=== PATIENT | male | born 1940 | race Caucasian/White ===

== ENCOUNTER 2016-07-24 16:51 | Observation (INO) | payer MEDICARE ==
[~2016-07-24] VITALS: Ht 180.3 cm; Wt 118.0 kg
[~2016-07-24 16:51] MED LIST: ATOR40TA PO; CARV12.52 PO; DUONI NEB; FOLI1 PO; FURO40TA PO; LEVA750T PO; OXYC5 PO; POLY119S PO; PRED10 PO; SERT-129 PO; SPIR25TA PO; SYNT175T; TAB-TAB PO; WARF-20; Z.0.WHEELSTD
[2016-07-24 17:18] VITALS: BP 129/79; TEMP 96.7; O2SAT 96
[2016-07-24] MEDS ORDERED: MIRA3350 PO (18:14)
[2016-07-24] MEDS ORDERED: LEVO.2 PO (18:16)
[2016-07-24] MEDS ORDERED: SPIR25TA PO (18:16)
[2016-07-24] MEDS ORDERED: COUM4TAB PO (18:16)
[2016-07-24] MEDS ORDERED: ATOR40TA16 PO (18:16)
[2016-07-24] MEDS ORDERED: SERT-129 PO (18:16)
[2016-07-24] MEDS ORDERED: FURO40TA PO (18:16)
[2016-07-24] MEDS ORDERED: FOLI1TAB4 PO (18:18)
[2016-07-24] MEDS ORDERED: CARV12.52 PO (18:18)
[2016-07-24] MEDS ORDERED: ASPIRIN 81 MG CHEW TAB PO ONE (18:30)
[2016-07-24] MEDS ORDERED: SODIUM CHLORIDE 0.9% FLUSH 5 ML FLUSH IVF PRN ×2 (18:30→20:00)
--- NOTE | 2016-07-24 18:33 | PD ---
HPI Chief Complaint: Chest Pain Time Seen by Provider: 18:12 Travel History International Travel<30 days: No Contact w/Intl Traveler<30days: No Traveled to known affect area: No History of Present Illness HPI The patient is a 76-year-old male who presents emergency department via EMS for chest pain. The patient was sitting in a chair, his [place], working when he developed substernal chest pain. The chest pain was substernal , pressure, described as "heaviness ", nonradiating, associated with mild shortness of breath. The patient denied any nausea, vomiting, or diaphoresis. The patient states he called EMS and when they arrived, they gave him nitroglycerin, which brought his pain from a 610 to a /10. The patient states his pain is now resolved. The patient does have a history of hypertension, hyperlipidemia, DVT, and pulmonary embolism. The patient quit smoking in 1978. The patient denies any known history of coronary artery disease and thinks he may of had a cardiac catheterization somewhere between 5- 10 years ago. The patient's primary physician is Dr. Telles and his sheet metal welder is Dr. Kennedy. The patient is currently on Coumadin for his history of DVT. Patient does not take aspirin daily. The symptoms are moderate , no known exacerbating factors, but alleviated with nitroglycerin sublingual. The patient also states he recently finished a course of antibiotics and Medrol Dosepak for bronchitis. PFSH Past Medical History Hx Anticoagulant Therapy: Yes Arthritis: Yes Asthma: No Atrial Fibrillation: Yes Blood Disorders: No Anxiety: Yes Depression: No (HX OF) Heart Rhythm Problems: Yes (irregular heartbeat, a.FIB) Cancer: No Cardiovascular Problems: Yes High Cholesterol: Yes Chemotherapy: No Chest Pain: No Congestive Heart Failure: Yes COPD: Yes Cerebrovascular Accident: Yes (1995) Diabetes: No Diminished Hearing: No Deep Vein Thrombosis: Yes Endocrine: Yes Gastrointestinal Disorders: Yes GERD: No Genitourinary: Yes (HEMATURIA POST TURP 12/2011) Hepatitis: No Hiatal Hernia: No Hypertension: Yes Immune Disorder: No Implanted Vascular Access Dvce: No Medical other: Yes (HX STROKE) Musculoskeletal: Yes Neurologic: Yes (CVA 1995 LEFT SIDE WEAKNESS) Psychiatric: No Reproductive: No Respiratory: Yes Migraines: No Radiation Therapy: No Seizures: No Sleep Apnea: Yes (DOES NOT WEAR CPAP) Thyroid Disease: Yes (parts have been removed) Ulcer: No PNEUMOCCOCAL Vaccine (Year): 1 Past Surgical History Abdominal Surgery: Yes (INGUINAL HERNIA REPAIR) AICD: No Cardiac Surgery: Yes (VENOUS STRIPPING) Endocrine Surgery: Yes (THYROID X 2) Eye Surgery: Yes (CATARACTS) Genitourinary Surgery: Yes (TURP) Hysterectomy: No Neurologic Surgery: No Pacemaker: No Thoracic Surgery: Yes (RIGHT LUNG LOBECTOMY - BENIGN TUMOR) Other Surgery: Yes (THYROID SX) Social History Alcohol Use: Yes (daily 1 liquor drink) Tobacco Use: No Substance Use: No Allergies-Medications (Allergen,Severity, Reaction): Coded Allergies: *MDRO Multi-Drug Resistant Organism (Verified Adverse Reaction, Unknown, 03/30/16) MRSA (leg wound) - 03/2012 Reported Meds & Prescriptions Reported Meds & Active Scripts Active Reported Folate (Folic Acid) 1 Mg Tab 1 Mg PO DAILY Carvedilol 12.5 Mg Tab 12.5 Mg PO BID Coumadin (Warfarin) 4 Mg Tab 4.5 Mg PO DAILY Spironolactone 25 Mg Tab 25 Mg PO DAILY Synthroid (Levothyroxine Sodium) 200 Mcg Tab 200 Mcg PO DAILY Furosemide 40 Mg Tab 40 Mg PO DAILY Atorvastatin (Atorvastatin Calcium) 40 Mg Tab 40 Mg PO HS Sertraline (Sertraline HCl) 100 Mg Tab 100 Mg PO DAILY Miralax (Polyethylene Glycol 3350) 1 Pow Pow 1 Cap PO DAILY Review of Systems Except as stated in HPI: all other systems reviewed are Neg General / Constitutional: No: Fever HENT: No: Lightheadedness Cardiovascular: Positive: Chest Pain or Discomfort, Irregular Rhythm, No: Tachycardia, Diaphoresis, Dyspnea on exertion Respiratory: Positive: Shortness of Breath Gastrointestinal: No: Nausea, Vomiting, Abdominal Pain Musculoskeletal: No: Edema Physical Exam Narrative GENERAL: Awake, alert, pleasant 76-year-old male who appears his stated age and is in no acute respiratory distress. SKIN: Warm and dry. HEAD: Atraumatic. Normocephalic. EYES: Pupils equal and round. No scleral icterus. No injection or drainage. ENT: No nasal bleeding or discharge. Mucous membranes pink and moist. NECK: Trachea midline. No JVD. CARDIOVASCULAR: Irregularly irregular with a heart rate in the 90s. No audible murmur. RESPIRATORY: No accessory muscle use. Scattered bilateral rhonchi. GASTROINTESTINAL: Abdomen soft, non-tender, nondistended. No rebound tenderness. MUSCULOSKELETAL: Bilateral lower extremity chronic venous stasis with superficial varicosities. Dorsalis pedal pulses intact bilaterally. NEUROLOGICAL: Awake and alert. No obvious cranial nerve deficits. Motor grossly within normal limits. Normal speech. PSYCHIATRIC: Appropriate mood and affect; insight and judgment normal. Data Data Last Documented VS Vital Signs Date Time Temp Pulse Resp B/P Pulse Ox O2 Delivery O2 Flow Rate FiO2 07/24/16 19:03 18 97 Room Air 07/24/16 19:01 85 07/24/16 19:00 131/86 07/24/16 17:18 96.7 Orders Electrocardiogram (07/24/16 ) Ckmb (Isoenzyme) Profile (07/24/16 18:21) Complete Blood Count With Diff (07/24/16 18:21) Comprehensive Metabolic Panel (07/24/16 18:21) Magnesium (Mg) (07/24/16 18:21) Prothrombin Time / Inr (Pt) (07/24/16 18:21) Act Partial Throm Time (Ptt) (07/24/16 18:21) Troponin I (07/24/16 18:21) Lipase (07/24/16 18:21) Chest, Single Ap (07/24/16 18:21) Ecg Monitoring (07/24/16 18:21) Bilateral Bp Monitoring (07/24/16 18:21) Iv Access Insert/Monitor (07/24/16 18:21) Oximetry (07/24/16 18:21) Oxygen Administration (07/24/16 18:21) Aspirin Chew (Aspirin Chew) (07/24/16 18:30) Sodium Chloride 0.9% Flush (Ns Flush) (07/24/16 18:30) Labs Laboratory Tests Test 07/24/16 18:28 White Blood Count 9.1 TH/MM3 Red Blood Count 4.81 MIL/MM3 Hemoglobin 15.3 GM/DL Hematocrit 45.1 % Mean Corpuscular Volume 93.7 FL Mean Corpuscular Hemoglobin 31.7 PG Mean Corpuscular Hemoglobin 33.9 % Concent Red Cell Distribution Width 15.2 % Platelet Count 186 TH/MM3 Mean Platelet Volume 7.6 FL Neutrophils (%) (Auto) 70.1 % Lymphocytes (%) (Auto) 19.4 % Monocytes (%) (Auto) 9.3 % Eosinophils (%) (Auto) 0.6 % Basophils (%) (Auto) 0.6 % Neutrophils # (Auto) 6.4 TH/MM3 Lymphocytes # (Auto) 1.8 TH/MM3 Monocytes # (Auto) 0.8 TH/MM3 Eosinophils # (Auto) 0.1 TH/MM3 Basophils # (Auto) 0.1 TH/MM3 CBC Comment AUTO DIFF Prothrombin Time 40.6 SEC Prothromb Time International 3.5 RATIO Ratio Activated Partial 37.1 SEC Thromboplast Time [facility] Medical Decision Making Medical Screen Exam Complete: Yes Emergency Medical Condition: Yes Medical Record Reviewed: Yes Interpretation(s) EKG reveals atrial fibrillation with a rate in 93. Q wave noted in lead 3 and aVF. S1Q3T3 noted. Laboratory Tests Test 07/24/16 18:28 White Blood Count 9.1 TH/MM3 Red Blood Count 4.81 MIL/MM3 Hemoglobin 15.3 GM/DL Hematocrit 45.1 % Mean Corpuscular Volume 93.7 FL Mean Corpuscular Hemoglobin 31.7 PG Mean Corpuscular Hemoglobin 33.9 % Concent Red Cell Distribution Width 15.2 % Platelet Count 186 TH/MM3 Mean Platelet Volume 7.6 FL Neutrophils (%) (Auto) 70.1 % Lymphocytes (%) (Auto) 19.4 % Monocytes (%) (Auto) 9.3 % Eosinophils (%) (Auto) 0.6 % Basophils (%) (Auto) 0.6 % Neutrophils # (Auto) 6.4 TH/MM3 Lymphocytes # (Auto) 1.8 TH/MM3 Monocytes # (Auto) 0.8 TH/MM3 Eosinophils # (Auto) 0.1 TH/MM3 Basophils # (Auto) 0.1 TH/MM3 CBC Comment AUTO DIFF Prothrombin Time 40.6 SEC Prothromb Time International 3.5 RATIO Ratio Activated Partial 37.1 SEC Thromboplast Time Chest x-ray reveals slight right lung base atelectasis. Differential Diagnosis Differential diagnosis includes acute coronary syndrome, GERD, esophageal spasm , pancreatitis, pulmonary embolism, pericardial effusion, STEMI. Narrative Course IV was established, labs were drawn and sent, and the patient was placed on cardiac telemetry monitoring and continuous pulse oximetry monitoring. EKG was ordered and interpreted. Chest x-ray was ordered. The patient's pain had resolved with the nitroglycerin sublingual. However, patient was administered aspirin, 162 mg orally. PT/INR was sent to lab. The patient was signed out to the oncoming physician at 7 PM laboratory evaluation a chest x-ray pending. The patient will need 23 observation to the chest pain center if troponin is negative or full admission if troponin is positive with consultation to his sheet metal welder, Dr. Kennedy. Chest x-rays unremarkable. INR 3.5, I doubt pulmonary embolism. The patient was signed out to the oncoming physician at 7 PM with laboratory evaluation pending. The patient will be 23 hour observation/ admission for further evaluation and serial cardiac enzymes. Diagnosis Primary Impression: Chest pain Qualified Code: R07.9 - Chest pain, unspecified type Condition: Stable Abiel Hoffman MD Jul 24, 2016 18:33
[2016-07-24 19:00] VITALS: BP 131/86; PULSE 85; RESP 19; O2SAT 94
[2016-07-24 19:02] LABS: AUTOMATED NEUTROPHIL # 6.4 TH/MM3 (1.8-7.7); BASOPHIL # 0.1 TH/MM3 (0-0.2); BASOPHIL % 0.6 % (0.0-2.0); EOSINOPHIL # 0.1 TH/MM3 (0-0.4); EOSINOPHIL % 0.6 % (0.0-4.0); HEMATOCRIT 45.1 % (39.0-51.0); LYMPH % 19.4 % (9.0-44.0); LYMPHOCYTE # 1.8 TH/MM3 (1.0-4.8); MEAN CELL VOLUME 93.7 FL (80.0-100.0); MEAN CORPUSCULAR HEMOGLOBIN 31.7 PG (27.0-34.0); MEAN CORPUSCULAR HGB CONC 33.9 % (32.0-36.0); MONO % 9.3 % (0.0-8.0); NEUT % 70.1 % (16.0-70.0); PLATELET COUNT 186 TH/MM3 (150-450); RED BLOOD COUNT 4.81 MIL/MM3 (4.50-5.90); RED CELL DISTRIBUTION WIDTH 15.2 % (11.6-17.2); WHITE BLOOD COUNT 9.1 TH/MM3 (4.0-11.0)
[2016-07-24 19:03] VITALS: RESP 18; O2SAT 97
--- NOTE | 2016-07-24 19:04 | RADRPT ---
EXAM DATE/TIME: 07/24/2016 18:45 [facility] COMPARISON: CHEST SINGLE AP, March 24, 2016, 23:50. INDICATIONS : Chest pain. MEDICAL HISTORY : None. SURGICAL HISTORY : None. ENCOUNTER: Initial ACUITY: 1 day PAIN SCORE: 4/10 LOCATION: Chest, midline. FINDINGS: Slight right lung base atelectasis is seen. Heart and mediastinum have not changed. CONCLUSION: Slight right lung base atelectasis. Mart Cho MD on July 24, 2016 at 19:02 Board Certified Radiologist. This report was verified electronically.
[2016-07-24 19:11] LABS: APTT (PATIENT) 37.1 SEC (24.3-30.1); INTERNATIONAL NORMALIZED RATIO 3.5 RATIO; PROTHROMBIN TIME - PATIENT 40.6 SEC (9.8-11.6)
[2016-07-24 19:13] LABS: HEMO FLAGS AUTO DIFF
[2016-07-24 19:47] LABS: ALKALINE PHOSPHATASE 64 U/L (45-117); ALT (GPT) 29 U/L (12-78); ANION GAP 10 MEQ/L (5-15); AST (GOT) 18 U/L (15-37); BICARBONATE 28.4 MEQ/L (21.0-32.0); BLOOD UREA NITROGEN 21 MG/DL (7-18); CHLORIDE 101 MEQ/L (98-107); GLOMERULAR FILTRATION RATE 67 ML/MIN (>89); MAGNESIUM 1.9 MG/DL (1.5-2.5); POTASSIUM 3.9 MEQ/L (3.5-5.1); SODIUM (NA) 139 MEQ/L (136-145); TOTAL BILIRUBIN ADULT 0.8 MG/DL (0.2-1.0)
[2016-07-24 19:51] LABS: CREATINE KINASE 71 U/L (39-308)
[2016-07-24 19:58] LABS: PLATELET ESTIMATE SMEAR NORMAL (NORMAL); PLATELET MORPHOLOGY NORMAL (NORMAL); SCAN/DIFF AUTO DIFF CONFIRMED
[2016-07-24] MEDS ORDERED: CARVEDILOL 12.5 MG TAB PO ONE (20:15)
[2016-07-24] MEDS ORDERED: SERTRALINE HCL 100 MG TAB PO ONE (20:15)
[2016-07-24] MEDS ORDERED: ATORVASTATIN 40 MG TAB PO ONE (20:15)
--- NOTE | 2016-07-24 20:19 | PD ---
Data Data Last Documented VS Vital Signs Date Time Temp Pulse Resp B/P Pulse Ox O2 Delivery O2 Flow Rate FiO2 07/24/16 19:03 18 97 Room Air 07/24/16 19:01 85 07/24/16 19:00 131/86 07/24/16 17:18 96.7 Orders Electrocardiogram (07/24/16 ) Ckmb (Isoenzyme) Profile (07/24/16 18:21) Complete Blood Count With Diff (07/24/16 18:21) Comprehensive Metabolic Panel (07/24/16 18:21) Magnesium (Mg) (07/24/16 18:21) Prothrombin Time / Inr (Pt) (07/24/16 18:21) Act Partial Throm Time (Ptt) (07/24/16 18:21) Troponin I (07/24/16 18:21) Lipase (07/24/16 18:21) Chest, Single Ap (07/24/16 18:21) Ecg Monitoring (07/24/16 18:21) Bilateral Bp Monitoring (07/24/16 18:21) Iv Access Insert/Monitor (07/24/16 18:21) Oximetry (07/24/16 18:21) Oxygen Administration (07/24/16 18:21) Aspirin Chew (Aspirin Chew) (07/24/16 18:30) Sodium Chloride 0.9% Flush (Ns Flush) (07/24/16 18:30) Admit Order (Ed Use Only) (07/24/16 19:54) Labs Laboratory Tests Test 07/24/16 18:28 White Blood Count 9.1 TH/MM3 Red Blood Count 4.81 MIL/MM3 Hemoglobin 15.3 GM/DL Hematocrit 45.1 % Mean Corpuscular Volume 93.7 FL Mean Corpuscular Hemoglobin 31.7 PG Mean Corpuscular Hemoglobin 33.9 % Concent Red Cell Distribution Width 15.2 % Platelet Count 186 TH/MM3 Mean Platelet Volume 7.6 FL Neutrophils (%) (Auto) 70.1 % Lymphocytes (%) (Auto) 19.4 % Monocytes (%) (Auto) 9.3 % Eosinophils (%) (Auto) 0.6 % Basophils (%) (Auto) 0.6 % Neutrophils # (Auto) 6.4 TH/MM3 Lymphocytes # (Auto) 1.8 TH/MM3 Monocytes # (Auto) 0.8 TH/MM3 Eosinophils # (Auto) 0.1 TH/MM3 Basophils # (Auto) 0.1 TH/MM3 CBC Comment AUTO DIFF Differential Comment AUTO DIFF CONFIRMED Platelet Estimate NORMAL Platelet Morphology Comment NORMAL Red Cell Morphology Comment NORMAL Prothrombin Time 40.6 SEC Prothromb Time International 3.5 RATIO Ratio Activated Partial 37.1 SEC Thromboplast Time Sodium Level 139 MEQ/L Potassium Level 3.9 MEQ/L Chloride Level 101 MEQ/L Carbon Dioxide Level 28.4 MEQ/L Anion Gap 10 MEQ/L Blood Urea Nitrogen 21 MG/DL Creatinine 1.08 MG/DL Estimat Glomerular Filtration 67 ML/MIN Rate Random Glucose 80 MG/DL Calcium Level 8.0 MG/DL Magnesium Level 1.9 MG/DL Total Bilirubin 0.8 MG/DL Aspartate Amino Transf 18 U/L (AST/SGOT) Alanine Aminotransferase 29 U/L (ALT/SGPT) Alkaline Phosphatase 64 U/L Total Creatine Kinase 71 U/L Troponin I LESS THAN 0.02 NG/ML Total Protein 6.6 GM/DL Albumin 3.3 GM/DL Lipase 136 U/L MDM Supervised Visit with JULIANA: No Narrative Course Patient signed out to me by previous provider. Please see associated no for further details. In short patient is a 76 year male with history of HTN, HLD, DVT/PE here with substernal chest pain, heaviness with mild to minimal shortness of breath that started at rest. Patient was given aspirin and nitroglycerin with improvement per EMS. No known history of CAD, it has been several years since his last cardiac stress test. EKG with T-wave inversions in 3 and aVF. Patient signed out to me pending laboratory evaluation. Previous provider suspicion for PE was low, symptoms seem atypical for PE. Will await INR to risk stratify. If unremarkable otherwise, admit to chest pain center for cardiac stress testing. Chest x-ray and laboratory workup notable for INR slightly supratherapeutic at 3.5. Patient was recently on azithromycin which is likely what caused his INR to drift up. We will hold his Coumadin tonight. Otherwise patient is pain- free at this time. Patient will be admitted to chest pain center. Night meds were ordered. Diagnosis Primary Impression: Chest pain Qualified Code: R07.9 - Chest pain, unspecified type Condition: Kay Partida MD Jul 24, 2016 20:19
[2016-07-24 20:28] VITALS: BP 141/86; PULSE 78; RESP 19; O2SAT 96
[2016-07-24] MEDS ORDERED: ACETAMINOPHEN 500 MG CPLT PO PRN (21:00)
[2016-07-24] MEDS ORDERED: NITROGLYCERIN 0.4 MG SL 25 TABS/BTL SL PRN (21:00)
[2016-07-24] MEDS ORDERED: ONDANSETRON HCL 4 MG/2 ML VIAL IV PRN (21:00)
[2016-07-24] MEDS: SODIUM CHLORIDE 0.9% FLUSH 5 ML FLUSH IVF SCH (21:20)
[2016-07-24 22:38] LABS: CREATINE KINASE 73 U/L (39-308)
[2016-07-25] VITALS (13 sets, daily range): BP systolic 99–155; BP diastolic 67–94; PULSE 72–105; RESP 18–20; TEMP 96–98.1; O2SAT 95–98
[2016-07-25] MEDS: NITROGLYCERIN 2% OINT 1 GM PACKET TOP SCH ×4 (01:02→18:00)
[2016-07-25 01:25] LABS: CREATINE KINASE 64 U/L (39-308)
[2016-07-25] MEDS ORDERED: REGADENOSON INJ 0.4 MG/5 ML SYR ONE (11:05)
--- NOTE | 2016-07-25 13:06 | RADRPT ---
EXAM DATE/TIME: 07/25/2016 10:39 [facility] COMPARISON: No previous studies available for comparison. INDICATIONS : Susbternal chest pain with dyspnea. Angina. DOSE: 34.9 mCi Tc99m Myoview at stress. 10.8 mCi Tc99m Myoview at rest. 0.4 mg Lexiscan STRESS SYMPTOMS: Shortness of breath. EJECTION FRACTION: 45% MEDICAL HISTORY : Hypertension. Chronic obstructive pulmonary disease. Atrial fibrillation. SURGICAL HISTORY : Hernia repair, lobectomy, cataracts and thyroid surgery. ENCOUNTER: Initial ACUITY: 1 day PAIN SCALE: 6/10 LOCATION: Substernal chest TECHNIQUE: The patient underwent pharmacologic stress with infusion of prescribed dose. Continuous ECG tracing was monitored during stress. Gated SPECT imaging was performed after stress and conventional SPECT i maging was performed at rest. The examination was performed on a SPECT/CT scanner, both attenuation and non-corrected datasets were reviewed. FINDINGS: DISTRIBUTION: The maximum perfused segment at stress is in the anterior wall. PERFUSION STUDY: Small mild area of reversibility within the lateral wall whrer there is a predominantly fixed defect. GATED STUDY: There is global hypokinesia. CONCLUSION: Small area of reversibility with a probably fixed defect lateral wall likely infarct and small mery-i nfarct ischemia. RISK CATEGORY: Intermediate (1-3% Annual Mortality Rate) Jacques Busch MD on July 25, 2016 at 13:02 Board Certified Radiologist. This report was verified electronically.
[2016-07-25] MEDS: SODIUM CHLORIDE 0.9% FLUSH 5 ML FLUSH IVF SCH ×2 (13:19→20:32)
[2016-07-25] MEDS: FUROSEMIDE 40 MG TAB PO SCH (13:19)
[2016-07-25] MEDS: CARVEDILOL 12.5 MG TAB PO SCH ×2 (13:20→20:33)
[2016-07-25] MEDS: SPIRONOLACTONE 25 MG TAB PO SCH (13:20)
[2016-07-25] MEDS: LEVOTHYROXINE SODIUM 200 MCG TAB PO SCH (13:20)
[2016-07-25] MEDS: SERTRALINE HCL 100 MG TAB PO SCH (13:20)
--- NOTE | 2016-07-25 14:28 | TR ---
Date Performed: 07/25/2016 Time Performed: 11:18:11 DOCTOR: Zeus Taveras DRUG LIST: CLINICAL HISTORY: CHEST PAIN REASON FOR TEST: CHEST PAIN REASON FOR ENDING: OBSERVATION: CONCLUSION: Lexiscan stress test was performed under standard four minute protocol. Radionuclide was injected one minute prior to ending the test. Developed shortness of breath. Atrial fibrillation is present throughout the test. No electrocardiographic abnormalities were present to suggest ischem ia. Recovery was quick and uneventful with resolution of shortness of breath. Nuclear imaging and int erpretation are pending. COMMENTS:
[2016-07-25] MEDS: ASPIRIN 325 MG TAB PO SCH ×2 (17:09→17:41)
[2016-07-25] MEDS ORDERED: RESP: ALBUTEROL 2.5 MG/IPRATROPIUM 0.5 MG NEB (PRN) NEB (17:15)
[2016-07-25] MEDS ORDERED: SODIUM CHLORIDE 0.65% NASAL SPRAY 45 ML BTL EACH NARE PRN (17:30)
[2016-07-25] MEDS ORDERED: BENZONATATE 100 MG CAP PO PRN (17:30)
[2016-07-25] MEDS: POLYETHYLENE GLYCOL 17 GM PKG PO SCH (17:39)
[2016-07-25] MEDS: LISINOPRIL 5 MG TAB PO SCH (17:39)
[2016-07-25] MEDS: ATORVASTATIN 40 MG TAB PO SCH (20:33)
[2016-07-26] VITALS (7 sets, daily range): BP systolic 103–126; BP diastolic 57–77; PULSE 71–92; RESP 18–20; TEMP 96.2–98.8; O2SAT 94–98
[2016-07-26] MEDS: NITROGLYCERIN 2% OINT 1 GM PACKET TOP SCH ×4 (01:52→18:00)
[2016-07-26] MEDS: LEVOTHYROXINE SODIUM 200 MCG TAB PO SCH (05:34)
[2016-07-26 05:40] LABS: INTERNATIONAL NORMALIZED RATIO 1.9 RATIO; PROTHROMBIN TIME - PATIENT 22.1 SEC (9.8-11.6)
[2016-07-26] MEDS: SODIUM CHLORIDE 0.9% FLUSH 5 ML FLUSH IVF SCH ×2 (09:43→22:09)
[2016-07-26] MEDS: SPIRONOLACTONE 25 MG TAB PO SCH (09:44)
[2016-07-26] MEDS: SERTRALINE HCL 100 MG TAB PO SCH (09:44)
[2016-07-26] MEDS: POLYETHYLENE GLYCOL 17 GM PKG PO SCH (09:44)
[2016-07-26] MEDS: FUROSEMIDE 40 MG TAB PO SCH (09:44)
[2016-07-26] MEDS: CARVEDILOL 12.5 MG TAB PO SCH ×2 (09:44→21:00)
[2016-07-26] MEDS: FOLIC ACID 1 MG TAB PO SCH (09:44)
[2016-07-26] MEDS: LISINOPRIL 5 MG TAB PO SCH (09:46)
--- NOTE | 2016-07-26 13:06 | EKG ---
Date Performed: 07/24/2016 Time Performed: 21:27:42 PTAGE: 76 years EKG: ATRIAL FIBRILLATION INFERIOR MYOCARDIAL INFARCTION Since previous tracing, no significant c hange noted ABNORMAL ECG PREVIOUS TRACING : 07/24/2016 17.59 DOCTOR: Panchito Kennedy Interpretating Date/Time 07/26/2016 13:05:16
--- NOTE | 2016-07-26 13:06 | EKG ---
Date Performed: 07/24/2016 Time Performed: 17:59:14 PTAGE: 76 years EKG: ATRIAL FIBRILLATION INFERIOR MYOCARDIAL INFARCTION Since previous tracing, no significant c hange noted ABNORMAL ECG PREVIOUS TRACING : 06/23/2012 19.28 DOCTOR: Panchito Kennedy Interpretating Date/Time 07/26/2016 13:05:03
--- NOTE | 2016-07-26 13:06 | EKG ---
Date Performed: 07/25/2016 Time Performed: 00:36:22 PTAGE: 76 years EKG: ATRIAL FIBRILLATION INFERIOR MYOCARDIAL INFARCTION Since previous tracing, no significant c hange noted ABNORMAL ECG PREVIOUS TRACING : 07/24/2016 21.27 DOCTOR: Panchito Kennedy Interpretating Date/Time 07/26/2016 13:05:32
[2016-07-26] MEDS ORDERED: SODIUM CHLOR 0.9% 1000 ML INJ 1,000 ML IV SCH ×2 (13:32→13:34)
--- NOTE | 2016-07-26 13:34 | PD.CONS ---
HPI Service Cardiology physicians Consult Requested By Reason for Consult CP, abnormal stress test Primary Care Physician Samuel Cruz MD History of Present Illness The patient is a 76 year old male with a cardiac history of atrial fibrillation on coumadin, CVA, HLD, diastolic CHF and HTN who presented to the hospital with a sudden onset of midsternal chest tightness that resolved with nitroglycerine and a two week history of increased SOB from baseline. He was being treated by his PCP for bronchitis with azithromycin. His EKG shows old inferior MO. Nuclear stress test is abnormal. Today, on evaluation, he denies CP at rest. He has increased SOB from baseline. INR was 3.5 on admission. Currently 1.9. ( Janell Valdes) Review of Systems Consitutional: DENIES: Fatigue, Fever, Chills, Weight gain, Weight loss Eyes: DENIES: Amaurosis Fugax, Change in vision HEENT: DENIES: Lightheadedness, Change in hearing Respiratory: COMPLAINS OF: Shortness of breath, DENIES: See HPI, Cough, Snoring, Wheezing, Sputum production Cardiovascular: COMPLAINS OF: Chest pain, DENIES: See HPI, Palpitations, Syncope, Tachycardia Gastrointestinal: DENIES: Nausea, Vomiting, Change in bowel habits, Reflux, Bloody stools, Melena Genitourinary: DENIES: Urinary incontinence, Difficulty voiding Integumentary: DENIES: Rash Neurologic: COMPLAINS OF: Poor Balance, DENIES: Tingling or numbness, Memory problems, Stroke symptoms Musculoskeletal: COMPLAINS OF: Back pain, DENIES: Joint pain, Muscle pain, Limited range of motion Psychiatric: DENIES: Anxiety, Depression, Sleep disturbances Hematologic: DENIES: Bruising tendencies, Bleeding tendencies Endocrine: DENIES: Weight gain, Weight loss, Thyroid disease (Janell Valdes ) Past Family Social History Allergies: Coded Allergies: *MDRO Multi-Drug Resistant Organism (Verified Adverse Reaction, Unknown, 03/30/16) MRSA (leg wound) - 03/2012 Past Medical History See HPI Past Surgical History Hernia repair TURP Thyroid surgery Lung surgery Reported Medications Reviewed Active Ordered Medications Current Medications Medications (Trade) Dose Ordered Sig/Fanny Route Start Time Stop Time Status Last Admin (NS Flush) 2 ml UNSCH PRN IVF 07/24/16 18:30 (NS Flush) 2 ml UNSCH PRN IVF 07/24/16 20:00 (NS Flush) 2 ml BID IVF 07/24/16 21:00 07/26/16 09:43 (Tylenol) 500 mg Q4H PRN PO 07/24/16 21:00 (Zofran Inj) 4 mg Q6H PRN IV 07/24/16 21:00 (Nitroglycerin 2% Oint) 1 inch Q6HR TOP 07/25/16 00:00 07/25/16 01:02 (Nitrostat Sl) 0.4 mg Q5M PRN SL 07/24/16 21:00 (Lipitor) 40 mg HS PO 07/25/16 21:00 07/25/16 20:33 (Coreg) 12.5 mg BID PO 07/25/16 11:00 07/26/16 09:44 (Folate) 1 mg DAILY PO 07/26/16 09:00 07/26/16 09:44 (Lasix) 40 mg DAILY PO 07/25/16 09:45 07/26/16 09:44 (Synthroid) 200 mcg DAILY@06 PO 07/25/16 11:00 07/26/16 05:34 (Zoloft) 100 mg DAILY PO 07/25/16 11:00 07/26/16 09:44 (Aldactone) 25 mg DAILY PO 07/25/16 11:00 07/26/16 09:44 (Aspirin) 325 mg DAILY PO 07/25/16 14:30 07/25/16 17:09 (Miralax) 17 gm DAILY PO 07/25/16 17:15 07/26/16 09:44 (Prinivil) 5 mg DAILY PO 07/25/16 17:15 07/26/16 09:46 (Tessalon) 100 mg TID PRN PO 07/25/16 17:30 ([place]) 2 spray Q4H PRN EACH NARE 07/25/16 17:30 Family History non contributory Social History Drinks two drinks per day (Janell Valdes) Physical Exam Vital Signs Vital Signs Date Time Temp Pulse Resp B/P Pulse Ox O2 Delivery O2 Flow Rate FiO2 07/26/16 11:45 96.7 71 18 103/57 94 07/26/16 08:07 96.3 77 18 126/77 95 07/26/16 08:00 75 07/26/16 04:28 98.6 79 20 116/77 95 07/25/16 23:51 98.0 89 20 117/69 98 07/25/16 20:00 97.8 90 20 99/67 96 07/25/16 20:00 105 07/25/16 19:45 96 07/25/16 16:49 96.4 100 18 155/81 96 Physical Exam GENERAL: Middle aged male, ambulating in his room, ambulated with cane SKIN: Warm and dry. HEAD: Atraumatic. Normocephalic. EYES: Pupils equal and round. No scleral icterus. No injection or drainage. ENT: No nasal bleeding or discharge. Mucous membranes pink and moist. NECK: Trachea midline. CARDIOVASCULAR: Regular rate and rhythm. RESPIRATORY: No accessory muscle use. Clear to auscultation. Breath sounds equal bilaterally. GASTROINTESTINAL: Abdomen soft, non-tender, nondistended. MUSCULOSKELETAL: Extremities without clubbing, cyanosis, or edema. No obvious deformities. NEUROLOGICAL: Awake and alert. No obvious cranial nerve deficits. Motor grossly within normal limits. Five out of 5 muscle strength in the arms and legs. Normal speech. PSYCHIATRIC: Appropriate mood and affect; insight and judgment normal. Laboratory Laboratory Tests Test 07/26/16 04:50 Prothrombin Time 22.1 Prothromb Time International 1.9 Ratio (Janell Valdes) Result Diagram: 07/24/16182707/24/161827 Imaging Last 72 hours Impressions Myocardial Perfusion Scan Nuc Med 07/25/16 0000 Signed Impressions: Service Date/Time: Monday, July 25, 2016 10:39 - CONCLUSION: Small area of reversibility with a probably fixed defect lateral wall likely infarct and small mery-infarct ischemia. RISK CATEGORY: Intermediate (1-3%% Annual Mortality Rate) Jacques Busch MD Chest X-Ray 07/24/161820 Signed Impressions: Service Date/Time: Sunday, July 24, 2016 18:45 - CONCLUSION: Slight right lung base atelectasis. Mart Cho MD (Janell Valdes) Assessment and Plan Assessment and Plan ASSESSMENT Chest pain- abnormal cardiac stress test. Pending cardiac cath Atrial fibrillation with history of CVA- on coumadin prior to admission. INR 1.9 today. Chronic diastolic CHF HTN HLD Obesity Bronchitis PLAN Will plan to complete cardiac cath tomorrow afternoon. Hold NPO tonight. Continue to hold coumadin. Check cardiac echo Continue BB, ASA and statin Nitro PRN for chest pain Patient seen and evaluated by Dr kennedy. (Janell Valdes) Assessment and Plan The exam, history, and the medical decision-making described in the above note were completed with the assistance of the mid-level provider. I reviewed and agree with the findings presented. I attest that I had a [id number] encounter with the patient on the same day, and personally performed and documented my assessment and findings in the medical record.Risks of cath stent cva foreseen and unforeseen complications reviewed in detail pt appears to understand, will proceed in am. HJ (Panchito Kennedy MD) Janell Valdes Jul 26, 2016 13:34 Panchito Kennedy MD Jul 28, 2016 15:01
[2016-07-26] MEDS ORDERED: diphenhydrAMINE HCL 50 MG CAP PO SCH (13:45)
[2016-07-26] MEDS ORDERED: ASPIRIN 325 MG TAB PO SCH ×2 (13:45)
[2016-07-26] MEDS ORDERED: diphenhydrAMINE HCL 50 MG/ML VIAL IV SCH (13:45)
[2016-07-26] MEDS ORDERED: DIAZEPAM 5 MG TAB PO SCH (13:45)
[2016-07-26] MEDS ORDERED: MIDAZOLAM HCL 2 MG/2 ML VIAL IV SCH (13:45)
--- NOTE | 2016-07-26 15:07 | HHI.PR ---
Subjective Remarks Patient eating soup, resting in bed, no chest pain no short of breath, no fever or chills or lightheaded or headache or dizziness Seen by cardiology, stress test is done plan for heart catheter tomorrow Objective Vitals Vital Signs Date Time Temp Pulse Resp B/P Pulse Ox O2 Delivery O2 Flow Rate FiO2 07/26/16 11:45 96.7 71 18 103/57 94 07/26/16 08:07 96.3 77 18 126/77 95 07/26/16 08:00 75 07/26/16 04:28 98.6 79 20 116/77 95 07/25/16 23:51 98.0 89 20 117/69 98 07/25/16 20:00 97.8 90 20 99/67 96 07/25/16 20:00 105 07/25/16 19:45 96 07/25/16 16:49 96.4 100 18 155/81 96 Result Diagram: 07/24/16182707/24/161827 Objective Remarks GENERAL: This is a well-nourished, well-developed patient, in no apparent distress. SKIN: No rashes, warm and dry HEAD: Atraumatic. Normocephalic. EYES: Pupils equal round and reactive. Extraocular motions intact. No scleral icterus. ENT: Nose without bleeding, or drainage, Airway patent. NECK: Trachea midline. Supple CARDIOVASCULAR: Regular rate and rhythm without murmurs, gallops, or rubs. RESPIRATORY: Fair air entry bilaterally. No wheezes, rales, or rhonchi. GASTROINTESTINAL: Abdomen soft, non-tender, nondistended. Positive bowel sounds MUSCULOSKELETAL: Extremities without clubbing, cyanosis, or edema. Pedal pulses appreciated NEUROLOGICAL: Awake and alert. Moves all extremity. Normal speech.no focal neurological deficit Procedures Nuclear Stress test A/P Assessment and Plan Chest pain rule out ACS History of COPD History of recent pneumonia History of A. fib heart rate control Hypertension Hyperlipidemia Hypothyroidism DVT prophylaxis Plan: Cardiology following status post positive stress test nuclear, plan for heart catheter tomorrow Resume home meds rec for the rest of the medical problem O2 DuoNeb as needed for short of breath Vasotec and clonidine as needed for blood pressure above 160/90 SCD and heparin for DVT prophylaxis Moncho Avelar MD Jul 26, 2016 15:07
[2016-07-26] MEDS: ATORVASTATIN 40 MG TAB PO SCH (22:08)
[2016-07-27 00:11] VITALS: BP 109/65; PULSE 88; RESP 18; TEMP 98; O2SAT 98
[2016-07-27 03:18] VITALS: BP 113/71; PULSE 77; RESP 21; TEMP 98; O2SAT 98
[2016-07-27 04:32] LABS: AUTOMATED NEUTROPHIL # 7.9 TH/MM3 (1.8-7.7); BASOPHIL # 0.1 TH/MM3 (0-0.2); BASOPHIL % 0.7 % (0.0-2.0); EOSINOPHIL # 0.2 TH/MM3 (0-0.4); EOSINOPHIL % 1.6 % (0.0-4.0); HEMATOCRIT 48.6 % (39.0-51.0); LYMPH % 15.8 % (9.0-44.0); LYMPHOCYTE # 1.7 TH/MM3 (1.0-4.8); MEAN CELL VOLUME 93.7 FL (80.0-100.0); MEAN CORPUSCULAR HEMOGLOBIN 32.1 PG (27.0-34.0); MEAN CORPUSCULAR HGB CONC 34.3 % (32.0-36.0); MONO % 7.6 % (0.0-8.0); NEUT % 74.3 % (16.0-70.0); PLATELET COUNT 173 TH/MM3 (150-450); RED BLOOD COUNT 5.18 MIL/MM3 (4.50-5.90); RED CELL DISTRIBUTION WIDTH 15.2 % (11.6-17.2); WHITE BLOOD COUNT 10.6 TH/MM3 (4.0-11.0)
[2016-07-27 04:46] LABS: INTERNATIONAL NORMALIZED RATIO 1.7 RATIO; PROTHROMBIN TIME - PATIENT 19.6 SEC (9.8-11.6)
[2016-07-27 04:50] LABS: HEMO FLAGS AUTO DIFF
[2016-07-27 05:08] LABS: BICARBONATE 31.4 MEQ/L (21.0-32.0)
[2016-07-27] MEDS: NITROGLYCERIN 2% OINT 1 GM PACKET TOP SCH ×3 (05:45→11:54)
[2016-07-27] MEDS: LEVOTHYROXINE SODIUM 200 MCG TAB PO SCH (05:57)
[2016-07-27 07:59] LABS: METAMYELOCYTES 1 % (0-1); MYELOCYTES 1 % (0-0); NEUTROPHIL # MANUAL DIFF 8.2 TH/MM3 (1.8-7.7); PLATELET ESTIMATE SMEAR NORMAL (NORMAL); PLATELET MORPHOLOGY NORMAL (NORMAL); POLYS (SEG NEUTROPHILS) 75 % (16-70); SCAN/DIFF FINAL DIFF MANUAL; WBC DIFF SAMPLE 100
[2016-07-27 08:00] VITALS: BP 107/65; PULSE 78; RESP 18; TEMP 95.8; O2SAT 96
[2016-07-27] MEDS: SERTRALINE HCL 100 MG TAB PO SCH (08:51)
[2016-07-27] MEDS: ASPIRIN 325 MG TAB PO SCH (08:51)
[2016-07-27] MEDS: FOLIC ACID 1 MG TAB PO SCH (08:51)
[2016-07-27] MEDS: CARVEDILOL 12.5 MG TAB PO SCH (08:52)
[2016-07-27] MEDS: LISINOPRIL 5 MG TAB PO SCH (08:52)
[2016-07-27] MEDS: SODIUM CHLORIDE 0.9% FLUSH 5 ML FLUSH IVF SCH (08:54)
[2016-07-27] MEDS: POLYETHYLENE GLYCOL 17 GM PKG PO SCH (08:54)
[2016-07-27] MEDS ORDERED: PHYTONADIONE 10 MG/ML VIAL SQ ONE (10:15)
--- NOTE | 2016-07-27 12:14 | HHI.PR ---
Subjective Remarks Patient seen and examined in his room prior to go to heart catheter Denied chest pain short of breath headache or lightheaded Objective Vitals Vital Signs Date Time Temp Pulse Resp B/P Pulse Ox O2 Delivery O2 Flow Rate FiO2 07/27/16 08:00 78 07/27/16 08:00 95.8 78 18 107/65 96 07/27/16 03:18 98.0 77 21 113/71 98 07/27/16 00:11 98.0 88 18 109/65 98 07/26/16 22:00 92 07/26/16 20:35 98.8 82 18 106/71 98 07/26/16 16:02 96.2 82 20 108/75 96 I/O 07/26/16 07/26/16 07/26/16 07/27/16 07/27/16 07/27/16 07:00 15:00 23:00 07:00 15:00 23:00 Intake Total 240 ml 120 ml Balance 240 ml 120 ml Intake Oral 240 ml IV Total 120 ml # Voids 2 3 2 2 # Bowel Movements 1 Result Diagram: 07/27/16 0414 07/27/16 0414 Objective Remarks GENERAL: This is a well-nourished, well-developed patient, in no apparent distress. SKIN: No rashes, warm and dry HEAD: Atraumatic. Normocephalic. EYES: Pupils equal round and reactive. Extraocular motions intact. No scleral icterus. ENT: Nose without bleeding, or drainage, Airway patent. NECK: Trachea midline. Supple CARDIOVASCULAR: Regular rate and rhythm without murmurs, gallops, or rubs. RESPIRATORY: Fair air entry bilaterally. No wheezes, rales, or rhonchi. GASTROINTESTINAL: Abdomen soft, non-tender, nondistended. Positive bowel sounds MUSCULOSKELETAL: Extremities without clubbing, cyanosis, or edema. Pedal pulses appreciated NEUROLOGICAL: Awake and alert. Moves all extremity. Normal speech.no focal neurological deficit Procedures Nuclear Stress test A/P Assessment and Plan Chest pain rule out ACS History of COPD History of recent pneumonia History of A. fib heart rate control Hypertension Hyperlipidemia Hypothyroidism DVT prophylaxis Plan: Cardiology following status post positive stress test nuclear, patient living room now to go for heart catheter 10/24/16 Resume home meds rec for the rest of the medical problem O2 DuoNeb as needed for short of breath Vasotec and clonidine as needed for blood pressure above 160/90 SCD and heparin for DVT prophylaxis Discharge Planning Discharge patient to home Condition on discharge: Improved healthy heart Diet as tolerated Ad Марина activity Rx written:see med rec Follow-up with primary care physician in 1 wek , cardiology as directed Moncho Avelar MD Jul 27, 2016 12:13
--- NOTE | 2016-07-27 12:16 | MH ---
cc: YANNI FUENTES DATE OF ADMISSION: 07/24/2016 DATE OF : 1940 CHIEF COMPLAINT Chest pain. HISTORY OF PRESENT ILLNESS This is a [id number]-[id number]-male with a history of atrial fibrillation that presents to the ED with a complaint of chest comfort. He states that while he was in his garage he developed a discomfort in the center of his chest. He states he was doing nothing strenuous. He states it was a tightness. It was a 5/10. He states he called [facility] and they were there and treating him within 20 minutes. He states that he was given nitroglycerin sublingual spray and within three minutes after that the discomfort resolved. He was short of breath. No nausea or diaphoresis. He also states he has had a cough that is essentially almost resolved but had been coughing for about three weeks. He was producing yellow mucus. His primary care physician Dr. Cruz prescribed him a Z-Hemanth. He states it is essentially almost gone. PAST MEDICAL HISTORY 1. A-fib, diagnosed more than five years ago. He is on warfarin for this. 2. CVA in 1994. 3. Hypertension. 4. Hyperlipidemia. Denies diabetes. Really unknown history of CAD. He states he had a heart catheterization about five years ago with Dr. Kennedy but really does not know the results but knows he was not stented and has never had a bypass. FAMILY HISTORY His father had an [place] at 45. SOCIAL HISTORY He quit smoking in 1978, prior to that he smoked about a pack a day of cigarettes for 20 years. He has on average a cocktail a night. He has been 55 years. Denies illicit drugs. PAST SURGICAL HISTORY 1. Heart catheterization without intervention. 2. Right lower lung mass removed that was benign. 3. Inguinal hernia repair. 4. Thyroid cancer x2 for benign areas. 5. Transurethral resection of the prostate. ALLERGIES DENIES KNOWN DRUG ALLERGIES. HE HAS A HISTORY OF MRSA. CURRENT MEDICATIONS 1. Warfarin 4.5 mg daily. 2. Sertraline 100 mg daily. 3. Carvedilol 12.5 mg twice daily. 4. MiraLax daily. 5. Atorvastatin 40 mg daily. 6. Lasix 40 mg daily. 7. Spironolactone 25 mg daily. 8. Synthroid 200 mcg daily. 9. Folic acid 1 mg daily. REVIEW OF SYSTEMS GENERAL: Denies fevers or chills. Denies recent illnesses. HEENT: Denies headache, earache, sore throat, difficulty swallowing. CARDIOVASCULAR: Describes the discomfort as mentioned above. Denies diaphoresis. Denies sensation of heart beating rapidly or irregularly. Denies syncope. RESPIRATORY: He was short of breath. No inspirational chest discomfort. Denies coughing, wheezing or hemoptysis. GASTROINTESTINAL: Denies nausea, vomiting, diarrhea, abdominal pain or blood in the stool. MUSCULOSKELETAL: Denies joint pain or edema. Denies calf pain or edema. NEUROVASCULAR: Denies headache or dizziness. ENDOCRINE: Denies polyuria or polydipsia. HEMATOLOGIC: Denies easy bruising. SKIN: Denies rash or itching. PHYSICAL EXAMINATION VITAL SIGNS: Vital signs in emergency department initially included a blood pressure of 129/79, heart rate was 83, respiration was 18, pulse oximetry 96% on room air, and he was afebrile. Most recent vital signs include a blood pressure of 147/94, heart rate was 85, respiration was 18, pulse oximetry 95% on room air, and he was afebrile. GENERAL: The patient seen in the examination room in no apparent stress. He is very pleasant. He speaks in clear and complete sentences. HEENT: Head is atraumatic and normocephalic. NECK: The neck is supple without lymphadenopathy and trachea is midline. No JVD or carotid bruits. CARDIOVASCULAR: Irregularly irregular rate and rhythm without murmur, gallop or rub. RESPIRATORY: The lungs are clear to auscultation bilaterally. No wheezing, rales or rhonchi. No reproducible chest wall discomfort. No use of accessory muscles. GASTROINTESTINAL: Abdomen is nontender, nondistended and bowel sounds are normal. No guarding or rebound. No obvious pulsatile mass or bruit. No CVA tenderness. Strong femoral pulses bilaterally. MUSCULOSKELETAL: The patient is moving upper and lower extremities freely. No joint tenderness or edema. No calf tenderness or edema, no Hussein's sign. Strong pulses in upper and lower extremities. NEUROVASCULAR: The patient is alert and oriented. Cranial nerves II through XII are grossly intact. No focal deficits and speech is clear. SKIN: No rashes and turgor is normal. LABORATORY DATA CBC is unremarkable. Coagulation studies have an INR elevated at 3.5. Complete metabolic panel essentially unremarkable. Serial cardiac enzymes normal x3. Lipase normal at 136. IMAGING Single view chest x-ray read by radiologist as slight right lung base atelectasis. EKGs have atrial fibrillation, rate is controlled. No significant ST-segment depression or elevation. ASSESSMENT 1. Chest pain: The patient had serial cardiac enzymes and EKGs for ruling out purposes. He will be seen by Dr. Fu[facility]. He will undergo a Lexiscan myocardial perfusion stress test, and if that were to be nonischemic he will be discharged home with instructions to followup with his local primary physician as well as his toy designer Dr. Kennedy. If abnormal, we will address at that time. 2. Chronic atrial fibrillation: Continue current medication. We will hold his warfarin, he is on 4.5, and we will resume it likely either tomorrow or the next day and have followup with his physician to monitor this. 3. Hypertension: Continue current medication. 4. Hyperlipidemia: Continue medication. 5. Hypothyroidism: We will get a TSH but resume his medication at this time. The patient is stable at this time. The patient agreeable to this plan. Dictated by: Yanni Fuentes MD Yanni Fuentes MD [facility] /10:46 AM /12:16 PM
[2016-07-27] MEDS ORDERED: HEPARIN-NS/PF INJ 500 ML ONE (12:22)
[2016-07-27] MEDS ORDERED: MIDAZOLAM HCL 2 MG/2 ML VIAL ONE (12:22)
[2016-07-27] MEDS ORDERED: IODIXANOL 320 MG/ML 100 ML VIAL (for Cath Lab) OTHER ONE (14:16)
[2016-07-27] MEDS ORDERED: Spironolactone PO (14:43)
[2016-07-27] MEDS ORDERED: ASPI325T PO (14:43)
[2016-07-27] MEDS ORDERED: LISI-519 PO (14:43)
--- NOTE | 2016-07-27 14:47 | HHI.DS ---
Discharge Summary Admission Date Jul 24, 2016 at 19:55 Discharge Date: Jul 27, 2016 Admitting Diagnosis chest pain (1) Chest pain ICD Code: R07.9 (2) Atrial fibrillation ICD Code: I48.91 Procedures Nuclear Stress test Brief History - From Admission stress test & L heart cath CBC/BMP: 07/27/16 0414 07/27/16 0414 Significant Findings Laboratory Tests Test 07/24/16 07/24/16 07/25/16 07/26/16 18:28 21:30 00:40 04:50 Neutrophils (%) (Auto) 70.1 % (16.0-70.0) Monocytes (%) (Auto) 9.3 % (0.0-8.0) Prothrombin Time 40.6 SEC 22.1 SEC (9.8-11.6) (9.8-11.6) Activated Partial 37.1 SEC Thromboplast Time (24.3-30.1) Blood Urea Nitrogen 21 MG/DL (7-18) Estimat Glomerular Filtration 67 ML/MIN (>89) Rate Calcium Level 8.0 MG/DL (8.5-10.1) Troponin I LESS THAN 0.02 LESS THAN 0.02 LESS THAN 0.02 NG/ML NG/ML NG/ML (0.02-0.05) (0.02-0.05) (0.02-0.05) Albumin 3.3 GM/DL (3.4-5.0) Test 07/27/16 04:14 Neutrophils (%) (Auto) 74.3 % (16.0-70.0) Neutrophils # (Auto) 7.9 TH/MM3 (1.8-7.7) Neutrophils % (Manual) 75 % (16-70) Neutrophils # (Manual) 8.2 TH/MM3 (1.8-7.7) Myelocytes 1 % (0-0) Prothrombin Time 19.6 SEC (9.8-11.6) Sodium Level 133 MEQ/L (136-145) Chloride Level 95 MEQ/L (98-107) Blood Urea Nitrogen 37 MG/DL (7-18) Creatinine 1.39 MG/DL (0.60-1.30) Estimat Glomerular Filtration 50 ML/MIN (>89) Rate PE at Discharge GENERAL: This is a well-nourished, well-developed patient, in no apparent distress. SKIN: No rashes, warm and dry HEAD: Atraumatic. Normocephalic. EYES: Pupils equal round and reactive. Extraocular motions intact. No scleral icterus. ENT: Nose without bleeding, or drainage, Airway patent. NECK: Trachea midline. Supple CARDIOVASCULAR: Regular rate and rhythm without murmurs, gallops, or rubs. RESPIRATORY: Fair air entry bilaterally. No wheezes, rales, or rhonchi. GASTROINTESTINAL: Abdomen soft, non-tender, nondistended. Positive bowel sounds MUSCULOSKELETAL: Extremities without clubbing, cyanosis, or edema. Pedal pulses appreciated NEUROLOGICAL: Awake and alert. Moves all extremity. Normal speech.no focal neurological deficit Hospital Course Chest pain rule out ACS History of COPD History of recent pneumonia History of A. fib heart rate control Hypertension Hyperlipidemia Hypothyroidism DVT prophylaxis Plan: Cardiology following status post positive stress test nuclear, s/p heart catheter 10/24/16>>unremarkable , cleared to be discharged this evening Resume home meds rec for the rest of the medical problem, coumadin to be resumed , inr in 2 days and fax to dr Ruthie [facility] office O2 DuoNeb as needed for short of breath Vasotec and clonidine as needed for blood pressure above 160/90 SCD and heparin for DVT prophylaxis Pt Condition on Discharge: Fair Discharge Disposition: Discharge Home Discharge Time: <= 30 minutes Discharge Instructions DIET: Follow Instructions for: Heart Healthy Diet Activities you can perform: Weight Bearing as Sharee New Orders: PT/INR - 2-3 Days New Medications: Aspirin (Aspirin) 325 Mg Tab 325 MG PO DAILY cad #30 TAB Lisinopril (Lisinopril) 5 Mg Tab 5 MG PO DAILY htn #30 TAB ([Spironolactone]) 25 MG TAB 12.5 MG PO DAILY chf #30 TAB Continued Medications: Atorvastatin (Atorvastatin) 40 Mg Tab 40 MG PO HS Cholesterol Management #30 Ref 0 TAB Carvedilol (Carvedilol) 12.5 Mg Tab 12.5 MG PO BID #60 Ref 0 TAB Folic Acid (Folate) 1 Mg Tab 1 MG PO DAILY Nutritional Supplement Ref 0 TAB Furosemide (Furosemide) 40 Mg Tab 40 MG PO DAILY #30 Ref 0 TAB Levothyroxine (Synthroid) 200 Mcg Tab 200 MCG PO DAILY Thyroid #30 Ref 0 TAB Sertraline (Sertraline) 100 Mg Tab 100 MG PO DAILY #30 Ref 0 TAB Warfarin (Coumadin) 4 Mg Tab 4.5 MG PO DAILY Prevent Blood Clot #30 Ref 0 TAB Discontinued Medications: Spironolactone (Spironolactone) 25 Mg Tab 25 MG PO DAILY #30 Ref 0 TAB Moncho Avelar MD Jul 27, 2016 14:47
--- NOTE | 2016-07-27 19:02 | EC ---
Study Study Date:07/27/2016 STUDY CONCLUSIONS SUMMARY - Left ventricle: The cavity size was normal. Wall thickness was normal. Systolic function was normal. The estimated ejection fraction was in the range of 60% to 65%. Regional wall motion abnormalities cannot be excluded. - Mitral valve: Mildly calcified annulus. - Left atrium: The atrium was mildly dilated. - Right ventricle: The cavity size was dilated. Wall thickness was normal. - Pulmonary arteries: PA peak pressure: 31mm Hg (S). If LV function is below 40, please consider prescribing an ACEI or ARB or document rationale for non-use. PROCEDURE DATA STUDY STATUS: Elective. Procedure: Transthoracic echocardiography. Image quality was suboptimal. Scanning was performed from the parasternal, apical, and subcostal acoustic windows. Study completion: The patient tolerated the procedure well. Transthoracic echocardiography. M-mode, complete 2D, complete spectral Doppler, and color Doppler. Height: Height: 71in. Weight: Weight: 259.5lb. Body mass index: BMI: 36.3kg/m^2. Body surface area: BSA: 2.36m^2. Patient status: Inpatient. CARDIAC ANATOMY LEFT VENTRICLE: The cavity size was normal. Wall thickness was normal. Systolic function was normal. The estimated ejection fraction was in the range of 60% to 65%. Regional wall motion abnormalities cannot be excluded. AORTIC VALVE: Trileaflet; mildly thickened, mildly calcified leaflets. Doppler: Transvalvular velocity was within the normal range. There was no stenosis. No regurgitation. Mean gradient: 5mm Hg (S). AORTA: Aortic root: The aortic root was normal in size. MITRAL VALVE: Mildly calcified annulus. Doppler: Transvalvular velocity was within the normal range. There was no evidence for stenosis. No regurgitation. LEFT ATRIUM: The atrium was mildly dilated. RIGHT VENTRICLE: The cavity size was dilated. Wall thickness was normal. PULMONIC VALVE: Doppler: Transvalvular velocity was within the normal range. There was no evidence for stenosis. No regurgitation. TRICUSPID VALVE: Structurally normal valve. Doppler: Transvalvular velocity was within the normal range. Trace regurgitation. PULMONARY ARTERY: The main pulmonary artery was normal-sized. Systolic pressure was within the normal range. RIGHT ATRIUM: The atrium was normal in size. PERICARDIUM: There was no pericardial effusion. Patient weight: 259.5lb _Ejection fraction:_ 65-75% _Fractional shortening:_ 32% up to 5Kg 5-11.5Kg 11.6-22.9Kg 23-45Kg 45-57Kg Aortic Root 7-13 <17 13-22 17-27 17-27 LA diam 6-13 <23 24-38 33-47 37-40 RVID 10-17 7-15 7-15 7-18 8-17 LVIDd 12-22 <32 24-38 33-47 37-40 LVPW 2-4 3-6 5-7 6-8 7-8 IVS 2-4 3-6 5-7 6-8 7-8 BASIC MEASUREMENTS ADULT NORMAL Left ventricle LV internal dimension, ED, chordal level, 48.5 mm 43-52 PLAX LV internal dimension, ES, chordal level, 35.8 mm 23-38 PLAX Fractional shortening, chordal level, PLAX *26 % >29 LV posterior wall thickness, ED 9.97 mm IVS/LVPW ratio, ED 1 <1.3 Ventricular septum Septal thickness, ED 9.98 mm Aorta Root diameter, ED 37 mm DOPPLER MEASUREMENTS ADULT NORMAL Main pulmonary artery Pressure, S *31 mm Hg =30 Aortic valve Peak velocity, S 131 cm/s Mean velocity, S 100 cm/s VTI, S 24.7 cm Mean gradient, S 5 mm Hg Mitral valve Peak E-wave velocity 58.7 cm/s Tricuspid valve Regurgitant peak velocity 259 cm/s Peak RV-RA gradient, S 27 mm Hg Maximal regurgitant velocity 259 cm/s Systemic veins Estimated CVP 5 mm Hg Right ventricle RV pressure, S *32 mm Hg <30 Pulmonic valve Peak velocity, S 50.4 cm/s LEGEND: Mean values are shown as u=mean value. Asterisk (*) plasencia values outside specified normal range. Prepared and signed by Santosh Lagos [id number]
--- NOTE | 2016-07-28 17:48 | MP ---
cc: PANCHITO KENNEDY MD Corrected Copy: 08/21/16 DATE OF SURGERY 07/27/16 PROCEDURE EXAMINATION Cardiac catheterization INDICATIONS Continued chest pain. Please see dictated H&P. CONSENT Full informed consent was obtained yesterday. Risks of heart catheterization, , bleeding, myocardial infarction, perforation, aspiration, foreseen and unforeseen complications reviewed. The patient appeared to understand the risks. PROCEDURE IN DETAIL the patient prepped and draped usual maner. Right femoral artery was entered using a micropuncture technique via the 4-Tajik sheath left and coronary catheters were used to intubate the left and right coronaries. Pigtail catheter was used to intubate the left ventricle. Multiple angiographic views were carried out. At the end of the catheterization procedure all catheters, sheaths removed. Manual pressure was applied. Good hemostasis was achieved. The patient returned to his room in satisfactory condition. FINDINGS Artic pressure was 76/52 with a mean of 64. The left ventricular pressure was 17 with a left ventricular end-diastolic pressure 17. There was no evidence of significant gradient on pullback across the LV outflow tract. LEFT VENTRICULOGRAM The overall left ejection fraction was 60%. There was no evidence of significant mitral vegetation or mural thrombus. CORONARIES Left main was long and free of significant dise8. The left anterior descending artery was a large artery with a large first diagonal branch. There was some diffuse calcifications seen in the proximal LAD. Just after the diagonal branch was a 50% LAD stenosis. There was a small intermediate ramus vessel which was free of significant disease. The diagonal branch was large. The circumflex artery was a large vessel with a large first obtuse marginal branch and a very large second obtuse marginal branch. This was a codominant system. The right coronary artery was a large vessel with a large posterior descending artery. In the distal RCA, there was evidence of a 60% stenosis which was eccentric. CONCLUSION Two-vessel coronary artery disease with LAD stenosis of 50% and RCA stenosis of 60%. We will plan to treat the patient medically. The overall left ventricle ejection fraction was normal. Panchito Kennedy MD, FRCP,[facility]/ /1:47 PM /9:04 AM
[2016-11-17] MEDS ORDERED: METO-424 PO (10:30)
== END 2016-07-27 19:30 | disposition home or self-care (01) ==
LOC: NEPE 16:51 → NEDA 19:55 → NEPHCDU 07-25 00:53 → NEPFCDU 07-26 20:47 → HCIS 07-27 13:30
PROVIDERS: ADMIT Internal Medicine Cardiovascular Disease; ATTEND Hospitalist
DX: I25.10 Atherosclerotic heart disease of native coronary artery without angina pectoris (principal); I48.2 Chronic atrial fibrillation; I50.32 Chronic diastolic (congestive) heart failure; I10 Essential (primary) hypertension; I25.2 Old myocardial infarction; J44.9 Chronic obstructive pulmonary disease, unspecified; G47.30 Sleep apnea, unspecified; Z79.01 Long term (current) use of anticoagulants; E03.9 Hypothyroidism, unspecified; E66.9 Obesity, unspecified; E78.5 Hyperlipidemia, unspecified; E78.00 Pure hypercholesterolemia, unspecified; R94.39 Abnormal result of other cardiovascular function study; Z85.850 Personal history of malignant neoplasm of thyroid; Z86.711 Personal history of pulmonary embolism; Z86.718 Personal history of other venous thrombosis and embolism; Z86.73 Personal history of transient ischemic attack (TIA), and cerebral infarction without residual deficits; Z87.01 Personal history of pneumonia (recurrent); Z87.891 Personal history of nicotine dependence
CPT/HCPCS: 71010; 78452; 80048; 80053; 82550; 83690; 83735; 84443; 84484; 85007; 85025; 85027; 85610; 85730; 93005; 93017; 93306; 93458; 94150; 99285; A9502; C1769; C1893; G0378; J1644; J2250; J2785; J3010; J3430; J7030; Q9967

== ENCOUNTER 2016-11-02 14:20 | Observation (INO) | payer MEDICARE ==
[~2016-11-02] VITALS: Ht 177.8 cm; Wt 90.0 kg
[~2016-11-02 14:20] MED LIST changes: +ASPI325T PO; -ATOR40TA PO; +ATOR40TA16 PO; +COUM4TAB PO; -DUONI NEB; -FOLI1 PO; +FOLI1TAB4 PO; -LEVA750T PO; +LEVO.2 PO; +LISI-519 PO; +MIRA3350 PO; -OXYC5 PO; -POLY119S PO; -PRED10 PO; -SPIR25TA PO; -SYNT175T; +Spironolactone PO; -TAB-TAB PO; -WARF-20; -Z.0.WHEELSTD
[2016-11-02 14:52] VITALS: BP 99/54; PULSE 81; RESP 18; TEMP 97.6
[2016-11-02] MEDS ORDERED: SODIUM CHLORIDE 0.9% FLUSH 10 ML FLUSH IVF PRN (15:00)
[2016-11-02] MEDS ORDERED: SODIUM CHLORID 0.9% 500 ML INJ 500 ML IV ONE (15:00)
--- NOTE | 2016-11-02 15:11 | PD ---
HPI Chief Complaint: Syncope/Near-Syncope Time Seen by Provider: 14:59 Travel History International Travel<30 days: No Contact w/Intl Traveler<30days: No Traveled to known affect area: No History of Present Illness HPI 76-year-old male with history of A. fib currently on Coumadin, hypertension, previous stroke, multiple medical issues, had a dental surgery done a few days ago, presents because of 2 days history of lightheadedness, felt like he is going to pass out, dyspnea on exertion. He denies any nausea, vomiting, fevers , black stools, or other symptoms. He states he is actually constipated. He denies any chest pains or abdominal pains. He states that his Coumadin was stopped for the dental surgery and he had recently started Coumadin. His INR today was 1.6. Modifying Factors: None Associated Signs & Symptoms: Dizziness, near syncope, dyspnea on exertion Risk Factors: Elderly, multiple medical issues, recent dental extractions PFSH Past Medical History Hx Anticoagulant Therapy: Yes Arthritis: Yes Asthma: No Atrial Fibrillation: Yes Blood Disorders: No Anxiety: Yes Heart Rhythm Problems: Yes (irregular heartbeat, a.FIB) Cancer: No Cardiovascular Problems: Yes High Cholesterol: Yes Chemotherapy: No Chest Pain: No Congestive Heart Failure: Yes COPD: Yes Cerebrovascular Accident: Yes (1995) Diabetes: No Diminished Hearing: No Deep Vein Thrombosis: Yes Endocrine: Yes Gastrointestinal Disorders: Yes GERD: No Genitourinary: Yes (HEMATURIA POST TURP 12/2011) Hepatitis: No Hiatal Hernia: No Hypertension: Yes Immune Disorder: No Implanted Vascular Access Dvce: No Medical other: Yes (HX STROKE) Musculoskeletal: Yes Neurologic: Yes (CVA 1995 LEFT SIDE WEAKNESS) Psychiatric: No Reproductive: No Respiratory: Yes Migraines: No Radiation Therapy: No Seizures: No Sleep Apnea: Yes (DOES NOT WEAR CPAP) Thyroid Disease: Yes (parts have been removed) Ulcer: No PNEUMOCCOCAL Vaccine (Year): 1 Past Surgical History Abdominal Surgery: Yes (INGUINAL HERNIA REPAIR) AICD: No Cardiac Surgery: Yes (VENOUS STRIPPING) Endocrine Surgery: Yes (THYROID X 2) Eye Surgery: Yes (CATARACTS) Genitourinary Surgery: Yes (TURP) Hysterectomy: No Neurologic Surgery: No Pacemaker: No Thoracic Surgery: Yes (RIGHT LUNG LOBECTOMY - BENIGN TUMOR) Other Surgery: Yes (THYROID SX) Social History Alcohol Use: Yes (daily 1 liquor drink) Tobacco Use: No Substance Use: No Allergies-Medications (Allergen,Severity, Reaction): Coded Allergies: *MDRO Multi-Drug Resistant Organism (Verified Adverse Reaction, Unknown, ) MRSA (leg wound) - 03/2012 Reported Meds & Prescriptions Reported Meds & Active Scripts Active [Spironolactone] 25 MG Tab 12.5 Mg PO DAILY Lisinopril 5 Mg Tab 5 Mg PO DAILY Reported Aspirin 81 Mg Chew 81 Mg CHEW DAILY Folate (Folic Acid) 1 Mg Tab 1 Mg PO DAILY Carvedilol 12.5 Mg Tab 12.5 Mg PO BID Coumadin (Warfarin) 4 Mg Tab 4.5 Mg PO DAILY Synthroid (Levothyroxine Sodium) 200 Mcg Tab 200 Mcg PO DAILY Furosemide 40 Mg Tab 40 Mg PO DAILY Atorvastatin (Atorvastatin Calcium) 40 Mg Tab 40 Mg PO HS Sertraline (Sertraline HCl) 100 Mg Tab 100 Mg PO DAILY Miralax (Polyethylene Glycol 3350) 1 Pow Pow 1 Cap PO DAILY Review of Systems Except as stated in HPI: all other systems reviewed are Neg Physical Exam Narrative GENERAL: Well-developed elderly white male patient currently in mild distress. He is awake, alert, oriented 3. He has notable ecchymosis to the maxillary region of his face. SKIN: Focused skin assessment warm/dry. HEAD: Atraumatic. Normocephalic. EYES: Pupils equal and round. No scleral icterus. No injection or drainage. ENT: No nasal bleeding or discharge. Mucous membranes pink and moist. NECK: Trachea midline. No JVD. CARDIOVASCULAR: Irregularly irregular. No murmur appreciated. RESPIRATORY: No accessory muscle use. Clear to auscultation. Breath sounds equal bilaterally. GASTROINTESTINAL: Abdomen soft, non-tender, nondistended. Hepatic and splenic margins not palpable. MUSCULOSKELETAL: No obvious deformities. No clubbing. No cyanosis. No edema. NEUROLOGICAL: Awake and alert. No obvious cranial nerve deficits. Motor grossly within normal limits. Normal speech. PSYCHIATRIC: Appropriate mood and affect; insight and judgment normal. Data Data Last Documented VS Vital Signs Date Time Temp Pulse Resp B/P Pulse Ox O2 Delivery O2 Flow Rate FiO2 11/02/16 15:04 81 16 Room Air 11/02/16 14:52 97.6 99/54 Orders Electrocardiogram (11/02/16 15:00) Complete Blood Count With Diff (11/02/16 15:00) Comprehensive Metabolic Panel (11/02/16 15:00) Magnesium (Mg) (11/02/16:00) Ckmb (Isoenzyme) Profile (11/02/16:00) Troponin I (11/02/16:00) Act Partial Throm Time (Ptt) (11/02/16:00) Prothrombin Time / Inr (Pt) (11/02/16:00) Urinalysis - C+S If Indicated (11/02/16:00) Chest, Single Ap (11/02/16:00) Ct Brain W/O Iv Contrast(Rout) (11/02/16:00) Ecg Monitoring (11/02/16:) Iv Access Insert/Monitor (11/02/16:00) Oximetry (11/02/16:00) Sodium Chloride 0.9% Flush (Ns Flush) (11/02/16:00) Sodium Chlorid 0.9% 500 Ml Inj (Ns 500 M (11/02/16 15:00) Admit Order (Ed Use Only) (11/02/16 17:54) Labs Laboratory Tests Test 11/02/16 15:00 White Blood Count 13.3 TH/MM3 Red Blood Count 5.04 MIL/MM3 Hemoglobin 15.7 GM/DL Hematocrit 48.3 % Mean Corpuscular Volume 95.9 FL Mean Corpuscular Hemoglobin 31.2 PG Mean Corpuscular Hemoglobin 32.5 % Concent Red Cell Distribution Width 14.1 % Platelet Count 204 TH/MM3 Mean Platelet Volume 7.9 FL Neutrophils (%) (Auto) 84.5 % Lymphocytes (%) (Auto) 7.1 % Monocytes (%) (Auto) 7.4 % Eosinophils (%) (Auto) 0.8 % Basophils (%) (Auto) 0.2 % Neutrophils # (Auto) 11.2 TH/MM3 Lymphocytes # (Auto) 0.9 TH/MM3 Monocytes # (Auto) 1.0 TH/MM3 Eosinophils # (Auto) 0.1 TH/MM3 Basophils # (Auto) 0.0 TH/MM3 CBC Comment AUTO DIFF Differential Comment AUTO DIFF CONFIRMED Prothrombin Time 17.6 SEC Prothromb Time International 1.6 RATIO Ratio Activated Partial 27.1 SEC Thromboplast Time Sodium Level 134 MEQ/L Potassium Level 5.4 MEQ/L Chloride Level 98 MEQ/L Carbon Dioxide Level 29.7 MEQ/L Anion Gap 6 MEQ/L Blood Urea Nitrogen 35 MG/DL Creatinine 1.69 MG/DL Estimat Glomerular Filtration 40 ML/MIN Rate Random Glucose 118 MG/DL Calcium Level 9.1 MG/DL Magnesium Level 2.7 MG/DL Total Bilirubin 1.0 MG/DL Aspartate Amino Transf 19 U/L (AST/SGOT) Alanine Aminotransferase 23 U/L (ALT/SGPT) Alkaline Phosphatase 85 U/L Total Creatine Kinase 51 U/L Troponin I LESS THAN 0.02 NG/ML Total Protein 7.2 GM/DL Albumin 3.5 GM/DL MDM Medical Decision Making Medical Screen Exam Complete: Yes Emergency Medical Condition: Yes Medical Record Reviewed: Yes Interpretation(s) EKG shows A. fib at a rate of 78 bpm with no signs of acute ST-T changes. Laboratory Tests Test 11/02/16 15:00 White Blood Count 13.3 TH/MM3 (4.0-11.0) Neutrophils (%) (Auto) 84.5 % (16.0-70.0) Lymphocytes (%) (Auto) 7.1 % (9.0-44.0) Neutrophils # (Auto) 11.2 TH/MM3 (1.8-7.7) Lymphocytes # (Auto) 0.9 TH/MM3 (1.0-4.8) Monocytes # (Auto) 1.0 TH/MM3 (0-0.9) Prothrombin Time 17.6 SEC (9.8-11.6) Sodium Level 134 MEQ/L (136-145) Potassium Level 5.4 MEQ/L (3.5-5.1) Blood Urea Nitrogen 35 MG/DL (7-18) Creatinine 1.69 MG/DL (0.60-1.30) Estimat Glomerular Filtration 40 ML/MIN (>89) Rate Random Glucose 118 MG/DL (74-106) Magnesium Level 2.7 MG/DL (1.5-2.5) Troponin I LESS THAN 0.02 NG/ML (0.02-0.05) Last [address] 11/02/16 1500 Signed Impressions: Service Date/Time: Wednesday, November 02, 2016 17:09 - CONCLUSION: 1. Stable CT scan of the brain compared to the prior examination. No acute intracranial hemorrhage. 2. Stable arachnoid cyst left temporal cranial fossa. 3. Stable old right temporal/parietal infarct. Adrian Lawson MD Chest X-Ray 11/02/16 1500 Signed Impressions: Service Date/Time: Wednesday, November 02, 2016 15:18 - CONCLUSION: 1. Stable scarring versus atelectasis right lung base. 2. No new or acute pulmonary infiltrates. Adrian Lawson MD Differential Diagnosis Near-syncope, dizziness, dyspnea on exertionpneumonia versus anemia versus metabolic issues versus dysrhythmias versus ACS versus CHF Narrative Course CAT scan did not show any signs of acute intracranial processes. Lab work was otherwise unremarkable for significant metabolic issues although his BUN/ creatinine creatinine is mildly elevated questionable for some dehydration. IV fluids have been given in the ER with improvement in blood pressures. His white blood cell count was mildly elevated. He received IV antibiotics after cultures were drawn as precaution. At this point, my plan would be to admit the patient for further evaluation and observation for near syncope. Case was discussed with Dr. Hurley for admission. Diagnosis Primary Impression: Near syncope Additional Impression: Leukocytosis Admitting Information Admitting Physician Requests: Admit Lebron Ingram MD November 02, 2016 15:11 Lebron Ingram MD November 02, 2016 15:11
--- NOTE | 2016-11-02 15:25 | RADRPT ---
EXAM DATE/TIME: 11/02/2016 15:18 [facility] COMPARISON: CHEST SINGLE AP, July 24, 2016, 18:45. INDICATIONS : Palpitations MEDICAL HISTORY : None. SURGICAL HISTORY : None. ENCOUNTER: Initial ACUITY: 1 day PAIN SCORE: 0/10 LOCATION: Bilateral chest FINDINGS: A single view of the chest demonstrates mild scarring versus atelectasis in the right lung base. Othe rwise, the lungs remain grossly clear. There is mild stable elevation of the right hemidiaphragm. The heart size is enlarged but stable. No definite pleural effusions. No evidence of pulmonary edema. Th e bony structures are stable. No significant changes compared to the prior exam.. CONCLUSION: 1. Stable scarring versus atelectasis right lung base. 2. No new or acute pulmonary infiltrates. Adrian Lawson MD on November 02, 2016 at 15:22 Board Certified Radiologist. This report was verified electronically.
[2016-11-02] MEDS ORDERED: ASPI81CH CHEW (15:39)
[2016-11-02 15:44] LABS: APTT (PATIENT) 27.1 SEC (24.3-30.1); INTERNATIONAL NORMALIZED RATIO 1.6 RATIO; PROTHROMBIN TIME - PATIENT 17.6 SEC (9.8-11.6)
[2016-11-02 15:46] LABS: AUTOMATED NEUTROPHIL # 11.2 TH/MM3 (1.8-7.7); BASOPHIL % 0.2 % (0.0-2.0); EOSINOPHIL # 0.1 TH/MM3 (0-0.4); EOSINOPHIL % 0.8 % (0.0-4.0); HEMATOCRIT 48.3 % (39.0-51.0); LYMPH % 7.1 % (9.0-44.0); LYMPHOCYTE # 0.9 TH/MM3 (1.0-4.8); MEAN CELL VOLUME 95.9 FL (80.0-100.0); MEAN CORPUSCULAR HEMOGLOBIN 31.2 PG (27.0-34.0); MEAN CORPUSCULAR HGB CONC 32.5 % (32.0-36.0); MONO % 7.4 % (0.0-8.0); NEUT % 84.5 % (16.0-70.0); PLATELET COUNT 204 TH/MM3 (150-450); RED BLOOD COUNT 5.04 MIL/MM3 (4.50-5.90); RED CELL DISTRIBUTION WIDTH 14.1 % (11.6-17.2); WHITE BLOOD COUNT 13.3 TH/MM3 (4.0-11.0)
[2016-11-02 16:04] LABS: ALT (GPT) 23 U/L (12-78); ANION GAP 6 MEQ/L (5-15); AST (GOT) 19 U/L (15-37); BICARBONATE 29.7 MEQ/L (21.0-32.0); BLOOD UREA NITROGEN 35 MG/DL (7-18); CHLORIDE 98 MEQ/L (98-107); GLOMERULAR FILTRATION RATE 40 ML/MIN (>89); MAGNESIUM 2.7 MG/DL (1.5-2.5); POTASSIUM 5.4 MEQ/L (3.5-5.1); SODIUM (NA) 134 MEQ/L (136-145)
[2016-11-02 16:07] LABS: HEMO FLAGS AUTO DIFF
[2016-11-02 16:09] LABS: ALKALINE PHOSPHATASE 85 U/L (45-117)
[2016-11-02 16:21] LABS: CREATINE KINASE 51 U/L (39-308)
[2016-11-02 17:21] LABS: SCAN/DIFF AUTO DIFF CONFIRMED
--- NOTE | 2016-11-02 17:23 | RADRPT ---
EXAM DATE/TIME: 11/02/2016 17:09 [facility] COMPARISON: CT BRAIN W/O CONTRAST, March 25, 2016, 0:00. INDICATIONS : Dizziness. RADIATION DOSE: 25.03 CTDIvol (mGy) MEDICAL HISTORY : Cerebrovascular disease. Hypertension. Deep venous thrombosis. SURGICAL HISTORY : None. ENCOUNTER: Initial ACUITY: 1 day PAIN SCALE: 0/10 LOCATION: cranial TECHNIQUE: Multiple contiguous axial images were obtained of the head. Using automated exposure control and adj ustment of the mA and/or kV according to patient size, radiation dose was kept as low as reasonably a chievable to obtain optimal diagnostic quality images. FINDINGS: CEREBRUM: The ventricles are normal for age. No evidence of midline shift, mass lesion, hemorrhage or acute in farction. There is a stable arachnoid cyst in the left temporal lobe fossa. There is an old infarct i nvolving the left temporoparietal lobe. No change compared to the prior examination. POSTERIOR FOSSA: The cerebellum and brainstem are intact. The 4th ventricle is midline. The cerebellopontine angle i s unremarkable. EXTRACRANIAL: The visualized portion of the orbits is intact. SKULL: The calvaria is intact. No evidence of skull fracture. CONCLUSION: 1. Stable CT scan of the brain compared to the prior examination. No acute intracranial hemorrhage. 2. Stable arachnoid cyst left temporal cranial fossa. 3. Stable old right temporal/parietal infarct. Adrian Lawson MD on November 02, 2016 at 17:19 Board Certified Radiologist. This report was verified electronically.
[2016-11-02] MEDS ORDERED: PIPERACIL-TAZO 4.5 GM PREMIX 100 ML IV STA (17:59)
[2016-11-02 18:11] VITALS: O2SAT 94
[2016-11-02] MEDS ORDERED: MAGNESIUM HYDROXIDE SUSP 30 ML CUP PO PRN (18:15)
[2016-11-02] MEDS ORDERED: ONDANSETRON HCL 4 MG/2 ML VIAL IVP PRN (18:15)
[2016-11-02] MEDS ORDERED: SODIUM CHLORIDE 0.9% FLUSH 10 ML FLUSH IV FLUSH PRN (18:15)
[2016-11-02] MEDS ORDERED: NALOXONE HCL 0.4 MG/ML AMP IV PRN (18:15)
[2016-11-02] MEDS ORDERED: SODIUM CHLOR 0.9% 1000 ML INJ 1,000 ML IV SCH (20:00)
[2016-11-02] MEDS: SODIUM CHLORIDE 0.9% FLUSH 10 ML FLUSH IV FLUSH SCH (20:26)
[2016-11-02 20:50] LABS: LACTIC ACID GHOST NOT REPORTABLE
[2016-11-02 21:10] VITALS: BP 102/65; PULSE 89; RESP 18; TEMP 99.1; O2SAT 92
--- NOTE | 2016-11-02 23:43 | HHI.HP ---
[facility] Service [facility] Primary Care Physician Samuel Cruz MD Admission Diagnosis near-syncope/dehydration Diagnoses: Chief Complaint: Dizziness and fall with right knee pain Travel History International Travel<30 Days: No Contact w/Intl Traveler <30 Da: No Traveled to Known Affected Are: No History of Present Illness Written by Saritha Farooq, acting as scribe for Dr. Spann on 11/02/16 at 23:43. Mr. Nazario is a 76 year-old male with a history of CVA in 1994, hypothyroidism , CHF, CAD, atrial fibrillation, hypertension, thyroid tumor, DVTs, and lung tumor status post right lobectomy who presented to the emergency room for evaluation of dizziness with fall. The patient is seen in the CDU. He states that on 11/02/2016, he was experiencing constipation and went to the bathroom. While he was in the bathroom he felt dizzy but did not pass out. He fell and hurt his right knee and was unable to get back up. His called EMS after he banged on the bathroom wall to alert her to his distress. October 26 had dental extraction and has extensive facial bruising --> takes Coumadin - stopped four days (October 22) prior to dental extraction --> has restarted Coumadin on October 27 Urinated just prior to visit. Reports he takes Oxycodone at home for chronic back pain related to vertebral fractures. Over the past six months, he says he has fallen previously. Denies black or red stool, diarrhea, hematuria, dysuria, chest pain, fever, or syncope. The patient reports shortness of breath - when walking around; he uses shopping cart to steady himself at [facility] for the past two to three months. He is on diuretics, no fluid retention noted. Velvet Steamer is Dr. Kennedy Denies diabetes mellitus, lung problems, or liver problems. . Review of Systems Except as stated in HPI: all other systems reviewed are Neg Past Family Social History Past Medical History history of CHF, CAD, atrial fib, hypertension, hypothyroidism - 1971 thyroid tumor removed and again in 1978, kidney issues previously - resolved now, DVTs, CVA 1994, lung tumor removed right lung 1978. History of pilonidal cyst removal. . Past Surgical History 1971 thyroid tumor removed and again in 1978 History of pilonidal cyst removal Cataract surgery TURP Inguinal hernia surgery . . Reported Medications Reported Meds & Active Scripts Active [Spironolactone] 25 MG Tab 12.5 Mg PO DAILY Lisinopril 5 Mg Tab 5 Mg PO DAILY Reported Aspirin 81 Mg Chew 81 Mg CHEW DAILY Folate (Folic Acid) 1 Mg Tab 1 Mg PO DAILY Carvedilol 12.5 Mg Tab 12.5 Mg PO BID Coumadin (Warfarin) 4 Mg Tab 4.5 Mg PO DAILY Synthroid (Levothyroxine Sodium) 200 Mcg Tab 200 Mcg PO DAILY Furosemide 40 Mg Tab 40 Mg PO DAILY Atorvastatin (Atorvastatin Calcium) 40 Mg Tab 40 Mg PO HS Sertraline (Sertraline HCl) 100 Mg Tab 100 Mg PO DAILY Miralax (Polyethylene Glycol 3350) 1 Pow Pow 1 Cap PO DAILY . Allergies: Coded Allergies: *MDRO Multi-Drug Resistant Organism (Verified Adverse Reaction, Unknown, ) MRSA (leg wound) - 03/2012 Active Ordered Medications Current Medications Sodium Chloride 2 ml 2 ml UNSCH PRN IVF FLUSH AFTER USING IV ACCESS; Start at 15:00; Stop 11/02/16 at 19:00; Status DC Sodium Chloride 500 ml @ 500 mls/hr BOLUS ONCE IV Last administered on 15:00; Start 11/02/16 at 15:00; Stop 11/02/16 at 15:59; Status DC Piperacillin Sod/ Tazobactam Sod 100 ml @ 200 mls/hr ONCE STAT IV Last administered on 11/02/16 20:25; Start 11/02/16 at 17:59; Stop 11/02/16 at 18:28 ; Status DC Sodium Chloride (NS 1000 ml Inj) 1,000 ml @ 100 mls/hr Q10H IV Last administered on 11/02/16 20:25; Start 11/02/16 at 20:00 Sodium Chloride (NS Flush) 2 ml UNSCH PRN IV FLUSH FLUSH AFTER USING IV ACCESS ; Start 11/02/16 at 18:15 Sodium Chloride (NS Flush) 2 ml BID IV FLUSH Last administered on 5/15/17at 20: 26; Start 11/02/16 at 21:00 Acetaminophen (Tylenol) 650 mg Q4H PRN PO Fever, headache, pain 1-4; Start at 18:15 Ondansetron HCl (Zofran Inj) 4 mg Q6H PRN IVP NAUSEA OR VOMITING; Start at 18:15 Magnesium Hydroxide (Milk Of Magneitan Liq) 30 ml Q12H PRN PO CONSTIPATION; Start 11/02/16 at 18:15 Naloxone HCl (Narcan Inj) 0.4 mg UNSCH PRN IV SEE LABEL COMMENTS; Start at 18:15 . Family History Leukemia, Cancer Brother had cancer - type unknown - required bowel resection . Social History Tobacco: Smoked but quit in 1971 Alcohol: a glass of red or white wine with dinner and a martini before or after dinner Illicit Drugs: denies . Physical Exam Vital Signs Vital Signs Date Time Temp Pulse Resp B/P Pulse Ox O2 Delivery O2 Flow Rate FiO2 11/02/16 21:10 99.1 89 18 102/65 92 11/02/16 18:11 94 Nasal Cannula 2.00 11/02/16 15:04 81 16 Room Air 11/02/16 14:52 97.6 81 18 99/54 Physical Exam GENERAL: This is a well-nourished, well-developed patient, in no apparent distress. SKIN: No rashes or lesions. Cool and dry. Extensive facial ecchymosis present since dental extractions- see HPI. HEAD: Atraumatic. Normocephalic. EYES: No scleral icterus. No injection or drainage. ENT: Nose without bleeding, purulent drainage. NECK: Trachea midline. No JVD or lymphadenopathy. CARDIOVASCULAR: Regular rate and rhythm without murmurs, gallops, or rubs. RESPIRATORY: Clear to auscultation. Breath sounds equal bilaterally. No wheezes , rales, or rhonchi. GASTROINTESTINAL: Abdomen soft, non-tender, nondistended. No guarding. MUSCULOSKELETAL: Extremities without clubbing, cyanosis, or edema. No calf tenderness. Right knee ROM limited secondary to pain; suprapatellar ecchymosis noted. NEUROLOGICAL: Awake and alert. Motor and sensory grossly within normal limits. Normal speech. . Laboratory Laboratory Tests Test 11/02/16 11/02/16 15:00 18:30 White Blood Count 13.3 Red Blood Count 5.04 Hemoglobin 15.7 Hematocrit 48.3 Mean Corpuscular Volume 95.9 Mean Corpuscular Hemoglobin 31.2 Mean Corpuscular Hemoglobin 32.5 Concent Red Cell Distribution Width 14.1 Platelet Count 204 Mean Platelet Volume 7.9 Neutrophils (%) (Auto) 84.5 Lymphocytes (%) (Auto) 7.1 Monocytes (%) (Auto) 7.4 Eosinophils (%) (Auto) 0.8 Basophils (%) (Auto) 0.2 Neutrophils # (Auto) 11.2 Lymphocytes # (Auto) 0.9 Monocytes # (Auto) 1.0 Eosinophils # (Auto) 0.1 Basophils # (Auto) 0.0 CBC Comment AUTO DIFF Differential Comment AUTO DIFF CONFIRMED Prothrombin Time 17.6 Prothromb Time International 1.6 Ratio Activated Partial 27.1 Thromboplast Time Sodium Level 134 Potassium Level 5.4 Chloride Level 98 Carbon Dioxide Level 29.7 Anion Gap 6 Blood Urea Nitrogen 35 Creatinine 1.69 Estimat Glomerular Filtration 40 Rate Random Glucose 118 Calcium Level 9.1 Magnesium Level 2.7 Total Bilirubin 1.0 Aspartate Amino Transf 19 (AST/SGOT) Alanine Aminotransferase 23 (ALT/SGPT) Alkaline Phosphatase 85 Total Creatine Kinase 51 Troponin I LESS THAN 0.02 Total Protein 7.2 Albumin 3.5 Lactic Acid Level 2.8 Date/Time Procedure Status Source Growth 11/02/16 18:30 Aerobic Blood Culture Received Blood Peripheral Pending 11/02/16 18:30 Anaerobic Blood Culture Received Blood Peripheral Pending Result Diagram: 11/02/16 1500 11/02/16 1500 Imaging Last Impressions Knee X-Ray 11/03/16 0000 Signed Impressions: Service Date/Time: Thursday, November 03, 2016 00:40 - CONCLUSION: 1. Anterior soft tissue swelling with no acute fracture or malalignment. 2. Calcification in the patellar tendon region. Gavin Charlton MD Head CT 11/02/16 1500 Signed Impressions: Service Date/Time: Wednesday, November 02, 2016 17:09 - CONCLUSION: 1. Stable CT scan of the brain compared to the prior examination. No acute intracranial hemorrhage. 2. Stable arachnoid cyst left temporal cranial fossa. 3. Stable old right temporal/parietal infarct. Adrian Lawson MD Chest X-Ray 11/02/16 1500 Signed Impressions: Service Date/Time: Wednesday, November 02, 2016 15:18 - CONCLUSION: 1. Stable scarring versus atelectasis right lung base. 2. No new or acute pulmonary infiltrates. Adrian Lawson MD . Assessment and Plan Problem List: (1) Dehydration ICD Code: E86.0 Status: Acute (2) Acute kidney injury superimposed on chronic kidney disease ICD Code: N17.9 Status: Acute Assessment and Plan Dizziness - check orthostatic blood pressure readings - continuous cardiac telemetry to monitor for cardiac arrhythmias - Monitor vital signs q4h Acute on Chronic Kidney Disease likely secondary to dehydration - s/p fluid bolus and will stop maintenance IV due to history of CHF - recheck BMP in am and follow trends in renal indices - avoid nephrotoxins Right knee pain s/p fall - will check right knee x-ray - shows anterior soft tissue swelling with no acute fracture or malalignment; calcification in the patellar tendon region DVT prophylaxis - continue home Coumadin once dosage verified .This note was transcribed by [email or web address] [Saritha Farooq]. I, Dr. Allison Spann personally performed the history, physical exam, and medical decision making; and confirmed the accuracy of the information in the transcribed note. Authenticated by Dr. Allison Spann on 11/02/16 at 23:43. Discussed Condition With ER physician and patient . Saritha Farooq November 02, 2016 23:43 Allison Spann MD Nov 30, 2016 12:26
[2016-11-03] VITALS (9 sets, daily range): BP systolic 82–120; BP diastolic 49–81; PULSE 82–97; RESP 16–21; TEMP 98–99.4; O2SAT 92–97
[2016-11-03 00:42] LABS: BLOOD, URINE TRACE (NEG); GLUCOSE,URINE NEG (NEG); HYALINE CAST, URINE 1 /lpf (RARE); KETONE, URINE NEG (NEG); MUCUS URINE FEW /lpf (OCC); NITRITE,URINE NEG (NEG); PH, URINE 5.5 (5.0-8.5); RENAL EPITHELIAL CELLS <1 /hpf; SQUAMOUS EPITHELIAL CELL URINE 1 /hpf (0-5); URIC ACID CRYSTALS, URINE RARE /hpf; URINE COLOR YELLOW (YELLW/STRAW)
[2016-11-03 00:43] LABS: COMMENT (UR) CULT NOT INDICATED; CULTURE IF INDICATED CULT NOT INDICATED
--- NOTE | 2016-11-03 01:09 | RADRPT ---
EXAM DATE/TIME: 11/03/2016 00:40 [facility] COMPARISON: No previous studies available for comparison. INDICATIONS : Soft tissue swelling after fall.. MEDICAL HISTORY : None. SURGICAL HISTORY : None. ENCOUNTER: Initial ACUITY: 1 day PAIN SCORE: 0/10 LOCATION: Right knee FINDINGS: A standard 4 view examination of the right knee was obtained and demonstrate soft tissue swelling ove r the patella with no definite acute fracture or malalignment. There is spurring off the superior pat oscar with calcification in the region of the patella tendon. There mild degenerative changes in the m edial compartment. There are vascular calcifications. There is normal alignment. CONCLUSION: 1. Anterior soft tissue swelling with no acute fracture or malalignment. 2. Calcification in the patellar tendon region. Gavin Charlton MD on November 03, 2016 at 1:05 Board Certified Radiologist. This report was verified electronically.
[2016-11-03] MEDS ORDERED: SPIRONOLACTONE 25 MG TAB PO SCH (09:00)
[2016-11-03] MEDS ORDERED: CARVEDILOL 12.5 MG TAB PO SCH (09:00)
[2016-11-03] MEDS ORDERED: FUROSEMIDE 40 MG TAB PO SCH (09:00)
[2016-11-03] MEDS ORDERED: LISINOPRIL 5 MG TAB PO SCH (09:00)
[2016-11-03 09:34] LABS: AUTOMATED NEUTROPHIL # 10.8 TH/MM3 (1.8-7.7); BASOPHIL % 0.2 % (0.0-2.0); EOSINOPHIL # 0.2 TH/MM3 (0-0.4); EOSINOPHIL % 1.4 % (0.0-4.0); HEMATOCRIT 46.2 % (39.0-51.0); HEMO FLAGS DIFF FINAL; LYMPH % 9.8 % (9.0-44.0); LYMPHOCYTE # 1.3 TH/MM3 (1.0-4.8); MEAN CORPUSCULAR HEMOGLOBIN 31.1 PG (27.0-34.0); MEAN CORPUSCULAR HGB CONC 32.8 % (32.0-36.0); MONO % 7.7 % (0.0-8.0); NEUT % 80.9 % (16.0-70.0); PLATELET COUNT 200 TH/MM3 (150-450); RED BLOOD COUNT 4.86 MIL/MM3 (4.50-5.90); RED CELL DISTRIBUTION WIDTH 14.1 % (11.6-17.2); WHITE BLOOD COUNT 13.4 TH/MM3 (4.0-11.0)
[2016-11-03 09:52] LABS: BICARBONATE 27.4 MEQ/L (21.0-32.0); POTASSIUM 5.5 MEQ/L (3.5-5.1)
[2016-11-03] MEDS: SERTRALINE HCL 100 MG TAB PO SCH (10:02)
[2016-11-03] MEDS: ASPIRIN 81 MG CHEW TAB CHEW SCH (10:02)
[2016-11-03] MEDS: FOLIC ACID 1 MG TAB PO SCH (10:02)
[2016-11-03] MEDS: SODIUM CHLORIDE 0.9% FLUSH 10 ML FLUSH IV FLUSH SCH ×2 (10:08→21:00)
--- NOTE | 2016-11-03 10:16 | HHI.PR ---
Subjective Remarks Follow up near syncope and dizziness. Patient is sitting up eating breakfast, states he feels ok. Denies any further dizziness. Explains since his dental extraction he has only been taking in fluids and he thought he had been drinking enough. He states his BP is normally 120s/70s. Denies any chest pain, sob, nausea, vomiting, fever or chills. PCP is DR. Adams. Objective Vitals Vital Signs Date Time Temp Pulse Resp B/P Pulse Ox O2 Delivery O2 Flow Rate FiO2 11/03/16 07:40 98.0 82 17 120/80 97 108/75 115/56 11/03/16 05:20 98.6 97 18 119/80 95 11/03/16 03:05 97 Nasal Cannula 2.00 11/03/16 01:11 91 18 104/68 94 101/67 103/64 11/03/16 00:21 99.4 88 18 103/69 95 11/02/16 21:10 99.1 89 18 102/65 92 11/02/16 18:11 94 Nasal Cannula 2.00 11/02/16 15:04 81 16 Room Air 11/02/16 14:52 97.6 81 18 99/54 Result Diagram: 11/03/16 0820 11/03/16 0820 Imaging Last Impressions Knee X-Ray 11/03/16 0000 Signed Impressions: Service Date/Time: Thursday, November 03, 2016 00:40 - CONCLUSION: 1. Anterior soft tissue swelling with no acute fracture or malalignment. 2. Calcification in the patellar tendon region. Gavin Charlton MD Head CT 11/02/16 1500 Signed Impressions: Service Date/Time: Wednesday, November 02, 2016 17:09 - CONCLUSION: 1. Stable CT scan of the brain compared to the prior examination. No acute intracranial hemorrhage. 2. Stable arachnoid cyst left temporal cranial fossa. 3. Stable old right temporal/parietal infarct. Adrian Lawson MD Chest X-Ray 11/02/16 1500 Signed Impressions: Service Date/Time: Wednesday, November 02, 2016 15:18 - CONCLUSION: 1. Stable scarring versus atelectasis right lung base. 2. No new or acute pulmonary infiltrates. Adrian Lawson MD Objective Remarks GENERAL: Well nourished patient eating breakfast in NAD SKIN: Warm and dry. Ecchymotic areas on lips, jaw, cheeks and eyes, due to recent dental extraction HEAD: Atraumatic. Normocephalic. EYES: Pupils equal and round. No scleral icterus. No injection or drainage. ENT: No nasal bleeding or discharge. Mucous membranes pink and moist. NECK: Trachea midline. No JVD. CARDIOVASCULAR: Regular rate and rhythm. RESPIRATORY: No accessory muscle use. Clear to auscultation. Breath sounds equal bilaterally. GASTROINTESTINAL: Abdomen soft, non-tender, nondistended. Hepatic and splenic margins not palpable. MUSCULOSKELETAL: Extremities without clubbing, cyanosis, or edema. No obvious deformities. NEUROLOGICAL: Awake and alert. Motor grossly within normal limits. Normal speech. PSYCHIATRIC: Appropriate mood and affect; insight and judgment normal. Medications and IVs Current Medications Medications (Trade) Dose Ordered Sig/Fanny Route Start Time Stop Time Status Last Admin (NS Flush) 2 ml UNSCH PRN IV FLUSH 11/02/16 18:15 (NS Flush) 2 ml BID IV FLUSH 11/02/16 21:00 11/02/16 20:26 (Tylenol) 650 mg Q4H PRN PO 11/02/16 18:15 (Zofran Inj) 4 mg Q6H PRN IVP 11/02/16 18:15 (Milk Of Magnesia Liq) 30 ml Q12H PRN PO 11/02/16 18:15 (Narcan Inj) 0.4 mg UNSCH PRN IV 11/02/16 18:15 (Aspirin Chew) 81 mg DAILY CHEW 11/03/16 09:00 (Lipitor) 40 mg HS PO 11/03/16 21:00 (Coreg) 12.5 mg BID PO 11/03/16 09:00 (Folate) 1 mg DAILY PO 11/03/16 09:00 (Lasix) 40 mg DAILY PO 11/03/16 09:00 (Synthroid) 200 mcg DAILY@0600 PO 11/03/16 09:00 (Prinivil) 5 mg DAILY PO 11/03/16 09:00 Hold (Zoloft) 100 mg DAILY PO 11/03/16 09:00 (Coumadin) 4 mg DAILY@1600 PO 11/03/16 16:00 (Aldactone) 12.5 mg DAILY PO 11/03/16 09:00 Hold (Coumadin) 0.5 mg DAILY@1600 PO 11/03/16 16:00 A/P Problem List: (1) Dehydration ICD Code: E86.0 Status: Acute (2) Acute kidney injury superimposed on chronic kidney disease ICD Code: N17.9 Status: Acute (3) Hyperkalemia ICD Code: E87.5 Status: Acute (4) Near syncope ICD Code: R55 Status: Acute Assessment and Plan Mr. Nazario is a 76 year-old male with a history of CVA in 1994, hypothyroidism , CHF, CAD, atrial fibrillation, hypertension, thyroid tumor, DVTs, and lung tumor status post right lobectomy who presented to the emergency room for evaluation of dizziness with fall. Recently underwent 12 upper teeth removal October 26. Near syncope, Dizziness, likely due to dehydration Head CT- stable no new changes - orthostatic blood pressure positive, cont to monitor - cont tele -PT eval and treat, encouraged slow movements -Thigh high teds ordered -D/C coreg, change to metoprolol 12.5mg, will increase as needed to keep HR controlled Acute on Chronic Kidney Disease likely secondary to dehydration, improving Creatine 1.6-->1.1, baseline 1.2 -s/p fluid bolus given in ED -Encourage PO intake - Trend BMP - avoid nephrotoxins Right knee pain s/p fall -will check right knee x-ray - shows anterior soft tissue swelling with no acute fracture or malalignment; calcification in the patellar tendon region -Ice if needed Hyperkalemia, mild Potassium 5.4-->5.5 EKG- no T wave abnormalities -hold lisinopril and spirolactone -Kayexalate x1 -Tend potassium Left calf wound, scab -Bacitracin ointment BID DVT prophylaxis: coumadin Discussed with Dr. Bradley Attending Statement The exam, history, and the medical decision-making described in the above note were completed with the assistance of the mid-level provider. I reviewed and agree with the findings presented. I attest that I had a [id number] encounter with the patient on the same day, and personally performed and documented my assessment and findings in the medical record. patient seen around 2 PM on 11/03/16. Poor appetite over the past week after having his teeth pulled. Appears comfortable on exam. Orthostatics positive for orthostatic hypotension. We'll switch from nonselective beta leighton to selective Sarah Beth Christina November 03, 2016 10:16 Too Bradley MD November 04, 2016 08:52
[2016-11-03] MEDS: ACETAMINOPHEN 325 MG TAB PO PRN ×2 (10:33→19:31)
[2016-11-03] MEDS ORDERED: SODIUM POLYSTYRENE SULFONATE SUSP 15 GM/60 ML CUP PO ONE (11:00)
[2016-11-03] MEDS: LEVOTHYROXINE SODIUM 200 MCG TAB PO SCH (12:28)
--- NOTE | 2016-11-03 15:15 | EKG ---
Date Performed: 11/02/2016 Time Performed: 15:52:57 PTAGE: 76 years EKG: ATRIAL FIBRILLATION INDETERMINATE AXIS LOW QRS VOLTAGE IN PRECORDIAL LEADS Possible inferio r myocardial infarction Compared to prior tracing no significant change ABNORMAL RHYTHM ECG PREVIOUS TRACING : 07/25/2016 00.36 DOCTOR: Carlos Centeno Interpretating Date/Time 11/03/2016 15:15:30
[2016-11-03] MEDS ORDERED: PILL SPLITTER OTHER PRN (15:30)
[2016-11-03] MEDS: SENNOSIDES 8.6 MG TAB PO SCH (15:37)
[2016-11-03] MEDS: DOCUSATE SODIUM 100 MG CAP PO SCH ×2 (15:37→21:08)
[2016-11-03] MEDS: WARFARIN SOD 4 MG TAB PO SCH (16:56)
[2016-11-03] MEDS: WARFARIN SOD 1 MG TAB PO SCH (16:57)
[2016-11-03 17:32] LABS: HEMOGLOBIN A1a 1.6 %; HEMOGLOBIN A1b 1.6 %; HEMOGLOBIN Ao 84.8 %; HEMOGLOBIN LA1C 2.1 %; HEMOGLOBIN P3 3.7 %
[2016-11-03] MEDS: BACITRACIN TOP OINT 15 GM TUBE TOPICAL SCH (21:00)
[2016-11-03] MEDS ORDERED: METOPROLOL TARTRATE 25 MG TAB PO SCH (21:00)
[2016-11-03] MEDS: ATORVASTATIN 40 MG TAB PO SCH (21:08)
[2016-11-04] VITALS (12 sets, daily range): BP systolic 108–150; BP diastolic 64–96; PULSE 75–94; RESP 18–20; TEMP 98.2–98.8; O2SAT 94–98
[2016-11-04] MEDS: ACETAMINOPHEN 325 MG TAB PO PRN ×3 (00:22→20:41)
[2016-11-04 05:40] LABS: AUTOMATED NEUTROPHIL # 8.5 TH/MM3 (1.8-7.7); BASOPHIL % 0.4 % (0.0-2.0); EOSINOPHIL # 0.2 TH/MM3 (0-0.4); EOSINOPHIL % 2.1 % (0.0-4.0); HEMATOCRIT 43.5 % (39.0-51.0); LYMPH % 12.8 % (9.0-44.0); LYMPHOCYTE # 1.4 TH/MM3 (1.0-4.8); MEAN CELL VOLUME 93.6 FL (80.0-100.0); MEAN CORPUSCULAR HEMOGLOBIN 31.7 PG (27.0-34.0); MEAN CORPUSCULAR HGB CONC 33.9 % (32.0-36.0); MONO % 9.2 % (0.0-8.0); NEUT % 75.5 % (16.0-70.0); PLATELET COUNT 210 TH/MM3 (150-450); RED BLOOD COUNT 4.64 MIL/MM3 (4.50-5.90); RED CELL DISTRIBUTION WIDTH 14.5 % (11.6-17.2); WHITE BLOOD COUNT 11.3 TH/MM3 (4.0-11.0)
[2016-11-04 05:47] LABS: HEMO FLAGS AUTO DIFF
[2016-11-04] MEDS: LEVOTHYROXINE SODIUM 200 MCG TAB PO SCH (06:00)
[2016-11-04 06:18] LABS: BICARBONATE 30.8 MEQ/L (21.0-32.0); POTASSIUM 4.2 MEQ/L (3.5-5.1)
[2016-11-04 07:01] LABS: BANDS 7 % (0-6); EOSINOPHILS 1 % (0-4); MYELOCYTES 1 % (0-0); NEUTROPHIL # MANUAL DIFF 8.2 TH/MM3 (1.8-7.7); PLATELET ESTIMATE SMEAR NORMAL (NORMAL); PLATELET MORPHOLOGY NORMAL (NORMAL); POLYS (SEG NEUTROPHILS) 65 % (16-70); SCAN/DIFF FINAL DIFF MANUAL; WBC DIFF SAMPLE 100
--- NOTE | 2016-11-04 08:57 | HHI.PR ---
Subjective Remarks Follow up near syncope and dizziness. Patient examined whiling laying in bed. Patient complaining of a headache and was just about to ask for Tylenol, he takes Tylenol at home for headaches and he states that helps. He was able to tolerate a pureed diet last night with no problem, and ambulated with the walker in the room. He states he does have a walker at home to use. Denies any chest pain, sob, or dizziness. Objective Vitals Vital Signs Date Time Temp Pulse Resp B/P Pulse Ox O2 Delivery O2 Flow Rate FiO2 11/04/16 04:23 98.4 83 18 150/94 94 133/85 136/79 11/04/16 02:38 21 11/04/16 02:30 18 11/04/16 00:42 98.8 80 18 125/80 97 11/03/16 19:38 98.4 89 21 119/78 95 114/81 90/67 11/03/16 15:30 98.1 84 16 108/58 94 87/56 86/49 11/03/16 14:20 96 Nasal Cannula 2.00 11/03/16 11:31 98.2 93 20 115/69 92 106/61 82/53 I/O 11/03/16 11/03/16 11/03/16 11/04/16 11/04/16 11/04/16 07:00 15:00 23:00 07:00 15:00 23:00 Intake Total 200 ml Output Total 900 ml Balance -900 ml 200 ml Intake Oral 200 ml Output Urine Total 900 ml Result Diagram: 11/04/16 0359 11/04/16 0359 Imaging Last Impressions Knee X-Ray 11/03/16 0000 Signed Impressions: Service Date/Time: Thursday, November 03, 2016 00:40 - CONCLUSION: 1. Anterior soft tissue swelling with no acute fracture or malalignment. 2. Calcification in the patellar tendon region. Gavin Charlton MD Head CT 11/02/16 1500 Signed Impressions: Service Date/Time: Wednesday, November 02, 2016 17:09 - CONCLUSION: 1. Stable CT scan of the brain compared to the prior examination. No acute intracranial hemorrhage. 2. Stable arachnoid cyst left temporal cranial fossa. 3. Stable old right temporal/parietal infarct. Adrian Lawson MD Chest X-Ray 11/02/16 1500 Signed Impressions: Service Date/Time: Wednesday, November 02, 2016 15:18 - CONCLUSION: 1. Stable scarring versus atelectasis right lung base. 2. No new or acute pulmonary infiltrates. Adrian Lawson MD Objective Remarks GENERAL: Well nourished patient in NAD SKIN: Warm and dry. Ecchymotic areas on lips, jaw, cheeks and eyes, due to recent dental extraction HEAD: Atraumatic. Normocephalic. EYES: Pupils equal and round. No scleral icterus. No injection or drainage. ENT: No nasal bleeding or discharge. Mucous membranes pink and moist. NECK: Trachea midline. No JVD. CARDIOVASCULAR: Regular rate and rhythm. RESPIRATORY: No accessory muscle use. Clear to auscultation. Breath sounds equal bilaterally. GASTROINTESTINAL: Abdomen soft, non-tender, nondistended. Hepatic and splenic margins not palpable. MUSCULOSKELETAL: Extremities without clubbing, cyanosis, or edema. No obvious deformities. NEUROLOGICAL: Awake and alert. Motor grossly within normal limits. Normal speech. PSYCHIATRIC: Appropriate mood and affect; insight and judgment normal. Medications and IVs Current Medications Medications (Trade) Dose Ordered Sig/Fanny Route Start Time Stop Time Status Last Admin (NS Flush) 2 ml UNSCH PRN IV FLUSH 11/02/16 18:15 (NS Flush) 2 ml BID IV FLUSH 11/02/16 21:00 11/03/16 21:00 (Tylenol) 650 mg Q4H PRN PO 11/02/16 18:15 11/04/16 00:22 (Zofran Inj) 4 mg Q6H PRN IVP 11/02/16 18:15 (Milk Of Magnesia Liq) 30 ml Q12H PRN PO 11/02/16 18:15 11/03/16 19:32 (Narcan Inj) 0.4 mg UNSCH PRN IV 11/02/16 18:15 (Aspirin Chew) 81 mg DAILY CHEW 11/03/16 09:00 11/03/16 10:02 (Lipitor) 40 mg HS PO 11/03/16 21:00 11/03/16 21:08 (Folate) 1 mg DAILY PO 11/03/16 09:00 11/03/16 10:02 (Lasix) 40 mg DAILY PO 11/03/16 09:00 Hold 11/03/16 10:02 (Synthroid) 200 mcg DAILY@0600 PO 11/03/16 09:00 11/04/16 06:00 (Prinivil) 5 mg DAILY PO 11/03/16 09:00 Hold (Zoloft) 100 mg DAILY PO 11/03/16 09:00 11/03/16 10:02 (Coumadin) 4 mg DAILY@1600 PO 11/03/16 16:00 11/03/16 16:56 (Aldactone) 12.5 mg DAILY PO 11/03/16 09:00 Hold (Coumadin) 0.5 mg DAILY@1600 PO 11/03/16 16:00 11/03/16 16:57 (Colace) 100 mg BID PO 11/03/16 14:30 11/03/16 21:08 (Senokot) 8.6 mg DAILY PO 11/03/16 14:30 11/03/16 15:37 (Baciguent Oint) 1 applic Q12HR TOPICAL 11/03/16 21:00 11/03/16 21:00 (Pill Splitter) 1 ea UNSCH PRN OTHER 11/03/16 15:30 (Lopressor) 25 mg Q12HR PO 11/04/16 09:00 A/P Problem List: (1) Dehydration ICD Code: E86.0 Status: Acute (2) Acute kidney injury superimposed on chronic kidney disease ICD Code: N17.9 Status: Acute (3) Hyperkalemia ICD Code: E87.5 Status: Acute (4) Near syncope ICD Code: R55 Status: Acute Assessment and Plan Mr. Nazario is a 76 year-old male with a history of CVA in 1994, hypothyroidism , CHF, CAD, atrial fibrillation, hypertension, thyroid tumor, DVTs, and lung tumor status post right lobectomy who presented to the emergency room for evaluation of dizziness with fall. Recently underwent 12 upper teeth removal October 26. Near syncope, Dizziness, likely due to dehydration Head CT- stable no new changes - orthostatic blood pressure positive, cont to monitor - cont tele -PT eval and treat, encouraged slow movements -Thigh high teds ordered -D/C coreg, change to metoprolol 12.5mg,increased to 25 mg this AM, HR 90's @ 1345 increase metoprolol 37.5mg BID -Patient will follow up with cardiology outpatient, patient sees Dr. Kennedy Acute on Chronic Kidney Disease likely secondary to dehydration, resolved Creatine 1.6-->1.1, baseline 1.2 -s/p fluid bolus given in ED -Encourage PO intake - Trend BMP - avoid nephrotoxins Right knee pain s/p fall -will check right knee x-ray - shows anterior soft tissue swelling with no acute fracture or malalignment; calcification in the patellar tendon region -Ice if needed Hyperkalemia, mild, resolved Potassium 5.4-->5.5-->4.2 EKG- no T wave abnormalities -Cont to hold lisinopril and spirolactone -Kayexalate given -Trend potassium Chronic headaches -ESR 6, WNL, TSH .5 -Tylenol prn Left calf wound, scab -Bacitracin ointment BID DVT prophylaxis: Coumadin Discharge Planning Pending pt nolberto, possible later today Sarah Beth Christina November 04, 2016 08:57
[2016-11-04] MEDS ORDERED: METOPROLOL TARTRATE 25 MG TAB PO SCH (09:00)
[2016-11-04] MEDS: FOLIC ACID 1 MG TAB PO SCH (09:55)
[2016-11-04] MEDS: ASPIRIN 81 MG CHEW TAB CHEW SCH (09:55)
[2016-11-04] MEDS: SERTRALINE HCL 100 MG TAB PO SCH (09:55)
[2016-11-04] MEDS: DOCUSATE SODIUM 100 MG CAP PO SCH ×2 (09:55→20:41)
[2016-11-04] MEDS: BACITRACIN TOP OINT 15 GM TUBE TOPICAL SCH ×2 (09:57→20:48)
[2016-11-04] MEDS: SENNOSIDES 8.6 MG TAB PO SCH (09:57)
[2016-11-04] MEDS: SODIUM CHLORIDE 0.9% FLUSH 10 ML FLUSH IV FLUSH SCH ×2 (09:57→20:40)
[2016-11-04] MEDS ORDERED: METOPROLOL TARTRATE 25 MG TAB PO ONE (13:45)
--- NOTE | 2016-11-04 13:51 | HHI.FF ---
Face to Face Verification Diagnosis: (1) Near syncope (2) Dehydration (3) FRANCIS (acute kidney injury) (4) Hyperlipidemia (5) Hyperkalemia (6) Hypothyroidism Physical Therapy Order: Evaluate and Treat, Improve ambulation, Strength and gait training Home Health Nursing Order: Medical education Signs/symptoms of disease process CHF education Medication education-adverse effect Wound care and dressing changes Nursing assessment with vital signs I have seen patient Neeraj Nazario on 11/04/16. My clinical findings support the need for the requested home health care services because: Ltd mobility - disease progression Deconditioned w/ increased weakness Limited ability to care for self High risk of falls I certify that my clinical findings support that this patient is homebound because: Post-op weakness Unsteady gait/balance Unsafe to leave home unassisted Unable to use public transportation Sarah Beth Christina November 04, 2016 13:51
[2016-11-04] MEDS: WARFARIN SOD 4 MG TAB PO SCH (17:13)
[2016-11-04] MEDS: WARFARIN SOD 1 MG TAB PO SCH (17:14)
[2016-11-04] MEDS: ATORVASTATIN 40 MG TAB PO SCH (20:41)
[2016-11-04] MEDS: METOPROLOL TARTRATE 25 MG TAB PO SCH (20:41)
[2016-11-05 03:25] VITALS: PULSE 83
[2016-11-05] MEDS: ACETAMINOPHEN 325 MG TAB PO PRN (03:51)
[2016-11-05 04:30] VITALS: BP_SYST 120; BP_SYST 124; BP_SYST 158; BP_DIAS 76; BP_DIAS 79; BP_DIAS 89; PULSE 76; RESP 18; TEMP 98.8; O2SAT 94
[2016-11-05 05:03] LABS: HEMATOCRIT 47.2 % (39.0-51.0); MEAN CORPUSCULAR HEMOGLOBIN 31.2 PG (27.0-34.0); MEAN CORPUSCULAR HGB CONC 32.8 % (32.0-36.0); PLATELET COUNT 204 TH/MM3 (150-450); RED BLOOD COUNT 4.97 MIL/MM3 (4.50-5.90); RED CELL DISTRIBUTION WIDTH 14.3 % (11.6-17.2); REVIEW FLAG FINAL; WHITE BLOOD COUNT 10.7 TH/MM3 (4.0-11.0)
[2016-11-05 05:10] LABS: BICARBONATE 28.7 MEQ/L (21.0-32.0); POTASSIUM 4.3 MEQ/L (3.5-5.1)
[2016-11-05] MEDS: LEVOTHYROXINE SODIUM 200 MCG TAB PO SCH (05:31)
[2016-11-05 07:49] VITALS: BP_SYST 124; BP_SYST 138; BP_SYST 157; BP_DIAS 71; BP_DIAS 86; BP_DIAS 92; PULSE 78; RESP 21; TEMP 97.7; O2SAT 96
[2016-11-05] MEDS ORDERED: METO25TA3 PO (08:30)
--- NOTE | 2016-11-05 09:00 | HHI.DS ---
cc: Panchito Kennedy MD Discharge Summary Admission Date November 02, 2016 at 17:56 Discharge Date: November 05, 2016 Admitting Diagnosis near-syncope/dehydration (1) Dehydration ICD Code: E86.0 (2) Acute kidney injury superimposed on chronic kidney disease ICD Code: N17.9 Diagnosis: Principal (3) Hyperkalemia ICD Code: E87.5 Diagnosis: Secondary (4) Near syncope ICD Code: R55 Diagnosis: Principal Procedures no invasive procedures. Brief History - From Admission Mr. Nazario is a 76 year-old male with a history of CVA in 1994, hypothyroidism , CHF, CAD, atrial fibrillation, hypertension, thyroid tumor, DVTs, and lung tumor status post right lobectomy who presented to the emergency room for evaluation of dizziness with fall. The patient is seen in the CDU. He states that on 11/02/2016, he was experiencing constipation and went to the bathroom. While he was in the bathroom he felt dizzy but did not pass out. He fell and hurt his right knee and was unable to get back up. His called EMS after he banged on the bathroom wall to alert her to his distress. October 26 had dental extraction and has extensive facial bruising --> takes Coumadin - stopped four days (October 22) prior to dental extraction --> has restarted Coumadin on October 27 Urinated just prior to visit. Reports he takes Oxycodone at home for chronic back pain related to vertebral fractures. Over the past six months, he says he has fallen previously. Denies black or red stool, diarrhea, hematuria, dysuria, chest pain, fever, or syncope. The patient reports shortness of breath - when walking around; he uses shopping cart to steady himself at [facility] for the past two to three months. He is on diuretics, no fluid retention noted. Windows Application Developer is Dr. Kennedy Denies diabetes mellitus, lung problems, or liver problems. . CBC/BMP: 11/05/16 0354 11/05/16 0354 Significant Findings Laboratory Tests Test 5/11/02/16 11/02/16 11/03/16 15:00 18:30 23:29 08:20 White Blood Count 13.3 TH/MM3 13.4 TH/MM3 (4.0-11.0) (4.0-11.0) Neutrophils (%) (Auto) 84.5 % 80.9 % (16.0-70.0) (16.0-70.0) Lymphocytes (%) (Auto) 7.1 % (9.0-44.0) Neutrophils # (Auto) 11.2 TH/MM3 10.8 TH/MM3 (1.8-7.7) (1.8-7.7) Lymphocytes # (Auto) 0.9 TH/MM3 (1.0-4.8) Monocytes # (Auto) 1.0 TH/MM3 1.0 TH/MM3 (0-0.9) (0-0.9) Prothrombin Time 17.6 SEC (9.8-11.6) Sodium Level 134 MEQ/L 133 MEQ/L (136-145) (136-145) Potassium Level 5.4 MEQ/L 5.5 MEQ/L (3.5-5.1) (3.5-5.1) Blood Urea Nitrogen 35 MG/DL (7-18) 26 MG/DL (7-18) Creatinine 1.69 MG/DL (0.60-1.30) Estimat Glomerular Filtration 40 ML/MIN (>89) 62 ML/MIN (>89) Rate Random Glucose 118 MG/DL (74-106) Magnesium Level 2.7 MG/DL (1.5-2.5) Troponin I LESS THAN 0.02 NG/ML (0.02-0.05) Lactic Acid Level 2.8 mmol/L (0.4-2.0) Urine Occult Blood TRACE (NEG) Urine RBC 18 /hpf (0-3) Urine Uric Acid Crystals RARE /hpf (NONE) Urine Mucus FEW /lpf (OCC) Test 11/04/16 11/05/16 03:59 03:54 White Blood Count 11.3 TH/MM3 (4.0-11.0) Neutrophils (%) (Auto) 75.5 % (16.0-70.0) Monocytes (%) (Auto) 9.2 % (0.0-8.0) Neutrophils # (Auto) 8.5 TH/MM3 (1.8-7.7) Monocytes # (Auto) 1.0 TH/MM3 (0-0.9) Band Neutrophils % 7 % (0-6) Monocytes % 10 % (0-8) Neutrophils # (Manual) 8.2 TH/MM3 (1.8-7.7) Myelocytes 1 % (0-0) Sodium Level 135 MEQ/L 135 MEQ/L (136-145) (136-145) Chloride Level 96 MEQ/L (98-107) Blood Urea Nitrogen 24 MG/DL (7-18) 20 MG/DL (7-18) Estimat Glomerular Filtration 69 ML/MIN (>89) 77 ML/MIN (>89) Rate Imaging Last Impressions Knee X-Ray 11/03/16 0000 Signed Impressions: Service Date/Time: Thursday, November 03, 2016 00:40 - CONCLUSION: 1. Anterior soft tissue swelling with no acute fracture or malalignment. 2. Calcification in the patellar tendon region. Gavin Charlton MD Head CT 11/02/16 1500 Signed Impressions: Service Date/Time: Wednesday, November 02, 2016 17:09 - CONCLUSION: 1. Stable CT scan of the brain compared to the prior examination. No acute intracranial hemorrhage. 2. Stable arachnoid cyst left temporal cranial fossa. 3. Stable old right temporal/parietal infarct. Adrian Lawson MD Chest X-Ray 11/02/16 1500 Signed Impressions: Service Date/Time: Wednesday, November 02, 2016 15:18 - CONCLUSION: 1. Stable scarring versus atelectasis right lung base. 2. No new or acute pulmonary infiltrates. Adrian Lawson MD PE at Discharge GENERAL: Well nourished patient in [facility] SKIN: Warm and dry. Ecchymotic areas on lips, jaw, cheeks and eyes, due to recent dental extraction HEAD: Atraumatic. Normocephalic. EYES: Pupils equal and round. No scleral icterus. No injection or drainage. ENT: No nasal bleeding or discharge. Mucous membranes pink and moist. NECK: Trachea midline. No JVD. CARDIOVASCULAR: Regular rate and rhythm. RESPIRATORY: No accessory muscle use. Clear to auscultation. Breath sounds equal bilaterally. GASTROINTESTINAL: Abdomen soft, non-tender, nondistended. Hepatic and splenic margins not palpable. MUSCULOSKELETAL: Extremities without clubbing, cyanosis, or edema. No obvious deformities. NEUROLOGICAL: Awake and alert. Motor grossly within normal limits. Normal speech. PSYCHIATRIC: Appropriate mood and affect; insight and judgment normal. Pt update on day of discharge Patient seen and examined today. Patient is stable. Tolerating meals, BM yesterday, and tolerating PT with a walker. Patient declines [facility], he rather do outpatient therapy of his choice. He states he does have a walker at home that he will use. He verbalizes understanding of medication changes and follow up with PCP and cardiology. He denies any complaints today, no chest pain, sob, nausea or vomiting. Patient is stable for discharge. Hospital Course Mr. Nazario is a 76 year-old male with a history of CVA in 1994, hypothyroidism , CHF, CAD, atrial fibrillation, hypertension, thyroid tumor, DVTs, and lung tumor status post right lobectomy who presented to the emergency room for evaluation of dizziness with fall. Recently underwent 12 upper teeth removal October 26. Patient had a Near syncope at home, Dizziness, likely due to dehydration Head CT- stable no new changes, orthostatic blood pressures were positive, Coreg d/c, changed to Metoprolol 37.5mg BID. Titrated up from 12.5 to 37.5mg. [id number], decreased home lisinopril to 2.5mg daily on discharge. Patient verbalizes understanding of medication changes. Tele was monitored through hospital stay and remained stable. Patient participated in PT while in the hospital. He refused to go home with [facility] and wishes to go to outpatient physical therapy. Due to orthostatic pressures, patient encouraged to go from sitting to standing slowly, and wear Nehemiah hose daily to improve blood flow. Patient verbalizes understanding. Patient will follow up with cardiology outpatient, patient sees Dr. Kennedy. Patient came in with Acute on Chronic Kidney Disease likely secondary to dehydration. Creatine levels improved to baseline with fluid bolus and increase PO intake. Spirolactone was d/c to protect kidney function. Patient will follow up outpatient for possible restart of medication. Right knee pain s/p fall right knee x-ray - shows anterior soft tissue swelling with no acute fracture or malalignment; calcification in the patellar tendon region. Cont Ice if needed and tylenol for pain. Hyperkalemia, mild, resolved with Kayexalate. Patient did not experience any EKG changes. Left calf wound, scab. Patient to continue Bacitracin ointment BID until healed. No signs of infection during admission. Pt Condition on Discharge: Stable Discharge Disposition: Discharge Home Discharge Time: > 30 minutes Discharge Instructions DIET: Follow Instructions for: Heart Healthy Diet Speech Therapy-Diet Recommends: Pureed Activities you can perform: Regular-No Restrictions Follow up Referrals: Cardiology - 1 Week PCP Follow-up - 2-3 Days New Orders: Physical Therapy - 2-3 Days New Medications: Lisinopril (Lisinopril) 5 Mg Tab 2.5 MG PO DAILY Blood Pressure Management #30 TAB Metoprolol Tartrate (Metoprolol Tartrate) 25 Mg Tab 37.5 MG PO Q12HR Blood Pressure Management Days 30 TAB Continued Medications: Aspirin (Aspirin) 81 Mg Chew 81 MG CHEW DAILY Ref 0 TAB Atorvastatin (Atorvastatin) 40 Mg Tab 40 MG PO HS Cholesterol Management #30 Ref 0 TAB Folic Acid (Folate) 1 Mg Tab 1 MG PO DAILY Nutritional Supplement Ref 0 TAB Furosemide (Furosemide) 40 Mg Tab 40 MG PO DAILY #30 Ref 0 TAB Levothyroxine (Synthroid) 200 Mcg Tab 200 MCG PO DAILY Thyroid #30 Ref 0 TAB Polyethylene Glycol 3350 (Miralax) 1 Pow Pow 1 CAP PO DAILY Sertraline (Sertraline) 100 Mg Tab 100 MG PO DAILY #30 Ref 0 TAB Warfarin (Coumadin) 4 Mg Tab 4.5 MG PO DAILY Prevent Blood Clot #30 Ref 0 TAB Discontinued Medications: Carvedilol (Carvedilol) 12.5 Mg Tab 12.5 MG PO BID #60 Ref 0 TAB Lisinopril (Lisinopril) 5 Mg Tab 5 MG PO DAILY htn #30 TAB ([Spironolactone]) 25 MG TAB 12.5 MG PO DAILY chf #30 TAB Sarah Beth Christina November 05, 2016 09:00 Too Bradley MD November 07, 2016 11:58
[2016-11-05] MEDS ORDERED: LISI-519 PO (10:11)
[2016-11-05] MEDS ORDERED: LISINOPRIL 5 MG TAB PO ONE (10:15)
[2016-11-05 11:24] VITALS: BP 124/78; PULSE 85; RESP 20; TEMP 98.1; O2SAT 93
[2016-11-05] MEDS: SERTRALINE HCL 100 MG TAB PO SCH (12:00)
[2016-11-05] MEDS: METOPROLOL TARTRATE 25 MG TAB PO SCH (12:01)
[2016-11-05] MEDS: FOLIC ACID 1 MG TAB PO SCH (12:01)
[2016-11-05] MEDS: DOCUSATE SODIUM 100 MG CAP PO SCH (12:02)
[2016-11-05] MEDS: SENNOSIDES 8.6 MG TAB PO SCH (12:02)
[2016-11-05] MEDS: ASPIRIN 81 MG CHEW TAB CHEW SCH (12:02)
[2016-11-05] MEDS: BACITRACIN TOP OINT 15 GM TUBE TOPICAL SCH (12:03)
[2016-11-17] MEDS ORDERED: METO-424 PO (10:30)
== END 2016-11-05 15:36 | disposition home or self-care (01) ==
LOC: NEPE 14:20 → NEDA 17:56 → OBSVTOIN 18:08 → INTOOBSV 18:08 → NEPFCDU 19:32
PROVIDERS: ADMIT Internal Medicine; ATTEND Internal Medicine
DX: R55 Syncope and collapse (principal); R42 Dizziness and giddiness; E86.0 Dehydration; I13.0 Hypertensive heart and chronic kidney disease with heart failure and stage 1 through stage 4 chronic kidney disease, or unspecified chronic kidney disease; N18.9 Chronic kidney disease, unspecified; N17.9 Acute kidney failure, unspecified; I50.9 Heart failure, unspecified; S81.802D Unspecified open wound, left lower leg, subsequent encounter; E03.9 Hypothyroidism, unspecified; I25.10 Atherosclerotic heart disease of native coronary artery without angina pectoris; I48.91 Unspecified atrial fibrillation; G89.29 Other chronic pain; M54.9 Dorsalgia, unspecified; M25.561 Pain in right knee; M19.90 Unspecified osteoarthritis, unspecified site; J44.9 Chronic obstructive pulmonary disease, unspecified; E78.00 Pure hypercholesterolemia, unspecified; F41.9 Anxiety disorder, unspecified; E87.5 Hyperkalemia; Z86.718 Personal history of other venous thrombosis and embolism; Z90.2 Acquired absence of lung [part of]; Z79.82 Long term (current) use of aspirin; Z79.01 Long term (current) use of anticoagulants; Z87.891 Personal history of nicotine dependence; Z86.73 Personal history of transient ischemic attack (TIA), and cerebral infarction without residual deficits; Z91.81 History of falling
CPT/HCPCS: 70450; 71010; 73564; 80048; 80053; 81001; 82550; 83036; 83605; 83735; 84132; 84443; 84484; 85007; 85025; 85027; 85610; 85652; 85730; 87040; 87641; 93005; 97110; 97116; 97163; 99285; G0378; G8987; G8988; J2543; J7030; J7040

== ENCOUNTER 2017-01-11 11:38 | Observation (INO) | payer MEDICARE ==
[~2017-01-11] VITALS: Ht 180.3 cm; Wt 117.0 kg
[2017-01-11] VITALS (11 sets, daily range): BP systolic 145–179; BP diastolic 85–117; PULSE 88–104; RESP 18–28; TEMP 97.6–98.2; O2SAT 87–100
[~2017-01-11 11:38] MED LIST changes: -ASPI325T PO; +ASPI81CH CHEW; -CARV12.52 PO; +METO-424 PO; -Spironolactone PO
[2017-01-11] MEDS ORDERED: SODIUM CHLORIDE 0.9% FLUSH 10 ML FLUSH IVF PRN (11:45)
[2017-01-11] MEDS ORDERED: FOLI1TAB6 (11:55)
[2017-01-11 12:20] LABS: AUTOMATED NEUTROPHIL # 4.6 TH/MM3 (1.8-7.7); BASOPHIL # 0.1 TH/MM3 (0-0.2); BASOPHIL % 0.9 % (0.0-2.0); EOSINOPHIL # 0.2 TH/MM3 (0-0.4); HEMATOCRIT 44.4 % (39.0-51.0); HEMO FLAGS DIFF FINAL; LYMPH % 15.1 % (9.0-44.0); LYMPHOCYTE # 0.9 TH/MM3 (1.0-4.8); MEAN CORPUSCULAR HEMOGLOBIN 32.3 PG (27.0-34.0); MEAN CORPUSCULAR HGB CONC 33.6 % (32.0-36.0); MONO % 7.5 % (0.0-8.0); NEUT % 73.5 % (16.0-70.0); PLATELET COUNT 173 TH/MM3 (150-450); RED BLOOD COUNT 4.62 MIL/MM3 (4.50-5.90); RED CELL DISTRIBUTION WIDTH 15.2 % (11.6-17.2); WHITE BLOOD COUNT 6.2 TH/MM3 (4.0-11.0)
[2017-01-11 12:25] LABS: ANION GAP 6 MEQ/L (5-15); AST (GOT) 26 U/L (15-37); BICARBONATE 31.5 MEQ/L (21.0-32.0); BLOOD UREA NITROGEN 12 MG/DL (7-18); CHLORIDE 107 MEQ/L (98-107); GLOMERULAR FILTRATION RATE 68 ML/MIN (>89); MAGNESIUM 2.3 MG/DL (1.5-2.5); POTASSIUM 4.4 MEQ/L (3.5-5.1); SODIUM (NA) 144 MEQ/L (136-145)
[2017-01-11 12:30] LABS: ALKALINE PHOSPHATASE 93 U/L (45-117); ALT (GPT) 30 U/L (12-78); APTT (PATIENT) 37.9 SEC (24.3-30.1); CREATINE KINASE 115 U/L (39-308); INTERNATIONAL NORMALIZED RATIO 2.6 RATIO; PROTHROMBIN TIME - PATIENT 29.9 SEC (9.8-11.6); TOTAL BILIRUBIN ADULT 0.5 MG/DL (0.2-1.0)
[2017-01-11 12:43] LABS: CKMB 2.7 NG/ML (0.5-3.6)
--- NOTE | 2017-01-11 13:04 | PD ---
HPI . Dyspnea Chief Complaint: Respiratory Symptoms Time Seen by Provider: 11:42 Travel History International Travel<30 days: No Contact w/Intl Traveler<30days: No Traveled to known affect area: No History of Present Illness HPI Patient presents to us with chief complaint of shortness of breath which started yesterday evening. The shortness of breath has persisted and worsened. His sats on arrival here were 84% on room air. He is not on oxygen at home. The patient reports no obvious modifying factors. PFSH Past Medical History Hx Anticoagulant Therapy: Yes Arthritis: Yes Asthma: No Atrial Fibrillation: Yes Blood Disorders: No Anxiety: Yes Heart Rhythm Problems: Yes (a-fib) Cancer: No Cardiovascular Problems: Yes (afib) High Cholesterol: Yes (under control) Chemotherapy: No Chest Pain: No Congestive Heart Failure: Yes COPD: Yes Cerebrovascular Accident: Yes (1995) Diabetes: No Diminished Hearing: No Deep Vein Thrombosis: Yes Endocrine: Yes Gastrointestinal Disorders: Yes GERD: No Genitourinary: No Headaches: No Hepatitis: No Hiatal Hernia: No Hypertension: Yes Immune Disorder: No Implanted Vascular Access Dvce: No Medical other: Yes (HX STROKE) Musculoskeletal: Yes Neurologic: Yes ([id number]) Psychiatric: No Reproductive: No Respiratory: Yes Migraines: No Radiation Therapy: No Seizures: No Sleep Apnea: Yes (DOES NOT WEAR CPAP) Thyroid Disease: Yes Ulcer: No Influenza Vaccination: Yes PNEUMOCCOCAL Vaccine (Year): 1 Past Surgical History Abdominal Surgery: Yes (INGUINAL HERNIA REPAIR) AICD: No Cardiac Surgery: Yes (VENOUS STRIPPING) Endocrine Surgery: Yes (THYROID X 2) Eye Surgery: Yes (CATARACTS) Genitourinary Surgery: Yes (TURP) Hysterectomy: No Neurologic Surgery: No Pacemaker: No Thoracic Surgery: Yes (RIGHT LUNG LOBECTOMY - BENIGN TUMOR) Other Surgery: Yes (THYROID SX) Social History Alcohol Use: Yes (daily 1 liquor drink) Tobacco Use: Yes (quit 1972 smokes cigars) Substance Use: No Allergies-Medications (Allergen,Severity, Reaction): Coded Allergies: *MDRO Multi-Drug Resistant Organism (Verified Adverse Reaction, Unknown, ) MRSA (leg wound) - 03/2012 Reported Meds & Prescriptions Reported Meds & Active Scripts Active Lisinopril 5 Mg Tab 2.5 Mg PO DAILY Reported Folic Acid 1 Mg Tablet Metoprolol Tartrate 37.5 Mg Tab 37.5 Mg PO BID Aspirin 81 Mg Chew 81 Mg CHEW DAILY Coumadin (Warfarin) 4 Mg Tab 4.5 Mg PO DAILY Synthroid (Levothyroxine Sodium) 200 Mcg Tab 200 Mcg PO DAILY Furosemide 40 Mg Tab 40 Mg PO DAILY Atorvastatin (Atorvastatin Calcium) 40 Mg Tab 40 Mg PO HS Sertraline (Sertraline HCl) 100 Mg Tab 100 Mg PO DAILY Miralax Powder (Polyethylene Glycol 3350 Powder) 1 Pow Pow 1 Cap PO DAILY Review of Systems Except as stated in HPI: all other systems reviewed are Neg General / Constitutional: No: Fever, Chills Cardiovascular: Positive: Chest Pain or Discomfort Respiratory: Positive: Shortness of Breath Musculoskeletal: Positive: Edema Physical Exam Narrative GENERAL: The patient is short of breath. SKIN: Warm and dry. HEAD: Atraumatic. Normocephalic. EYES: Pupils equal and round. Extraocular movements are intact. ENT: No nasal bleeding or discharge. Mucous membranes pink and moist. NECK: Trachea midline. Neck is supple. CARDIOVASCULAR: Irregularly irregular rate and rhythm. His ventricular rate is about 100. RESPIRATORY: No accessory muscle use. Breath sounds are diminished in the bases with some wheezing. He also has rales. GASTROINTESTINAL: Abdomen soft, non-tender, nondistended. MUSCULOSKELETAL: No obvious deformities. 2+ pretibial pitting edema. NEUROLOGICAL: Awake and alert. No obvious cranial nerve deficits. Motor grossly within normal limits. Normal speech. PSYCHIATRIC: Appropriate mood and affect; insight and judgment normal. Data Data Last Documented VS Vital Signs Date Time Temp Pulse Resp B/P Pulse Ox O2 Delivery O2 Flow Rate FiO2 01/11/17 14:14 90 20 179/101 100 Nasal Cannula 01/11/17 14:09 3.00 01/11/17 11:41 98.2 Orders Complete Blood Count With Diff (01/11/17 11:42) Comprehensive Metabolic Panel (01/11/17 11:42) B-Type Natriuretic Peptide (01/11/17 11:42) Act Partial Throm Time (Ptt) (01/11/17 11:42) Prothrombin Time / Inr (Pt) (01/11/17 11:42) Magnesium (Mg) (01/11/17 11:42) Ckmb (Isoenzyme) Profile (01/11/17 11:42) Troponin I (01/11/17 11:42) Iv Access Insert/Monitor (01/11/17 11:42) Ecg Monitoring (01/11/17 11:42) Oximetry (01/11/17 11:42) Oxygen Administration (01/11/17 11:42) Chest, Single Ap (01/11/17 11:42) Sodium Chloride 0.9% Flush (Ns Flush) (01/11/17 11:45) CKMB (01/11/17 10:56) CKMB% (01/11/17 10:56) Resp Request For Service (01/11/17 ) Furosemide Inj (Lasix Inj) (01/11/17 14:00) Nitroglycerin 2% Oint (Nitroglycerin 2% (01/11/17 14:00) Morphine Inj (Morphine Inj) (01/11/17 14:00) Albuterol-Ipratropium Neb (Duoneb Neb) (01/11/17 14:00) Electrocardiogram (01/11/17 ) Admit Order (Ed Use Only) (01/11/17 14:14) Labs Laboratory Tests Test 01/11/17 10:56 White Blood Count 6.2 TH/MM3 Red Blood Count 4.62 MIL/MM3 Hemoglobin 14.9 GM/DL Hematocrit 44.4 % Mean Corpuscular Volume 96.0 FL Mean Corpuscular Hemoglobin 32.3 PG Mean Corpuscular Hemoglobin 33.6 % Concent Red Cell Distribution Width 15.2 % Platelet Count 173 TH/MM3 Mean Platelet Volume 7.5 FL Neutrophils (%) (Auto) 73.5 % Lymphocytes (%) (Auto) 15.1 % Monocytes (%) (Auto) 7.5 % Eosinophils (%) (Auto) 3.0 % Basophils (%) (Auto) 0.9 % Neutrophils # (Auto) 4.6 TH/MM3 Lymphocytes # (Auto) 0.9 TH/MM3 Monocytes # (Auto) 0.5 TH/MM3 Eosinophils # (Auto) 0.2 TH/MM3 Basophils # (Auto) 0.1 TH/MM3 CBC Comment DIFF FINAL Differential Comment Prothrombin Time 29.9 SEC Prothromb Time International 2.6 RATIO Ratio Activated Partial 37.9 SEC Thromboplast Time Sodium Level 144 MEQ/L Potassium Level 4.4 MEQ/L Chloride Level 107 MEQ/L Carbon Dioxide Level 31.5 MEQ/L Anion Gap 6 MEQ/L Blood Urea Nitrogen 12 MG/DL Creatinine 1.06 MG/DL Estimat Glomerular Filtration 68 ML/MIN Rate Random Glucose 90 MG/DL Calcium Level 8.8 MG/DL Magnesium Level 2.3 MG/DL Total Bilirubin 0.5 MG/DL Aspartate Amino Transf 26 U/L (AST/SGOT) Alanine Aminotransferase 30 U/L (ALT/SGPT) Alkaline Phosphatase 93 U/L Total Creatine Kinase 115 U/L Creatine Kinase MB 2.7 NG/ML Troponin I LESS THAN 0.02 NG/ML B-Type Natriuretic Peptide 198 PG/ML Total Protein 7.8 GM/DL Albumin 3.7 GM/DL MDM Medical Decision Making Medical Screen Exam Complete: Yes Emergency Medical Condition: Yes Medical Record Reviewed: Yes (medical history is significant for atrial fibrillation, hypertension, CHF, COPD, chronic kidney disease, hypothyroidism and hydrocephalus. He is on Lasix, 40 mg daily.) Interpretation(s) EKG shows atrial fibrillation with a ventricular rate of 107. No ST segment elevation or depression. Differential Diagnosis Differential diagnosis of dyspnea includes but is not limited to congestive heart failure, pneumonia, wheezing, pneumothorax, pulmonary embolism Narrative Course This patient presents with chief complaint of dyspnea. He has both COPD and CHF. He has both wheezing and rales on exam. I have ordered IV Lasix, Nitropaste and duo nebs. CBC & BMP Diagram 01/11/17 10:56 CK, MB and troponin are all normal. His BNP is 198. INR is therapeutic at 2.6. 13:00 The patient is resting comfortably on a nonrebreather mask. His sats are 100%. His breath sounds are markedly improved. No further wheezing. I will consult respiratory therapy to wean his oxygen. CXR: There is moderate cardiomegaly with minimal failure. Bibasilar parenchymal changes are evident. There is no significant effusion or pneumothorax. The patient is getting better but is still short of breath and is still requiring oxygen. This patient needs to be admitted for further evaluation and treatment. Critical Care Narrative Aggregate critical care time was 40 minutes. Time to perform other separately billable procedures was not included in the critical care time. My time did not include minutes spent treating any other patients simultaneously or on activities that did not directly contribute to the patient's treatment. The services I provided to this patient were to treat and/or prevent clinically significant deterioration due to dyspnea and hypoxia I provided critical care services requiring my management, as noted below: Chart data review, documentation time, medication orders and management, vital sign assessments/reviewing monitor data, ordering and reviewing lab tests, ordering and interpreting/reviewing x-rays and diagnostic studies, care of the patient and discussion of the patient with the admitting physicians Physician Communication Physician Communication Dr. Perez will admit Diagnosis Primary Impression: Dyspnea Qualified Code: R06.00 - Dyspnea, unspecified type Additional Impressions: Atrial fibrillation Qualified Code: I48.2 - Chronic atrial fibrillation COPD exacerbation CHF (congestive heart failure) Qualified Code: I50.9 - Congestive heart failure, unspecified congestive heart failure chronicity, unspecified congestive heart failure type Admitting Information Admitting Physician Requests: Admit Condition: Elizabeth Dennis MD Jan 11, 2017 13:04
--- NOTE | 2017-01-11 13:29 | RADRPT ---
EXAM DATE/TIME: 01/11/2017 12:53 [facility] COMPARISON: CHEST SINGLE AP, November 02, 2016, 15:18. INDICATIONS : Short of breath. MEDICAL HISTORY : Cerebrovascular disease. Hypertension Deep venous thrombosis. SURGICAL HISTORY : None. ENCOUNTER: Initial ACUITY: 1 day PAIN SCORE: 0/10 LOCATION: Bilateral chest FINDINGS: There is moderate cardiomegaly with minimal failure. Bibasilar parenchymal changes are evident. The re is no significant effusion or pneumothorax. CONCLUSION: Moderate cardiomegaly with minimal failure Minimal bibasilar clinical changes. Elver Nelson MD FACR on January 11, 2017 at 13:26 Board Certified Radiologist. This report was verified electronically.
[2017-01-11] MEDS ORDERED: FUROSEMIDE 100 MG/10 ML VIAL IV PUSH ONE (14:00)
[2017-01-11] MEDS ORDERED: NITROGLYCERIN 2% OINT 1 GM PACKET TOPICAL ONE (14:00)
[2017-01-11] MEDS ORDERED: MORPHINE SULFATE 8 MG/ML INJ IV PUSH ONE (14:00)
[2017-01-11] MEDS: RESP: ALBUTEROL 2.5 MG/IPRATROPIUM 0.5 MG NEB (SCH) INH ×2 (14:08→14:09)
--- NOTE | 2017-01-11 14:32 | HHI.HP ---
HPI Service [facility] Primary Care Physician Samuel Cruz MD Admission Diagnosis dyspnea, COPD, CHF Diagnoses: Chief Complaint: Shortness of breath. Travel History International Travel<30 Days: No Contact w/Intl Traveler <30 Da: No Traveled to Known Affected Are: No History of Present Illness This is a pleasant 76 y/o Male who has been evaluated and admitted in this facility back in July and October this year as we know he has Atrial Fibrillation on chronic anticoagulation with Warfarin, OA, Anxiety disorder, Hyperlipidemia, CHF, COPD, CVA back in 1995, DVT history, Hypertension, YONI not on CPAP, on this opportunity came to ER with Shortness of breath, which started yesterday evening, worsened, his Oxygen saturation on arrival was 84% at room air, he is not on Home oxygen at home, he is having increased weakness and Dyspnea associated to Exercise, well known to his Primary workers compensation claims specialist and his Mrs. Patel asking for him to see the patient, I agree even at this time I think this is more related to Pulmonary pathology, he has COPD exacerbation with expiratory wheezing, continue smoking Cigars. Review of Systems Respiratory: COMPLAINS OF: Shortness of breath Except as stated in HPI: all other systems reviewed are Neg Past Family Social History Past Medical History Atrial Fibrillation chronic Warfarin intake with therapeutic INR 2.8 Hypothyroidism Hyperlipidemia CVA in 1994 OA by history CHF Anxiety disorder DVT by history YONI not on CPAP Past Surgical History Inguinal Hernia repair Venous Stripping Thyroid surgery x 2 Cataract surgery TURP Right lung lobectomy-Benign Tumor Reported Medications Reported Meds & Active Scripts Active Lisinopril 5 Mg Tab 2.5 Mg PO DAILY Reported Folic Acid 1 Mg Tablet Metoprolol Tartrate 37.5 Mg Tab 37.5 Mg PO BID Aspirin 81 Mg Chew 81 Mg CHEW DAILY Coumadin (Warfarin) 4 Mg Tab 4.5 Mg PO DAILY Synthroid (Levothyroxine Sodium) 200 Mcg Tab 200 Mcg PO DAILY Furosemide 40 Mg Tab 40 Mg PO DAILY Atorvastatin (Atorvastatin Calcium) 40 Mg Tab 40 Mg PO HS Sertraline (Sertraline HCl) 100 Mg Tab 100 Mg PO DAILY Miralax Powder (Polyethylene Glycol 3350 Powder) 1 Pow Pow 1 Cap PO DAILY Allergies: Coded Allergies: *MDRO Multi-Drug Resistant Organism (Verified Adverse Reaction, Unknown, ) MRSA (leg wound) - 03/2012 Active Ordered Medications Current Medications Medications (Trade) Dose Ordered Sig/Fanny Route Start Time Stop Time Status Last Admin (Aspirin Chew) 81 mg DAILY CHEW 01/12/17 09:00 (Lipitor) 40 mg HS PO 01/11/17 21:00 (Lasix) 40 mg DAILY PO 01/12/17 09:00 (Synthroid) 200 mcg DAILY@06 PO 01/12/17 06:00 (Prinivil) 2.5 mg DAILY PO 01/12/17 09:00 (Miralax) 17 gm DAILY PO 01/12/17 09:00 (Zoloft) 100 mg DAILY PO 01/12/17 09:00 (Coumadin) 4.5 mg DAILY@16 PO 01/12/17 16:00 (Lopressor) 37.5 mg BID PO 01/11/17 21:00 (Pill Splitter) 1 ea UNSCH PRN OTHER 01/11/17 14:45 (NS Flush) 2 ml UNSCH PRN IV FLUSH 01/11/17 14:45 (NS Flush) 2 ml BID IV FLUSH 01/11/17 21:00 (Tylenol) 650 mg Q4H PRN PO 01/11/17 14:45 (Zofran Inj) 4 mg Q6H PRN IVP 01/11/17 14:45 (Narcan Inj) 0.4 mg UNSCH PRN IV 01/11/17 14:45 (Lucia-Colace) 1 tab BID PO 01/11/17 21:00 (Milk Of Magnesia Liq) 30 ml Q12H PRN PO 01/11/17 14:45 (Senokot) 17.2 mg Q12H PRN PO 01/11/17 14:45 (Dulcolax Supp) 10 mg DAILY PRN RECTAL 01/11/17 14:45 (Lactulose Liq) 30 ml DAILY PRN PO 01/11/17 14:45 (Mucinex Er) 600 mg BID PO 01/11/17 15:00 01/11/17 14:55 (Catapres) 0.1 mg Q6H PRN PO 01/11/17 14:45 Family History Father of [place] when he was 47 y/o Social History Daily drinks whiskey quit smoking in 1971 he smoked Cigars Physical Exam Vital Signs Vital Signs Date Time Temp Pulse Resp B/P Pulse Ox O2 Delivery O2 Flow Rate FiO2 01/11/17 14:14 90 20 179/101 100 Nasal Cannula 01/11/17 14:09 98 Nasal Cannula 3.00 01/11/17 13:45 99 18 179/93 100 Nasal Cannula 01/11/17 13:23 95 24 160/108 87 Nasal Cannula 3 01/11/17 11:46 103 28 172/114 100 Non-Rebreather 01/11/17 11:46 100 15 01/11/17 11:46 100 Non-Rebreather 01/11/17 11:41 98.2 100 26 170/117 100 Physical Exam GENERAL: Obese patient, with mild respiratory distress but not wearing oxygen. SKIN: Warm and dry. HEAD: Atraumatic. Normocephalic. EYES: Pupils equal and round. Extraocular movements are intact. ENT: No nasal bleeding or discharge. Mucous membranes pink and moist. NECK: Trachea midline. Neck is supple. CARDIOVASCULAR: Irregularly irregular rate and rhythm. His ventricular rate is about 100. RESPIRATORY: Decreased breath sounds bilateral, with Expiratory wheezing, no crackles. GASTROINTESTINAL: Abdomen soft, non-tender, nondistended. MUSCULOSKELETAL: No obvious deformities. Edema 3+ NEUROLOGICAL: Awake and alert. No obvious cranial nerve deficits. Motor grossly within normal limits. Normal speech. PSYCHIATRIC: Appropriate mood and affect; insight and judgment normal. Laboratory Laboratory Tests Test 01/11/17 10:56 White Blood Count 6.2 Red Blood Count 4.62 Hemoglobin 14.9 Hematocrit 44.4 Mean Corpuscular Volume 96.0 Mean Corpuscular Hemoglobin 32.3 Mean Corpuscular Hemoglobin 33.6 Concent Red Cell Distribution Width 15.2 Platelet Count 173 Mean Platelet Volume 7.5 Neutrophils (%) (Auto) 73.5 Lymphocytes (%) (Auto) 15.1 Monocytes (%) (Auto) 7.5 Eosinophils (%) (Auto) 3.0 Basophils (%) (Auto) 0.9 Neutrophils # (Auto) 4.6 Lymphocytes # (Auto) 0.9 Monocytes # (Auto) 0.5 Eosinophils # (Auto) 0.2 Basophils # (Auto) 0.1 CBC Comment DIFF FINAL Differential Comment Prothrombin Time 29.9 Prothromb Time International 2.6 Ratio Activated Partial 37.9 Thromboplast Time Sodium Level 144 Potassium Level 4.4 Chloride Level 107 Carbon Dioxide Level 31.5 Anion Gap 6 Blood Urea Nitrogen 12 Creatinine 1.06 Estimat Glomerular Filtration 68 Rate Random Glucose 90 Calcium Level 8.8 Magnesium Level 2.3 Total Bilirubin 0.5 Aspartate Amino Transf 26 (AST/SGOT) Alanine Aminotransferase 30 (ALT/SGPT) Alkaline Phosphatase 93 Total Creatine Kinase 115 Creatine Kinase MB 2.7 Troponin I LESS THAN 0.02 B-Type Natriuretic Peptide 198 Total Protein 7.8 Albumin 3.7 Result Diagram: 01/11/17 1056 01/11/17 1056 Imaging Last Impressions Chest X-Ray 01/11/17 1142 Signed Impressions: Service Date/Time: Wednesday, January 11, 2017 12:53 - CONCLUSION: Moderate cardiomegaly with minimal failure Minimal bibasilar clinical changes. Elver Nelson MD FACR Assessment and Plan Assessment and Plan 1. COPD exacerbation, received treatment in Emergency room with Bronchodilators , was on a Nonrebreather mask CXR with moderate Cardiomegaly with minimal failure, Bibasilar parenchymal changes are evident, no significant effusion or Pneumothorax. he is not using Home Oxygen. continue bronchodilator, Mucolytic, incentive spirometry, Steroids. get Respiratory Therapy specialist for evaluation in am tomorrow for six minute walking test probable discharge tomorrow. 2. CHF received diuretics in ER Lasix 80 mg once. the patient's asking for her 's Primary workers compensation claims specialist Doctor Panchito Kennedy asked for a consult. the patient has chronic lower extremity edema 3. Peripheral Vascular disease as Venous Stasis. 4. Atrial Fibrillation, his EKG showed Atrial Fibrillation with RVR in [address] segment elevation or depression CKMB and troponin within normal limit, BNP 198, INR therapeutic in 2.6 5. Hypothyroidism to continue Hormonal replacement 6. OA by history 7. Anxiety Disorder continue home medicines. 8. Hyperlipidemia continue home medicines 9. CVA history of in 1995 10. YONI not on CPAP. 11. Severe Tobacco dependence since he was a child. continue smoking cigars. 12. Hypertension Uncontrolled today did not take his medicines, also his states he forgets taking them. continued home medicines and added Clonidine as needed. DVT prophylaxis with Warfarin INR therapeutic 2.6 Code Status Full Code. Discussed Condition With patient and his in the room. Discussed with Doctor Elizabeth Kern. Claude Vega MD Jan 11, 2017 14:32
[2017-01-11] MEDS ORDERED: MAGNESIUM HYDROXIDE SUSP 30 ML CUP PO PRN (14:45)
[2017-01-11] MEDS ORDERED: cloNIDine HCL 0.1 MG TAB PO PRN (14:45)
[2017-01-11] MEDS ORDERED: PILL SPLITTER OTHER PRN (14:45)
[2017-01-11] MEDS ORDERED: BISACODYL 10 MG SUPP RECTAL PRN (14:45)
[2017-01-11] MEDS ORDERED: SENNOSIDES 8.6 MG TAB PO PRN (14:45)
[2017-01-11] MEDS ORDERED: NALOXONE HCL 0.4 MG/ML AMP IV PRN (14:45)
[2017-01-11] MEDS ORDERED: ONDANSETRON HCL 4 MG/2 ML VIAL IVP PRN (14:45)
[2017-01-11] MEDS ORDERED: LACTULOSE SYRUP 20 GM/30 ML CUP PO PRN (14:45)
[2017-01-11] MEDS ORDERED: ACETAMINOPHEN 325 MG TAB PO PRN (14:45)
[2017-01-11] MEDS: guaiFENesin E.R. 600 MG TAB PO SCH ×2 (14:55→22:06)
[2017-01-11] MEDS: RESP: ALBUTEROL 2.5 MG/IPRATROPIUM 0.5 MG NEB (SCH) NEB ×2 (16:59→19:52)
[2017-01-11] MEDS: LISINOPRIL 5 MG TAB PO SCH (18:02)
[2017-01-11] MEDS: METOPROLOL TARTRATE 25 MG TAB PO SCH ×2 (18:03→22:06)
[2017-01-11] MEDS: methylPREDNISolone SOD SUCC 40 MG/1 ML VIAL IV PUSH SCH ×2 (18:04→23:48)
[2017-01-11] MEDS: RESP: BUDESONIDE 0.5 MG/2 ML NEB NEB SCH (19:52)
[2017-01-11] MEDS ORDERED: METOPROLOL TARTRATE 25 MG TAB PO SCH (21:00)
[2017-01-11] MEDS: DOCUSATE SODIUM 50 MG/SENNA 8.6 MG TAB PO SCH (22:06)
[2017-01-11] MEDS: SODIUM CHLORIDE 0.9% FLUSH 10 ML FLUSH IV FLUSH SCH (22:06)
[2017-01-11] MEDS: ATORVASTATIN 40 MG TAB PO SCH (22:06)
[2017-01-11 22:27] LABS: CREATINE KINASE 115 U/L (39-308)
[2017-01-11] MEDS: SODIUM CHLORIDE 0.9% FLUSH 10 ML FLUSH IV FLUSH PRN (23:48)
[2017-01-12] VITALS (9 sets, daily range): BP systolic 131–149; BP diastolic 78–105; PULSE 95–110; RESP 18–20; TEMP 97–98.6; O2SAT 92–99
[2017-01-12] MEDS: RESP: ALBUTEROL 2.5 MG/IPRATROPIUM 0.5 MG NEB (SCH) NEB ×6 (01:02→20:57)
[2017-01-12 04:12] LABS: AUTOMATED NEUTROPHIL # 8.1 TH/MM3 (1.8-7.7); BASOPHIL % 0.2 % (0.0-2.0); HEMATOCRIT 42.4 % (39.0-51.0); HEMO FLAGS DIFF FINAL; INTERNATIONAL NORMALIZED RATIO 2.7 RATIO; LYMPH % 3.4 % (9.0-44.0); LYMPHOCYTE # 0.3 TH/MM3 (1.0-4.8); MEAN CELL VOLUME 95.4 FL (80.0-100.0); MEAN CORPUSCULAR HEMOGLOBIN 32.8 PG (27.0-34.0); MEAN CORPUSCULAR HGB CONC 34.4 % (32.0-36.0); MONO % 0.5 % (0.0-8.0); NEUT % 95.9 % (16.0-70.0); PLATELET COUNT 170 TH/MM3 (150-450); PROTHROMBIN TIME - PATIENT 31.1 SEC (9.8-11.6); RED BLOOD COUNT 4.44 MIL/MM3 (4.50-5.90); WHITE BLOOD COUNT 8.5 TH/MM3 (4.0-11.0)
[2017-01-12 04:28] LABS: BICARBONATE 29.2 MEQ/L (21.0-32.0); POTASSIUM 4.4 MEQ/L (3.5-5.1)
[2017-01-12 04:32] LABS: CREATINE KINASE 104 U/L (39-308)
[2017-01-12] MEDS: methylPREDNISolone SOD SUCC 40 MG/1 ML VIAL IV PUSH SCH ×3 (06:20→18:49)
[2017-01-12] MEDS: LEVOTHYROXINE SODIUM 200 MCG TAB PO SCH (06:20)
[2017-01-12] MEDS: SODIUM CHLORIDE 0.9% FLUSH 10 ML FLUSH IV FLUSH PRN (06:21)
--- NOTE | 2017-01-12 07:09 | MB ---
cc: TRACIANTHONYPEDROSTEVEN DATE OF CONSULTATION 01/11/2017 REASON FOR CONSULTATION Mr. Nazario is a 76-year-old white male patient of Dr. Kennedy with a history of moderate coronary artery disease, left atrial thrombus, atrial fibrillation, hypertension, aortic insufficiency, COPD and sleep apnea. He presented with progressive shortness of breath, hypoxemia and peripheral edema. He has not had any chest pain. He was diagnosed with COPD exacerbation and started on bronchodilators and steroids. He is a patient of Dr. Kennedy. PAST MEDICAL HISTORY Positive for: 1. Atrial fibrillation 2. Left atrial thrombus, currently on warfarin 3. coronary disease with two-vessel disease with 50% LAD stenosis and 60% RCA stenosis in 07/2016. 4. History of aortic insufficiency. 5. DVT and PE 6. Hypertension from mainly dyslipidemia 7. Peripheral vascular disease status post venous ablation status post common femoral artery embolus. 8. Hypothyroidism 9. surgery 10. anxiety, depression 11. Temporal arteritis 12. TURP 13. Right lower lung mass removed which was benign. 14. Hernia repair 15. Sleep apnea 16. Chronic diastolic congestive heart failure with ejection fraction of 60% on recent catheterization. MEDICATIONS Include 1. MiraLax 2. Sertraline 3. Atorvastatin 40 4. Furosemide 5. Synthroid 6. Coumadin 7. Aspirin 8. Metoprolol 9. Folic acid 10. Lisinopril ALLERGIES No known medical allergies. SOCIAL HISTORY The patient smokes cigars. He drinks at least two drinks a day. FAMILY HISTORY Positive for heart disease in this father. REVIEW OF SYSTEMS Otherwise negative. PHYSICAL EXAMINATION VITAL SIGNS: Blood pressure 155/96, pulse 80 and irregular. HEENT: Negative. 2+ carotid up-strokes. No bruits. LUNGS: With few wheezes and no rhonchi. HEART: Irregularly irregular with no murmur or gallop. ABDOMEN: Soft, no bruits. EXTREMITIES: With 3+ edema, 1+ distal pulses. NEUROLOGIC: Exam is grossly nonfocal. EKG was reviewed and showed atrial fibrillation with increased ventricular response, old inferior Q-waves. LABORATORY DATA Hemoglobin 14.9, potassium 4.4, creatinine 1.1, CK-MB 2.7, troponin less than 0.02, BNP 198. DIAGNOSIS 1. Acute COPD exacerbation 2. Chronic diastolic congestive heart failure 3. Chronic atrial fibrillation 4. Sleep apnea 5. Hypertension 6. Moderate nonobstructive coronary artery disease 7. Dyslipidemia 8. Hypothyroidism 9. History of left atrial thrombus. 10. History of DVT and PE. DISPOSITION Mr. Nazario presented with COPD exacerbation. I recommend continue therapy for COPD. I also recommend continue therapy for his left ventricle diastolic dysfunction including diuresis, to continue rate control his atrial fibrillation. We need to continue anticoagulation with warfarin given his history of DVT, PE and left atrial thrombus. He will be monitored on telemetry. I will follow him for cardiology during his hospitalization. He will follow up with Dr. Kennedy, his primary antique automobiles repairer in his office after discharge. MD MARCIO Carroll/CARTER /5:42 PM /6:58 AM
[2017-01-12] MEDS: LISINOPRIL 5 MG TAB PO SCH (08:47)
[2017-01-12] MEDS: POLYETHYLENE GLYCOL 17 GM PKG PO SCH (08:47)
[2017-01-12] MEDS: SERTRALINE HCL 100 MG TAB PO SCH (08:47)
[2017-01-12] MEDS: guaiFENesin E.R. 600 MG TAB PO SCH ×2 (08:47→21:10)
[2017-01-12] MEDS: DOCUSATE SODIUM 50 MG/SENNA 8.6 MG TAB PO SCH ×2 (08:47→21:10)
[2017-01-12] MEDS: ASPIRIN 81 MG CHEW TAB CHEW SCH (08:47)
[2017-01-12] MEDS: FUROSEMIDE 40 MG TAB PO SCH (08:47)
[2017-01-12] MEDS: SODIUM CHLORIDE 0.9% FLUSH 10 ML FLUSH IV FLUSH SCH ×2 (08:48→21:00)
[2017-01-12] MEDS: METOPROLOL TARTRATE 25 MG TAB PO SCH ×2 (08:48→21:10)
[2017-01-12] MEDS ORDERED: LISINOPRIL 5 MG TAB PO SCH (09:00)
[2017-01-12] MEDS: RESP: BUDESONIDE 0.5 MG/2 ML NEB NEB SCH ×2 (09:12→20:58)
--- NOTE | 2017-01-12 09:25 | HHI.PR ---
Subjective Remarks This is a pleasant 76 y/o Male who has been evaluated and admitted in this facility back in July and October this year as we know he has Atrial Fibrillation on chronic anticoagulation with Warfarin, OA, Anxiety disorder, Hyperlipidemia, CHF, COPD, CVA back in 1995, DVT history, Hypertension, YONI not on CPAP, on this opportunity came to ER with Shortness of breath, which started yesterday evening, worsened, his Oxygen saturation on arrival was 84% at room air, he is not on Home oxygen at home, he is having increased weakness and Dyspnea associated to Exercise, well known to his Primary urban redevelopment specialist and his Mrs. Patel asking for him to see the patient, I agree even at this time I think this is more related to Pulmonary pathology, he has COPD exacerbation with expiratory wheezing, continue smoking Cigars. 01/12: Patient seen in his bedroom in the presence of Physical Therapy team, he is not wearing oxygen, no respiratory insufficiency noted speaking in complete sentences, no nausea, vomit or diarrhea, discussed with his Mrs. Espinoza I will continue management for today and discharge in am tomorrow, he received Lasix 80 mg in ER and his renal function is trending down today, he has Chronic Kidney disease III almost at his baseline, will follow in am after six minutes walk and discharge home in am tomorrow. was seen by urban redevelopment specialist Doctor Pinky recommended to continue diuretics and follow with his Primary urban redevelopment specialist Doctor Brent. Objective Vital Signs Date Time Temp Pulse Resp B/P Pulse Ox O2 Delivery O2 Flow Rate FiO2 01/12/17 09:16 92 21 01/12/17 08:00 97.3 95 20 145/90 97 01/12/17 04:00 98.5 110 18 149/105 95 01/12/17 04:00 Nasal Cannula 2.00 01/12/17 01:04 96 Nasal Cannula 3.00 01/12/17 00:08 98.6 105 20 149/84 95 01/12/17 00:08 Nasal Cannula 2.00 01/11/17 20:46 Nasal Cannula 2.00 01/11/17 20:46 95 Nasal Cannula 2.00 01/11/17 20:46 98.2 104 20 145/85 95 01/11/17 20:16 103 01/11/17 19:40 Nasal Cannula 2.00 01/11/17 16:47 80 20 155/96 99 Nasal Cannula 3 01/11/17 16:30 97.6 88 20 152/98 95 01/11/17 15:08 104 28 164/108 98 Nasal Cannula 2 01/11/17 14:14 90 20 179/101 100 Nasal Cannula 01/11/17 14:09 98 Nasal Cannula 3.00 01/11/17 13:45 99 18 179/93 100 Nasal Cannula 01/11/17 13:23 95 24 160/108 87 Nasal Cannula 3 01/11/17 11:46 103 28 172/114 100 Non-Rebreather 01/11/17 11:46 100 15 01/11/17 11:46 100 Non-Rebreather 01/11/17 11:41 98.2 100 26 170/117 100 I/O 01/11/17 01/11/17 01/11/17 01/12/17 01/12/17 01/12/17 07:00 15:00 23:00 07:00 15:00 23:00 Output Total 975 ml Balance -975 ml Output Urine Total 975 ml # Bowel Movements 0 Result Diagram: 01/12/17 0353 01/12/17 0353 Imaging Last Impressions Chest X-Ray 01/11/17 1142 Signed Impressions: Service Date/Time: Wednesday, January 11, 2017 12:53 - CONCLUSION: Moderate cardiomegaly with minimal failure Minimal bibasilar clinical changes. Elver Nelson MD FACR Procedures None Other Results Laboratory Tests Test 01/11/17 01/12/17 10:56 03:53 Activated Partial 37.9 SEC Thromboplast Time Magnesium Level 2.3 MG/DL Total Bilirubin 0.5 MG/DL Aspartate Amino Transf 26 U/L (AST/SGOT) Alanine Aminotransferase 30 U/L (ALT/SGPT) Alkaline Phosphatase 93 U/L Creatine Kinase MB 2.7 NG/ML B-Type Natriuretic Peptide 198 PG/ML Total Protein 7.8 GM/DL Albumin 3.7 GM/DL White Blood Count 8.5 TH/MM3 Red Blood Count 4.44 MIL/MM3 Hemoglobin 14.6 GM/DL Hematocrit 42.4 % Mean Corpuscular Volume 95.4 FL Mean Corpuscular Hemoglobin 32.8 PG Mean Corpuscular Hemoglobin 34.4 % Concent Red Cell Distribution Width 15.0 % Platelet Count 170 TH/MM3 Mean Platelet Volume 7.7 FL Neutrophils (%) (Auto) 95.9 % Lymphocytes (%) (Auto) 3.4 % Monocytes (%) (Auto) 0.5 % Eosinophils (%) (Auto) 0.0 % Basophils (%) (Auto) 0.2 % Neutrophils # (Auto) 8.1 TH/MM3 Lymphocytes # (Auto) 0.3 TH/MM3 Monocytes # (Auto) 0.0 TH/MM3 Eosinophils # (Auto) 0.0 TH/MM3 Basophils # (Auto) 0.0 TH/MM3 CBC Comment DIFF FINAL Differential Comment Prothrombin Time 31.1 SEC Prothromb Time International 2.7 RATIO Ratio Sodium Level 139 MEQ/L Potassium Level 4.4 MEQ/L Chloride Level 100 MEQ/L Carbon Dioxide Level 29.2 MEQ/L Anion Gap 10 MEQ/L Blood Urea Nitrogen 18 MG/DL Creatinine 1.31 MG/DL Estimat Glomerular Filtration 53 ML/MIN Rate Random Glucose 170 MG/DL Calcium Level 8.8 MG/DL Total Creatine Kinase 104 U/L Troponin I LESS THAN 0.02 NG/ML Objective Remarks GENERAL: Obese patient, No acute distress. Not wearing Oxygen. SKIN: Warm and dry. HEAD: Atraumatic. Normocephalic. EYES: Pupils equal and round. Extraocular movements are intact. ENT: No nasal bleeding or discharge. Mucous membranes pink and moist. NECK: Trachea midline. Neck is supple. CARDIOVASCULAR: Irregularly irregular rate and rhythm. RESPIRATORY: Decreased breath sounds bilateral, with Expiratory wheezing, no crackles. GASTROINTESTINAL: Abdomen soft, non-tender, nondistended. MUSCULOSKELETAL: No obvious deformities. Edema 3+ NEUROLOGICAL: Awake and alert. No obvious cranial nerve deficits. Motor grossly within normal limits. Normal speech. PSYCHIATRIC: Appropriate mood and affect; insight and judgment normal. Medications and IVs Current Medications Medications (Trade) Dose Ordered Sig/Fanny Route Start Time Stop Time Status Last Admin (Aspirin Chew) 81 mg DAILY CHEW 01/12/17 09:00 01/12/17 08:47 (Lipitor) 40 mg HS PO 01/11/17 21:00 01/11/17 22:06 (Lasix) 40 mg DAILY PO 01/12/17 09:00 01/12/17 08:47 (Synthroid) 200 mcg DAILY@06 PO 01/12/17 06:00 01/12/17 06:20 (Miralax) 17 gm DAILY PO 01/12/17 09:00 01/12/17 08:47 (Zoloft) 100 mg DAILY PO 01/12/17 09:00 01/12/17 08:47 (Coumadin) 4.5 mg DAILY@16 PO 01/12/17 16:00 (Pill Splitter) 1 ea UNSCH PRN OTHER 01/11/17 14:45 (NS Flush) 2 ml UNSCH PRN IV FLUSH 01/11/17 14:45 01/12/17 06:21 (NS Flush) 2 ml BID IV FLUSH 01/11/17 21:00 01/12/17 08:48 (Tylenol) 650 mg Q4H PRN PO 01/11/17 14:45 (Zofran Inj) 4 mg Q6H PRN IVP 01/11/17 14:45 (Narcan Inj) 0.4 mg UNSCH PRN IV 01/11/17 14:45 (Lucia-Colace) 1 tab BID PO 01/11/17 21:00 01/12/17 08:47 (Milk Of Magnesia Liq) 30 ml Q12H PRN PO 01/11/17 14:45 (Senokot) 17.2 mg Q12H PRN PO 01/11/17 14:45 (Dulcolax Supp) 10 mg DAILY PRN RECTAL 01/11/17 14:45 (Lactulose Liq) 30 ml DAILY PRN PO 01/11/17 14:45 (Mucinex Er) 600 mg BID PO 01/11/17 15:00 01/12/17 08:47 (Catapres) 0.1 mg Q6H PRN PO 01/11/17 14:45 01/12/17 04:50 (SoluMEDROL INJ) 40 mg Q6HR IV PUSH 01/11/17 18:00 01/12/17 06:20 (Lopressor) 37.5 mg BID PO 01/11/17 17:00 01/12/17 08:48 (Prinivil) 2.5 mg DAILY PO 01/11/17 17:00 01/12/17 08:47 A/P Assessment and Plan 1. COPD exacerbation, received treatment in Emergency room with Bronchodilators , was on a Nonrebreather mask CXR with moderate Cardiomegaly with minimal failure, Bibasilar parenchymal changes are evident, no significant effusion or Pneumothorax. he is not using Home Oxygen. continue bronchodilator, Mucolytic, incentive spirometry, Steroids. at this time improved condition, no wheezing, no crackles, decreased breath sounds, will need to optimize his respiratory Medicines for tomorrow for discharge, he is breathing without difficulty I think will pass his six minute walk and will go home with no oxygen, will follow in am. 2. CHF Chronic Diastolic heart failure. received diuretics in ER Lasix 80 mg once.seen by Doctor Charu Vance he will go home and continue diuretics as per urban redevelopment specialist. 3. Peripheral Vascular disease as Venous Stasis. MARTHA Lloyd Recommended. 4. Atrial Fibrillation, his EKG showed Atrial Fibrillation with RVR [place] [address] segment elevation or depression CKMB and troponin within normal limit, BNP 198, INR therapeutic in 2.7 continue present. 5. Hypothyroidism to continue Hormonal replacement 6. OA by history 7. Anxiety Disorder continue home medicines. 8. Hyperlipidemia continue home medicines 9. CVA history of in 1995 10. YONI not on CPAP. 11. Severe Tobacco dependence since he was a child. continue smoking cigars. strongly recommended to stop smoking Nicotine patch offered. 12. Hypertension Controlled. 13. Obesity strongly recommended diet and exercise. 14. CKD III with minimal decrease in renal function from yesterday will continue present care and follow in am tomorrow with new BMP. DVT prophylaxis with Warfarin INR therapeutic 2.7 Code Status Full Code. Discussed Condition With Patient and his , All questions answered to the best of my abilities. Discharge Planning Expected in am tomorrow. Claude Vega MD Jan 12, 2017 09:25
--- NOTE | 2017-01-12 12:07 | EKG ---
Date Performed: 01/11/2017 Time Performed: 11:40:40 PTAGE: 76 years EKG: ATRIAL FIBRILLATION WITH RAPID VENTRICULAR RESPONSE INDETERMINATE AXIS INFERIOR MYOCARDIAL INFARCTION ABNORMAL ECG INTERPRETATION BASED ON A DEFAULT AGE OF 40 YEARS Compared to prior tracing n o significant change DOCTOR: Santosh Lagos Interpretating Date/Time 01/12/2017 12:05:33
[2017-01-12] MEDS ORDERED: WARFARIN SOD 2 MG TAB PO SCH (16:00)
--- NOTE | 2017-01-12 16:02 | PD.CARD.PN ---
Subjective Subjective Remarks No CP, SOB and edema improving Objective Medications Current Medications Medications (Trade) Dose Ordered Sig/Fanny Route Start Time Stop Time Status Last Admin (Aspirin Chew) 81 mg DAILY CHEW 01/12/17 09:00 01/12/17 08:47 (Lipitor) 40 mg HS PO 01/11/17 21:00 01/11/17 22:06 (Lasix) 40 mg DAILY PO 01/12/17 09:00 01/12/17 08:47 (Synthroid) 200 mcg DAILY@06 PO 01/12/17 06:00 01/12/17 06:20 (Miralax) 17 gm DAILY PO 01/12/17 09:00 01/12/17 08:47 (Zoloft) 100 mg DAILY PO 01/12/17 09:00 01/12/17 08:47 (Coumadin) 4.5 mg DAILY@16 PO 01/12/17 16:00 (Pill Splitter) 1 ea UNSCH PRN OTHER 01/11/17 14:45 (NS Flush) 2 ml UNSCH PRN IV FLUSH 01/11/17 14:45 01/12/17 06:21 (NS Flush) 2 ml BID IV FLUSH 01/11/17 21:00 01/12/17 08:48 (Tylenol) 650 mg Q4H PRN PO 01/11/17 14:45 (Zofran Inj) 4 mg Q6H PRN IVP 01/11/17 14:45 (Narcan Inj) 0.4 mg UNSCH PRN IV 01/11/17 14:45 (Lucia-Colace) 1 tab BID PO 01/11/17 21:00 01/12/17 08:47 (Milk Of Magnesia Liq) 30 ml Q12H PRN PO 01/11/17 14:45 (Senokot) 17.2 mg Q12H PRN PO 01/11/17 14:45 (Dulcolax Supp) 10 mg DAILY PRN RECTAL 01/11/17 14:45 (Lactulose Liq) 30 ml DAILY PRN PO 01/11/17 14:45 (Mucinex Er) 600 mg BID PO 01/11/17 15:00 01/12/17 08:47 (Catapres) 0.1 mg Q6H PRN PO 01/11/17 14:45 01/12/17 04:50 (SoluMEDROL INJ) 40 mg Q6HR IV PUSH 01/11/17 18:00 01/12/17 12:53 (Lopressor) 37.5 mg BID PO 01/11/17 17:00 01/12/17 08:48 (Prinivil) 2.5 mg DAILY PO 01/11/17 17:00 01/12/17 08:47 Vital Signs / I&O Vital Signs Date Time Temp Pulse Resp B/P Pulse Ox O2 Delivery O2 Flow Rate FiO2 01/12/17 12:00 97.0 110 20 132/89 99 01/12/17 09:16 92 21 01/12/17 08:00 Nasal Cannula 2.00 01/12/17 08:00 97.3 95 20 145/90 97 01/12/17 04:00 98.5 110 18 149/105 95 01/12/17 04:00 Nasal Cannula 2.00 01/12/17 01:04 96 Nasal Cannula 3.00 01/12/17 00:08 98.6 105 20 149/84 95 01/12/17 00:08 Nasal Cannula 2.00 01/11/17 20:46 Nasal Cannula 2.00 01/11/17 20:46 95 Nasal Cannula 2.00 01/11/17 20:46 98.2 104 20 145/85 95 01/11/17 20:16 103 01/11/17 19:40 Nasal Cannula 2.00 01/11/17 16:47 80 20 155/96 99 Nasal Cannula 3 01/11/17 16:30 97.6 88 20 152/98 95 I/O 01/11/17 01/11/17 01/11/17 01/12/17 01/12/17 01/12/17 06:59 14:59 22:59 06:59 14:59 22:59 Output Total 975 ml Balance -975 ml Output Urine Total 975 ml # Bowel Movements 0 Physical Exam GENERAL: In NAD, resting SKIN: Warm and dry. HEAD: Normocephalic. EYES: No scleral icterus. No injection or drainage. NECK: Supple, trachea midline. No JVD or lymphadenopathy. CARDIOVASCULAR: Irregular rate, without murmurs, gallops, or rubs. RESPIRATORY: Breath sounds equal bilaterally. No accessory muscle use. GASTROINTESTINAL: Abdomen soft, non-tender, nondistended. MUSCULOSKELETAL: No cyanosis, 1-2+ edema. Laboratory Laboratory Tests Test 01/11/17 01/12/17 21:44 03:53 Total Creatine Kinase 115 U/L 104 U/L Troponin I LESS THAN 0.02 LESS THAN 0.02 NG/ML NG/ML White Blood Count 8.5 TH/MM3 Red Blood Count 4.44 MIL/MM3 Hemoglobin 14.6 GM/DL Hematocrit 42.4 % Mean Corpuscular Volume 95.4 FL Mean Corpuscular Hemoglobin 32.8 PG Mean Corpuscular Hemoglobin 34.4 % Concent Red Cell Distribution Width 15.0 % Platelet Count 170 TH/MM3 Mean Platelet Volume 7.7 FL Neutrophils (%) (Auto) 95.9 % Lymphocytes (%) (Auto) 3.4 % Monocytes (%) (Auto) 0.5 % Eosinophils (%) (Auto) 0.0 % Basophils (%) (Auto) 0.2 % Neutrophils # (Auto) 8.1 TH/MM3 Lymphocytes # (Auto) 0.3 TH/MM3 Monocytes # (Auto) 0.0 TH/MM3 Eosinophils # (Auto) 0.0 TH/MM3 Basophils # (Auto) 0.0 TH/MM3 CBC Comment DIFF FINAL Differential Comment Prothrombin Time 31.1 SEC Prothromb Time International 2.7 RATIO Ratio Sodium Level 139 MEQ/L Potassium Level 4.4 MEQ/L Chloride Level 100 MEQ/L Carbon Dioxide Level 29.2 MEQ/L Anion Gap 10 MEQ/L Blood Urea Nitrogen 18 MG/DL Creatinine 1.31 MG/DL Estimat Glomerular Filtration 53 ML/MIN Rate Random Glucose 170 MG/DL Calcium Level 8.8 MG/DL Imaging Last Impressions Chest X-Ray 01/11/17 1142 Signed Impressions: Service Date/Time: Wednesday, January 11, 2017 12:53 - CONCLUSION: Moderate cardiomegaly with minimal failure Minimal bibasilar clinical changes. Elver Nelson MD FACR Assessment and Plan Problem List: (1) COPD exacerbation (2) CHF (congestive heart failure) (3) Atrial fibrillation (4) Hypertension, benign (5) Hyperlipidemia (6) CAD (coronary artery disease) Assessment and Plan Continue therapy for COPD exacerbation. Monitor on telemetry, a fib rate controlled. Continue diuresis for LV diastolic dysfunction. Edema improving. Continue anticoagulation with warfarin. Increase activity, PT. Problem Qualifiers (1) CHF (congestive heart failure): Qualified Code: I50.9 - Congestive heart failure, unspecified congestive heart failure chronicity, unspecified congestive heart failure type (2) Atrial fibrillation: Qualified Code: I48.2 - Chronic atrial fibrillation Charu Vance MD Jan 12, 2017 16:02
[2017-01-12] MEDS: ATORVASTATIN 40 MG TAB PO SCH (21:10)
[2017-01-13] VITALS: BP 160/89; PULSE 108; RESP 18; TEMP 98.4; O2SAT 94
[2017-01-13] MEDS: SODIUM CHLORIDE 0.9% FLUSH 10 ML FLUSH IV FLUSH PRN ×2 (00:57→05:30)
[2017-01-13] MEDS: methylPREDNISolone SOD SUCC 40 MG/1 ML VIAL IV PUSH SCH ×3 (00:57→13:24)
[2017-01-13] MEDS: RESP: ALBUTEROL 2.5 MG/IPRATROPIUM 0.5 MG NEB (SCH) NEB ×5 (01:09→16:00)
[2017-01-13 04:00] VITALS: BP 136/85; PULSE 110; RESP 19; TEMP 98.4; O2SAT 95
[2017-01-13 05:07] VITALS: PULSE 108
[2017-01-13] MEDS: LEVOTHYROXINE SODIUM 200 MCG TAB PO SCH (05:29)
[2017-01-13 08:00] VITALS: PULSE 115
[2017-01-13] MEDS: METOPROLOL TARTRATE 25 MG TAB PO SCH (09:17)
[2017-01-13] MEDS: DOCUSATE SODIUM 50 MG/SENNA 8.6 MG TAB PO SCH (09:17)
[2017-01-13] MEDS: ASPIRIN 81 MG CHEW TAB CHEW SCH (09:17)
[2017-01-13] MEDS: guaiFENesin E.R. 600 MG TAB PO SCH (09:18)
[2017-01-13] MEDS: POLYETHYLENE GLYCOL 17 GM PKG PO SCH (09:18)
[2017-01-13] MEDS: LISINOPRIL 5 MG TAB PO SCH (09:18)
[2017-01-13] MEDS: SODIUM CHLORIDE 0.9% FLUSH 10 ML FLUSH IV FLUSH SCH (09:19)
[2017-01-13] MEDS: FUROSEMIDE 40 MG TAB PO SCH (09:19)
[2017-01-13] MEDS: SERTRALINE HCL 100 MG TAB PO SCH (09:19)
[2017-01-13] MEDS: RESP: BUDESONIDE 0.5 MG/2 ML NEB NEB SCH (09:22)
[2017-01-13] MEDS ORDERED: GUAISYP4 PO (16:02)
--- NOTE | 2017-01-13 16:07 | HHI.DS ---
Discharge Summary Admission Date Jan 11, 2017 at 2:15 pm Discharge Date: Jan 13, 2017 Admitting Diagnosis dyspnea, COPD, CHF (1) CHF (congestive heart failure) ICD Code: I50.9 Diagnosis: Principal (2) COPD exacerbation ICD Code: J44.1 Diagnosis: Principal (3) Atrial fibrillation ICD Code: I48.91 Diagnosis: Principal (4) Hypothyroidism ICD Code: E03.9 Procedures None. Brief History - From Admission This is a pleasant 76 y/o Male who has been evaluated and admitted in this facility back in July and October this year as we know he has Atrial Fibrillation on chronic anticoagulation with Warfarin, OA, Anxiety disorder, Hyperlipidemia, CHF, COPD, CVA back in 1995, DVT history, Hypertension, YONI not on CPAP, on this opportunity came to ER with Shortness of breath, which started yesterday evening, worsened, his Oxygen saturation on arrival was 84% at room air, he is not on Home oxygen at home, he is having increased weakness and Dyspnea associated to Exercise, well known to his Primary him specialists and his Mrs. Patel asking for him to see the patient, I agree even at this time I think this is more related to Pulmonary pathology, he has COPD exacerbation with expiratory wheezing, continue smoking Cigars. CBC/BMP: 01/12/17 0353 01/12/17 0353 Significant Findings Laboratory Tests Test 01/11/17 01/11/17 01/12/17 10:56 21:44 03:53 Neutrophils (%) (Auto) 73.5 % 95.9 % (16.0-70.0) (16.0-70.0) Lymphocytes # (Auto) 0.9 TH/MM3 0.3 TH/MM3 (1.0-4.8) (1.0-4.8) Prothrombin Time 29.9 SEC 31.1 SEC (9.8-11.6) (9.8-11.6) Activated Partial 37.9 SEC Thromboplast Time (24.3-30.1) Estimat Glomerular Filtration 68 ML/MIN (>89) 53 ML/MIN (>89) Rate Troponin I LESS THAN 0.02 LESS THAN 0.02 LESS THAN 0.02 NG/ML NG/ML NG/ML (0.02-0.05) (0.02-0.05) (0.02-0.05) B-Type Natriuretic Peptide 198 PG/ML (0-100) Red Blood Count 4.44 MIL/MM3 (4.50-5.90) Lymphocytes (%) (Auto) 3.4 % (9.0-44.0) Neutrophils # (Auto) 8.1 TH/MM3 (1.8-7.7) Creatinine 1.31 MG/DL (0.60-1.30) Random Glucose 170 MG/DL (74-106) Imaging Last Impressions Chest X-Ray 01/11/17 1142 Signed Impressions: Service Date/Time: Wednesday, January 11, 2017 12:53 - CONCLUSION: Moderate cardiomegaly with minimal failure Minimal bibasilar clinical changes. Elver Nelson MD FACR PE at Discharge GENERAL: AOX3, NAD SKIN: Warm and dry. HEAD: Normocephalic. EYES: No scleral icterus. No injection or drainage. NECK: Supple, trachea midline. No JVD or lymphadenopathy. CARDIOVASCULAR: Regular rate and rhythm without murmurs, gallops, or rubs. RESPIRATORY: Breath sounds equal bilaterally. No accessory muscle use. GASTROINTESTINAL: Abdomen soft, non-tender, nondistended. MUSCULOSKELETAL: No cyanosis, or edema. BACK: Nontender without obvious deformity. No CVA tenderness. Pt update on day of discharge Patient is doing well. Currently on room air. No fever, chills. Hospital Course 1. COPD exacerbation, received treatment in Emergency room with Bronchodilators , was on a Nonrebreather mask CXR with moderate Cardiomegaly with minimal failure, Bibasilar parenchymal changes are evident, no significant effusion or Pneumothorax. he is not using Home Oxygen. continue bronchodilator, Mucolytic, incentive spirometry, Steroids. at this time improved condition, no wheezing, no crackles, decreased breath sounds, will need to optimize his respiratory Medicines for tomorrow for discharge, he is breathing without difficulty I think will pass his six minute walk and will go home with no oxygen, will follow in am. 2. CHF Chronic Diastolic heart failure. received diuretics in ER Lasix 80 mg once.seen by Dr. Vance he will go home and continue diuretics as per him specialists. 3. Peripheral Vascular disease as Venous Stasis. MARTHA Lloyd Recommended. 4. Atrial Fibrillation, his EKG showed Atrial Fibrillation with RVR in [address] segment elevation or depression CKMB and troponin within normal limit, BNP 198, INR therapeutic 2.7 5. Hypothyroidism to continue Hormonal replacement 6. OA by history 7. Anxiety Disorder continue home medicines. 8. Hyperlipidemia continue home medicines 9. CVA history of in 1995 10. YONI not on CPAP. 11. Severe Tobacco dependence since he was a child. continue smoking cigars. strongly recommended to stop smoking Nicotine patch offered. 12. Hypertension Controlled. 13. Obesity strongly recommended diet and exercise. 14. CKD III with minimal decrease in renal function from yesterday will continue present care and follow in am tomorrow with new BMP. Pt Condition on Discharge: Good Discharge Disposition: Disch w/ Home Health Serv Discharge Time: <= 30 minutes Discharge Instructions DIET: Follow Instructions for: Heart Healthy Diet Activities you can perform: Regular-No Restrictions Follow up Referrals: PCP Follow-up - 1 Week New Medications: Guaifenesin-Codeine Liq (Guaifenesin AC Liq) 100-10 Mg/5 Ml Syrp 10 ML PO Q6H PRN COUGH #1 Ref 0 BOTTLE Continued Medications: Aspirin (Aspirin) 81 Mg Chew 81 MG CHEW DAILY Ref 0 TAB Atorvastatin (Atorvastatin) 40 Mg Tab 40 MG PO HS Cholesterol Management #30 Ref 0 TAB Folic Acid (Folic Acid) 1 Mg Tablet Furosemide (Furosemide) 40 Mg Tab 40 MG PO DAILY #30 Ref 0 TAB Levothyroxine (Synthroid) 200 Mcg Tab 200 MCG PO DAILY Thyroid #30 Ref 0 TAB Lisinopril (Lisinopril) 5 Mg Tab 2.5 MG PO DAILY Blood Pressure Management #30 TAB Metoprolol Tartrate (Metoprolol Tartrate) 37.5 Mg Tab 37.5 MG PO BID #60 Ref 0 TAB Polyethylene Glycol 3350 Powder (Miralax Powder) 1 Pow Pow 1 CAP PO DAILY Sertraline (Sertraline) 100 Mg Tab 100 MG PO DAILY #30 Ref 0 TAB Warfarin (Coumadin) 4 Mg Tab 4.5 MG PO DAILY Prevent Blood Clot #30 Ref 0 TAB Mynor Hurley DO Jan 13, 2017 16:07
--- NOTE | 2017-01-13 16:19 | HHI.FF ---
Face to Face Verification Diagnosis: (1) COPD exacerbation (2) CHF (congestive heart failure) Physical Therapy Order: Evaluate and Treat, Improve ambulation, Strength and gait training Home Health Nursing Order: Medical education Signs/symptoms of disease process CHF education Nursing assessment with vital signs I have seen patient Neeraj Nazario on 01/13/17. My clinical findings support the need for the requested home health care services because: Patient has SOB Deconditioned w/ increased weakness Limited ability to care for self Need for psychosocial assistance I certify that my clinical findings support that this patient is homebound because: Unsafe to leave home unassisted Unable to use public transportation Mynor Hurley DO Jan 13, 2017 4:19 pm
== END 2017-01-13 17:15 | disposition home health service (06) ==
LOC: NEPD 11:38 → NEDA 14:15 → INTOOBSV 14:15 → N04A 16:45
PROVIDERS: ADMIT Hospitalist; ATTEND Hospitalist
DX: J44.1 Chronic obstructive pulmonary disease with (acute) exacerbation (principal); I73.9 Peripheral vascular disease, unspecified; E03.9 Hypothyroidism, unspecified; M19.90 Unspecified osteoarthritis, unspecified site; F41.9 Anxiety disorder, unspecified; E78.5 Hyperlipidemia, unspecified; G47.33 Obstructive sleep apnea (adult) (pediatric); I13.0 Hypertensive heart and chronic kidney disease with heart failure and stage 1 through stage 4 chronic kidney disease, or unspecified chronic kidney disease; I50.32 Chronic diastolic (congestive) heart failure; N18.3 Chronic kidney disease, stage 3 (moderate); I51.7 Cardiomegaly; I25.10 Atherosclerotic heart disease of native coronary artery without angina pectoris; E66.9 Obesity, unspecified; F17.290 Nicotine dependence, other tobacco product, uncomplicated; Z86.73 Personal history of transient ischemic attack (TIA), and cerebral infarction without residual deficits; Z86.718 Personal history of other venous thrombosis and embolism; Z79.82 Long term (current) use of aspirin; Z86.711 Personal history of pulmonary embolism; Z79.01 Long term (current) use of anticoagulants; Z79.899 Other long term (current) drug therapy; Z68.36 Body mass index [BMI] 36.0-36.9, adult
CPT/HCPCS: 71010; 80048; 80053; 82550; 82552; 83735; 83880; 84484; 85025; 85610; 85730; 87641; 93005; 94150; 94620; 94640; 94664; 96374; 96375; 97163; 99291; G0378; J1940; J2270; J2920; J7626

== ENCOUNTER 2017-05-21 18:41 | Emergency (ER) | payer MEDICARE ==
[~2017-05-21] VITALS: Ht 180.3 cm; Wt 120.0 kg
[~2017-05-21 18:41] MED LIST changes: +ASPI-516 CHEW; -ASPI81CH CHEW; -FOLI1TAB4 PO; +FOLI1TAB6; +GUAISYP4 PO
[2017-05-21 18:57] VITALS: BP 156/63; PULSE 88; RESP 20; TEMP 97.7; O2SAT 94
[2017-05-21] MEDS ORDERED: LIDOCAINE 1%/EPINEPHrine 1:100,000 SOLN 20 ML VIAL INFIL ONE (19:00)
[2017-05-21 19:21] LABS: AUTOMATED NEUTROPHIL # 6.1 TH/MM3 (1.8-7.7); BASOPHIL % 0.6 % (0.0-2.0); EOSINOPHIL # 0.2 TH/MM3 (0-0.4); EOSINOPHIL % 1.8 % (0.0-4.0); HEMATOCRIT 45.4 % (39.0-51.0); HEMO FLAGS DIFF FINAL; LYMPH % 16.2 % (9.0-44.0); LYMPHOCYTE # 1.4 TH/MM3 (1.0-4.8); MEAN CELL VOLUME 95.9 FL (80.0-100.0); MEAN CORPUSCULAR HEMOGLOBIN 32.3 PG (27.0-34.0); MEAN CORPUSCULAR HGB CONC 33.7 % (32.0-36.0); MONO % 9.2 % (0.0-8.0); NEUT % 72.2 % (16.0-70.0); PLATELET COUNT 192 TH/MM3 (150-450); RED BLOOD COUNT 4.73 MIL/MM3 (4.50-5.90); RED CELL DISTRIBUTION WIDTH 14.8 % (11.6-17.2); WHITE BLOOD COUNT 8.4 TH/MM3 (4.0-11.0)
--- NOTE | 2017-05-21 19:29 | PD ---
HPI Chief Complaint: Fall Time Seen by Provider: 19:00 Travel History International Travel<30 days: No Contact w/Intl Traveler<30days: No Traveled to known affect area: No History of Present Illness HPI 77-year-old male presents to the emergency department via EMS for evaluation after fall. Patient states that he drank 2 alcoholic beverages. He was leaning over to pick up worker a be her bottle when he fell forward. He denies any symptoms before the fall. Patient fell hitting his head and causing a laceration. He is on Coumadin. Patient denies any loss of consciousness. He reports chronic back pain which is unchanged. He denies any neck pain. No chest pain. No abdominal pain. No nausea, vomiting, diarrhea. He denies any hip or pelvic pain. Patient denies any pain at this time. Moderate severity. No exacerbating or alleviating factors. Patient does have abrasions to the bilateral posterior elbows as well as laceration to the forehead. He states his tetanus immunization has been within 5 years. 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) Heart Rhythm Problems: Yes (a-fib) Cancer: No Cardiovascular Problems: Yes High Cholesterol: Yes (under control) Chemotherapy: No Chest Pain: No Congestive Heart Failure: Yes COPD: Yes Cerebrovascular Accident: Yes Diabetes: No Diminished Hearing: No Deep Vein Thrombosis: Yes Endocrine: Yes Gastrointestinal Disorders: Yes GERD: No Genitourinary: No Headaches: No Hepatitis: No Hiatal Hernia: No Hypertension: Yes Immune Disorder: No Implanted Vascular Access Dvce: No Musculoskeletal: Yes Neurologic: Yes ([id number]) Psychiatric: No Reproductive: No Respiratory: Yes Migraines: No Radiation Therapy: No Seizures: No Sleep Apnea: Yes (DOES NOT WEAR CPAP) Thyroid Disease: Yes Ulcer: No PNEUMOCCOCAL Vaccine (Year): 1 Past Surgical History Abdominal Surgery: Yes (INGUINAL HERNIA REPAIR) AICD: No Cardiac Surgery: Yes (VENOUS STRIPPING) Endocrine Surgery: Yes (THYROID X 2) Eye Surgery: Yes (CATARACTS) Genitourinary Surgery: Yes (TURP) Hysterectomy: No Neurologic Surgery: No Pacemaker: No Thoracic Surgery: Yes (RIGHT LUNG LOBECTOMY - BENIGN TUMOR) Other Surgery: Yes (THYROID SX) Social History Alcohol Use: Yes (daily 1 liquor drink) Tobacco Use: Yes (quit 1972 smokes cigars) Substance Use: No Allergies-Medications (Allergen,Severity, Reaction): Coded Allergies: *MDRO Multi-Drug Resistant Organism (Verified Adverse Reaction, Unknown, Cleared - 01/12/17, 01/13/17) Cleared - MRSA screens negative on 11/04/16 & 01/12/17 MRSA (leg wound) - 03/2012 Reported Meds & Prescriptions Reported Meds & Active Scripts Active Guaifenesin AC Liq (Guaifenesin-Codeine Liq) 100-10 Mg/5 Ml Syrp 10 Ml PO Q6H PRN Lisinopril 5 Mg Tab 2.5 Mg PO DAILY Reported Folic Acid 1 Mg Tablet Metoprolol Tartrate 37.5 Mg Tab 37.5 Mg PO BID Aspirin 81 Mg Chew 81 Mg CHEW DAILY Coumadin (Warfarin) 4 Mg Tab 4.5 Mg PO DAILY Synthroid (Levothyroxine Sodium) 200 Mcg Tab 200 Mcg PO DAILY Furosemide 40 Mg Tab 40 Mg PO DAILY Atorvastatin (Atorvastatin Calcium) 40 Mg Tab 40 Mg PO HS Sertraline (Sertraline HCl) 100 Mg Tab 100 Mg PO DAILY Miralax Powder (Polyethylene Glycol 3350 Powder) 1 Pow Pow 1 Cap PO DAILY Review of Systems Except as stated in HPI: all other systems reviewed are Neg Physical Exam Narrative GENERAL: Well-nourished, well-developed male patient, afebrile. SKIN: Focused skin assessment warm/dry. Patient has abrasions to the posterior elbows. Patient has a 2 cm laceration to the mid forehead. Bleeding is controlled. He also has a 1 cm laceration to the upper forehead with bleeding controlled. HEAD: Normocephalic. Atraumatic. EYES: No scleral icterus. No injection or drainage. NECK: Supple, trachea midline. No JVD or lymphadenopathy. CARDIOVASCULAR: Regular rate and rhythm without murmurs, gallops, or rubs. Bilateral radial and pedal pulses are 2+. RESPIRATORY: Breath sounds equal bilaterally. No accessory muscle use. Lungs sounds are clear to auscultation. GASTROINTESTINAL: Abdomen soft, non-tender, nondistended. No abdominal tenderness to palpation. MUSCULOSKELETAL: No cyanosis, or edema. BACK: Nontender without obvious deformity. No CVA tenderness. No midline spinal tenderness. Data Data Last Documented VS Vital Signs Date Time Temp Pulse Resp B/P (MAP) Pulse Ox O2 Delivery O2 Flow Rate FiO2 05/21/17 19:00 100 Room Air 05/21/17 18:57 97.7 88 20 156/63 (94) Orders Orders Iv Access Insert/Monitor (05/21/17 19:00) Complete Blood Count With Diff (05/21/17 19:00) Basic Metabolic Panel (Bmp) (05/21/17 19:00) Act Partial Throm Time (Ptt) (05/21/17 19:00) Prothrombin Time / Inr (Pt) (05/21/17 19:00) Ct Cerv Spine W/O Contrast (05/21/17 ) Ct Brain W/O Iv Contrast(Rout) (05/21/17 ) Ct Facial Bones W/O Iv Cont (05/21/17 ) Chest, Single Ap (05/21/17 ) Wound Care (05/21/17 19:00) Lidocai-Epi 1%-1:100,000 Inj (Xylocaine- (05/21/17 19:00) Alcohol (Ethanol) (05/21/17 19:08) Labs Laboratory Tests Test 05/21/17 19:08 White Blood Count 8.4 TH/MM3 Red Blood Count 4.73 MIL/MM3 Hemoglobin 15.3 GM/DL Hematocrit 45.4 % Mean Corpuscular Volume 95.9 FL Mean Corpuscular Hemoglobin 32.3 PG Mean Corpuscular Hemoglobin Concent 33.7 % Red Cell Distribution Width 14.8 % Platelet Count 192 TH/MM3 Mean Platelet Volume 7.5 FL Neutrophils (%) (Auto) 72.2 % Lymphocytes (%) (Auto) 16.2 % Monocytes (%) (Auto) 9.2 % Eosinophils (%) (Auto) 1.8 % Basophils (%) (Auto) 0.6 % Neutrophils # (Auto) 6.1 TH/MM3 Lymphocytes # (Auto) 1.4 TH/MM3 Monocytes # (Auto) 0.8 TH/MM3 Eosinophils # (Auto) 0.2 TH/MM3 Basophils # (Auto) 0.0 TH/MM3 CBC Comment DIFF FINAL Differential Comment Prothrombin Time 12.7 SEC Prothromb Time International Ratio 1.3 RATIO Activated Partial Thromboplast Time 28.3 SEC Blood Urea Nitrogen 16 MG/DL Creatinine 1.07 MG/DL Random Glucose 83 MG/DL Calcium Level 8.7 MG/DL Sodium Level 139 MEQ/L Potassium Level 4.4 MEQ/L Chloride Level 104 MEQ/L Carbon Dioxide Level 28.3 MEQ/L Anion Gap 7 MEQ/L Estimat Glomerular Filtration Rate 67 ML/MIN Ethyl Alcohol Level 138 MG/DL [facility] Medical Decision Making Medical Screen Exam Complete: Yes Emergency Medical Condition: Yes Medical Record Reviewed: Yes Interpretation(s) Last Impressions Maxillofacial CT 05/21/17 0000 Signed Impressions: Service Date/Time: Sunday, May 21, 2017 19:27 - CONCLUSION: 1. No acute facial bone fracture. Frontal scalp swelling. William Welch MD Head CT 05/21/17 0000 Signed Impressions: Service Date/Time: Sunday, May 21, 2017 19:27 - CONCLUSION: 1. Frontal scalp swelling. No acute intracranial abnormalities. Stable remote right MCA infarct and arachnoid cyst on the left. William Welch MD Chest X-Ray 05/21/17 0000 Signed Impressions: Service Date/Time: Sunday, May 21, 2017 20:10 - CONCLUSION: 1. Chronic basilar density likely atelectasis and scarring. Stable elevated right hemidiaphragm. Cardiomegaly. William Welch MD Cervical Spine CT 05/21/17 0000 Signed Impressions: Service Date/Time: Sunday, May 21, 2017 19:27 - CONCLUSION: 1. Moderate degenerative disc disease. No significant change from March 2016. William Welch MD Differential Diagnosis Closed head injury versus intracranial abnormality versus cervical strain versus fracture versus facial contusion versus fracture Narrative Course 77-year-old male presents to the emergency department reveal via EMS for evaluation after he fell. CT of the brain, CT of the cervical spine, CT of the facial bones are ordered and pending. Chest x-ray is ordered and pending. CBC , BMP, PTT, PT/INR, CBC shows no acute abnormality. BMP shows no acute abnormality. Alcohol level is 138. PT is 12.7, INR 1.3, PTT 20.3. CT of the brain shows no acute intracranial abnormality. CT cervical spine shows no significant change. CT of the facial bones shows no acute facial bone fracture. X-ray of the chest shows chronic basilar density likely atelectasis and scarring. Lacerations are repaired. Patient is given Tylenol 650 mg by mouth for pain. He is instructed on proper wound care. He is to follow up with his primary care physician. The patient was discharged in stable condition with instructions, including return instructions and follow up instructions. Procedures Procedure Narrative LACERATION LOCATION: Forehead LENGTH: 2 cm NUMBER OF STITCHES/FLOYD: 4 simple interrupted sutures REPAIR: The area of the laceration was prepped with Betadine and sterilely draped. The laceration was infiltrated with 1% lidocaine with epinephrine. The wound was copiously irrigated and explored without evidence of foreign body, tendon injury or neurovascular injury. The wound was closed using 5-0 Prolene. This was a single layer repair. A sterile dressing was applied. The patient was advised to keep the dressing clean and dry. Patient tolerated the procedure well. LACERATION LOCATION: Forehead LENGTH: 1 cm NUMBER OF STITCHES/FLOYD:2 simple interrupted sutures REPAIR: The area of the laceration was prepped with Betadine and sterilely draped. The laceration was infiltrated with 1% lidocaine with epinephrine. The wound was copiously irrigated and explored without evidence of foreign body, tendon injury or neurovascular injury. The wound was closed using 5-0 Prolene. This was a single layer repair. A sterile dressing was applied. The patient was advised to keep the dressing clean and dry. Patient tolerated the procedure well. Diagnosis Primary Impression: Closed head injury Qualified Codes: S09.90XA - Unspecified injury of head, initial encounter Additional Impressions: Facial laceration Qualified Codes: S01.81XA - Laceration without foreign body of other part of head, initial encounter Cervical strain Qualified Codes: S16.1XXA - Strain of muscle, fascia and tendon at neck level , initial encounter Referrals: Primary Care Physician call for appointment Patient Instructions: Care For Your Stitches (ED), Cervical Strain (ED), Facial Laceration (ED), General Instructions, Head Injury (ED) Additional Instructions: Clean lacerations and abrasions twice daily with soap and water. Over-the- counter antibiotic ointment. Keep clean and dry. Suture removal in 5 days. You may follow up with your primary care physician or return in the emergency department. Follow-up with your primary care physician. Return to the emergency department for any acute worsening of symptoms. Med/Other Pt SpecificInfo: No Change to Meds Disposition: DISCHARGE HOME Condition: Stable AaronCarmenza llamas May 21, 2017 19:29
[2017-05-21 19:34] LABS: APTT (PATIENT) 28.3 SEC (24.3-30.1); INTERNATIONAL NORMALIZED RATIO 1.3 RATIO; PROTHROMBIN TIME - PATIENT 12.7 SEC (9.8-11.6)
[2017-05-21 19:40] LABS: BICARBONATE 28.3 MEQ/L (21.0-32.0); POTASSIUM 4.4 MEQ/L (3.5-5.1)
--- NOTE | 2017-05-21 19:41 | RADRPT ---
EXAM DATE/TIME: 05/21/2017 19:27 [facility] COMPARISON: CT BRAIN W/O CONTRAST, November 02, 2016, 17:09. INDICATIONS : Trauma, fell and hit head. RADIATION DOSE: 50.91 CTDIvol (mGy) MEDICAL HISTORY : Cardiovascular disease. Congestive heart failure. Deep venous thrombosis.CVA. Inguinal hernia. Hypert ension. SURGICAL HISTORY : Lobectomy. Thyroid surgery. ENCOUNTER: Initial ACUITY: 1 day PAIN SCALE: 8/10 LOCATION: cranial TECHNIQUE: Multiple contiguous axial images were obtained of the head. Using automated exposure control and adj ustment of the mA and/or kV according to patient size, radiation dose was kept as low as reasonably a chievable to obtain optimal diagnostic quality images. DICOM format image data is available electro nically for review and comparison. FINDINGS: There is a stable old right MCA infarct. Stable arachnoid cyst left middle cranial fossa. Ventricular size is stable. No acute bony abnormalities. Frontal scalp swelling. No intracranial hemorrhage. No recent infarct. CONCLUSION: 1. Frontal scalp swelling. No acute intracranial abnormalities. Stable remote right MCA infarct and a rachnoid cyst on the left. William Welch MD on May 21, 2017 at 19:38 Board Certified Radiologist. This report was verified electronically.
--- NOTE | 2017-05-21 20:00 | RADRPT ---
EXAM DATE/TIME: 05/21/2017 19:27 [facility] COMPARISON: CT CERVICAL SPINE W/O CONTRAST, March 25, 2016, 0:00. INDICATIONS : Trauma, fell and hit head. RADIATION DOSE: 28.84 CTDIvol (mGy) MEDICAL HISTORY : Cardiovascular disease. Congestive heart failure. Deep venous thrombosis.Hypertension. Inguinal herni a. CVA. SURGICAL HISTORY : Lobectomy. Thyroid surgery. ENCOUNTER: Initial ACUITY: 1 day PAIN SCALE: 6/10 LOCATION: neck TECHNIQUE: Volumetric scanning of the cervical spine was performed. Multiplanar reconstructions in the sagittal, coronal and oblique axial planes were performed. Using automated exposure control and adjustment o f the mA and/or kV according to patient size, radiation dose was kept as low as reasonably achievable to obtain optimal diagnostic quality images. DICOM format image data is available electronically f or review and comparison. FINDINGS: No acute fracture or spondylolisthesis. Moderate degenerative disc disease. No significant canal sten osis. Stable facet arthropathy from prior exam. Mild facet arthropathy. No prevertebral soft tissue s welling. CONCLUSION: 1. Moderate degenerative disc disease. No significant change from March 2016. William Welch MD on May 21, 2017 at 19:53 Board Certified Radiologist. This report was verified electronically.
--- NOTE | 2017-05-21 20:01 | RADRPT ---
EXAM DATE/TIME: 05/21/2017 19:27 [facility] COMPARISON: No previous studies available for comparison. INDICATIONS : Trauma, fell and hit head. RADIATION DOSE: 64.25 CTDIvol (mGy) MEDICAL HISTORY : Cardiovascular disease. Congestive heart failure. Deep venous thrombosis.Hypertension. Inguinal herni a. CVA. SURGICAL HISTORY : Lobectomy. Thyroid surgery. ENCOUNTER: Initial ACUITY: 1 day PAIN SCORE: 3/10 LOCATION: facial TECHNIQUE: Volumetric scanning of the facial bones was performed. Using automated exposure control and adjustme nt of the mA and/or kV according to patient size, radiation dose was kept as low as reasonably achiev able to obtain optimal diagnostic quality images. DICOM format image data is available electronicThree Rings y for review and comparison. FINDINGS: ORBITS: The orbital and infraorbital osseous structures are intact. The retroconal structures have a normal configuration. No radiopaque foreign bodies are seen. NASAL BONE: The nasal bone and maxillary spine are intact ZYGOMATIC ARCHES: Symmetric without evidence of fracture. SINUSES: The maxillary, ethmoid and frontal sinuses are intact. No air-fluid levels seen. NASAL CAVITY: The nasal septum is intact and midline. The lacrimal ducts are intact. SOFT TISSUES: No radiopaque foreign bodies seen. No soft-tissue swelling is seen. INTRACRANIAL: No intracranial air seen. CRIBIFORM PLATE: Grossly intact. CONCLUSION: 1. No acute facial bone fracture. Frontal scalp swelling. William Welch MD on May 21, 2017 at 19:58 Board Certified Radiologist. This report was verified electronically.
--- NOTE | 2017-05-21 20:48 | RADRPT ---
EXAM DATE/TIME: 05/21/2017 20:10 [facility] COMPARISON: CHEST SINGLE AP, January 11, 2017, 12:53. INDICATIONS : Fell today. Chest pain. MEDICAL HISTORY : Cardiovascular disease. Congestive heart failure. Deep venous thrombosis. CVA. Inguinal hernia. H ypertension. SURGICAL HISTORY : Lobectomy. Thyroid surgery. ENCOUNTER: Initial ACUITY: 1 day PAIN SCORE: 5/10 LOCATION: Bilateral chest FINDINGS: A single view of the chest demonstrates cardiomegaly. Basilar density similar to December characteristic of atelectasis and scarring. Elevated right hemidiaphragm is stable. No pneumothorax. CONCLUSION: 1. Chronic basilar density likely atelectasis and scarring. Stable elevated right hemidiaphragm. Card iomegaly. William Welch MD on May 21, 2017 at 20:45 Board Certified Radiologist. This report was verified electronically.
[2017-05-21] MEDS ORDERED: ACETAMINOPHEN 325 MG TAB PO ONE (21:30)
== END 2017-05-21 22:08 | disposition home or self-care (01) ==
LOC: NEPC 18:41
DX: S09.90XA Unspecified injury of head, initial encounter (principal); S01.81XA Laceration without foreign body of other part of head, initial encounter; S16.1XXA Strain of muscle, fascia and tendon at neck level, initial encounter; I48.91 Unspecified atrial fibrillation; I11.0 Hypertensive heart disease with heart failure; I50.9 Heart failure, unspecified; J44.9 Chronic obstructive pulmonary disease, unspecified; W19.XXXA Unspecified fall, initial encounter; Z79.899 Other long term (current) drug therapy
CPT/HCPCS: 12013; 70450; 70486; 71010; 72125; 80048; 80307; 85025; 85610; 85730

== ENCOUNTER → 2017-07-27 | Outpatient (CLI) | payer MEDICARE ==
[2017-07-27 15:12] LABS: AUTOMATED NEUTROPHIL # 6.4 TH/MM3 (1.8-7.7); BASOPHIL % 0.5 % (0.0-2.0); EOSINOPHIL # 0.1 TH/MM3 (0-0.4); HEMATOCRIT 47.4 % (39.0-51.0); HEMOGLOBIN 15.9 GM/DL (13.0-17.0); LYMPH % 11.7 % (9.0-44.0); LYMPHOCYTE # 0.9 TH/MM3 (1.0-4.8); MEAN CORPUSCULAR HEMOGLOBIN 31.8 PG (27.0-34.0); MEAN CORPUSCULAR HGB CONC 33.5 % (32.0-36.0); MEAN PLATELET VOLUME 7.7 FL (7.0-11.0); MONO % 6.4 % (0.0-8.0); MONOCYTE # 0.5 TH/MM3 (0-0.9); NEUT % 80.4 % (16.0-70.0); PLATELET COUNT 212 TH/MM3 (150-450); RED BLOOD COUNT 4.99 MIL/MM3 (4.50-5.90); RED CELL DISTRIBUTION WIDTH 14.4 % (11.6-17.2); WHITE BLOOD COUNT 7.9 TH/MM3 (4.0-11.0)
[2017-07-27 15:32] LABS: BICARBONATE 32.1 MEQ/L (21.0-32.0); CALCIUM 8.7 MG/DL (8.5-10.1); CREATININE 1.08 MG/DL (0.60-1.30)
== END ==
LOC: CLAB 14:30
PROVIDERS: ATTEND Orthopaedic Surgery Orthopaedic Surgery of the Spine
DX: Z01.812 Encounter for preprocedural laboratory examination (principal); M25.50 Pain in unspecified joint; M16.11 Unilateral primary osteoarthritis, right hip
CPT/HCPCS: 36415; 80048; 85025

== ENCOUNTER → 2017-07-28 | Outpatient (CLI) | payer MEDICARE ==
--- NOTE | 2017-07-28 12:47 | EKG ---
Date Performed: 07/28/2017 Time Performed: 11:13:06 PTAGE: 77 years EKG: ATRIAL FIBRILLATION MARKED RIGHT AXIS DEVIATION ABNORMAL ECG PREVIOUS TRACING : 01/11/2017 11.40 DOCTOR: Kishor Sanchez Interpretating Date/Time 07/28/2017 12:45:48
== END ==
LOC: HCAV 10:57
PROVIDERS: ATTEND Orthopaedic Surgery Orthopaedic Surgery of the Spine
DX: Z01.810 Encounter for preprocedural cardiovascular examination (principal)
CPT/HCPCS: 93005

== ENCOUNTER 2017-08-24 16:09 | Inpatient (IN) | payer MEDICARE ==
[2017-08-24 16:37] VITALS: BP 162/122; PULSE 114; RESP 20; TEMP 98.6; O2SAT 98
--- NOTE | 2017-08-24 19:19 | RADRPT ---
EXAM DATE/TIME: 08/24/2017 18:33 [facility] COMPARISON: No previous studies available for comparison. INDICATIONS : Constipation. MEDICAL HISTORY : Cardiovascular disease. Congestive heart failure. Deep venous thrombosis. CVA. Inguinal hernia. Hyper tension. SURGICAL HISTORY : None. ENCOUNTER: Subsequent ACUITY: 1 day PAIN SCORE: 4/10 LOCATION: Bilateral abdomen FINDINGS: The visualized lower lungs are clear. Multiple hemoclips in the right upper quadrant. Curvature of the lumbar spine convex towards the left. Mild amount of stool seen in the right colon. No dilated loops of small bowel. No suspicious calcifications. CONCLUSION: Mild amount of stool the right colon with out dilated small bowel loops. Michael John MD on August 24, 2017 at 19:16 Board Certified Radiologist. This report was verified electronically.
[2017-08-24 20:02] LABS: ALBUMIN 3.1 GM/DL (3.4-5.0); AST (GOT) 44 U/L (15-37); BICARBONATE 20.1 MEQ/L (21.0-32.0); BLOOD UREA NITROGEN 21 MG/DL (7-18); CREATININE 1.01 MG/DL (0.60-1.30); GLOMERULAR FILTRATION RATE 72 ML/MIN (>89); GLUCOSE,RANDOM 63 MG/DL (74-106)
[2017-08-24 20:03] LABS: ALT (GPT) 25 U/L (12-78)
[2017-08-24 20:05] LABS: ALKALINE PHOSPHATASE 95 U/L (45-117); TOTAL BILIRUBIN ADULT 1.1 MG/DL (0.2-1.0); TOTAL PROTEIN 7.7 GM/DL (6.4-8.2)
[2017-08-24 20:18] LABS: BASOPHIL % 0.4 % (0.0-2.0); EOSINOPHIL # 0.1 TH/MM3 (0-0.4); EOSINOPHIL % 0.9 % (0.0-4.0); HEMOGLOBIN 17.7 GM/DL (13.0-17.0); LYMPH % 6.7 % (9.0-44.0); LYMPHOCYTE # 0.8 TH/MM3 (1.0-4.8); MEAN CELL VOLUME 94.9 FL (80.0-100.0); MEAN CORPUSCULAR HEMOGLOBIN 31.6 PG (27.0-34.0); MEAN CORPUSCULAR HGB CONC 33.3 % (32.0-36.0); MEAN PLATELET VOLUME 8.1 FL (7.0-11.0); MONOCYTE # 0.7 TH/MM3 (0-0.9); PLATELET COUNT 176 TH/MM3 (150-450); RED BLOOD COUNT 5.59 MIL/MM3 (4.50-5.90); RED CELL DISTRIBUTION WIDTH 15.1 % (11.6-17.2); WHITE BLOOD COUNT 11.7 TH/MM3 (4.0-11.0)
[2017-08-24 20:25] LABS: CHLORIDE 89 MEQ/L (98-107)
[2017-08-24 20:27] LABS: SODIUM (NA) 118 MEQ/L (136-145)
--- NOTE | 2017-08-24 21:07 | PD ---
HPI Chief Complaint: GI Complaint Time Seen by Provider: 21:03 Travel History International Travel<30 days: No Contact w/Intl Traveler<30days: No Traveled to known affect area: No History of Present Illness HPI The patient is a 77 year old male who presents to the [facility] emergency department with a history of constipation. He reports that he has been constipated for the last week, however he did move his bowels once when he arrived in the emergency department. He reports that he continues to have lower abdominal pressure. The patient's reports that he has been taking more oxycodone than usual related to his back pain. He is in pain management with Dr. Waddell. The patient's reports that he will not let her assist him with his medications. She reports that he frequently forgets to take his medications. He is normally on MiraLAX for constipation, however he has not been taking this regularly. He has however over the last month been taking an [id number] diet pill. He cannot recall the name of it. She reports that he is constantly been thirsty. He reports that he has been having difficulty getting to the bathroom in time with urinary incontinence, therefore he discontinued his diuretic. The patient reports that his Coumadin dose was recently increased related to a subtherapeutic INR. He denies having any chest pain, chest pressure, or shortness of breath. On review of systems otherwise, the patient denies having any known recent fevers, cough or congestion, neck pain, vomiting, diarrhea, dysuria, one-sided weakness, slurred speech, facial droop, difficulty with word finding ability, or changes in his vision. The patient incidentally reports having recent right hip pain followed by Dr. Pardo. 2 weeks ago he did have a steroid injection in his right hip. [facility] Past Medical History Narrative Medical The patient's past medical history is significant for atrial fibrillation, chronic anticoagulation on warfarin, hypothyroid disorder, hyperlipidemia, history of a cerebrovascular accident in 1994, osteoarthritis, congestive heart failure, anxiety disorder, history of DVT, history of obstructive sleep apnea, chronic back pain, right hip pain. Hx Anticoagulant Therapy: Yes Arthritis: Yes Asthma: No Atrial Fibrillation: Yes Blood Disorders: No Anxiety: Yes Depression: Yes (from stoke) Heart Rhythm Problems: Yes (a-fib) Cancer: No Cardiovascular Problems: Yes High Cholesterol: Yes (under control) Chemotherapy: No Chest Pain: No Congestive Heart Failure: Yes COPD: Yes Cerebrovascular Accident: Yes Diabetes: No Diminished Hearing: No Deep Vein Thrombosis: Yes Endocrine: Yes Gastrointestinal Disorders: Yes GERD: No Genitourinary: No Headaches: No Hepatitis: No Hiatal Hernia: No Hypertension: Yes Immune Disorder: No Implanted Vascular Access Dvce: No Musculoskeletal: Yes Neurologic: Yes ([id number]) Psychiatric: No Reproductive: No Respiratory: Yes Migraines: No Radiation Therapy: No Seizures: No Sleep Apnea: Yes (DOES NOT WEAR CPAP) Thyroid Disease: Yes Ulcer: No PNEUMOCCOCAL Vaccine (Year): 1 Past Surgical History Narrative Surgical The patient's past surgical history is significant for inguinal hernia repair, vein stripping, prior thyroid surgery twice, cataract surgery, TURP, 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 Abdominal Surgery: Yes (INGUINAL HERNIA REPAIR) AICD: No Cardiac Surgery: Yes (VENOUS STRIPPING) Endocrine Surgery: Yes (THYROID X 2) Eye Surgery: Yes (CATARACTS) Genitourinary Surgery: Yes (TURP) Hysterectomy: No Neurologic Surgery: No Pacemaker: No Thoracic Surgery: Yes (RIGHT LUNG LOBECTOMY - BENIGN TUMOR) Other Surgery: Yes (THYROID SX) Social History Alcohol Use: Yes (daily 1 liquor drink) Tobacco Use: Yes (quit 1972 smokes cigars) Substance Use: No Allergies-Medications (Allergen,Severity, Reaction): Coded Allergies: *MDRO Multi-Drug Resistant Organism (Verified Adverse Reaction, Unknown, Cleared - 01/12/17, 08/24/17) Cleared - MRSA screens negative on 11/04/16 & 01/12/17 MRSA (leg wound) - 03/2012 Reported Meds & Prescriptions Reported Meds & Active Scripts Active Lisinopril 5 Mg Tab 2.5 Mg PO DAILY Reported Folic Acid 1 Mg Tablet Metoprolol Tartrate 37.5 Mg Tab 37.5 Mg PO BID Aspirin 81 Mg Chew 81 Mg CHEW DAILY Coumadin (Warfarin) 4 Mg Tab 5 Mg PO DAILY Synthroid (Levothyroxine Sodium) 200 Mcg Tab 200 Mcg PO DAILY Furosemide 40 Mg Tab 40 Mg PO DAILY Atorvastatin (Atorvastatin Calcium) 40 Mg Tab 40 Mg PO HS Sertraline (Sertraline HCl) 100 Mg Tab 100 Mg PO DAILY Miralax Powder (Polyethylene Glycol 3350 Powder) 1 Pow Pow 1 Cap PO DAILY Review of Systems Except as stated in HPI: all other systems reviewed are Neg General / Constitutional: No: Fever Eyes: No: Visual changes HENT: No: Headaches, Congestion Cardiovascular: No: Chest Pain or Discomfort, Dyspnea on exertion Respiratory: No: Cough, Shortness of Breath Gastrointestinal: Positive: Abdominal Pain, Constipation, Changes in Bowel Habits, Loss of Appetite, No: Nausea, Vomiting, Diarrhea, Hematochezia, Indigestion Genitourinary: No: Dysuria Musculoskeletal: No: Pain Skin: No Rash Neurologic: Positive: Weakness (Generalized weakness), Change in Mentation ( Reportedly increasingly forgetful), No: Focal Abnormalities, Slurred Speech, Sensory Disturbance Psychiatric: No: Depression Endocrine: No: Polydipsia Hematologic/Lymphatic: No: Easy Bruising Physical Exam Narrative General: The patient is a well-developed well-nourished male in no acute distress. Head and Neck exam: Head is normocephalic atraumatic. Eyes: EOMI, pupils are equal round and reactive to light. Nose: Midline septum with pink mucous membranes Mouth: Dentition unremarkable. Moist mucus membranes. Posterior oropharynx is not erythematous. No tonsillar hypertrophy. Uvula midline. Airway patent. Neck: No palpable lymphadenopathy. No nuchal rigidity. No thyromegaly. Cardiovascular: Irregularly irregular with a rate in the 120s without murmurs, gallops, or rubs. Lungs: Clear to auscultation bilaterally. No wheezes, rhonchi, or rales. Abdomen: Soft, with tenderness on palpation in the right and left lower quadrants of the abdomen and suprapubic area. No other tenderness on palpation of the other quadrants of the abdomen. Normal bowel sounds are audible. No point tenderness specifically over McBurney's point. No guarding, rebound, or rigidity. Negative Virk sign. Extremities: No clubbing or cyanosis. The patient has trace to 1+ edema bilateral lower extremities. 2+ pulses in all 4 extremities. No calf tenderness on palpation. Back: No costovertebral angle tenderness to palpation. Neurologic Exam: Grossly nonfocal. Skin Exam: No rash noted. Intact skin that is warm and dry. RECTAL EXAM: No masses or tenderness, stool is brown. No fecal impaction palpated. The patient's stool is Hemoccult positive Data Data Last Documented VS Vital Signs Date Time Temp Pulse Resp B/P (MAP) Pulse Ox O2 Delivery O2 Flow Rate FiO2 08/24/17 16:37 98.6 114 20 162/122 (135) 98 Orders Orders Complete Blood Count With Diff (08/24/17 16:40) Comprehensive Metabolic Panel (08/24/17 16:40) Lipase (08/24/17 16:40) Urinalysis - C+S If Indicated (08/24/17 16:40) Abdomen, Upright Only (08/24/17 ) Creatine Kinase (Cpk) (08/24/17 21:07) Troponin I (08/24/17 21:07) B-Type Natriuretic Peptide (08/24/17 21:07) Sodium, Random Urine (08/24/17 21:07) Osmolality, Urine (08/24/17 21:07) Osmolality,Serum (08/24/17 21:07) Prothrombin Time / Inr (Pt) (08/24/17 21:08) Act Partial Throm Time (Ptt) (08/24/17 21:08) Electrocardiogram (08/24/17 21:24) Ct Abd/Pel W Iv Contrast(Rout) (08/24/17 21:24) Thyroid Stimulating Hormone (08/24/17 21:39) Blood Glucose (08/24/17 21:45) Metoprolol Tartrate (Lopressor) (08/24/17 22:30) Iohexol 350 Inj (Omnipaque 350 Inj) (08/24/17 22:33) Urinary Catheter Insert/Apply (08/24/17 22:45) Sodium Chlor 0.9% 1000 Ml Inj (Ns 1000 M (08/24/17 23:00) Metoprolol Tartrate Inj (Lopressor Inj) (08/24/17 23:45) Admit Order (Ed Use Only) (08/24/17 23:35) Labs Laboratory Tests Test 08/24/17 18:00 08/24/17 21:30 08/24/17 22:14 08/24/17 22:45 White Blood Count 11.7 TH/MM3 Red Blood Count 5.59 MIL/MM3 Hemoglobin 17.7 GM/DL Hematocrit 53.0 % Mean Corpuscular Volume 94.9 FL Mean Corpuscular Hemoglobin 31.6 PG Mean Corpuscular Hemoglobin Concent 33.3 % Red Cell Distribution Width 15.1 % Platelet Count 176 TH/MM3 Mean Platelet Volume 8.1 FL Neutrophils (%) (Auto) 86.0 % Lymphocytes (%) (Auto) 6.7 % Monocytes (%) (Auto) 6.0 % Eosinophils (%) (Auto) 0.9 % Basophils (%) (Auto) 0.4 % Neutrophils # (Auto) 10.0 TH/MM3 Lymphocytes # (Auto) 0.8 TH/MM3 Monocytes # (Auto) 0.7 TH/MM3 Eosinophils # (Auto) 0.1 TH/MM3 Basophils # (Auto) 0.0 TH/MM3 CBC Comment AUTO DIFF Differential Comment AUTO DIFF CONFIRMED Platelet Estimate NORMAL Platelet Morphology Comment CLUMPED Blood Urea Nitrogen 21 MG/DL Creatinine 1.01 MG/DL Random Glucose 63 MG/DL Total Protein 7.7 GM/DL Albumin 3.1 GM/DL Calcium Level 9.0 MG/DL Alkaline Phosphatase 95 U/L Aspartate Amino Transf (AST/SGOT) 44 U/L Alanine Aminotransferase (ALT/SGPT) 25 U/L Total Bilirubin 1.1 MG/DL Sodium Level 118 MEQ/L Potassium Level 5.0 MEQ/L Chloride Level 89 MEQ/L Carbon Dioxide Level 20.1 MEQ/L Anion Gap 9 MEQ/L Estimat Glomerular Filtration Rate 72 ML/MIN B-Type Natriuretic Peptide 111 PG/ML Lipase 97 U/L Prothrombin Time 17.1 SEC Prothromb Time International Ratio 1.7 RATIO Activated Partial Thromboplast Time 31.7 SEC Serum Osmolality 300 MOSM/KG Total Creatine Kinase 95 U/L Troponin I LESS THAN 0.02 NG/ML Thyroid Stimulating Hormone 3rd Gen 0.839 uIU/ML MDM Medical Decision Making Medical Screen Exam Complete: Yes Emergency Medical Condition: Yes Medical Record Reviewed: Yes Interpretation(s) Last Impressions Abdomen X-Ray 08/24/17 0000 Signed Impressions: Service Date/Time: Thursday, August 24, 2017 18:33 - CONCLUSION: Mild amount of stool the right colon with out dilated small bowel loops. Michael John MD Differential Diagnosis Hyponatremia related to fluid overload, versus hyponatremia from medication use such as new [id number] diet suppression pill, versus SIADH Narrative Course During the course of the patient's emergency department visit, the patient's history, examination, and differential diagnosis were reviewed with the patient. The patient was placed on a supply chain planner with oximetry and frequent blood pressure monitoring. The patient had IV access obtained and blood work sent for analysis. The patient had an EKG done on arrival that shows A. fib with RVR heart rate of 124, QRS duration 85 ms, QTC [address] segment elevation is noted. T waves are inverted in lead III, aVF, V1. The patient was initially provided normal saline at 500 mL bolus 1. The patient's laboratory studies were reviewed and remarkable for a white count of 11.7, hemoglobin 17.7, suggestive of hemoconcentration and dehydration, platelets 176, neutrophils 86, lymphocytes 6.7, CMP is remarkable for a sodium of 118, chloride 89, CO2 is 20.1 suggestive of dehydration, slight acidosis, BUN 21, glucose 63, and Accu-Chek will be done at the bedside, total bilirubin is 1.1, AST 44, lipase 97, albumin 3.1. Radiology studies were reviewed and remarkable for an abdominal x-ray that reveals a mild amount of stool in the right colon without dilated small bowel loops. CT scan of the abdomen and pelvis showed no acute abnormality. The patient is noted to have bilateral renal cysts the largest of which is 12.8 cm, however the cysts are unchanged compared to a CT done in 2016. The patient will be admitted to the hospital for hyponatremia. The patient has signs of dehydration including hemoconcentration, therefore the patient will be continued on normal saline IV fluids and his sodium reassessed frequently for improvement. If the patient's sodium does not improve the patient will be placed on hypertonic saline such as 2%. The patient's results were discussed with the patient, including the plan of care. I explained that further testing and/ or monitoring is indicated based on the patient's history, examination, and/ or laboratory findings. Therefore, I recommended admission for additional evaluation. The patient expressed understanding and was agreeable with this plan. The patient was admitted to the hospital in guarded condition and sent to a bed under the care of the [facility] service. [facility] Point of Care Internal Pos. & Neg. Controls: Passed Fecal Specimen Occult Blood: Positive Physician Communication Physician Communication The patient's case including history, pertinent physical examination findings, and laboratory studies were discussed with Dr. Aquino. It was agreed that the patient would be admitted to the [facility] service. Diagnosis Primary Impression: Hyponatremia Admitting Information Admitting Physician Requests: Admit Catrachita Lagos MD Aug 24, 2017 21:07
[2017-08-24 22:16] LABS: TROPONIN I LESS THAN 0.02 NG/ML (0.02-0.05)
[2017-08-24 22:28] LABS: INTERNATIONAL NORMALIZED RATIO 1.7 RATIO; PROTHROMBIN TIME - PATIENT 17.1 SEC (9.8-11.6)
[2017-08-24] MEDS ORDERED: METOPROLOL TARTRATE 25 MG TAB PO ONE (22:30)
[2017-08-24] MEDS ORDERED: IOHEXOL 350 MG/ML 10 ML VIAL (for RAD DIAG) IVCONTRAST ONE (22:33)
--- NOTE | 2017-08-24 22:52 | RADRPT ---
EXAM DATE/TIME: 08/24/2017 22:14 [place] COMPARISON: CT ABDOMEN & PELVIS W CONTRAST, March 28, 2016, 17:23. INDICATIONS : Abdomen pain IV CONTRAST: 80 cc Omnipaque 350 (iohexol) IV ORAL CONTRAST: No oral contrast ingested. RADIATION DOSE: 16.97 CTDIvol (mGy) MEDICAL HISTORY : Hypertension. Deep venous thrombosis. Chronic obstructive pulmonary disease. SURGICAL HISTORY : Prostatectomy. ENCOUNTER: Initial ACUITY: 1 day PAIN SCALE: 5/10 LOCATION: Bilateral abdomen TECHNIQUE: Volumetric scanning of the abdomen and pelvis was performed. Using automated exposure control and ad justment of the mA and/or kV according to patient size, radiation dose was kept as low as reasonably achievable to obtain optimal diagnostic quality images. DICOM format image data is available electro nically for review and comparison. FINDINGS: LOWER LUNGS: Some peribronchial thickening in the medial left lower lung, improved in appearance when compared to prior CT in March 2016. No evidence of pleural effusion. Stable appearance of the healed fracture s of the posterior lower right chest. LIVER: Homogeneous density without lesion. There is no dilation of the biliary tree. No calcified gallston es. SPLEEN: Normal size without lesion. PANCREAS: Within normal limits. KIDNEYS: Normal bilateral renal cysts, the largest in the lower pole of the right side measuring 12.8 cm. No evidence of hydronephrosis. No calcified renal stones. The configuration and appearance of the mult iple bilateral renal cysts is unchanged from prior CT in 2015. ADRENAL GLANDS: Within normal limits. VASCULAR: There is no aortic aneurysm. BOWEL/MESENTERY: No dilated loops of small or large bowel. Mild amount of stool in right colon. ABDOMINAL WALL: Within normal limits. RETROPERITONEUM: There is no lymphadenopathy. BLADDER: No wall thickening or mass. REPRODUCTIVE: Within normal limits. INGUINAL: Small fat-containing left inguinal hernia stable from prior. MUSCULOSKELETAL: Mild left lumbar scoliosis with associated degenerative changes, stable. CONCLUSION: No acute findings in the abdomen/pelvis. Michael Jhon MD on August 24, 2017 at 22:47 Board Certified Radiologist. This report was verified electronically.
[2017-08-24] MEDS: SODIUM CHLOR 0.9% 1000 ML INJ 1,000 ML IV SCH (23:09)
[2017-08-24] MEDS ORDERED: METOPROLOL TARTRATE 5 MG/5 ML VIAL IV PUSH PRN (23:45)
[2017-08-25] VITALS (9 sets, daily range): BP systolic 122–152; BP diastolic 79–98; PULSE 66–92; RESP 16–19; TEMP 97.9–98.4; O2SAT 94–98
[2017-08-25 00:09] LABS: BILIRUBIN, URINE NEG (NEG); BLOOD, URINE NEG (NEG); GLUCOSE,URINE NEG (NEG); KETONE, URINE NEG (NEG); MUCUS URINE FEW /lpf (OCC); NITRITE,URINE NEG (NEG); PH, URINE 5.5 (5.0-8.5); URINE COLOR YELLOW (YELLW/STRAW); URINE LEUKOCYTE ESTERASE NEG (NEG)
[2017-08-25 00:18] LABS: SODIUM,RANDOM URINE 119 MEQ/L
[2017-08-25 00:32] LABS: OSMOLALITY,URINE 742 MOSM/KG (300-1300)
[2017-08-25] MEDS ORDERED: FLUMAZENIL 0.5 MG/5 ML VIAL IV PUSH PRN (00:45)
[2017-08-25] MEDS ORDERED: NALOXONE HCL 0.4 MG/ML AMP IV PUSH PRN (00:45)
[2017-08-25] MEDS ORDERED: MAGNESIUM HYDROXIDE SUSP 30 ML CUP PO PRN (00:45)
[2017-08-25] MEDS ORDERED: BISACODYL 10 MG SUPP RECTAL PRN (00:45)
[2017-08-25] MEDS ORDERED: LORazepam 2 MG TAB PO PRN (00:45)
[2017-08-25] MEDS ORDERED: LORazepam 1 MG TAB PO PRN (00:45)
[2017-08-25] MEDS ORDERED: LACTULOSE SYRUP 20 GM/30 ML CUP PO PRN (00:45)
[2017-08-25] MEDS ORDERED: SENNOSIDES 8.6 MG TAB PO PRN (00:45)
[2017-08-25] MEDS ORDERED: ONDANSETRON HCL 4 MG/2 ML VIAL IVP PRN (00:45)
[2017-08-25] MEDS ORDERED: LORazepam 2 MG/ML VIAL IV PUSH PRN ×4 (00:45)
[2017-08-25] MEDS ORDERED: SODIUM CHLORIDE 0.9% FLUSH 10 ML FLUSH IV FLUSH PRN (00:45)
[2017-08-25] MEDS ORDERED: ACETAMINOPHEN 325 MG TAB PO PRN (00:45)
--- NOTE | 2017-08-25 03:06 | HHI.HP ---
HPI Service [facility] Primary Care Physician Samuel Cruz MD Admission Diagnosis Hyponatremia, Afib with rvr Diagnoses: Travel History International Travel<30 Days: No Contact w/Intl Traveler <30 Da: No Traveled to Known Affected Are: No History of Present Illness 77-year-old male with a past medical history significant for atrial fibrillation anticoagulated on Coumadin, hypothyroidism, hyperlipidemia, history of CVA and CHF (no recent echo for comparison) resents in the emergency department for evaluation of constipation and back pain. The patient reports he has been severely constipated and has not had a bowel movement "for a while. " He also endorses accompanying lower abdominal pressure. The patient is a poor historian however when asked he states he has been feeling drowsy and fatigued lately. He reports that he is not sure if he has been taking his medication recently. Per ED notes, the patient's states that he will not allow her to assist in his medication management. His INR is subtherapeutic at 1.7. Patient was found to be hyponatremic on arrival to the emergency department and also was in A. fib with RVR. He denies any chest pain or shortness of breath. No nausea/vomiting/diarrhea. No lateralizing signs/ symptoms. Patient does report he drinks daily however states he has 1-2 drinks of whiskey and then a 2 L bottle will last him approximately one month. Review of Systems Except as stated in HPI: all other systems reviewed are Neg Past Family Social History Past Medical History (Obtained from medical records as patient is a poor historian) Atrial Fibrillation anticoagulated on Coumadin Hypothyroidism Hyperlipidemia CVA in 1994 OA by history CHF Anxiety disorder DVT by history YONI not on CPAP Past Surgical History Inguinal Hernia repair Venous Stripping Thyroid surgery x 2 Cataract surgery TURP Right lung lobectomy-Benign Tumor Reported Medications Reported Meds & Active Scripts Active Lisinopril 5 Mg Tab 2.5 Mg PO DAILY Reported Folic Acid 1 Mg Tablet Metoprolol Tartrate 37.5 Mg Tab 37.5 Mg PO BID Aspirin 81 Mg Chew 81 Mg CHEW DAILY Coumadin (Warfarin) 4 Mg Tab 5 Mg PO DAILY Synthroid (Levothyroxine Sodium) 200 Mcg Tab 200 Mcg PO DAILY Furosemide 40 Mg Tab 40 Mg PO DAILY Atorvastatin (Atorvastatin Calcium) 40 Mg Tab 40 Mg PO HS Sertraline (Sertraline HCl) 100 Mg Tab 100 Mg PO DAILY Miralax Powder (Polyethylene Glycol 3350 Powder) 1 Pow Pow 1 Cap PO DAILY Allergies: Coded Allergies: *MDRO Multi-Drug Resistant Organism (Verified Adverse Reaction, Unknown, Cleared - 01/12/17, 08/24/17) Cleared - MRSA screens negative on 11/04/16 & 01/12/17 MRSA (leg wound) - 03/2012 Family History Father of [place] when he was 47 y/o Social History Daily drinks whiskey - reports 2 L will last him one month quit smoking in 1971 Physical Exam Vital Signs Vital Signs Date Time Temp Pulse Resp B/P (MAP) Pulse Ox O2 Delivery O2 Flow Rate FiO2 08/25/17 00:59 92 18 122/79 (93) 96 Room Air 08/24/17 16:37 98.6 114 20 162/122 (135) 98 Physical Exam GENERAL: male sitting up in bed, sleeping SKIN: No rashes, ecchymoses or lesions. Cool and dry. HEAD: Atraumatic. Normocephalic. No temporal or scalp tenderness. EYES: Pupils equal round and reactive. Extraocular motions intact. No scleral icterus. No injection or drainage. ENT: Nose without bleeding, purulent drainage or septal hematoma. Throat without erythema, tonsillar hypertrophy or exudate. Uvula midline. Airway patent. NECK: Trachea midline. No JVD or lymphadenopathy. Supple, nontender, no meningeal signs. CARDIOVASCULAR: Tachycardic. Irregularly irregular rhythm without murmurs, gallops, or rubs. RESPIRATORY: Clear to auscultation. Breath sounds equal bilaterally. No wheezes , rales, or rhonchi. GASTROINTESTINAL: Abdomen soft, non-tender, nondistended. No hepato-splenomegaly , or palpable masses. No guarding. MUSCULOSKELETAL: Extremities without clubbing, cyanosis, or edema. No joint tenderness, effusion, or edema noted. No calf tenderness. NEUROLOGICAL: Awake and alert. Cranial nerves II through XII intact. Motor and sensory grossly within normal limits. Normal speech. Laboratory Laboratory Tests Test 08/24/17 18:00 08/24/17 21:30 08/24/17 22:14 08/24/17 22:45 White Blood Count 11.7 Red Blood Count 5.59 Hemoglobin 17.7 Hematocrit 53.0 Mean Corpuscular Volume 94.9 Mean Corpuscular Hemoglobin 31.6 Mean Corpuscular Hemoglobin Concent 33.3 Red Cell Distribution Width 15.1 Platelet Count 176 Mean Platelet Volume 8.1 Neutrophils (%) (Auto) 86.0 Lymphocytes (%) (Auto) 6.7 Monocytes (%) (Auto) 6.0 Eosinophils (%) (Auto) 0.9 Basophils (%) (Auto) 0.4 Neutrophils # (Auto) 10.0 Lymphocytes # (Auto) 0.8 Monocytes # (Auto) 0.7 Eosinophils # (Auto) 0.1 Basophils # (Auto) 0.0 CBC Comment AUTO DIFF Differential Comment AUTO DIFF CONFIRMED Platelet Estimate NORMAL Platelet Morphology Comment CLUMPED Blood Urea Nitrogen 21 Creatinine 1.01 Random Glucose 63 Total Protein 7.7 Albumin 3.1 Calcium Level 9.0 Alkaline Phosphatase 95 Aspartate Amino Transf (AST/SGOT) 44 Alanine Aminotransferase (ALT/SGPT) 25 Total Bilirubin 1.1 Sodium Level 118 Potassium Level 5.0 Chloride Level 89 Carbon Dioxide Level 20.1 Anion Gap 9 Estimat Glomerular Filtration Rate 72 B-Type Natriuretic Peptide 111 Lipase 97 Prothrombin Time 17.1 Prothromb Time International Ratio 1.7 Activated Partial Thromboplast Time 31.7 Serum Osmolality 300 Total Creatine Kinase 95 Troponin I LESS THAN 0.02 Thyroid Stimulating Hormone 3rd Gen 0.839 Test 08/24/17 23:45 Urine Color YELLOW Urine Turbidity CLEAR Urine pH 5.5 Urine Specific [place] 1.036 Urine Protein TRACE Urine Glucose (UA) NEG Urine Ketones NEG Urine Occult Blood NEG Urine Nitrite NEG Urine Bilirubin NEG Urine Urobilinogen LESS THAN 2.0 Urine Leukocyte Esterase NEG Urine RBC 3 Urine WBC 2 Urine Mucus FEW Microscopic Urinalysis Comment CULT NOT INDICATED Urine Osmolality 742 Urine Random Sodium 119 Result Diagram: 08/24/17 1800 08/24/17 1800 Caprini VTE Risk Assessment Caprini VTE Risk Assessment: Mod/High Risk (score >= 2) Caprini Risk Assessment Model Point Value = 1 Point Value = 2 Point Value = 3 Point Value = 5 Age 41-60 Minor surgery BMI > 25 kg/m2 Swollen legs Varicose veins or History of unexplained or recurrent spontaneous Oral contraceptives or hormone replacement Sepsis (< 1 month) Serious lung disease, including pneumonia (< 1 month) Abnormal pulmonary function Acute myocardial infarction Congestive heart failure (< 1 month) History of inflammatory bowel disease Medical patient at bed rest Age 61-74 Arthroscopic surgery Major open surgery (> 45 min) Laparoscopic surgery (> 45 min) Malignancy Confined to bed (> 72 hours) Immobilizing plaster cast Central venous access Age >= 75 History of VTE Family history of VTE Factor V Leiden Prothrombin [id number] Lupus anticoagulant Anticardiolipin antibodies Elevated serum homocysteine Heparin-induced thrombocytopenia Other congenital or acquired thrombophilia Stroke (< 1 month) Elective arthroplasty Hip, pelvis, or leg fracture Acute spinal cord injury (< 1 month) Prophylaxis Regimen Total Risk Factor Score Risk Level Prophylaxis Regimen 0-1 Low Early ambulation 2 Moderate Order ONE of the following: *Sequential Compression Device (SCD) *Heparin 5000 units SQ BID 3-4 Higher Order ONE of the following medications: *Heparin 5000 units SQ TID *Enoxaparin/Lovenox 40 mg SQ daily (WT < 150 kg, CrCl > 30 mL/min) *Enoxaparin/Lovenox 30 mg SQ daily (WT < 150 kg, CrCl > 10-29 mL/min) *Enoxaparin/Lovenox 30 mg SQ BID (WT < 150 kg, CrCl > 30 mL/min) AND/OR *Sequential Compression Device (SCD) 5 or more Highest Order ONE of the following medications: *Heparin 5000 units SQ TID (Preferred with Epidurals) *Enoxaparin/Lovenox 40 mg SQ daily (WT < 150 kg, CrCl > 30 mL/min) *Enoxaparin/Lovenox 30 mg SQ daily (WT < 150 kg, CrCl > 10-29 mL/min) *Enoxaparin/Lovenox 30 mg SQ BID (WT < 150 kg, CrCl > 30 mL/min) AND *Sequential Compression Device (SCD) Assessment and Plan Assessment and Plan Assessment/plan: 1. Atrial fibrillation with rapid ventricular response EKG significant for atrial fibrillation with rapid ventricular response, no ST segment elevations or depressions, partially reviewed Medication compliance is questionable Status post by mouth and IV metoprolol in the ED with rate control Continue home medications 2. Hyponatremia Sodium 118, was 139 on 07/27/17 NS Fluid restriction F/u BMP 3. Subtherapeutic INR INR subtherapeutic at 1.7 Continue home Coumadin, patient's compliance is questionable Pharmacy consulted to assist with Coumadin dosing 4. Hypertension/hyperlipidemia/hypothyroidism Resume home medications 5. CHF Continue home Lasix 6. Alcohol abuse Thiamine/folate/multivitamins [facility] protocol Monitor for signs of withdrawal FEN Heart healthy diet with fluid restriction Electrolytes: as above Heparin as patient is subtherapeutic on warfarin NS at 100 cc/hr Physician Certification 2 Midnight Certification Type: Admission for Inpatient Services Order for Inpatient Services The services are ordered in accordance with Medicare regulations or non- Medicare payer requirements, as applicable. In the case of services not specified as inpatient-only, they are appropriately provided as inpatient services in accordance with the 2-midnight benchmark. Estimated LOS (days): 2 2 days is the estimated time the patient will need to remain in the hospital, assuming treatment plan goals are met and no additional complications. Post-Hospital Plan: Not yet determined Marie Aquino MD Aug 25, 2017 03:05
[2017-08-25] MEDS ORDERED: oxyCODONE/ACETAMINOPHEN 7.5 MG/325 MG TAB PO PRN (05:45)
[2017-08-25] MEDS: HEPARIN SODIUM - SQ 10,000 UNITS/ML VIAL SQ SCH ×2 (05:57→14:46)
[2017-08-25] MEDS ORDERED: LEVOTHYROXINE SODIUM 100 MCG TAB PO SCH (07:00)
[2017-08-25] MEDS ORDERED: LISINOPRIL 5 MG TAB PO SCH (09:00)
[2017-08-25] MEDS ORDERED: SERTRALINE HCL 100 MG TAB PO SCH (09:00)
[2017-08-25] MEDS ORDERED: FOLIC ACID 1 MG TAB PO SCH (09:00)
[2017-08-25] MEDS ORDERED: ASPIRIN 81 MG CHEW TAB CHEW SCH (09:00)
[2017-08-25] MEDS ORDERED: SODIUM CHLORIDE 0.9% FLUSH 10 ML FLUSH IV FLUSH SCH (09:00)
[2017-08-25] MEDS ORDERED: FUROSEMIDE 40 MG TAB PO SCH (09:00)
[2017-08-25] MEDS ORDERED: THIAMINE HCL 100 MG TAB PO SCH (09:00)
[2017-08-25] MEDS ORDERED: MULTIVITAMINS/MINERALS THERAPEUTIC TAB PO SCH (09:00)
[2017-08-25] MEDS ORDERED: METOPROLOL TARTRATE 25 MG TAB PO SCH (09:00)
[2017-08-25] MEDS ORDERED: DOCUSATE SODIUM 50 MG/SENNA 8.6 MG TAB PO SCH (09:00)
[2017-08-25] MEDS: SODIUM CHLOR 0.9% 1000 ML INJ 1,000 ML IV SCH (09:12)
[2017-08-25 11:04] LABS: AUTOMATED NEUTROPHIL # 7.4 TH/MM3 (1.8-7.7); BASOPHIL % 0.4 % (0.0-2.0); EOSINOPHIL # 0.1 TH/MM3 (0-0.4); EOSINOPHIL % 1.4 % (0.0-4.0); HEMATOCRIT 41.9 % (39.0-51.0); HEMOGLOBIN 14.3 GM/DL (13.0-17.0); LYMPH % 10.7 % (9.0-44.0); MEAN CELL VOLUME 93.5 FL (80.0-100.0); MEAN CORPUSCULAR HEMOGLOBIN 31.9 PG (27.0-34.0); MEAN CORPUSCULAR HGB CONC 34.2 % (32.0-36.0); MEAN PLATELET VOLUME 7.9 FL (7.0-11.0); MONO % 8.8 % (0.0-8.0); MONOCYTE # 0.8 TH/MM3 (0-0.9); NEUT % 78.7 % (16.0-70.0); PLATELET COUNT 141 TH/MM3 (150-450); RED BLOOD COUNT 4.48 MIL/MM3 (4.50-5.90); WHITE BLOOD COUNT 9.5 TH/MM3 (4.0-11.0)
[2017-08-25 11:23] LABS: BICARBONATE 29.6 MEQ/L (21.0-32.0); CALCIUM 8.1 MG/DL (8.5-10.1); CREATININE 0.9 MG/DL (0.60-1.30)
--- NOTE | 2017-08-25 11:34 | EKG ---
Date Performed: 08/24/2017 Time Performed: 21:26:29 PTAGE: 77 years EKG: ATRIAL FIBRILLATION WITH RAPID VENTRICULAR RESPONSE INFERIOR MYOCARDIAL INFARCTION NONSPECI FIC INFRIOR T WAVE ABNORMALITY ABNORMAL ECG NO PREVIOUS TRACING DOCTOR: Kishor Sanchez Interpretating Date/Time 08/25/2017 11:33:08
[2017-08-25] MEDS ORDERED: LIDOCAINE HCL 5% PATCH T-DERMAL SCH (15:15)
[2017-08-25] MEDS ORDERED: PERI PO (15:17)
[2017-08-25] MEDS ORDERED: LIDO1ADH4 TD (15:17)
--- NOTE | 2017-08-25 15:20 | HHI.DCPOC ---
Discharge Care Plan Diagnosis: (1) Chronic back pain (2) Hyponatremia (3) Atrial fibrillation Goals to Promote Your Health * To prevent worsening of your condition and complications * To maintain your health at the optimal level Directions to Meet Your Goals Take your medications as prescribed Follow your dietary instruction Follow activity as directed Keep your appointments as scheduled Take your immunizations and boosters as scheduled If your symptoms worsen call your PCP, if no PCP go to Urgent Care Center or Emergency Room Smoking is Dangerous to Your Health. Avoid second hand smoke Call the 24-hour hour crisis hotline for domestic abuse at Vivian Burdick MD Aug 25, 2017 15:20
--- NOTE | 2017-08-25 15:21 | HHI.DS ---
Discharge Summary Admission Date Aug 24, 2017 at 23:37 Discharge Date: Aug 25, 2017 Admitting Diagnosis Hyponatremia, Afib with rvr (1) Hyponatremia ICD Code: E87.1 - Hypo-osmolality and hyponatremia Diagnosis: Principal (2) Atrial fibrillation with RVR ICD Code: I48.91 - Unspecified atrial fibrillation Diagnosis: Principal (3) Noncompliance ICD Code: Z91.19 - Patient's noncompliance with other medical treatment and regimen Diagnosis: Principal (4) Chronic back pain ICD Code: M54.9 - Dorsalgia, unspecified; G89.29 - Other chronic pain Diagnosis: Secondary Procedures see hospital course Brief History - From Admission 77-year-old male with a past medical history significant for atrial fibrillation anticoagulated on Coumadin, hypothyroidism, hyperlipidemia, history of CVA and CHF (no recent echo for comparison) resents in the emergency department for evaluation of constipation and back pain. The patient reports he has been severely constipated and has not had a bowel movement "for a while. " He also endorses accompanying lower abdominal pressure. The patient is a poor historian however when asked he states he has been feeling drowsy and fatigued lately. He reports that he is not sure if he has been taking his medication recently. Per ED notes, the patient's states that he will not allow her to assist in his medication management. His INR is subtherapeutic at 1.7. Patient was found to be hyponatremic on arrival to the emergency department and also was in A. fib with RVR. He denies any chest pain or shortness of breath. No nausea/vomiting/diarrhea. No lateralizing signs/ symptoms. Patient does report he drinks daily however states he has 1-2 drinks of whiskey and then a 2 L bottle will last him approximately one month. CBC/BMP: 08/25/17 1020 08/25/17 1020 Significant Findings Laboratory Tests Test 08/24/17 18:00 08/24/17 21:30 08/24/17 22:14 08/24/17 22:45 White Blood Count 11.7 TH/MM3 (4.0-11.0) Hemoglobin 17.7 GM/DL (13.0-17.0) Hematocrit 53.0 % (39.0-51.0) Neutrophils (%) (Auto) 86.0 % (16.0-70.0) Lymphocytes (%) (Auto) 6.7 % (9.0-44.0) Neutrophils # (Auto) 10.0 TH/MM3 (1.8-7.7) Lymphocytes # (Auto) 0.8 TH/MM3 (1.0-4.8) Platelet Morphology Comment CLUMPED (NORMAL) Blood Urea Nitrogen 21 MG/DL (7-18) Random Glucose 63 MG/DL (74-106) Albumin 3.1 GM/DL (3.4-5.0) Aspartate Amino Transf (AST/SGOT) 44 U/L (15-37) Total Bilirubin 1.1 MG/DL (0.2-1.0) Sodium Level 118 MEQ/L (136-145) Chloride Level 89 MEQ/L (98-107) Carbon Dioxide Level 20.1 MEQ/L (21.0-32.0) Estimat Glomerular Filtration Rate 72 ML/MIN (>89) B-Type Natriuretic Peptide 111 PG/ML (0-100) Prothrombin Time 17.1 SEC (9.8-11.6) Activated Partial Thromboplast Time 31.7 SEC (24.3-30.1) Serum Osmolality 300 MOSM/KG (275-295) Troponin I LESS THAN 0.02 NG/ML Test 08/24/17 23:45 08/25/17 10:20 Urine Specific [place] 1.036 (1.002-1.035) Urine Mucus FEW /lpf (OCC) Red Blood Count 4.48 MIL/MM3 (4.50-5.90) Platelet Count 141 TH/MM3 (150-450) Neutrophils (%) (Auto) 78.7 % (16.0-70.0) Monocytes (%) (Auto) 8.8 % (0.0-8.0) Calcium Level 8.1 MG/DL (8.5-10.1) Estimat Glomerular Filtration Rate 82 ML/MIN (>89) Imaging Last Impressions Abdomen/Pelvis CT 08/24/170 Signed Impressions: Service Date/Time: Thursday, August 24, 2017 22:14 - CONCLUSION: No acute findings in the abdomen/pelvis. Michael John MD Abdomen X-Ray 08/24/17 0000 Signed Impressions: Service Date/Time: Thursday, August 24, 2017 18:33 - CONCLUSION: Mild amount of stool the right colon with out dilated small bowel loops. Michael John MD PE at Discharge GENERAL: in NAD SKIN: Warm and dry. HEAD: Normocephalic. EYES: No scleral icterus. No injection or drainage. NECK: Supple, trachea midline. No JVD or lymphadenopathy. CARDIOVASCULAR: Regular rate and rhythm without murmurs, gallops, or rubs. RESPIRATORY: Breath sounds equal bilaterally. No accessory muscle use. GASTROINTESTINAL: Abdomen soft, non-tender, nondistended. MUSCULOSKELETAL: No cyanosis, or edema. no muscle spasm noted BACK: Nontender without obvious deformity. No CVA tenderness. 5/5 LE strength Pt update on day of discharge Follow-up for atrial fibrillation with RVR, constipation, hyponatremia Patient asking why he was admitted to the hospital. I spoke to patient's nurse in regards to this and she stated that his asked her over the phone White patient was admitted to the hospital. Patient stated that he had constipation but did have 2 bowel movements in the ER. Patient does not take medication as directed. He stated that he takes his medication when he remembers. He also complained about chronic lower back pain and hip pain. Patient is seeing pain management or third regards to this. He stated that pain has occurred for over a year. He stated that he had multiple steroid injection. Patient stated that pain is still the same and it has not worsened. Denies any lower extremity weakness. Denies any fecal urinary incontinence. Patient is AAO 4. He answer questions appropriately. He follows commands as directed. Discussed case with patient's nurse. Hospital Course This is a 77-year-old male history of atrial fibrillation, on chronic anticoagulation, alcohol abuse, noncompliant with medication, chronic back pain and hip pain who presented with constipation. While being evaluated the emergency department he was found to have RVR and hyponatremic. Patient had 2 normal bowel movements in the ER. He also had a CT scan of the abdomen and KUB which did not show any large amount of stools or obstruction. Patient was given a dose of IV metoprolol in the ED which controlled his rate. He was restart his home medication and did well during the hospital course. His rate was controlled. Initially on admission his sodium was 118 he was given IV fluids in which his sodium resolved to 136. Patient also complained about his chronic lower back pain and hip pain. He said that he had multiple steroid injections in his lower back in 1 steroid injection in the hip. He feels like this is not working. Patient said that this has been chronic for at least one year. He said that there is nothing new. Denies any fecal or urinary incontinence. Denies any lower extremity weakness. Since the patient was back to his baseline, rate was controlled and sodium resolved. Patient was discharged in stable condition. Pt Condition on Discharge: Stable Discharge Disposition: Discharge Home Discharge Time: > 30 minutes Discharge Instructions DIET: Follow Instructions for: Heart Healthy Diet Activities you can perform: Regular-No Restrictions Other Activity Instructions: Do not drive or operate heavy machineray while taking narcotics. Follow up Referrals: Pain Management - 3-5 Days PCP Follow-up - 1 Week New Medications: Lidocaine (Lidoderm) 5 % Adh..patch 1 PATCH TD DAILY for back pain, #30 PATCH 0 Refills Sennosides-Docusate Sodium (Gnp Senna Plus 8.6-50 mg) 8.6 Mg-50 Mg Tab 1 TAB PO BID for constipation, #30 TAB 0 Refills Continued Medications: Aspirin (Aspirin) 81 Mg Chew 81 MG CHEW DAILY, TAB 0 Refills Atorvastatin (Atorvastatin) 40 Mg Tab 40 MG PO HS for Cholesterol Management, #30 TAB 0 Refills Folic Acid (Folic Acid) 1 Mg Tablet Furosemide (Furosemide) 40 Mg Tab 40 MG PO DAILY, #30 TAB 0 Refills Levothyroxine (Synthroid) 200 Mcg Tab 200 MCG PO DAILY for Thyroid, #30 TAB 0 Refills Lisinopril (Lisinopril) 5 Mg Tab 2.5 MG PO DAILY for Blood Pressure Management, #30 TAB Metoprolol Tartrate (Metoprolol Tartrate) 37.5 Mg Tab 37.5 MG PO BID, #60 TAB 0 Refills Polyethylene Glycol 3350 Powder (Miralax Powder) 1 Pow Pow 1 CAP PO DAILY Sertraline (Sertraline) 100 Mg Tab 100 MG PO DAILY, #30 TAB 0 Refills Warfarin (Coumadin) 4 Mg Tab 5 MG PO DAILY for Prevent Blood Clot, #30 TAB 0 Refills Vivian Burdick MD Aug 25, 2017 15:21
[2017-08-25] MEDS ORDERED: WARFARIN SOD 5 MG TAB PO SCH (16:00)
[2017-08-25] MEDS ORDERED: ATORVASTATIN 40 MG TAB PO SCH (21:00)
== END 2017-08-25 17:38 | disposition home or self-care (01) | DRG 392 ==
LOC: NEPC 16:09 → NEDA 23:37 → NEDH 08-25 03:57 → HCPC 08-25 13:10
PROVIDERS: ADMIT Family Medicine; ATTEND Family Medicine
DX: K59.00 Constipation, unspecified (principal); I48.91 Unspecified atrial fibrillation; Z79.01 Long term (current) use of anticoagulants; I11.0 Hypertensive heart disease with heart failure; I50.9 Heart failure, unspecified; E87.1 Hypo-osmolality and hyponatremia; M54.5 Low back pain; G89.29 Other chronic pain; R19.5 Other fecal abnormalities; Z86.73 Personal history of transient ischemic attack (TIA), and cerebral infarction without residual deficits; E78.5 Hyperlipidemia, unspecified; G47.33 Obstructive sleep apnea (adult) (pediatric); Z86.718 Personal history of other venous thrombosis and embolism; E03.9 Hypothyroidism, unspecified; F10.10 Alcohol abuse, uncomplicated; Z91.19 Patient's noncompliance with other medical treatment and regimen; Z87.891 Personal history of nicotine dependence
CPT/HCPCS: 74018; 74177; 80048; 80053; 81001; 82550; 83690; 83880; 83930; 83935; 84300; 84443; 84484; 85025; 85610; 85730; 93005; J1644; J7030; Q9967

== ENCOUNTER 2017-08-28 18:48 | Emergency (ER) | payer MEDICARE ==
[~2017-08-28] VITALS: Ht 180.3 cm; Wt 113.0 kg
[~2017-08-28 18:48] MED LIST changes: -GUAISYP4 PO; +LIDO1ADH4 TD; +PERI PO
[2017-08-28 20:05] VITALS: BP 152/98; PULSE 86; RESP 16; TEMP 97.9; O2SAT 95
[2017-08-28 21:01] VITALS: BP 161/100; PULSE 88; RESP 20; O2SAT 99
--- NOTE | 2017-08-28 21:13 | PD ---
HPI Chief Complaint: GI Complaint Time Seen by Provider: 21:05 Travel History International Travel<30 days: No Contact w/Intl Traveler<30days: No Traveled to known affect area: No History of Present Illness HPI 77-year-old male patient admitted to the hospital last week for A. fib with RVR and hyponatremia, constipation, released 2 days ago, and he went home, states that he has chronic back pains and hip pains for which she has been following up with orthopedics doctor and pain management doctor, take pain medications, and states that he is now fairly constipated and has not had a bowel movement in 3 days. He had been given Ex-Lax and has been taking MiraLAX on his own without significant improvement. He complains of ongoing back pains and lower abdominal discomfort. He denies any nausea, vomiting, or any other issues. He states that he feels the same way as last time, still constipated. Modifying Factors: None Associated Signs & Symptoms: Abdominal pain, back pain, constipation Risk Factors: Recent history of constipation, on pain medications PFSH Past Medical History Hx Anticoagulant Therapy: Yes Arthritis: Yes Asthma: No Atrial Fibrillation: Yes Blood Disorders: No Anxiety: No Depression: No Heart Rhythm Problems: Yes (a-fib) Cancer: No Cardiovascular Problems: Yes High Cholesterol: Yes Chemotherapy: No Chest Pain: No Congestive Heart Failure: Yes COPD: No Cerebrovascular Accident: Yes (1994) Diabetes: No Diminished Hearing: No Deep Vein Thrombosis: Yes Endocrine: Yes Gastrointestinal Disorders: Yes GERD: No Genitourinary: No Headaches: No Hepatitis: No Hiatal Hernia: No Hypertension: Yes Immune Disorder: No Implanted Vascular Access Dvce: No Medical other: Yes (HX STROKE) Musculoskeletal: Yes Neurologic: Yes Psychiatric: No Reproductive: No Respiratory: Yes Migraines: No Radiation Therapy: No Seizures: No Sleep Apnea: Yes Thyroid Disease: Yes Ulcer: No Tetanus Vaccination: Unknown Influenza Vaccination: Yes PNEUMOCCOCAL Vaccine (Year): 1 Past Surgical History Abdominal Surgery: Yes (INGUINAL HERNIA REPAIR) AICD: No Cardiac Surgery: Yes (vein stripped) Endocrine Surgery: Yes (THYROID X 2) Eye Surgery: Yes (CATARACTS) Genitourinary Surgery: Yes (TURP) Hysterectomy: No Neurologic Surgery: No Pacemaker: No Thoracic Surgery: Yes (RIGHT LUNG LOBECTOMY - BENIGN TUMOR) Other Surgery: Yes (THYROID SX) Social History Alcohol Use: Yes (daily 1 liquor drink) Tobacco Use: Yes (quit 1972 smokes cigars) Substance Use: No Allergies-Medications (Allergen,Severity, Reaction): Coded Allergies: *MDRO Multi-Drug Resistant Organism (Verified Adverse Reaction, Unknown, Cleared - 01/12/17, 08/28/17) Cleared - MRSA screens negative on 11/04/16 & 01/12/17 MRSA (leg wound) - 03/2012 Reported Meds & Prescriptions Reported Meds & Active Scripts Active Lisinopril 5 Mg Tab 2.5 Mg PO DAILY Reported Folic Acid 1 Mg Tablet Metoprolol Tartrate 37.5 Mg Tab 37.5 Mg PO BID Aspirin 81 Mg Chew 81 Mg CHEW DAILY Coumadin (Warfarin) 4 Mg Tab 5 Mg PO DAILY Synthroid (Levothyroxine Sodium) 200 Mcg Tab 200 Mcg PO DAILY Furosemide 40 Mg Tab 40 Mg PO DAILY Atorvastatin (Atorvastatin Calcium) 40 Mg Tab 40 Mg PO HS Sertraline (Sertraline HCl) 100 Mg Tab 100 Mg PO DAILY Miralax Powder (Polyethylene Glycol 3350 Powder) 1 Pow Pow 1 Cap PO DAILY Review of Systems Except as stated in HPI: all other systems reviewed are Neg Physical Exam Narrative GENERAL: Well-developed elderly male patient currently in mild distress. Awake and oriented 3. SKIN: Focused skin assessment warm/dry. HEAD: Atraumatic. Normocephalic. EYES: Pupils equal and round. No scleral icterus. No injection or drainage. ENT: No nasal bleeding or discharge. Mucous membranes pink and moist. NECK: Trachea midline. No JVD. CARDIOVASCULAR: Irregularly irregular. RESPIRATORY: No accessory muscle use. Clear to auscultation. Breath sounds equal bilaterally. GASTROINTESTINAL: Abdomen soft, non-tender, nondistended. Hepatic and splenic margins not palpable. RECTAL EXAM: No masses or tenderness, stool is brown. MUSCULOSKELETAL: No obvious deformities. No clubbing. No cyanosis. No edema. NEUROLOGICAL: Awake and alert. No obvious cranial nerve deficits. Motor grossly within normal limits. Normal speech. PSYCHIATRIC: Appropriate mood and affect; insight and judgment normal. Data Data Last Documented VS Vital Signs Date Time Temp Pulse Resp B/P (MAP) Pulse Ox O2 Delivery O2 Flow Rate FiO2 08/29/17 00:06 83 18 177/102 (127) 95 Room Air 08/28/17 20:05 97.9 Orders Orders Abdomen, Flat & Upright (08/28/17 21:05) Complete Blood Count With Diff (08/28/17 21:13) Comprehensive Metabolic Panel (08/28/17 21:13) Lipase (08/28/17 21:13) Urinalysis - C+S If Indicated (08/28/17 21:13) Iv Access Insert/Monitor (08/28/17 21:13) Ecg Monitoring (08/28/17 21:13) Oximetry (08/28/17 21:13) Sodium Chloride 0.9% Flush (Ns Flush) (08/28/17 21:15) Ct Abd/Pel W Iv Contrast(Rout) (08/28/17 22:54) Iohexol 350 Inj (Omnipaque 350 Inj) (08/28/17 23:52) Labs Laboratory Tests Test 08/28/17 21:10 08/28/17 23:40 White Blood Count 7.5 TH/MM3 Red Blood Count 4.70 MIL/MM3 Hemoglobin 14.9 GM/DL Hematocrit 43.9 % Mean Corpuscular Volume 93.3 FL Mean Corpuscular Hemoglobin 31.7 PG Mean Corpuscular Hemoglobin Concent 34.0 % Red Cell Distribution Width 14.6 % Platelet Count 182 TH/MM3 Mean Platelet Volume 7.6 FL Neutrophils (%) (Auto) 79.8 % Lymphocytes (%) (Auto) 10.1 % Monocytes (%) (Auto) 7.6 % Eosinophils (%) (Auto) 2.0 % Basophils (%) (Auto) 0.5 % Neutrophils # (Auto) 6.0 TH/MM3 Lymphocytes # (Auto) 0.8 TH/MM3 Monocytes # (Auto) 0.6 TH/MM3 Eosinophils # (Auto) 0.1 TH/MM3 Basophils # (Auto) 0.0 TH/MM3 CBC Comment DIFF FINAL Differential Comment Blood Urea Nitrogen 16 MG/DL Creatinine 0.82 MG/DL Random Glucose 79 MG/DL Total Protein 6.5 GM/DL Albumin 3.1 GM/DL Calcium Level 8.9 MG/DL Alkaline Phosphatase 88 U/L Aspartate Amino Transf (AST/SGOT) 18 U/L Alanine Aminotransferase (ALT/SGPT) 19 U/L Total Bilirubin 1.1 MG/DL Sodium Level 138 MEQ/L Potassium Level 4.3 MEQ/L Chloride Level 101 MEQ/L Carbon Dioxide Level 28.6 MEQ/L Anion Gap 8 MEQ/L Estimat Glomerular Filtration Rate 92 ML/MIN Lipase 117 U/L MDM Medical Decision Making Medical Screen Exam Complete: Yes Emergency Medical Condition: Yes Medical Record Reviewed: Yes Interpretation(s) Laboratory Tests Test 08/28/17 21:10 Neutrophils (%) (Auto) 79.8 % (16.0-70.0) Lymphocytes # (Auto) 0.8 TH/MM3 (1.0-4.8) Albumin 3.1 GM/DL (3.4-5.0) Total Bilirubin 1.1 MG/DL (0.2-1.0) Last 24 hours Impressions Abdomen X-Ray 08/28/172104 Signed Impressions: Service Date/Time: Monday, August 28, 2017 21:16 - CONCLUSION: Nonspecific bowel gas pattern without obstruction or free air. Degenerative changes in the spine. William Welch MD Differential Diagnosis Constipation versus obstruction versus electrolyte abnormalities Narrative Course X-ray and CAT scan of the abdomen did not show any signs of acute intra- abdominal issues. Lab work was fairly unremarkable with no significant electrolyte abnormalities. Rectal did not show any significant stool impaction. At this point, my plan would be to release him with symptomatic relief for constipation. He is on opiate pain medications at home for chronic back and hip pains which she has been following up with pain management and orthopedics for, and this is likely exacerbating his constipation. I have talked him about this issue as well. He should talk to his primary care physician regarding ankle ongoing chronic problems. Return for any worsening in pain or new symptoms as needed. The plan has been discussed with the patient and he states understanding. Diagnosis Primary Impression: Chronic back pain Additional Impression: Constipation Med/Other Pt SpecificInfo: Prescription(s) given Scripts Peg-Electrolytes (Golytely 236 gm) 4,000 Ml Soln 2000 ML PO ONCE for Bowel Cleanser, #1 CONTAINER 0 Refills Prov: Lebron Ingram MD 08/29/17 Disposition: 01 DISCHARGE HOME Condition: Stable Lebron Ingram MD Aug 28, 2017 21:13
[2017-08-28] MEDS ORDERED: SODIUM CHLORIDE 0.9% FLUSH 10 ML FLUSH IV FLUSH PRN (21:15)
[2017-08-28 21:31] VITALS: RESP 19; O2SAT 97
[2017-08-28 21:57] LABS: BASOPHIL % 0.5 % (0.0-2.0); EOSINOPHIL # 0.1 TH/MM3 (0-0.4); HEMATOCRIT 43.9 % (39.0-51.0); HEMOGLOBIN 14.9 GM/DL (13.0-17.0); LYMPH % 10.1 % (9.0-44.0); LYMPHOCYTE # 0.8 TH/MM3 (1.0-4.8); MEAN CELL VOLUME 93.3 FL (80.0-100.0); MEAN CORPUSCULAR HEMOGLOBIN 31.7 PG (27.0-34.0); MEAN PLATELET VOLUME 7.6 FL (7.0-11.0); MONO % 7.6 % (0.0-8.0); MONOCYTE # 0.6 TH/MM3 (0-0.9); NEUT % 79.8 % (16.0-70.0); PLATELET COUNT 182 TH/MM3 (150-450); RED CELL DISTRIBUTION WIDTH 14.6 % (11.6-17.2); WHITE BLOOD COUNT 7.5 TH/MM3 (4.0-11.0)
[2017-08-28 22:04] LABS: ALBUMIN 3.1 GM/DL (3.4-5.0); ALT (GPT) 19 U/L (12-78); AST (GOT) 18 U/L (15-37); BICARBONATE 28.6 MEQ/L (21.0-32.0); BLOOD UREA NITROGEN 16 MG/DL (7-18); CALCIUM 8.9 MG/DL (8.5-10.1); CHLORIDE 101 MEQ/L (98-107); CREATININE 0.82 MG/DL (0.60-1.30); GLOMERULAR FILTRATION RATE 92 ML/MIN (>89); GLUCOSE,RANDOM 79 MG/DL (74-106); SODIUM (NA) 138 MEQ/L (136-145)
[2017-08-28 22:11] LABS: ALKALINE PHOSPHATASE 88 U/L (45-117); TOTAL BILIRUBIN ADULT 1.1 MG/DL (0.2-1.0); TOTAL PROTEIN 6.5 GM/DL (6.4-8.2)
--- NOTE | 2017-08-28 22:14 | RADRPT ---
EXAM DATE/TIME: 08/28/2017 21:16 [facility] COMPARISON: No previous studies available for comparison. INDICATIONS : Abdominal pain. MEDICAL HISTORY : Hypertension. Deep venous thrombosis. Chronic obstructive pulmonary disease. SURGICAL HISTORY : Prostatectomy. ENCOUNTER: [facility] ACUITY: 4 - 6 days PAIN SCORE: 10/10 LOCATION: Abdomen. FINDINGS: There is cardiomegaly. Basilar atelectasis present. No significant effusion. Elevated right hemidiaph ragm. Hiatal hernia. Nonspecific bowel gas pattern. CONCLUSION: Nonspecific bowel gas pattern without obstruction or free air. Degenerative changes in the spine. William Welch MD on August 28, 2017 at 22:11 Board Certified Radiologist. This report was verified electronically.
[2017-08-28] MEDS ORDERED: IOHEXOL 350 MG/ML 10 ML VIAL (for RAD DIAG) IVCONTRAST ONE (23:52)
[2017-08-29 00:06] VITALS: BP 177/102; PULSE 83; RESP 18; O2SAT 95
--- NOTE | 2017-08-29 00:16 | RADRPT ---
EXAM DATE/TIME: 08/28/2017 23:48 This report includes an Addendum and supersedes previous reports for this exam. [facility] COMPARISON: No previous studies available for comparison. INDICATIONS : Low abdominal pain with back pain and constipation. IV CONTRAST: 100 cc Omnipaque 350 (iohexol) IV ORAL CONTRAST: No oral contrast ingested. RADIATION DOSE: 20.22 CTDIvol (mGy) MEDICAL HISTORY : Hypertension. Congestive heart failure. Hernia, inguinal.BPH. SURGICAL HISTORY : Inguinal hernia repair. TURP. ENCOUNTER: Initial ACUITY: 3 days PAIN SCALE: 6/10 LOCATION: lower quadrant abdomen TECHNIQUE: Volumetric scanning of the abdomen and pelvis was performed. Using automated exposure control and ad justment of the mA and/or kV according to patient size, radiation dose was kept as low as reasonably achievable to obtain optimal diagnostic quality images. DICOM format image data is available electro nically for review and comparison. FINDINGS: LOWER LUNGS: Bibasilar atelectasis. LIVER: Homogeneous density without lesion. There is no dilation of the biliary tree. No calcified gallston es. SPLEEN: Normal size without lesion. PANCREAS: Within normal limits. KIDNEYS: Large right lower pole cyst again noted, measuring approximately 11.5 cm. Other bilateral cysts up to 4 cm are also seen. No hydronephrosis. No stones are demonstrated. ADRENAL GLANDS: Within normal limits. VASCULAR: Atherosclerosis of the abdominal aorta and iliac arteries again noted. No aneurysm. BOWEL/MESENTERY: The stomach, small bowel, and colon demonstrate no acute abnormality. There is no free intraperitone al air or fluid. Normal appendix. ABDOMINAL WALL: Within normal limits. RETROPERITONEUM: There is no lymphadenopathy. BLADDER: No wall thickening or mass. REPRODUCTIVE: Within normal limits. INGUINAL: There is no lymphadenopathy or hernia. MUSCULOSKELETAL: No acute bony abnormality demonstrated. CONCLUSION: No acute abnormality. Aortoiliac atherosclerosis and bilateral renal cysts are again noted. Jose Joy MD on August 29, 2017 at 0:12 Board Certified Radiologist. This report was verified electronically. ADDENDUM: COMPARISON: CT ABDOMEN & PELVIS W CONTRAST, August 24, 2017, 22:14. This study was compared to a prior from 08/24/2017 Jose Joy MD on August 29, 2017 at 0:18 Board Certified Radiologist. This report was verified electronically.
[2017-08-29] MEDS ORDERED: COLY4000S PO (00:47)
[2017-08-29 00:51] LABS: BILIRUBIN, URINE NEG (NEG); BLOOD, URINE NEG (NEG); GLUCOSE,URINE NEG (NEG); KETONE, URINE NEG (NEG); MUCUS URINE FEW /lpf (OCC); NITRITE,URINE NEG (NEG); SQUAMOUS EPITHELIAL CELL URINE 1 /hpf (0-5); URINE COLOR YELLOW (YELLW/STRAW); URINE LEUKOCYTE ESTERASE NEG (NEG)
== END 2017-08-29 01:26 | disposition home or self-care (01) ==
LOC: NEPE 18:48
DX: M54.9 Dorsalgia, unspecified (principal); G89.29 Other chronic pain; K59.00 Constipation, unspecified; I48.91 Unspecified atrial fibrillation; E78.00 Pure hypercholesterolemia, unspecified; I11.0 Hypertensive heart disease with heart failure; I50.9 Heart failure, unspecified; E07.9 Disorder of thyroid, unspecified; Z87.891 Personal history of nicotine dependence
CPT/HCPCS: 74019; 74177; 80053; 81001; 83690; 85025; 99285; Q9967

== ENCOUNTER 2017-09-03 01:37 | Emergency (ER) | payer MEDICARE ==
[~2017-09-03 01:37] MED LIST changes: +COLY4000S PO; -LIDO1ADH4 TD; -PERI PO
[2017-09-03 02:14] VITALS: BP 146/98; PULSE 86; RESP 20; TEMP 96.8; O2SAT 97
--- NOTE | 2017-09-03 03:37 | PD ---
HPI Chief Complaint: Back/ Neck Pain or Injury Time Seen by Provider: 03:36 Travel History International Travel<30 days: No Contact w/Intl Traveler<30days: No Traveled to known affect area: No History of Present Illness HPI 77-year-old male arrives complaining of chronic low back pain. Severe it is constant it is worse with range of motion. He reports oxycodone is not helpful at home. He has been following with orthopedics and with pain management. No recent injury. He reports he lives at home with his who is unable to care for him anymore. PFSH Past Medical History Hx Anticoagulant Therapy: Yes Arthritis: Yes Asthma: No Atrial Fibrillation: Yes Blood Disorders: No Anxiety: No Depression: No Heart Rhythm Problems: Yes (a-fib) Cancer: No Cardiovascular Problems: Yes High Cholesterol: Yes Chemotherapy: No Chest Pain: No Congestive Heart Failure: Yes COPD: No Cerebrovascular Accident: Yes (1994) Diabetes: No Diminished Hearing: No Deep Vein Thrombosis: Yes Endocrine: Yes Gastrointestinal Disorders: Yes GERD: No Genitourinary: No Headaches: No Hepatitis: No Hiatal Hernia: No Hypertension: Yes Immune Disorder: No Implanted Vascular Access Dvce: No Medical other: Yes (HX STROKE) Musculoskeletal: Yes Neurologic: Yes Psychiatric: No Reproductive: No Respiratory: Yes Migraines: No Radiation Therapy: No Seizures: No Sleep Apnea: Yes Thyroid Disease: Yes Ulcer: No PNEUMOCCOCAL Vaccine (Year): 1 Past Surgical History Abdominal Surgery: Yes (INGUINAL HERNIA REPAIR) AICD: No Cardiac Surgery: Yes (vein stripped) Endocrine Surgery: Yes (THYROID X 2) Eye Surgery: Yes (CATARACTS) Genitourinary Surgery: Yes (TURP) Hysterectomy: No Neurologic Surgery: No Pacemaker: No Thoracic Surgery: Yes (RIGHT LUNG LOBECTOMY - BENIGN TUMOR) Other Surgery: Yes (THYROID SX) Social History Alcohol Use: Yes (daily 1 liquor drink) Tobacco Use: Yes (quit 1972 smokes cigars) Substance Use: No Allergies-Medications (Allergen,Severity, Reaction): Coded Allergies: *MDRO Multi-Drug Resistant Organism (Verified Adverse Reaction, Unknown, Cleared - 01/12/17, 09/03/17) Cleared - MRSA screens negative on 11/04/16 & 01/12/17 MRSA (leg wound) - 03/2012 Reported Meds & Prescriptions Reported Meds & Active Scripts Active Golytely 236 gm (Polyethylene Glycol/Electrolytes) 4,000 Ml Soln 2,000 Ml PO ONCE Lisinopril 5 Mg Tab 2.5 Mg PO DAILY Reported Folic Acid 1 Mg Tablet Metoprolol Tartrate 37.5 Mg Tab 37.5 Mg PO BID Aspirin 81 Mg Chew 81 Mg CHEW DAILY Coumadin (Warfarin) 4 Mg Tab 5 Mg PO DAILY Synthroid (Levothyroxine Sodium) 200 Mcg Tab 200 Mcg PO DAILY Furosemide 40 Mg Tab 40 Mg PO DAILY Atorvastatin (Atorvastatin Calcium) 40 Mg Tab 40 Mg PO HS Sertraline (Sertraline HCl) 100 Mg Tab 100 Mg PO DAILY Miralax Powder (Polyethylene Glycol 3350 Powder) 1 Pow Pow 1 Cap PO DAILY Review of Systems Except as stated in HPI: all other systems reviewed are Neg General / Constitutional: No: Fever Physical Exam Narrative GENERAL: 77-year-old male well-nourished well-developed, mild distress 2/2 pain Vital Signs Date Time Temp Pulse Resp B/P (MAP) Pulse Ox O2 Delivery O2 Flow Rate FiO2 09/03/17 02:14 96.8 86 20 146/98 (114) 97 SKIN: Warm and dry. HEAD: Atraumatic. Normocephalic. EYES: Pupils equal and round. No scleral icterus. No injection or drainage. ENT: No nasal bleeding or discharge. Mucous membranes pink and moist. NECK: Trachea midline. No JVD. CARDIOVASCULAR: Regular rate and rhythm. RESPIRATORY: No accessory muscle use. Clear to auscultation. Breath sounds equal bilaterally. GASTROINTESTINAL: Abdomen soft, non-tender, nondistended. Hepatic and splenic margins not palpable. MUSCULOSKELETAL: Tenderness overlying the region of the left greater trochanter. Range of motion of the back and the left lower extremity limited due to pain. NEUROLOGICAL: Awake and alert. No obvious cranial nerve deficits. Motor grossly within normal limits. Five out of 5 muscle strength in the arms and legs. Normal speech. PSYCHIATRIC: Appropriate mood and affect; insight and judgment normal. Data Data Last Documented VS Vital Signs Date Time Temp Pulse Resp B/P (MAP) Pulse Ox O2 Delivery O2 Flow Rate FiO2 09/03/17 04:50 168/105 (126) 09/03/17 02:14 96.8 86 20 97 Orders Orders Hydromorphone Pf Inj (Dilaudid Pf Inj) (09/03/17 04:45) Ed Discharge Order (09/03/17 05:40) [facility] Medical Decision Making Medical Screen Exam Complete: Yes Emergency Medical Condition: Yes Medical Record Reviewed: Yes Differential Diagnosis Acute on chronic pain, acute pain, opioid dependence Narrative Course Pain controlled. Patient ready for discharge. Diagnosis Primary Impression: Chronic back pain Qualified Codes: M54.5 - Low back pain; G89.29 - Other chronic pain Referrals: Primary Care Physician call for appointment Disposition: 01 DISCHARGE HOME Condition: Stable Ashok Parada MD Sep 03, 2017 03:37
[2017-09-03] MEDS ORDERED: HYDROmorphone HCL PF 2 MG/ML VIAL SQ ONE (04:45)
[2017-09-03 04:50] VITALS: BP 168/105
== END 2017-09-03 08:33 | disposition home or self-care (01) ==
LOC: NEPC 01:37
DX: M54.5 Low back pain (principal); G89.29 Other chronic pain; E07.9 Disorder of thyroid, unspecified; E78.00 Pure hypercholesterolemia, unspecified; I11.0 Hypertensive heart disease with heart failure; I50.9 Heart failure, unspecified; I48.91 Unspecified atrial fibrillation; Z79.01 Long term (current) use of anticoagulants
CPT/HCPCS: 96372; 99283; J1170

== ENCOUNTER 2017-10-16 10:38 | Emergency (ER) | payer MEDICARE ==
[~2017-10-16] VITALS: Ht 180.3 cm; Wt 107.0 kg
[2017-10-16 10:43] VITALS: BP 172/98; PULSE 88; RESP 16; TEMP 97.6; O2SAT 97
--- NOTE | 2017-10-16 11:13 | PD ---
HPI . Nosebleed Chief Complaint: Nosebleed Time Seen by Provider: 11:09 Travel History International Travel<30 days: No Contact w/Intl Traveler<30days: No Traveled to known affect area: No History of Present Illness HPI This is a patient on Coumadin who presents to us this morning with a chief complaint of a nosebleed. Onset was during the night last night. It has continued. Symptoms are moderate. No modifying factors. He is bleeding from the right nostril. PFSH Past Medical History Hx Anticoagulant Therapy: Yes Arthritis: Yes Asthma: No Atrial Fibrillation: Yes Blood Disorders: No Anxiety: No Depression: No Heart Rhythm Problems: Yes (a-fib) Cancer: No Cardiovascular Problems: Yes High Cholesterol: Yes Chemotherapy: No Chest Pain: No Congestive Heart Failure: Yes COPD: No Cerebrovascular Accident: Yes Diabetes: No Diminished Hearing: Yes Deep Vein Thrombosis: Yes Endocrine: Yes Gastrointestinal Disorders: Yes GERD: No Genitourinary: No Headaches: No Hepatitis: No Hiatal Hernia: No Hypertension: Yes Immune Disorder: No Implanted Vascular Access Dvce: No Medical other: Yes (HX STROKE) Musculoskeletal: Yes Neurologic: Yes Psychiatric: No Reproductive: No Respiratory: Yes Immunizations Current: Yes Migraines: No Radiation Therapy: No Seizures: No Sleep Apnea: Yes Thyroid Disease: Yes Ulcer: No Tetanus Vaccination: < 5 Years Influenza Vaccination: Yes PNEUMOCCOCAL Vaccine (Year): 1 ?: Not Past Surgical History Abdominal Surgery: Yes (INGUINAL HERNIA REPAIR) AICD: No Cardiac Surgery: Yes (vein stripped) Endocrine Surgery: Yes (THYROID X 2) Eye Surgery: Yes (CATARACTS) Genitourinary Surgery: Yes (TURP) Hysterectomy: No Neurologic Surgery: No Pacemaker: No Thoracic Surgery: Yes (RIGHT LUNG LOBECTOMY - BENIGN TUMOR) Other Surgery: Yes (THYROID SX) Social History Alcohol Use: Yes ( 2 dly) Tobacco Use: Yes (quit 1972 smokes cigars) Substance Use: No Allergies-Medications (Allergen,Severity, Reaction): Coded Allergies: *MDRO Multi-Drug Resistant Organism (Verified Adverse Reaction, Unknown, Cleared - 01/12/17, 10/16/17) Cleared - MRSA screens negative on 11/04/16 & 01/12/17 MRSA (leg wound) - 03/2012 Reported Meds & Prescriptions Reported Meds & Active Scripts Active Lisinopril 5 Mg Tab 2.5 Mg PO DAILY Reported Folic Acid 1 Mg Tablet Metoprolol Tartrate 37.5 Mg Tab 37.5 Mg PO BID Aspirin 81 Mg Chew 81 Mg CHEW DAILY Coumadin (Warfarin) 4 Mg Tab 5 Mg PO DAILY Synthroid (Levothyroxine Sodium) 200 Mcg Tab 200 Mcg PO DAILY Furosemide 40 Mg Tab 20 Mg PO DAILY Atorvastatin (Atorvastatin Calcium) 40 Mg Tab 40 Mg PO HS Sertraline (Sertraline HCl) 100 Mg Tab 100 Mg PO DAILY Miralax Powder (Polyethylene Glycol 3350 Powder) 1 Pow Pow 1 Cap PO DAILY Review of Systems Except as stated in HPI: all other systems reviewed are Neg Physical Exam Narrative GENERAL: Awake and alert and in no acute distress. SKIN: Warm and dry. Good color. HEAD: Normocephalic/atraumatic. EYES: Pupils are equal. Extraocular movements are intact. ENT: Bleeding from the right nostril. NECK: Normal range of motion. MUSCULOSKELETAL: Atraumatic. NEUROLOGICAL: Nonfocal. PSYCHIATRIC: Appropriate mood and affect. Data Data Last Documented VS Vital Signs Date Time Temp Pulse Resp B/P (MAP) Pulse Ox O2 Delivery O2 Flow Rate FiO2 10/16/17 13:03 91 20 170/100 (123) 93 Room Air 10/16/17 10:43 97.6 Orders Orders Oxymetazoline 0.05% Surinder [place] (Afrin 0.0 (10/16/17 11:15) Act Partial Throm Time (Ptt) (10/16/17 11:10) Prothrombin Time / Inr (Pt) (10/16/17 11:55) Lisinopril (Prinivil) (10/16/17 13:15) Metoprolol Tartrate (Lopressor) (10/16/17 13:15) Metoprolol Tartrate (Lopressor) (10/16/17 13:15) Tranexamic Acid Inj (Cyklokapron Inj) (10/16/17 13:30) Morphine Inj (Morphine Inj) (10/16/17 14:30) Labs Laboratory Tests Test 10/16/17 11:25 10/16/17 12:22 Activated Partial Thromboplast Time 45.6 SEC Prothrombin Time 41.1 SEC Prothromb Time International Ratio 4.1 RATIO MDM Medical Decision Making Medical Screen Exam Complete: Yes Emergency Medical Condition: Yes Differential Diagnosis Differential diagnosis includes but is not limited to epistaxis due to an upper respiratory infection, coagulopathy, local trauma, nasal fracture Narrative Course This is a patient on Coumadin who presents with a nosebleed. His most recent INR was 2.3 and that was just yesterday or maybe the day before. Coumadin was held last night for preop. I will recheck the INR but I suspect that it is actually lower than 2.3 now. Afrin has been ordered. The nurse is currently holding direct pressure. The patient is complaining with pain associated with the Rhino Rocket. I have given him morphine here. I will discharge him to home with a prescription for Percocet. He is to return here Wednesday for removal of the packing. Procedures Procedure Narrative EPISTAXIS CONTROL Control was initially attempted with direct pressure. This did give some relief of the epistaxis. Control was then attempted with Afrin plus direct pressure. This also gave some relief of the epistaxis but the epistaxis quickly recurred. Thirdly, control was attempted with insertion of a cotton ball soaked with 1% lidocaine with epinephrine. This gave more prolonged relief of the epistaxis but it did recur. Fourthly, a Merocel sponge was inserted into the right nostril. He continued to leak a small amount of blood from the nose following this procedure. Finally, a Rhino Rocket soaked with TXE was inserted into the nostril. Epistaxis finally seems to be controlled. Diagnosis Primary Impression: Epistaxis Patient Instructions: Epistaxis (DC), General Instructions Additional Instructions: Return Wednesday to have the Rhino Rocket removed Med/Other Pt SpecificInfo: Prescription(s) given Scripts Oxycodone-Acetaminophen (Percocet) 5-325 mg Tab 1 TAB PO Q4H Y for PAIN, #12 TAB 0 Refills Prov: Elizabeth Kern MD 10/16/17 Disposition: 01 DISCHARGE HOME Condition: Stable Elizabeth Kern MD Oct 16, 2017 11:13
[2017-10-16] MEDS ORDERED: OXYMETAZOLINE HCL 0.05% 15 ML NASAL SPRAY NASAL ONE (11:15)
[2017-10-16 12:36] LABS: INTERNATIONAL NORMALIZED RATIO 4.1 RATIO; PROTHROMBIN TIME - PATIENT 41.1 SEC (9.8-11.6)
[2017-10-16 13:03] VITALS: BP 170/100; PULSE 91; RESP 20; O2SAT 93
[2017-10-16] MEDS ORDERED: METOPROLOL TARTRATE 25 MG TAB PO ONE ×2 (13:15)
[2017-10-16] MEDS ORDERED: LISINOPRIL 5 MG TAB PO ONE (13:15)
[2017-10-16] MEDS ORDERED: TRANEXAMIC ACID INJ 1,000 MG/10 ML AMP TOPICAL ONE (13:30)
[2017-10-16] MEDS ORDERED: MORPHINE SULFATE 2 MG/ML SYRINGE IM ONE (14:30)
[2017-10-16] MEDS ORDERED: PERC5TAB12 PO (14:49)
[2017-10-16 15:09] VITALS: BP 181/101; PULSE 100; RESP 24; O2SAT 88
[2017-10-16 16:00] VITALS: BP 180/100
== END 2017-10-16 17:11 | disposition home or self-care (01) ==
LOC: PHED 10:38
DX: R04.0 Epistaxis (principal); E78.00 Pure hypercholesterolemia, unspecified; I11.0 Hypertensive heart disease with heart failure; I50.9 Heart failure, unspecified; I48.91 Unspecified atrial fibrillation; Z86.73 Personal history of transient ischemic attack (TIA), and cerebral infarction without residual deficits; Z86.718 Personal history of other venous thrombosis and embolism; Z87.891 Personal history of nicotine dependence
CPT/HCPCS: 30905; 85610; 85730; 96372; 99283; J2270

== ENCOUNTER 2017-10-18 10:58 | Emergency (ER) | payer MEDICARE ==
[~2017-10-18] VITALS: Ht 188 cm; Wt 101.3 kg
[~2017-10-18 10:58] MED LIST changes: -COLY4000S PO; +PERC5TAB12 PO
[2017-10-18 11:02] VITALS: BP 120/78; PULSE 79; RESP 20; TEMP 97.3; O2SAT 93
--- NOTE | 2017-10-18 11:39 | PD ---
HPI Chief Complaint: Respiratory Symptoms Time Seen by Provider: 11:09 Travel History International Travel<30 days: No Contact w/Intl Traveler<30days: No Traveled to known affect area: No History of Present Illness HPI This patient complains of 2 things. He has had some shortness of breath. It is worse with exertion. He denies cough or fever or chest pain or heaviness or tightness. No alleviating factors. He reports compliance with his medications. He also wants to get the packing out of his right nostril. He has a Rhino Rocket there from epistaxis treatment 2 days ago. He does have a personal ENT physician that he did not call. He is now trying to decide if he wants me to take it out or his ENT physician to remove it. I have offered to do it but he is thinking about it. Symptom severity is moderate. He has had no further epistaxis. He has been holding his Coumadin for couple of days. PFSH Past Medical History Hx Anticoagulant Therapy: Yes (COUMADIN) Arthritis: Yes Asthma: No Atrial Fibrillation: Yes Blood Disorders: No Anxiety: No Depression: No Heart Rhythm Problems: Yes (a-fib) Cancer: No Cardiovascular Problems: Yes High Cholesterol: Yes Chemotherapy: No Chest Pain: No Congestive Heart Failure: Yes COPD: No Cerebrovascular Accident: Yes Diabetes: No Diminished Hearing: Yes Deep Vein Thrombosis: Yes Endocrine: Yes Gastrointestinal Disorders: Yes GERD: No Genitourinary: No Headaches: No Hepatitis: No Hiatal Hernia: No Hypertension: Yes Immune Disorder: No Implanted Vascular Access Dvce: No Medical other: Yes (HX STROKE) Musculoskeletal: Yes Neurologic: Yes Psychiatric: No Reproductive: No Respiratory: Yes Immunizations Current: Yes Migraines: No Radiation Therapy: No Seizures: No Sleep Apnea: Yes Thyroid Disease: Yes Ulcer: No Tetanus Vaccination: < 5 Years Influenza Vaccination: Yes PNEUMOCCOCAL Vaccine (Year): 1 Past Surgical History Abdominal Surgery: Yes (INGUINAL HERNIA REPAIR) AICD: No Cardiac Surgery: Yes (vein stripped) Endocrine Surgery: Yes (THYROID X 2) Eye Surgery: Yes (CATARACTS) Genitourinary Surgery: Yes (TURP) Hysterectomy: No Neurologic Surgery: No Pacemaker: No Thoracic Surgery: Yes (RIGHT LUNG LOBECTOMY - BENIGN TUMOR) Other Surgery: Yes (THYROID SX) Social History Alcohol Use: Yes ( 2 dly) Tobacco Use: Yes (quit 1972 smokes cigars) Substance Use: No Allergies-Medications (Allergen,Severity, Reaction): Coded Allergies: *MDRO Multi-Drug Resistant Organism (Verified Adverse Reaction, Unknown, Cleared - 01/12/17, 10/18/17) Cleared - MRSA screens negative on 11/04/16 & 01/12/17 MRSA (leg wound) - 03/2012 Reported Meds & Prescriptions Reported Meds & Active Scripts Active Percocet (Oxycodone-Acetaminophen) 5-325 mg Tab 1 Tab PO Q4H PRN Lisinopril 5 Mg Tab 2.5 Mg PO DAILY Reported Folic Acid 1 Mg Tablet Metoprolol Tartrate 37.5 Mg Tab 37.5 Mg PO BID Aspirin 81 Mg Chew 81 Mg CHEW DAILY Coumadin (Warfarin) 4 Mg Tab 5 Mg PO DAILY Synthroid (Levothyroxine Sodium) 200 Mcg Tab 200 Mcg PO DAILY Furosemide 40 Mg Tab 20 Mg PO DAILY Atorvastatin (Atorvastatin Calcium) 40 Mg Tab 40 Mg PO HS Sertraline (Sertraline HCl) 100 Mg Tab 100 Mg PO DAILY Miralax Powder (Polyethylene Glycol 3350 Powder) 1 Pow Pow 1 Cap PO DAILY Review of Systems General / Constitutional: No: Fever Eyes: No: Visual changes HENT: Positive: Nosebleed, No: Headaches Cardiovascular: Positive: Irregular Rhythm, Tachycardia, No: Chest Pain or Discomfort Respiratory: Positive: Shortness of Breath Gastrointestinal: No: Abdominal Pain Genitourinary: No: Dysuria Musculoskeletal: No: Pain Skin: No Rash Neurologic: No: Weakness Psychiatric: No: Depression Endocrine: No: Polydipsia Hematologic/Lymphatic: No: Easy Bruising Physical Exam Narrative GENERAL: Well-nourished, well-developed patient in no apparent distress. SKIN: Focused skin assessment reveals no rash and nodules. Skin is Warm and dry. HEAD: Atraumatic. Normocephalic. EYES: Pupils equal and round. No scleral icterus. No injection or drainage. ENT: No nasal bleeding or discharge. Mucous membranes pink and moist. Has a Rhino Rocket in the right nostril NECK: Trachea midline. No JVD. CARDIOVASCULAR: Irregularly irregular rhythm heart rate 140s. No murmur appreciated. RESPIRATORY: No accessory muscle use. Clear to auscultation. Breath sounds equal bilaterally. GASTROINTESTINAL: Abdomen soft, non-tender, nondistended. Hepatic and splenic margins not palpable. MUSCULOSKELETAL: No obvious deformities. No clubbing. No cyanosis. No pitting edema. There is hyperpigmentation stasis of the lower legs symmetric bilaterally NEUROLOGICAL: Awake and alert. No obvious cranial nerve deficits. Motor grossly within normal limits. Normal speech. PSYCHIATRIC: Appropriate mood and affect; insight and judgment normal. Data Data Last Documented VS Vital Signs Date Time Temp Pulse Resp B/P (MAP) Pulse Ox O2 Delivery O2 Flow Rate FiO2 10/18/17 12:48 20 10/18/17 12:32 130 143/78 (99) 96 Room Air 10/18/17 11:02 97.3 Orders Orders Electrocardiogram (10/18/17 ) Supercalender Operator / Telemetry [id number].[id number] (10/18/17 11:32) Diltiazem Inj (Cardizem Inj) (10/18/17 11:45) Complete Blood Count With Diff (10/18/17 11:32) Basic Metabolic Panel (Bmp) (10/18/17 11:32) Prothrombin Time / Inr (Pt) (10/18/17 11:32) Chest, Single Ap (10/18/17 ) Silver Nitrate Applicators (Silver Nitra (10/18/17 14:00) Labs Laboratory Tests Test 10/18/17 11:50 White Blood Count 14.6 TH/MM3 Red Blood Count 5.21 MIL/MM3 Hemoglobin 16.2 GM/DL Hematocrit 48.5 % Mean Corpuscular Volume 93.1 FL Mean Corpuscular Hemoglobin 31.1 PG Mean Corpuscular Hemoglobin Concent 33.4 % Red Cell Distribution Width 14.3 % Platelet Count 177 TH/MM3 Mean Platelet Volume 7.8 FL Neutrophils (%) (Auto) 85.3 % Lymphocytes (%) (Auto) 4.4 % Monocytes (%) (Auto) 6.0 % Eosinophils (%) (Auto) 0.1 % Basophils (%) (Auto) 4.2 % Neutrophils # (Auto) 12.5 TH/MM3 Lymphocytes # (Auto) 0.6 TH/MM3 Monocytes # (Auto) 0.9 TH/MM3 Eosinophils # (Auto) 0.0 TH/MM3 Basophils # (Auto) 0.6 TH/MM3 CBC Comment DIFF FINAL Differential Comment Prothrombin Time 13.6 SEC Prothromb Time International Ratio 1.3 RATIO Blood Urea Nitrogen 20 MG/DL Creatinine 1.20 MG/DL Random Glucose 139 MG/DL Calcium Level 9.7 MG/DL Sodium Level 137 MEQ/L Potassium Level 3.6 MEQ/L Chloride Level 101 MEQ/L Carbon Dioxide Level 28.5 MEQ/L Anion Gap 8 MEQ/L Estimat Glomerular Filtration Rate 59 ML/MIN MDM Medical Decision Making Medical Screen Exam Complete: Yes Emergency Medical Condition: Yes Medical Record Reviewed: Yes Differential Diagnosis A. fib with RVR, CHF, epistaxis, pneumonia Narrative Course I have reviewed the patient's electronic medical record. I reviewed his visit from 2 days ago when he had a Rhino Rocket placed. His INR was 4.1 IV placed and labs sent Extended cardiac monitoring confirms A. fib with RVR in the 140s I reviewed his EKG which shows A. fib with RVR I reviewed his chest x-ray is normal I gave him 20 mg IV Cardizem for rate control INR is down to 1.3 As noted I have offered to remove the Rhino Rocket and he is calling his ENT physician at this time. The patient's ENT Office advised me to remove the packing Procedure note: I removed the right nostril Rhino Rocket after deflating the balloon. Examination of the nostril after the Rhino Rocket is removed reveals there is a couple scant areas of ooze but no active bleeding I used 5 silver nitrate sticks to cauterize these areas. Patient tolerated it well On reevaluation there is no further bleeding Labs are normal He stable for outpatient follow-up He is breathing well I have advised him to discuss with his family physician to determine when he should restart his Coumadin. Heart rate is been running between 80 and 95 for the last 2 hours Diagnosis Primary Impression: Atrial fibrillation with RVR Additional Impression: Epistaxis Additional Instructions: The patient was advised to follow up with their physician and return if they worsen. Discuss with your physician when to restart Coumadin Med/Other Pt SpecificInfo: Other Disposition: 01 DISCHARGE HOME Condition: Stable Nitin Muñiz MD Oct 18, 2017 11:39
[2017-10-18] MEDS ORDERED: DILTIAZEM HCL 25 MG/5 ML VIAL IV ONE (11:45)
[2017-10-18 12:02] LABS: AUTOMATED NEUTROPHIL # 12.5 TH/MM3 (1.8-7.7); BASOPHIL # 0.6 TH/MM3 (0-0.2); BASOPHIL % 4.2 % (0.0-2.0); EOSINOPHIL % 0.1 % (0.0-4.0); HEMATOCRIT 48.5 % (39.0-51.0); HEMOGLOBIN 16.2 GM/DL (13.0-17.0); LYMPH % 4.4 % (9.0-44.0); LYMPHOCYTE # 0.6 TH/MM3 (1.0-4.8); MEAN CELL VOLUME 93.1 FL (80.0-100.0); MEAN CORPUSCULAR HEMOGLOBIN 31.1 PG (27.0-34.0); MEAN CORPUSCULAR HGB CONC 33.4 % (32.0-36.0); MEAN PLATELET VOLUME 7.8 FL (7.0-11.0); MONOCYTE # 0.9 TH/MM3 (0-0.9); NEUT % 85.3 % (16.0-70.0); PLATELET COUNT 177 TH/MM3 (150-450); RED BLOOD COUNT 5.21 MIL/MM3 (4.50-5.90); RED CELL DISTRIBUTION WIDTH 14.3 % (11.6-17.2); WHITE BLOOD COUNT 14.6 TH/MM3 (4.0-11.0)
[2017-10-18 12:11] LABS: CALCIUM 9.7 MG/DL (8.5-10.1); INTERNATIONAL NORMALIZED RATIO 1.3 RATIO; PROTHROMBIN TIME - PATIENT 13.6 SEC (9.8-11.6)
[2017-10-18 12:12] LABS: BICARBONATE 28.5 MEQ/L (21.0-32.0)
[2017-10-18 12:15] LABS: CREATININE 1.2 MG/DL (0.60-1.30)
--- NOTE | 2017-10-18 12:24 | RADRPT ---
EXAM DATE/TIME: 10/18/2017 12:12 [facility] COMPARISON: CHEST SINGLE AP, May 21, 2017, 20:10. INDICATIONS : Short of breath MEDICAL HISTORY : Hypertension. Congestive heart failure. Hernia, inguinal. BPH. SURGICAL HISTORY : Inguinal hernia repair. TURP. ENCOUNTER: Initial ACUITY: 3 days PAIN SCORE: 0/10 LOCATION: Bilateral chest FINDINGS: A single view of the chest demonstrates the lungs to be symmetrically aerated without evidence of mas s, infiltrate or effusion. The cardiomediastinal contours are unremarkable. There is stable scarring at the right lung base. Mild atherosclerotic changes present in the aorta. Osseous structures are in tact. CONCLUSION: Stable appearance with no acute cardiopulmonary disease. Gavin Charlton MD on October 18, 2017 at 12:22 Board Certified Radiologist. This report was verified electronically.
[2017-10-18 12:32] VITALS: BP 143/78; PULSE 130; RESP 20; O2SAT 96
[2017-10-18 13:05] VITALS: PULSE 78
[2017-10-18] MEDS ORDERED: SILVER NITR/POTASSIUM NITRATE APPLICATORS TOPICAL ONE (14:00)
[2017-10-18 14:19] VITALS: BP 128/83; PULSE 98; RESP 20; O2SAT 94
--- NOTE | 2017-10-18 17:42 | EKG ---
Date Performed: 10/18/2017 Time Performed: 12:07:46 PTAGE: 77 years EKG: ATRIAL FIBRILLATION WITH RAPID VENTRICULAR RESPONSE INDETERMINATE AXIS PATTERN CONSISTENT W ITH PULMONARY DISEASE MINIMAL VOLTAGE CRITERIA FOR LVH, CONSIDER NORMAL VARIANT INFERIOR MYOCARDIAL I NFARCTION ABNORMAL ECG No significant change from prior electrocardiogram. PREVIOUS TRACING : 08/24/2017 21.26 DOCTOR: Dwight Varghese Interpretating Date/Time 10/18/2017 17:42:19
== END 2017-10-18 15:19 | disposition home or self-care (01) ==
LOC: PHEFT 10:58
DX: I48.91 Unspecified atrial fibrillation (principal); R04.0 Epistaxis; I11.0 Hypertensive heart disease with heart failure; I50.9 Heart failure, unspecified; E78.00 Pure hypercholesterolemia, unspecified; F17.290 Nicotine dependence, other tobacco product, uncomplicated; Z86.73 Personal history of transient ischemic attack (TIA), and cerebral infarction without residual deficits; Z86.718 Personal history of other venous thrombosis and embolism; Z79.01 Long term (current) use of anticoagulants; Z79.899 Other long term (current) drug therapy
CPT/HCPCS: 30901; 71045; 80048; 85025; 85610; 93005; 96374

== ENCOUNTER 2017-10-18 21:18 | Inpatient (IN) | payer MEDICARE ==
[~2017-10-18] VITALS: Ht 180.3 cm; Wt 106.1 kg
[2017-10-18] VITALS (9 sets, daily range): BP systolic 79–107; BP diastolic 52–65; PULSE 99–120; RESP 18–28; TEMP 97–98.1; O2SAT 96–100
--- NOTE | 2017-10-18 21:53 | PD ---
HPI Chief Complaint: Respiratory Symptoms Time Seen by Provider: 21:37 Travel History International Travel<30 days: No Contact w/Intl Traveler<30days: No Traveled to known affect area: No History of Present Illness HPI The patient is a 77 year old male who presents to the [facility] emergency department with a history of unsteady gait, lower extremity weakness, lightheaded sensation that he reports began yesterday but greatly worsened today. He reports that he was seen in the [place] emergency department earlier this morning. He reports that he had a Rhino Rocket in place that was removed from his right nare. He reports that he was attempting to follow-up with Dr. Osuna, however he did not have an appointment available for him to be seen today. The patient had the nasal packing placed after he developed a severe nosebleed a few days ago. The patient was on Coumadin and was noted to have an INR 4.1. The Coumadin was held, however his INR was repeated today and now noted to be 1.3. When the patient was seen in the [place] emergency department, the patient was noted to have atrial fibrillation with RVR. The patient was treated with a dose of Cardizem and had laboratory studies done earlier today. The patient's white blood cell count was noted to be 14.6 with a left shift. The patient on arrival to this facility reports that his symptoms have been worsening. The patient reports feeling dizzy which she describes as a lightheaded sensation. He denies having any vertigo. He reports having chest pain in route to this facility in the lower portion of the center aspect of his chest which he describes as a pressure sensation. He reports having shortness of breath that is been intermittently present throughout the last 2 days. He denies having any known recent fevers, cough or congestion other than with drinking some lemonade earlier today he did have a coughing spell. He denies having any abdominal pain, vomiting, or diarrhea. He reports having chronic urinary frequency related to diuretic use, however he denies any dysuria or urinary urgency. The patient denies having any numbness or tingling to his extremities, one-sided weakness that is new (history of prior stroke with residual left-sided weakness). 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 Hx Anticoagulant Therapy: Yes (coumadin) Arthritis: Yes Asthma: No Atrial Fibrillation: Yes Blood Disorders: No Anxiety: No Depression: No Heart Rhythm Problems: Yes (a-fib) Cancer: No Cardiovascular Problems: Yes High Cholesterol: Yes Chemotherapy: No Chest Pain: No Congestive Heart Failure: Yes COPD: No Cerebrovascular Accident: Yes Diabetes: No Diminished Hearing: Yes Deep Vein Thrombosis: Yes Endocrine: Yes Gastrointestinal Disorders: Yes GERD: No Genitourinary: No Headaches: No Hepatitis: No Hiatal Hernia: No Hypertension: Yes Immune Disorder: No Implanted Vascular Access Dvce: No Medical other: Yes (HX STROKE) Musculoskeletal: Yes Neurologic: Yes Psychiatric: No Reproductive: No Respiratory: Yes Immunizations Current: Yes Migraines: No Radiation Therapy: No Seizures: No Sleep Apnea: Yes Thyroid Disease: Yes Ulcer: No Tetanus Vaccination: Unknown Influenza Vaccination: Yes PNEUMOCCOCAL Vaccine (Year): 1 Past Surgical History Narrative Surgical The patient's past surgical history is significant for thyroid surgery twice, vein stripping, inguinal hernia repair, TURP, 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 Abdominal Surgery: Yes (INGUINAL HERNIA REPAIR) AICD: No Cardiac Surgery: Yes (vein stripped) Endocrine Surgery: Yes (THYROID X 2) Eye Surgery: Yes (CATARACTS) Genitourinary Surgery: Yes (TURP) Hysterectomy: No Neurologic Surgery: No Pacemaker: No Thoracic Surgery: Yes (RIGHT LUNG LOBECTOMY - BENIGN TUMOR) Other Surgery: Yes (THYROID SX) Social History Alcohol Use: Yes ( 2 dly) Tobacco Use: No (Quit smoking in 1971) Substance Use: No Allergies-Medications (Allergen,Severity, Reaction): Coded Allergies: No Known Allergies (Unverified , 10/19/17) Reported Meds & Prescriptions Reported Meds & Active Scripts Active Percocet (Oxycodone-Acetaminophen) 5-325 mg Tab 1 Tab PO Q4H PRN Lisinopril 5 Mg Tab 2.5 Mg PO DAILY Reported Folic Acid 1 Mg Tablet Metoprolol Tartrate 37.5 Mg Tab 37.5 Mg PO BID Aspirin 81 Mg Chew 81 Mg CHEW DAILY Coumadin (Warfarin) 4 Mg Tab 5 Mg PO DAILY Synthroid (Levothyroxine Sodium) 200 Mcg Tab 200 Mcg PO DAILY Furosemide 40 Mg Tab 20 Mg PO DAILY Atorvastatin (Atorvastatin Calcium) 40 Mg Tab 40 Mg PO HS Sertraline (Sertraline HCl) 100 Mg Tab 100 Mg PO DAILY Miralax Powder (Polyethylene Glycol 3350 Powder) 1 Pow Pow 1 Cap PO DAILY Review of Systems Except as stated in HPI: all other systems reviewed are Neg General / Constitutional: No: Fever Eyes: No: Visual changes HENT: Positive: Lightheadedness, No: Headaches, Rhinorrhea, Congestion Cardiovascular: Positive: Chest Pain or Discomfort, Dyspnea on exertion Respiratory: Positive: Cough, Shortness of Breath Gastrointestinal: No: Nausea, Vomiting, Diarrhea, Abdominal Pain Genitourinary: No: Dysuria Musculoskeletal: No: Pain Skin: No Rash Neurologic: Positive: Weakness (Generalized weakness), Dizziness, No: Focal Abnormalities (No new focal weakness), Change in Mentation, Slurred Speech, Sensory Disturbance Psychiatric: No: Depression Endocrine: No: Polydipsia Hematologic/Lymphatic: No: Easy Bruising Physical Exam Narrative General: The patient is a well-developed well-nourished male in no acute distress, initial blood pressure on arrival is 95 systolic with a map of 71. Head and Neck exam: Head is normocephalic atraumatic. Eyes: EOMI, pupils are equal round and reactive to light. Nose: Midline septum with pink mucous membranes Mouth: Dentition unremarkable. Moist mucus membranes. Posterior oropharynx is not erythematous. No tonsillar hypertrophy. Uvula midline. Airway patent. Neck: No palpable lymphadenopathy. No nuchal rigidity. No thyromegaly. Cardiovascular: Irregularly irregular with a rhythm that appears to be in atrial fibrillation with RVR in the low 100s without murmurs, gallops, or rubs. Lungs: Clear to auscultation bilaterally. No wheezes, rhonchi, or rales. Abdomen: Soft, without tenderness to palpation in all 4 quadrants of the abdomen. No guarding, rebound, or rigidity. Normal bowel sounds are audible. No tenderness on palpation of McBurney's point. Extremities: No clubbing or cyanosis. The patient has trace pedal edema bilateral lower extremities. 2+ pulses in all 4 extremities. No calf tenderness on palpation. Back: No spinous process tenderness to palpation. No costovertebral angle tenderness to palpation. Neurologic Exam: Cranial nerves 2-12 were intact on exam. The patient reports having a mild weakness of the left upper and lower lower extremity from a prior stroke, however on exam his strength is 5/5 in all 4 extremities. The patient has intact sensation over all dermatomes. Skin Exam: No rash noted. Intact skin that is warm and dry. Data Data Last Documented VS Vital Signs Date Time Temp Pulse Resp B/P (MAP) Pulse Ox O2 Delivery O2 Flow Rate FiO2 10/18/17 23:37 108 18 107/65 (79) 98 Simple Mask 4.00 10/18/17 21:30 97.0 Orders Orders Electrocardiogram (10/18/17 21:51) Complete Blood Count With Diff (10/18/17 21:51) Comprehensive Metabolic Panel (10/18/17 21:51) Creatine Kinase (Cpk) (10/18/17 21:51) Ckmb (Isoenzyme) Profile (10/18/17 21:51) Troponin I (10/18/17 21:51) B-Type Natriuretic Peptide (10/18/17 21:51) Prothrombin Time / Inr (Pt) (10/18/17 21:51) Act Partial Throm Time (Ptt) (10/18/17 21:51) Blood Culture (10/18/17 21:51) C-Reactive Protein (Crp) (10/18/17 21:51) Lipase (10/18/17 21:51) Urinalysis - C+S If Indicated (10/18/17 21:51) Magnesium (Mg) (10/18/17 21:51) Thyroid Stimulating Hormone (10/18/17 21:51) Chest, Single Ap (10/18/17 21:51) Ct Brain W/O Iv Contrast(Rout) (10/18/17 21:51) Iv Access Insert/Monitor (10/18/17 21:51) Ecg Monitoring (10/18/17 21:51) Oximetry (10/18/17 21:51) Alcohol (Ethanol) (10/18/17 21:51) Lactic Acid Sepsis Protocol (10/18/17 21:51) Sodium Chlorid 0.9% 500 Ml Inj (Ns 500 M (10/18/17 22:00) Piperacil-Tazo 3.375 Gm Premix (Zosyn 3. (10/18/17 23:00) Vancomycin Inj (Vancomycin Inj) (10/18/17 23:00) Sodium Chlor 0.9% 1000 Ml Inj (Ns 1000 M (10/19/17 00:00) Admit Order (Ed Use Only) (10/19/17 00:14) Labs Laboratory Tests Test 10/18/17 22:00 White Blood Count 16.2 TH/MM3 Red Blood Count 5.14 MIL/MM3 Hemoglobin 16.3 GM/DL Hematocrit 48.7 % Mean Corpuscular Volume 94.8 FL Mean Corpuscular Hemoglobin 31.7 PG Mean Corpuscular Hemoglobin Concent 33.4 % Red Cell Distribution Width 14.9 % Platelet Count 209 TH/MM3 Mean Platelet Volume 8.2 FL Neutrophils (%) (Auto) 87.6 % Lymphocytes (%) (Auto) 5.1 % Monocytes (%) (Auto) 6.8 % Eosinophils (%) (Auto) 0.1 % Basophils (%) (Auto) 0.4 % Neutrophils # (Auto) 14.2 TH/MM3 Lymphocytes # (Auto) 0.8 TH/MM3 Monocytes # (Auto) 1.1 TH/MM3 Eosinophils # (Auto) 0.0 TH/MM3 Basophils # (Auto) 0.1 TH/MM3 CBC Comment DIFF FINAL Differential Comment Prothrombin Time 13.4 SEC Prothromb Time International Ratio 1.3 RATIO Activated Partial Thromboplast Time 31.3 SEC Blood Urea Nitrogen 30 MG/DL Creatinine 1.84 MG/DL Random Glucose 122 MG/DL Total Protein 7.7 GM/DL Albumin 3.2 GM/DL Calcium Level 9.2 MG/DL Magnesium Level 2.4 MG/DL Alkaline Phosphatase 96 U/L Aspartate Amino Transf (AST/SGOT) 32 U/L Alanine Aminotransferase (ALT/SGPT) 26 U/L Total Bilirubin 1.6 MG/DL Sodium Level 138 MEQ/L Potassium Level 4.8 MEQ/L Chloride Level 99 MEQ/L Carbon Dioxide Level 28.4 MEQ/L Anion Gap 11 MEQ/L Estimat Glomerular Filtration Rate 36 ML/MIN Lactic Acid Level 3.1 mmol/L Total Creatine Kinase 85 U/L Troponin I LESS THAN 0.02 NG/ML C-Reactive Protein 11.20 MG/DL B-Type Natriuretic Peptide 82 PG/ML Lipase 95 U/L Thyroid Stimulating Hormone 3rd Gen 0.457 uIU/ML Ethyl Alcohol Level LESS THAN 3 MG/DL MDM Medical Decision Making Medical Screen Exam Complete: Yes Emergency Medical Condition: Yes Medical Record Reviewed: Yes Differential Diagnosis Sepsis of undetermined origin, versus hypotension from A. fib with RVR, versus pulmonary embolism, versus pneumonia, versus dehydration Narrative Course During the course of the patient's emergency department visit, the patient's history, examination, and differential diagnosis were reviewed with the patient. The patient was placed on a court recording monitor with oximetry and frequent blood pressure monitoring. The patient had IV access obtained and blood work sent for analysis. The patient had a EKG done on arrival that shows A. fib with RVR heart rate of 115, QRS duration 90 ms, QTC [address] segment elevation is noted. The patient was initially provided normal saline IV fluids, broad-spectrum antibiotic coverage with Zosyn and vancomycin. The patient's laboratory studies were reviewed and remarkable for 10/18/17 22:00 Total Protein 7.7, Albumin 3.2 L, Calcium Level 9.2, Magnesium Level 2.4, Alkaline Phosphatase 96, Aspartate Amino Transf (AST/SGOT) 32, Alanine Aminotransferase (ALT/SGPT) 26, Total Bilirubin 1.6 H, CRP is elevated 11.2, lipase is 95, TSH 0.457, creatinine is noted to be elevated compared to previously consistent with dehydration, lactic acid elevated at 3.1. PT 13.4, PTT 31.3 Radiology studies were reviewed and remarkable for Last Impressions Head CT 10/18/172150 Signed Impressions: Service Date/Time: Wednesday, October 18, 2017 22:39 - CONCLUSION: 1. Stable chronic changes with an old right MCA infarct. 3.2 cm arachnoid cyst in the anterior left middle cranial fossa. 2. Nothing acute Sushant Moon MD Chest X-Ray 10/18/172150 Signed Impressions: Service Date/Time: Wednesday, October 18, 2017 21:55 - CONCLUSION: 1. Elevated right hemidiaphragm with minimal basilar scarring. Cardiomegaly. William Welch MD The patient's arrives at the patient's bedside and provides additional history that the patient has a history of a blood clot in his right groin. He reports that this is being monitored by ultrasound. They are unsure whether this is involving a vein. Given the patient's reversal of anticoagulation, and symptoms of shortness of breath pulmonary embolism will need to be ruled out. A CTA to rule out PE has been ordered. CTA was noted to be negative for PE. The patient's results were discussed with the patient, including the plan of care. I explained that further testing and/ or monitoring is indicated based on the patient's history, examination, and/ or laboratory findings. Therefore, I recommended admission for additional evaluation. The patient expressed understanding and was agreeable with this plan. The patient was admitted to the hospital in guarded condition and sent to a bed under the care of the [facility]. Sepsis Criteria SIRS Criteria (2 or more): Heart rate over 90, RR > 20 or PaCO2 < 32, WBC > 11943, < 4000 or > 10% bands Severe Sepsis (+one): Lactate >2 Physician Communication Physician Communication The patient's case including history, pertinent physical examination findings, and laboratory studies were discussed with Dr. Aquino. It was agreed that the patient would be admitted to the [facility] service. Diagnosis Primary Impression: Atrial fibrillation with RVR Additional Impression: SIRS (systemic inflammatory response syndrome) Admitting Information Admitting Physician Requests: Admit Catrachita Lagos MD Oct 18, 2017 21:53
[2017-10-18] MEDS ORDERED: SODIUM CHLORID 0.9% 500 ML INJ 500 ML IV ONE (22:00)
--- NOTE | 2017-10-18 22:26 | RADRPT ---
EXAM DATE/TIME: 10/18/2017 21:55 [facility] COMPARISON: CHEST SINGLE AP, October 18, 2017, 12:12. INDICATIONS : Short of breath. Mild pain on right side of chest. Patient stated he previously had a benign tumor in his right lung. MEDICAL HISTORY : Hypertension. Congestive heart failure. Hernia, inguinal. BPH. SURGICAL HISTORY : Inguinal hernia repair. TURP. ENCOUNTER: Initial ACUITY: 3 days PAIN SCORE: 4/10 LOCATION: Bilateral chest FINDINGS: A single view of the chest demonstrates elevated right hemidiaphragm. Minimal basilar atelectasis or scarring. Cardiomegaly. Mildly tortuous aorta. CONCLUSION: 1. Elevated right hemidiaphragm with minimal basilar scarring. Cardiomegaly. William Welch MD on October 18, 2017 at 22:23 Board Certified Radiologist. This report was verified electronically.
[2017-10-18 22:31] LABS: AUTOMATED NEUTROPHIL # 14.2 TH/MM3 (1.8-7.7); BASOPHIL # 0.1 TH/MM3 (0-0.2); BASOPHIL % 0.4 % (0.0-2.0); EOSINOPHIL % 0.1 % (0.0-4.0); HEMATOCRIT 48.7 % (39.0-51.0); HEMOGLOBIN 16.3 GM/DL (13.0-17.0); LYMPH % 5.1 % (9.0-44.0); LYMPHOCYTE # 0.8 TH/MM3 (1.0-4.8); MEAN CELL VOLUME 94.8 FL (80.0-100.0); MEAN CORPUSCULAR HEMOGLOBIN 31.7 PG (27.0-34.0); MEAN CORPUSCULAR HGB CONC 33.4 % (32.0-36.0); MEAN PLATELET VOLUME 8.2 FL (7.0-11.0); MONO % 6.8 % (0.0-8.0); MONOCYTE # 1.1 TH/MM3 (0-0.9); NEUT % 87.6 % (16.0-70.0); PLATELET COUNT 209 TH/MM3 (150-450); RED BLOOD COUNT 5.14 MIL/MM3 (4.50-5.90); RED CELL DISTRIBUTION WIDTH 14.9 % (11.6-17.2); WHITE BLOOD COUNT 16.2 TH/MM3 (4.0-11.0)
[2017-10-18] MEDS ORDERED: VANCOMYCIN INJ 1,000 MG in SODIUM CHLOR 0.9% 250 ML INJ 250 ML IV ONE (23:00)
[2017-10-18] MEDS ORDERED: PIPERACIL-TAZO 3.375 GM PREMIX 50 ML IV ONE (23:00)
--- NOTE | 2017-10-18 23:02 | RADRPT ---
EXAM DATE/TIME: 10/18/2017 22:39 [facility] COMPARISON: CT BRAIN W/O CONTRAST, May 21, 2017, 19:27. INDICATIONS : Generalized weakness; dizziness. RADIATION DOSE: 64.63 CTDIvol (mGy) MEDICAL HISTORY : Cardiovascular disease. Stroke Deep venous thrombosis. SURGICAL HISTORY : Lobectomy. ENCOUNTER: Initial ACUITY: 1 day PAIN SCALE: 0/10 LOCATION: cranial TECHNIQUE: Multiple contiguous axial images were obtained of the head. Using automated exposure control and adj ustment of the mA and/or kV according to patient size, radiation dose was kept as low as reasonably a chievable to obtain optimal diagnostic quality images. DICOM format image data is available electro nically for review and comparison. FINDINGS: CEREBRUM: The ventricles are normal for age. No evidence of midline shift, mass lesion, hemorrhage or acute in farction. Old right MCA infarct. Stable 3.2 x 2.1 cm arachnoid cyst in the anterior left middle cran ial fossa No extra-axial fluid collections are seen. POSTERIOR FOSSA: The cerebellum and brainstem are intact. The 4th ventricle is midline. The cerebellopontine angle i s unremarkable. EXTRACRANIAL: The visualized portion of the orbits is intact. SKULL: The calvaria is intact. No evidence of skull fracture. CONCLUSION: 1. Stable chronic changes with an old right MCA infarct. 3.2 cm arachnoid cyst in the anterior left m iddle cranial fossa. 2. Nothing acute Sushant Moon MD on October 18, 2017 at 22:59 Board Certified Radiologist. This report was verified electronically.
[2017-10-18 23:05] LABS: INTERNATIONAL NORMALIZED RATIO 1.3 RATIO; PROTHROMBIN TIME - PATIENT 13.4 SEC (9.8-11.6)
[2017-10-18 23:11] LABS: LACTIC ACID SEPSIS PROTOCOL 3.1 mmol/L (0.4-2.0)
[2017-10-18 23:15] LABS: ALBUMIN 3.2 GM/DL (3.4-5.0); ALKALINE PHOSPHATASE 96 U/L (45-117); ALT (GPT) 26 U/L (12-78); AST (GOT) 32 U/L (15-37); BICARBONATE 28.4 MEQ/L (21.0-32.0); BLOOD UREA NITROGEN 30 MG/DL (7-18); CALCIUM 9.2 MG/DL (8.5-10.1); CHLORIDE 99 MEQ/L (98-107); CREATININE 1.84 MG/DL (0.60-1.30); GLOMERULAR FILTRATION RATE 36 ML/MIN (>89); GLUCOSE,RANDOM 122 MG/DL (74-106); MAGNESIUM 2.4 MG/DL (1.5-2.5); SODIUM (NA) 138 MEQ/L (136-145); TOTAL BILIRUBIN ADULT 1.6 MG/DL (0.2-1.0); TOTAL PROTEIN 7.7 GM/DL (6.4-8.2); TROPONIN I LESS THAN 0.02 NG/ML (0.02-0.05)
[2017-10-19] VITALS (9 sets, daily range): BP systolic 105–132; BP diastolic 60–90; PULSE 86–110; RESP 18–20; TEMP 97.5–98.4; O2SAT 90–97
[2017-10-19] MEDS ORDERED: SODIUM CHLOR 0.9% 1000 ML INJ 1,000 ML IV ONE
[2017-10-19] MEDS ORDERED: NALOXONE HCL 0.4 MG/ML AMP IV PUSH PRN (01:30)
[2017-10-19] MEDS ORDERED: BISACODYL 10 MG SUPP RECTAL PRN (01:30)
[2017-10-19] MEDS ORDERED: ACETAMINOPHEN 325 MG TAB PO PRN (01:30)
[2017-10-19] MEDS ORDERED: ONDANSETRON HCL 4 MG/2 ML VIAL IVP PRN (01:30)
[2017-10-19] MEDS ORDERED: LACTULOSE SYRUP 20 GM/30 ML CUP PO PRN (01:30)
[2017-10-19] MEDS ORDERED: MAGNESIUM HYDROXIDE SUSP 30 ML CUP PO PRN (01:30)
[2017-10-19] MEDS ORDERED: SODIUM CHLORIDE 0.9% FLUSH 10 ML FLUSH IV FLUSH PRN (01:30)
[2017-10-19] MEDS ORDERED: SENNOSIDES 8.6 MG TAB PO PRN (01:30)
[2017-10-19] MEDS: HEPARIN SODIUM - SQ 10,000 UNITS/ML VIAL SQ SCH ×3 (02:59→18:11)
[2017-10-19] MEDS: oxyCODONE/ACETAMINOPHEN 5 MG/325 MG TAB PO PRN ×2 (03:00→10:01)
[2017-10-19] MEDS ORDERED: Vancomycin Consult Pharmacy 1 EA OTHER SCH (03:30)
--- NOTE | 2017-10-19 03:57 | HHI.HP ---
HPI Service [facility] Primary Care Physician Samuel Cruz MD Admission Diagnosis Sepsis Diagnoses: Travel History International Travel<30 Days: No Contact w/Intl Traveler <30 Da: No Traveled to Known Affected Are: No History of Present Illness 37-year-old male with past medical history significant for A. fib anticoagulated on Coumadin, hypertension, hyperlipidemia, history of CVA, hypothyroidism and alcohol abuse presents the emergency department after his called 911 for evaluation of altered mental status. The patient was initially seen in the emergency department on 10/16/17 for a posterior nosebleed which was packed and the patient was released to home. He was instructed to follow-up with ENT however was unable to do so return to the emergency department yesterday where he complained of shortness of breath and wished to have the packing removed from his right nare. The packing was removed and the patient was discharged home. Upon his arrival home the patient's reports he was too weak to get out of the car without assistance. She reports he was acting strangely and went to lay down for a little while. Upon awaking the patient was confused and weak. The patient reports he awoke with dizziness and the was concerned about a possible stroke. She called 911 and the patient was found to be in atrial fibrillation with rapid response. The patient has a reported history of a right groin DVT that has been present for approximately 1 month and is being followed by a vascular surgeon. The patient denies any chest pain or current shortness of breath. No fevers/chills. No abdominal pain. No nausea/vomiting/diarrhea. No lateralizing signs/symptoms. Review of Systems Except as stated in HPI: all other systems reviewed are Neg Past Family Social History Past Medical History Atrial fibrillation anticoagulated on Coumadin Hypertension Hyperlipidemia History of CVA Hypothyroidism History of right groin DVT Past Surgical History Thyroidectomy Right lung tumor removal Prostatectomy Reported Medications Reported Meds & Active Scripts Active Percocet (Oxycodone-Acetaminophen) 5-325 mg Tab 1 Tab PO Q4H PRN Lisinopril 5 Mg Tab 2.5 Mg PO DAILY Reported Folic Acid 1 Mg Tablet Metoprolol Tartrate 37.5 Mg Tab 37.5 Mg PO BID Aspirin 81 Mg Chew 81 Mg CHEW DAILY Coumadin (Warfarin) 4 Mg Tab 5 Mg PO DAILY Synthroid (Levothyroxine Sodium) 200 Mcg Tab 200 Mcg PO DAILY Furosemide 40 Mg Tab 20 Mg PO DAILY Atorvastatin (Atorvastatin Calcium) 40 Mg Tab 40 Mg PO HS Sertraline (Sertraline HCl) 100 Mg Tab 100 Mg PO DAILY Miralax Powder (Polyethylene Glycol 3350 Powder) 1 Pow Pow 1 Cap PO DAILY Allergies: Coded Allergies: *MDRO Multi-Drug Resistant Organism (Verified Adverse Reaction, Unknown, Cleared - 01/12/17, 10/18/17) Cleared - MRSA screens negative on 11/04/16 & 01/12/17 MRSA (leg wound) - 03/2012 Family History Father with CAD Social History Patient reportedly drinks between 2 and 6 alcoholic beverages per day. He states his drink of choice is bourbon. Denies tobacco and illicit drugs. Physical Exam Vital Signs Vital Signs Date Time Temp Pulse Resp B/P (MAP) Pulse Ox O2 Delivery O2 Flow Rate FiO2 10/19/17 02:54 98.1 102 18 124/79 (94) 97 10/19/17 02:01 10/19/17 01:58 108 18 125/78 (94) 94 Room Air 10/19/17 00:22 110 20 110/60 (77) 94 Room Air 10/18/17 23:37 108 18 107/65 (79) 98 Simple Mask 4.00 10/18/17 23:21 99 10/18/17 22:31 105 18 104/64 (77) 100 Simple Mask 5.00 10/18/17 22:09 111 18 79/52 (61) 100 Simple Mask 5.00 10/18/17 21:57 96 Simple Mask 5.00 10/18/17 21:38 100 5.00 10/18/17 21:36 96 Simple Mask 5.00 10/18/17 21:30 97.0 10/18/17 21:26 98.1 120 28 95/56 (69) 98 Non-Rebreather 15.00 Physical Exam GENERAL: male sitting up in bed SKIN: No rashes, ecchymoses or lesions. Cool and dry. HEAD: Atraumatic. Normocephalic. No temporal or scalp tenderness. EYES: Pupils equal round and reactive. Extraocular motions intact. No scleral icterus. No injection or drainage. ENT: Nose without bleeding, purulent drainage or septal hematoma. Throat without erythema, tonsillar hypertrophy or exudate. Uvula midline. Airway patent. NECK: Trachea midline. No JVD or lymphadenopathy. Supple, nontender, no meningeal signs. CARDIOVASCULAR: Tachycardic. Irregularly irregular rhythm without murmurs, gallops, or rubs. RESPIRATORY: Clear to auscultation. Breath sounds equal bilaterally. No wheezes , rales, or rhonchi. GASTROINTESTINAL: Abdomen soft, non-tender, nondistended. No hepato-splenomegaly , or palpable masses. No guarding. MUSCULOSKELETAL: Extremities without clubbing, cyanosis, or edema. No joint tenderness, effusion, or edema noted. No calf tenderness. NEUROLOGICAL: Awake and alert. Cranial nerves II through XII intact. Motor and sensory grossly within normal limits. Normal speech. Laboratory Laboratory Tests Test 10/18/17 22:00 10/19/17 01:32 White Blood Count 16.2 Red Blood Count 5.14 Hemoglobin 16.3 Hematocrit 48.7 Mean Corpuscular Volume 94.8 Mean Corpuscular Hemoglobin 31.7 Mean Corpuscular Hemoglobin Concent 33.4 Red Cell Distribution Width 14.9 Platelet Count 209 Mean Platelet Volume 8.2 Neutrophils (%) (Auto) 87.6 Lymphocytes (%) (Auto) 5.1 Monocytes (%) (Auto) 6.8 Eosinophils (%) (Auto) 0.1 Basophils (%) (Auto) 0.4 Neutrophils # (Auto) 14.2 Lymphocytes # (Auto) 0.8 Monocytes # (Auto) 1.1 Eosinophils # (Auto) 0.0 Basophils # (Auto) 0.1 CBC Comment DIFF FINAL Differential Comment Prothrombin Time 13.4 Prothromb Time International Ratio 1.3 Activated Partial Thromboplast Time 31.3 Blood Urea Nitrogen 30 Creatinine 1.84 Random Glucose 122 Total Protein 7.7 Albumin 3.2 Calcium Level 9.2 Magnesium Level 2.4 Alkaline Phosphatase 96 Aspartate Amino Transf (AST/SGOT) 32 Alanine Aminotransferase (ALT/SGPT) 26 Total Bilirubin 1.6 Sodium Level 138 Potassium Level 4.8 Chloride Level 99 Carbon Dioxide Level 28.4 Anion Gap 11 Estimat Glomerular Filtration Rate 36 Lactic Acid Level 3.1 1.4 Total Creatine Kinase 85 Troponin I LESS THAN 0.02 C-Reactive Protein 11.20 B-Type Natriuretic Peptide 82 Lipase 95 Thyroid Stimulating Hormone 3rd Gen 0.457 Ethyl Alcohol Level LESS THAN 3 Date/Time Source Procedure Growth Status 10/18/17 22:00 Blood Peripheral Aerobic Blood Culture Pending Received 10/18/17 22:00 Blood Peripheral Anaerobic Blood Culture Pending Received Result Diagram: 10/18/17219910/18/172199 Caprini VTE Risk Assessment Caprini VTE Risk Assessment: Mod/High Risk (score >= 2) Caprini Risk Assessment Model Point Value = 1 Point Value = 2 Point Value = 3 Point Value = 5 Age 41-60 Minor surgery BMI > 25 kg/m2 Swollen legs Varicose veins or History of unexplained or recurrent spontaneous Oral contraceptives or hormone replacement Sepsis (< 1 month) Serious lung disease, including pneumonia (< 1 month) Abnormal pulmonary function Acute myocardial infarction Congestive heart failure (< 1 month) History of inflammatory bowel disease Medical patient at bed rest Age 61-74 Arthroscopic surgery Major open surgery (> 45 min) Laparoscopic surgery (> 45 min) Malignancy Confined to bed (> 72 hours) Immobilizing plaster cast Central venous access Age >= 75 History of VTE Family history of VTE Factor V Leiden Prothrombin [id number] Lupus anticoagulant Anticardiolipin antibodies Elevated serum homocysteine Heparin-induced thrombocytopenia Other congenital or acquired thrombophilia Stroke (< 1 month) Elective arthroplasty Hip, pelvis, or leg fracture Acute spinal cord injury (< 1 month) Prophylaxis Regimen Total Risk Factor Score Risk Level Prophylaxis Regimen 0-1 Low Early ambulation 2 Moderate Order ONE of the following: *Sequential Compression Device (SCD) *Heparin 5000 units SQ BID 3-4 Higher Order ONE of the following medications: *Heparin 5000 units SQ TID *Enoxaparin/Lovenox 40 mg SQ daily (WT < 150 kg, CrCl > 30 mL/min) *Enoxaparin/Lovenox 30 mg SQ daily (WT < 150 kg, CrCl > 10-29 mL/min) *Enoxaparin/Lovenox 30 mg SQ BID (WT < 150 kg, CrCl > 30 mL/min) AND/OR *Sequential Compression Device (SCD) 5 or more Highest Order ONE of the following medications: *Heparin 5000 units SQ TID (Preferred with Epidurals) *Enoxaparin/Lovenox 40 mg SQ daily (WT < 150 kg, CrCl > 30 mL/min) *Enoxaparin/Lovenox 30 mg SQ daily (WT < 150 kg, CrCl > 10-29 mL/min) *Enoxaparin/Lovenox 30 mg SQ BID (WT < 150 kg, CrCl > 30 mL/min) AND *Sequential Compression Device (SCD) Assessment and Plan Assessment and Plan Assessment/plan: 1. Sirs Patient tachycardic with leukocytosis and elevated lactic acid Chest x-ray negative UA pending Blood cultures pending Treatment with broad-spectrum antibiotics: Vancomycin/Zosyn 2. Atrial fibrillation with rapid ventricular response EKG significant for A. fib with RVR, no ST segment elevations or depressions, personally reviewed Status post IV fluid hydration with subsequent rate control Continue home medications Continue Coumadin 3. Subtherapeutic INR Patient with labile INR, most recently 1.3 Reports compliance with his Coumadin however it was recently stopped given supratherapeutic INR Resume home Coumadin Pharmacy consulted for Coumadin dosing 4. Altered mental status/dizziness Likely secondary to A. fib with RVR Head CT negative for acute process Resolved 5. Right lower extremity DVT Patient with history of right groin DVT Managed as an outpatient CTA pending as concern for PE with patient tachycardic and short of breath Coumadin as above 6. Hypertension/hyperlipidemia/hypothyroidism Continue home medications 7. FRANCIS Creatinine 1.84, baseline 1.0 IVF hydration Monitor renal function Holding on Lasix FEN Heart healthy diet Electrolytes: Monitor and replete as needed NS at 100 cc/hour Heparin until therapeutic on Coumadin Physician Certification 2 Midnight Certification Type: Admission for Inpatient Services Order for Inpatient Services The services are ordered in accordance with Medicare regulations or non- Medicare payer requirements, as applicable. In the case of services not specified as inpatient-only, they are appropriately provided as inpatient services in accordance with the 2-midnight benchmark. Estimated LOS (days): 2 2 days is the estimated time the patient will need to remain in the hospital, assuming treatment plan goals are met and no additional complications. Post-Hospital Plan: Not yet determined Marie Aquino MD October 19, 2017 03:57
[2017-10-19] MEDS ORDERED: VANCOMYCIN INJ 1,000 MG in SODIUM CHLOR 0.9% 250 ML INJ 250 ML IV SCH (04:00)
[2017-10-19] MEDS ORDERED: IODIXANOL 320 MG/ML 10 ML VIAL (for Rad CT) IVCONTRAST ONE (04:11)
[2017-10-19] MEDS: SODIUM CHLOR 0.9% 1000 ML INJ 1,000 ML IV SCH ×3 (04:24→23:55)
--- NOTE | 2017-10-19 04:29 | RADRPT ---
EXAM DATE/TIME: 10/19/2017 03:55 [facility] COMPARISON: No previous studies available for comparison. INDICATIONS : Shortness of breath. IV CONTRAST: 50 cc Visipaque (iodixanol) IV RADIATION DOSE: 12.53 CTDIvol (mGy) MEDICAL HISTORY : Cardiovascular disease. Deep venous thrombosis. Hypertension. SURGICAL HISTORY : Lobectomy. ENCOUNTER: Initial ACUITY: 1 day PAIN SCALE: 5/10 LOCATION: Bilateral chest TECHNIQUE: Volumetric scanning of the chest was performed using a pulmonary embolism protocol MIP images were re constructed. Using automated exposure control and adjustment of the mA and/or kV according to patien t size, radiation dose was kept as low as reasonably achievable to obtain optimal diagnostic quality images. DICOM format image data is available electronically for review and comparison. Follow-up recommendations for detected pulmonary nodules are based at a minimum on nodule size and pa tient risk factors according to Fleischner Society Guidelines. FINDINGS: PULMONARY ARTERIES: No filling defects are seen in the pulmonary arteries through the segmental level. LUNGS: Bibasilar atelectasis/scarring. No confluent infiltrate. Minimal bronchiectasis medially in the left base PLEURAE: There is no pleural thickening or pleural effusion. MEDIASTINUM: There is good visualization of the great vessels of the middle mediastinum. No evidence of mediastin al or hilar adenopathy/mass. Atherosclerotic calcification of the coronary arteries MUSCULOSKELETAL: Within normal limits for patient age. MISCELLANEOUS: The visualized upper abdominal organs demonstrate no acute abnormality. CONCLUSION: 1. Minimal bibasilar atelectasis/scarring with mild bronchiectatic changes in the medial left base ch aracteristic of a chronic inflammatory process. 2. Otherwise negative for acute disease. No confluent infiltrate or pulmonary embolus. 3. Atherosclerotic calcification of the coronary arteries Sushant Moon MD on October 19, 2017 at 4:24 Board Certified Radiologist. This report was verified electronically.
[2017-10-19] MEDS: PIPERACIL-TAZO 3.375 GM PREMIX 50 ML IV SCH ×4 (04:37→23:50)
[2017-10-19] MEDS: LEVOTHYROXINE SODIUM 100 MCG TAB PO SCH (07:10)
--- NOTE | 2017-10-19 07:53 | EKG ---
Date Performed: 10/18/2017 Time Performed: 21:32:46 PTAGE: 77 years EKG: ATRIAL FIBRILLATION WITH RAPID VENTRICULAR RESPONSE INDETERMINATE AXIS PATTERN CONSISTENT W ITH PULMONARY DISEASE INFERIOR MYOCARDIAL INFARCTION ABNORMAL ECG No significant change from prior el ectrocardiogram. PREVIOUS TRACING : 10/18/2017 12.07 DOCTOR: Dwight Varghese Interpretating Date/Time 10/19/2017 07:52:25
[2017-10-19] MEDS: DOCUSATE SODIUM 50 MG/SENNA 8.6 MG TAB PO SCH ×2 (10:01→21:23)
[2017-10-19] MEDS: LISINOPRIL 5 MG TAB PO SCH (10:01)
[2017-10-19] MEDS: METOPROLOL TARTRATE 25 MG TAB PO SCH ×2 (10:01→21:24)
[2017-10-19] MEDS: SODIUM CHLORIDE 0.9% FLUSH 10 ML FLUSH IV FLUSH SCH ×2 (10:02→21:23)
[2017-10-19] MEDS: ASPIRIN 81 MG CHEW TAB CHEW SCH (10:02)
[2017-10-19] MEDS: SERTRALINE HCL 100 MG TAB PO SCH (10:02)
[2017-10-19 15:28] LABS: BACTERIA, URINE RARE /hpf; BILIRUBIN, URINE NEG (NEG); BLOOD, URINE NEG (NEG); GLUCOSE,URINE NEG (NEG); KETONE, URINE NEG (NEG); NITRITE,URINE NEG (NEG); PH, URINE 5.5 (5.0-8.5); SQUAMOUS EPITHELIAL CELL URINE <1 /hpf (0-5); URINE COLOR YELLOW (YELLW/STRAW); URINE LEUKOCYTE ESTERASE NEG (NEG)
[2017-10-19] MEDS ORDERED: WARFARIN SOD 5 MG TAB PO SCH (16:00)
[2017-10-19] MEDS: ATORVASTATIN 40 MG TAB PO SCH (21:23)
[2017-10-20] VITALS (10 sets, daily range): BP systolic 112–170; BP diastolic 67–97; PULSE 76–102; RESP 18–20; TEMP 97.2–97.7; O2SAT 91–97
[2017-10-20] MEDS: HEPARIN SODIUM - SQ 10,000 UNITS/ML VIAL SQ SCH ×3 (02:11→17:05)
[2017-10-20] MEDS: PIPERACIL-TAZO 3.375 GM PREMIX 50 ML IV SCH ×4 (04:29→23:52)
[2017-10-20 05:24] LABS: AUTOMATED NEUTROPHIL # 7.1 TH/MM3 (1.8-7.7); BASOPHIL # 0.1 TH/MM3 (0-0.2); BASOPHIL % 0.6 % (0.0-2.0); EOSINOPHIL # 0.3 TH/MM3 (0-0.4); HEMATOCRIT 38.7 % (39.0-51.0); HEMOGLOBIN 13.1 GM/DL (13.0-17.0); LYMPH % 11.6 % (9.0-44.0); LYMPHOCYTE # 1.1 TH/MM3 (1.0-4.8); MEAN CELL VOLUME 94.6 FL (80.0-100.0); MEAN CORPUSCULAR HEMOGLOBIN 31.9 PG (27.0-34.0); MEAN CORPUSCULAR HGB CONC 33.8 % (32.0-36.0); MEAN PLATELET VOLUME 8.1 FL (7.0-11.0); MONOCYTE # 0.8 TH/MM3 (0-0.9); NEUT % 75.8 % (16.0-70.0); PLATELET COUNT 161 TH/MM3 (150-450); RED BLOOD COUNT 4.09 MIL/MM3 (4.50-5.90); RED CELL DISTRIBUTION WIDTH 14.4 % (11.6-17.2); WHITE BLOOD COUNT 9.3 TH/MM3 (4.0-11.0)
[2017-10-20 05:30] LABS: INTERNATIONAL NORMALIZED RATIO 1.3 RATIO; PROTHROMBIN TIME - PATIENT 13.1 SEC (9.8-11.6)
[2017-10-20 05:50] LABS: ALBUMIN 2.6 GM/DL (3.4-5.0); ALKALINE PHOSPHATASE 67 U/L (45-117); ALT (GPT) 16 U/L (12-78); AST (GOT) 17 U/L (15-37); BICARBONATE 25.7 MEQ/L (21.0-32.0); BLOOD UREA NITROGEN 26 MG/DL (7-18); CALCIUM 8.1 MG/DL (8.5-10.1); CHLORIDE 105 MEQ/L (98-107); CREATININE 0.92 MG/DL (0.60-1.30); GLOMERULAR FILTRATION RATE 80 ML/MIN (>89); GLUCOSE,RANDOM 75 MG/DL (74-106); RANDOM VANCOMYCIN 4.7 COMMENT; SODIUM (NA) 139 MEQ/L (136-145); TOTAL PROTEIN 5.8 GM/DL (6.4-8.2)
[2017-10-20] MEDS: LEVOTHYROXINE SODIUM 100 MCG TAB PO SCH (06:31)
[2017-10-20] MEDS: oxyCODONE/ACETAMINOPHEN 5 MG/325 MG TAB PO PRN ×2 (06:35→21:35)
[2017-10-20] MEDS: METOPROLOL TARTRATE 25 MG TAB PO SCH ×2 (08:50→21:34)
[2017-10-20] MEDS: SERTRALINE HCL 100 MG TAB PO SCH (08:50)
[2017-10-20] MEDS: DOCUSATE SODIUM 50 MG/SENNA 8.6 MG TAB PO SCH ×2 (08:51→21:34)
[2017-10-20] MEDS: LISINOPRIL 5 MG TAB PO SCH (08:51)
[2017-10-20] MEDS: ASPIRIN 81 MG CHEW TAB CHEW SCH (08:51)
[2017-10-20] MEDS: SODIUM CHLORIDE 0.9% FLUSH 10 ML FLUSH IV FLUSH SCH ×2 (09:07→21:00)
--- NOTE | 2017-10-20 09:31 | PD.CONS ---
HPI Service Cardiology Consult Requested By Dr. Silva Reason for Consult Anticoagulation Primary Care Physician Samuel Cruz MD History of Present Illness Pleasant 77 year old male, well known to our practice presented to the ER with altered mental status. called [facility] due to concern of a stroke. Patient had nose bleed and sub therapeutic INR in September and his coumadin was on hold. Patient reports he felt very weak and couldnt walk. He thinks it was related to his blood pressure being low. Upon arrival his BP was low and he was in Afib RVR. He has a past cardiac history of paroxysmal atrial fibrillation, ASHD, CHF , PE, DVT, HTN, and hyperlipidemia. CTA negative for PE, UA negative. WBC and creatnine were initially elevated and patient was started on Antibiotics. Today his WBC and creatinine have retuned to normal. He reports feeling better. He is alert and oriented x 3. Denies any chest pain, SOB, dizziness, nausea or fever. Telemetry shows Afib with a controlled rate. BP is normal. (ShanaSeptember Apple VELIZ) Review of Systems Consitutional: DENIES: Fatigue, Fever, Chills, Weight gain, Weight loss Eyes: DENIES: Amaurosis Fugax, Change in vision Respiratory: DENIES: See HPI, Cough, Snoring, Shortness of breath, Wheezing, Sputum production Cardiovascular: DENIES: See HPI, Chest pain, Palpitations, Syncope, Tachycardia Gastrointestinal: DENIES: Nausea, Vomiting, Change in bowel habits, Reflux, Bloody stools, Melena Genitourinary: DENIES: Urinary incontinence, Difficulty voiding Integumentary: DENIES: Rash Neurologic: DENIES: Tingling or numbness, Memory problems, Poor Balance, Stroke symptoms Musculoskeletal: COMPLAINS OF: Back pain Psychiatric: DENIES: Anxiety, Depression, Sleep disturbances Hematologic: COMPLAINS OF: Bleeding tendencies (Epistaxis, requiring packing last week), DENIES: Bruising tendencies (ShanaSeptember Apple VELIZ) Past Family Social History Allergies: Coded Allergies: No Known Allergies (Unverified , 10/19/17) Past Medical History CHF-chronic diastolic heart failure managed with diuretic therapy ASHD-Heart cath showing two vessell coronary artery disease with LAD stenosis of 50% and RCA stenosis of 60% EF normal 07/2016 Left atrial appendage thrombus, not seen on most recent attempts at cardioversion Atrial fibrillation, status post cardioversion. Aortic regurgitation HTN Hyperlipidemia PVD DVT and PE Hypothyroidism, status post thyroid surgery 1971 and 1978 Anxiety and depression Temporal arteritis TURP 12/2011 MRSA COPD Dyspnea Past Surgical History Heart catheterization showing two vessell CAD with 50% LAD and 60% RCA 07/2016 Endovenous radiofrequency ablation of the right greater saphenous vein 06/2011 Endovenous radiofrequency ablation of the right greater saphenous vein 02/2011 Left and right temporal artery biopsy 11/2010 Cardioversion 11/2009 Right lower lobe benign lung mass removal Thyroid surgery 1971, 1978 Inguinal hernia repair TURP Reported Medications Reported Meds & Active Scripts Active Percocet (Oxycodone-Acetaminophen) 5-325 mg Tab 1 Tab PO Q4H PRN Lisinopril 5 Mg Tab 2.5 Mg PO DAILY Reported Folic Acid 1 Mg Tablet Metoprolol Tartrate 37.5 Mg Tab 37.5 Mg PO BID Aspirin 81 Mg Chew 81 Mg CHEW DAILY Coumadin (Warfarin) 4 Mg Tab 5 Mg PO DAILY Synthroid (Levothyroxine Sodium) 200 Mcg Tab 200 Mcg PO DAILY Furosemide 40 Mg Tab 20 Mg PO DAILY Atorvastatin (Atorvastatin Calcium) 40 Mg Tab 40 Mg PO HS Sertraline (Sertraline HCl) 100 Mg Tab 100 Mg PO DAILY Miralax Powder (Polyethylene Glycol 3350 Powder) 1 Pow Pow 1 Cap PO DAILY Active Ordered Medications Current Medications Medications (Trade) Dose Ordered Sig/Fanny Route Start Time Stop Time Status Last Admin (Aspirin Chew) 81 mg DAILY CHEW 10/19/17 09:00 10/19/17 10:02 (Lipitor) 40 mg HS PO 10/19/17 21:00 10/19/17 21:23 (Lasix) 20 mg DAILY PO 10/19/17 09:00 Future Hold (Synthroid) 200 mcg DAILY@0700 PO 10/19/17 07:00 10/20/17 06:31 (Prinivil) 2.5 mg DAILY PO 10/19/17 09:00 10/19/17 10:01 (Percocet 5-325 Mg) 1 tab Q4H PRN PO 10/19/17 01:30 10/20/17 06:35 (Zoloft) 100 mg DAILY PO 10/19/17 09:00 10/19/17 10:02 (Lopressor) 37.5 mg BID PO 10/19/17 09:00 10/19/17 21:24 Pharmacy Profile Note 0 ml @ 0 mls/hr UNSCH OTHER 10/19/17 01:30 (NS Flush) 2 ml UNSCH PRN IV FLUSH 10/19/17 01:30 (NS Flush) 2 ml BID IV FLUSH 10/19/17 09:00 10/19/17 21:23 (Tylenol) 650 mg Q4H PRN PO 10/19/17 01:30 (Zofran Inj) 4 mg Q6H PRN IVP 10/19/17 01:30 (Heparin Inj) 5,000 units Q8H SQ 10/19/17 01:30 10/20/17 02:11 (Narcan Inj) 0.4 mg UNSCH PRN IV PUSH 10/19/17 01:30 (Lucia-Colace) 1 tab BID PO 10/19/17 09:00 10/19/17 21:23 (Milk Of Magnesia Liq) 30 ml Q12H PRN PO 10/19/17 01:30 (Senokot) 17.2 mg Q12H PRN PO 10/19/17 01:30 10/20/17 06:35 (Dulcolax Supp) 10 mg DAILY PRN RECTAL 10/19/17 01:30 (Lactulose Liq) 30 ml DAILY PRN PO 10/19/17 01:30 Pharmacy Profile Note 0 ml @ 0 mls/hr UNSCH OTHER 10/19/17 03:30 Piperacillin Sod/ Tazobactam Sod 50 ml @ 100 mls/hr Q6H IV 10/19/17 05:00 10/20/17 04:29 Sodium Chloride 1,000 ml @ 100 mls/hr Q10H IV 10/19/17 04:00 10/19/17 23:55 (Coumadin) 5 mg DAILY@1600 PO 10/20/17 16:00 (Coumadin) 2 mg DAILY@1600 PO 10/20/17 16:00 Family History Father Leukemia, [place] Social History Former smoker (Shadeed,Coty VELIZ) Physical Exam Vital Signs Vital Signs Date Time Temp Pulse Resp B/P (MAP) Pulse Ox O2 Delivery O2 Flow Rate FiO2 10/20/17 08:21 97.3 76 20 137/75 (95) 93 10/20/17 04:00 97.2 97 18 148/89 (108) 92 10/20/17 00:00 97.5 102 18 154/97 (116) 91 10/20/17 00:00 88 10/19/17 20:00 98.4 86 18 132/90 (104) 90 10/19/17 20:00 87 10/19/17 16:00 97.8 93 18 105/69 (81) 96 10/19/17 12:00 97.5 95 18 107/71 (83) 93 10/19/17 11:04 18 Physical Exam GENERAL: Elderly male, lying in bed comfortably SKIN: Warm and dry. HEAD: Atraumatic. Normocephalic. EYES: No injection or drainage. ENT: No nasal bleeding or discharge. Mucous membranes pink and moist. NECK: Trachea midline. No JVD. CARDIOVASCULAR: irregular, rate controlled RESPIRATORY: Diminished, no wheezes or crackles GASTROINTESTINAL: Abdomen soft, non-tender, nondistended. Hepatic and splenic margins not palpable. MUSCULOSKELETAL: Extremities without clubbing, cyanosis, or edema. No obvious deformities. NEUROLOGICAL: Awake and alert. No obvious cranial nerve deficits. Motor grossly within normal limits. Five out of 5 muscle strength in the arms and legs. Normal speech. PSYCHIATRIC: Appropriate mood and affect; insight and judgment normal. Laboratory Laboratory Tests Test 10/19/17 15:00 10/20/17 04:39 Urine Color YELLOW Urine Turbidity CLEAR Urine pH 5.5 Urine Specific [place] 1.043 Urine Protein TRACE Urine Glucose (UA) NEG Urine Ketones NEG Urine Occult Blood NEG Urine Nitrite NEG Urine Bilirubin NEG Urine Urobilinogen LESS THAN 2.0 Urine Leukocyte Esterase NEG Urine RBC 2 Urine WBC 3 Urine Squamous Epithelial Cells <1 Urine Bacteria RARE Microscopic Urinalysis Comment CULT NOT INDICATED White Blood Count 9.3 Red Blood Count 4.09 Hemoglobin 13.1 Hematocrit 38.7 Mean Corpuscular Volume 94.6 Mean Corpuscular Hemoglobin 31.9 Mean Corpuscular Hemoglobin Concent 33.8 Red Cell Distribution Width 14.4 Platelet Count 161 Mean Platelet Volume 8.1 Neutrophils (%) (Auto) 75.8 Lymphocytes (%) (Auto) 11.6 Monocytes (%) (Auto) 9.0 Eosinophils (%) (Auto) 3.0 Basophils (%) (Auto) 0.6 Neutrophils # (Auto) 7.1 Lymphocytes # (Auto) 1.1 Monocytes # (Auto) 0.8 Eosinophils # (Auto) 0.3 Basophils # (Auto) 0.1 CBC Comment DIFF FINAL Differential Comment Prothrombin Time 13.1 Prothromb Time International Ratio 1.3 Blood Urea Nitrogen 26 Creatinine 0.92 Random Glucose 75 Total Protein 5.8 Albumin 2.6 Calcium Level 8.1 Alkaline Phosphatase 67 Aspartate Amino Transf (AST/SGOT) 17 Alanine Aminotransferase (ALT/SGPT) 16 Total Bilirubin 1.0 Sodium Level 139 Potassium Level 3.8 Chloride Level 105 Carbon Dioxide Level 25.7 Anion Gap 8 Estimat Glomerular Filtration Rate 80 Random Vancomycin Level 4.7 Date/Time Source Procedure Growth Status 10/18/17 22:00 Blood Peripheral Aerobic Blood Culture - Preliminary NO GROWTH IN 1 DAY Resulted 10/18/17 22:00 Blood Peripheral Anaerobic Blood Culture - Preliminary NO GROWTH IN 1 DAY Resulted (Coty Saldana) Result Diagram: 10/20/179 10/20/17 0439 Imaging Last [address] Angiography 10/19/17 0030 Signed Impressions: Service Date/Time: Thursday, October 19, 2017 03:55 - CONCLUSION: 1. Minimal bibasilar atelectasis/scarring with mild bronchiectatic changes in the medial left base characteristic of a chronic inflammatory process. 2. Otherwise negative for acute disease. No confluent infiltrate or pulmonary embolus. 3. Atherosclerotic calcification of the coronary arteries Sushant Moon MD Head CT 10/18/172150 Signed Impressions: Service Date/Time: Wednesday, October 18, 2017 22:39 - CONCLUSION: 1. Stable chronic changes with an old right MCA infarct. 3.2 cm arachnoid cyst in the anterior left middle cranial fossa. 2. Nothing acute Sushant Moon MD Chest X-Ray 10/18/172150 Signed Impressions: Service Date/Time: Wednesday, October 18, 2017 21:55 - CONCLUSION: 1. Elevated right hemidiaphragm with minimal basilar scarring. Cardiomegaly. William Welch MD (Coty Saldana) Assessment and Plan Assessment and Plan Altered Mental Status Elevated WBC Atrial fibrillation with RVR Hypotension ASHD CHF Plan Patient is alert and oriented. Head CT showed no acute findings. Sepsis protocol initiated. Patient on antibiotics, WBC is normal this AM. HR and BP normal. No fevers or chills. Coumadin has been resumed. Pharmacy is dosing. INR 1.3 this AM. Continue with daily INRs. Will continue with coumadin heparin bridge. BP normal Denies any chest pain Denies SOB. Creatinine has returned to normal. Will resume home lasix. The patient was seen and evaluated by Dr. Kennedy who completed face to face encounter and participated in care, management and decision making. Discussed Condition With Devon YAP (Coty Saldana) Assessment and Plan The exam, history, and the medical decision-making described in the above note were completed with the assistance of the mid-level provider. I reviewed and agree with the findings presented. I attest that I had a [id number] encounter with the patient on the same day, and personally performed and documented my assessment and findings in the medical record. Is stable cv continue rx with antibiotics. (Panchito Kennedy MD) Coty Saldana October 20, 2017 09:31 Panchito Kennedy MD October 20, 2017 13:56
[2017-10-20] MEDS: SODIUM CHLOR 0.9% 1000 ML INJ 1,000 ML IV SCH (12:55)
--- NOTE | 2017-10-20 15:25 | HHI.PR ---
Subjective Remarks Nasal congestion present secondary to retained hematomas related to epistaxis. No new complaints today. Patient has discussed blood thinning agents with her optical instrument assembler and Eliquis is elected as an alternative option to Coumadin. He is not yet therapeutic on Coumadin. No other complaints today. No further signs of infection. Objective Vital Signs Date Time Temp Pulse Resp B/P (MAP) Pulse Ox O2 Delivery O2 Flow Rate FiO2 10/20/17 11:58 97.5 80 20 112/67 (82) 95 10/20/17 08:21 97.3 76 20 137/75 (95) 93 10/20/17 04:00 97.2 97 18 148/89 (108) 92 10/20/17 00:00 97.5 102 18 154/97 (116) 91 10/20/17 00:00 88 10/19/17 20:00 98.4 86 18 132/90 (104) 90 10/19/17 20:00 87 10/19/17 16:00 97.8 93 18 105/69 (81) 96 I/O 10/19/17 10/19/17 10/19/17 10/20/17 10/20/17 10/20/17 07:00 15:00 23:00 07:00 15:00 23:00 Intake Total 1700 ml 500 ml 2050 ml 480 ml Output Total 450 ml Balance 1700 ml 500 ml 2050 ml 30 ml Intake Oral 480 ml IV Total 1700 ml 500 ml 2050 ml Output Urine Total 450 ml Bladder Scan Volume Amount 11 ml # Voids 2 Result Diagram: 10/20/17 0439 10/20/17 0439 Objective Remarks GENERAL: NAD, A&Ox3 HEAD: Normocephalic. NECK: Supple, trachea midline. No lymphadenopathy. EYES: No scleral icterus. No injection or drainage. CARDIOVASCULAR: Regular rate and rhythm without murmurs, gallops, or rubs. RESPIRATORY: Breath sounds equal bilaterally. No accessory muscle use. GASTROINTESTINAL: Abdomen soft, non-tender, nondistended. MUSCULOSKELETAL: No cyanosis, or edema. SKIN: Warm and dry. NEURO: No focal neurological deficitis. A/P Problem List: (1) Atrial fibrillation ICD Code: I48.91 - Atrial fibrillation Status: Chronic Assessment and Plan 77-year-old male admitted secondary to Sirs with A. fib RVR and hypo- therapeutic INR SIRS Tachycardia Leukocytosis Lactic acidosis Negative workup for infection All parameters are improving Continue vancomycin and Zosyn A. fib RVR Continue Coumadin Rate controlled now Subtherapeutic INR This is not improving Transition to p.o. Mirella Altered mental status Resolved Right lower extremity DVT Mirella Hypertension Continue baseline treatment Follow blood pressures Adjust treatments as needed Hyperlipidemia Continue present treatment Follow as an outpatient Hypothyroidism Continue Synthroid Acute kidney injury Improved DVT prophylaxis Ashok Fischer MD October 20, 2017 15:24
[2017-10-20] MEDS ORDERED: SODIUM CHLORIDE 0.65% NASAL SPRAY 45 ML BTL EACH NARE PRN (15:30)
[2017-10-20] MEDS ORDERED: WARFARIN SOD 5 MG TAB PO SCH (16:00)
[2017-10-20] MEDS ORDERED: WARFARIN SOD 2 MG TAB PO SCH (16:00)
--- NOTE | 2017-10-20 16:32 | PQ ---
Physician Query Response Document PATIENT: CATHIE BARRERA : 1940 ADMIT DATE: 10/19/2017 12:16 AM DISCH DATE: RESPONDING PROVIDER #: [email or web address] QUERY TEXT: CDS Clarification Metabolic encephalopathy in the setting of A. Fib. w/ RVR being treated with IV fluid hydration with subsequent rate control, and continuation of Coumadin. Other explanation of clinical findings. Unable to determine (no explanation for clinical findings). Please clarify and document your clinical opinion in the progress notes and discharge summary includi ng the definitive and/or presumptive diagnosis (suspected or probable), related to the above clinical findings. Please include clinical findings supporting your diagnosis. Thank you, Pauline Lopez CDS: Pauline Lopez Patient Unit: [id number] Contact Number: CDS/RN Room: [facility] The patient's Clinical Indicators include: * Clinical Indicators: Altered mental status/dizziness likely secondary to A. fib with RVR per H * Risk Factors: Atrial fibrillation with rapid ventricular response, Acute Kidney Injury * Treatment: Status post IV fluid hydration with subsequent rate control, continue Coumadin, monitor vital signs Query created by: Pauline Lopez on 10/20/2017 1:51 PM RESPONSE TEXT: Provider disagreed with this CDI query. I don't agree with that diagnosis. Electronically signed by: Ab Silva 10/20/2017 4:28 PM
[2017-10-20] MEDS ORDERED: VANCOMYCIN INJ 2,000 MG in SODIUM CHLORID 0.9% 500 ML INJ 500 ML IV ONE (18:00)
[2017-10-20] MEDS: ATORVASTATIN 40 MG TAB PO SCH (21:34)
[2017-10-20] MEDS: APIXABAN 5 MG TABLET PO SCH (21:34)
[2017-10-21] VITALS (7 sets, daily range): BP systolic 108–172; BP diastolic 64–98; PULSE 66–101; RESP 18–20; TEMP 98.1–98.5; O2SAT 91–96
[2017-10-21] MEDS: HEPARIN SODIUM - SQ 10,000 UNITS/ML VIAL SQ SCH ×3 (01:52→18:50)
[2017-10-21] MEDS: SODIUM CHLOR 0.9% 1000 ML INJ 1,000 ML IV SCH ×3 (03:07→17:00)
[2017-10-21] MEDS: LEVOTHYROXINE SODIUM 100 MCG TAB PO SCH (06:21)
[2017-10-21] MEDS: PIPERACIL-TAZO 3.375 GM PREMIX 50 ML IV SCH ×2 (06:21→10:26)
[2017-10-21] MEDS: SERTRALINE HCL 100 MG TAB PO SCH (08:22)
[2017-10-21] MEDS: ASPIRIN 81 MG CHEW TAB CHEW SCH (08:23)
[2017-10-21] MEDS: APIXABAN 5 MG TABLET PO SCH ×2 (08:23→20:47)
[2017-10-21] MEDS: DOCUSATE SODIUM 50 MG/SENNA 8.6 MG TAB PO SCH ×2 (08:23→20:48)
[2017-10-21] MEDS: FUROSEMIDE 20 MG TAB PO SCH (08:23)
[2017-10-21] MEDS: LISINOPRIL 5 MG TAB PO SCH (08:24)
[2017-10-21] MEDS: oxyCODONE/ACETAMINOPHEN 5 MG/325 MG TAB PO PRN ×2 (08:24→20:47)
--- NOTE | 2017-10-21 08:39 | PD.CARD.PN ---
Subjective Subjective Remarks The patient's primary complaints this morning are headache and back pain. He denies SOB, CP, palpitations, edema, cough, fevers, diarrhea or abdominal pain. (Janell Valdes) Objective Medications Current Medications Medications (Trade) Dose Ordered Sig/Fanny Route Start Time Stop Time Status Last Admin (Aspirin Chew) 81 mg DAILY CHEW 10/19/17 09:00 10/20/17 08:51 (Lipitor) 40 mg HS PO 10/19/17 21:00 10/20/17 21:34 (Lasix) 20 mg DAILY PO 10/19/17 09:00 Future hold (Synthroid) 200 mcg DAILY@0700 PO 10/19/17 07:00 10/21/17 06:21 (Prinivil) 2.5 mg DAILY PO 10/19/17 09:00 10/20/17 08:51 (Percocet 5-325 Mg) 1 tab Q4H PRN PO 10/19/17 01:30 10/20/17 21:35 (Zoloft) 100 mg DAILY PO 10/19/17 09:00 10/20/17 08:50 Pharmacy Profile Note 0 ml @ 0 mls/hr UNSCH OTHER 10/19/17 01:30 (NS Flush) 2 ml UNSCH PRN IV FLUSH 10/19/17 01:30 (NS Flush) 2 ml BID IV FLUSH 10/19/17 09:00 10/20/17 09:07 (Tylenol) 650 mg Q4H PRN PO 10/19/17 01:30 (Zofran Inj) 4 mg Q6H PRN IVP 10/19/17 01:30 (Heparin Inj) 5,000 units Q8H SQ 10/19/17 01:30 10/21/17 01:52 (Narcan Inj) 0.4 mg UNSCH PRN IV PUSH 10/19/17 01:30 (Lucia-Colace) 1 tab BID PO 10/19/17 09:00 10/20/17 21:34 (Milk Of Magnesia Liq) 30 ml Q12H PRN PO 10/19/17 01:30 (Senokot) 17.2 mg Q12H PRN PO 10/19/17 01:30 10/20/17 06:35 (Dulcolax Supp) 10 mg DAILY PRN RECTAL 10/19/17 01:30 (Lactulose Liq) 30 ml DAILY PRN PO 10/19/17 01:30 Pharmacy Profile Note 0 ml @ 0 mls/hr UNSCH OTHER 10/19/17 03:30 Piperacillin Sod/ Tazobactam Sod 50 ml @ 100 mls/hr Q6H IV 10/19/17 05:00 10/21/17 06:21 Sodium Chloride 1,000 ml @ 100 mls/hr Q10H IV 10/19/17 04:00 10/21/17 03:07 (Eliquis) 5 mg BID PO 10/20/17 21:00 10/20/17 21:34 ([place]) 2 spray Q4H PRN EACH NARE 10/20/17 15:30 10/20/17 21:43 (Lopressor) 50 mg BID PO 10/21/17 09:00 UNV Vital Signs / I&O Vital Signs Date Time Temp Pulse Resp B/P (MAP) Pulse Ox O2 Delivery O2 Flow Rate FiO2 10/21/17 08:12 98.3 83 20 172/97 (122) 93 10/21/17 04:00 98.3 87 18 162/98 (119) 96 10/20/17 23:53 97.6 89 20 170/93 (118) 97 10/20/17 21:21 97.3 77 18 146/83 (104) 97 10/20/17 16:16 97.7 82 20 124/68 (86) 97 10/20/17 16:00 86 10/20/17 12:00 80 10/20/17 11:58 97.5 80 20 112/67 (82) 95 I/O 10/20/17 10/20/17 10/20/17 10/21/17 10/21/17 10/21/17 06:59 14:59 22:59 06:59 14:59 22:59 Intake Total 2050 ml 480 ml Output Total 450 ml Balance 2050 ml 30 ml Intake Oral 480 ml IV Total 2050 ml Output Urine Total 450 ml # Voids 2 Physical Exam GENERAL: Obese male, no acute distress SKIN: Warm and dry. HEAD: Normocephalic., no tenderness to palpation of temporal artery. EYES: No scleral icterus. No injection or drainage. NECK: Supple, trachea midline. CARDIOVASCULAR: Irreg irreg, reg rate RESPIRATORY: Breath sounds equal bilaterally. No accessory muscle use. GASTROINTESTINAL: Abdomen soft, non-tender, nondistended. MUSCULOSKELETAL: No cyanosis, or edema. BACK: Nontender without obvious deformity. Laboratory Laboratory Tests Test 10/18/17 22:00 10/19/17 01:32 10/19/17 15:00 10/20/17 04:39 White Blood Count 16.2 TH/MM3 (4.0-11.0) Neutrophils (%) (Auto) 87.6 % (16.0-70.0) 75.8 % (16.0-70.0) Lymphocytes (%) (Auto) 5.1 % (9.0-44.0) Neutrophils # (Auto) 14.2 TH/MM3 (1.8-7.7) Lymphocytes # (Auto) 0.8 TH/MM3 (1.0-4.8) Monocytes # (Auto) 1.1 TH/MM3 (0-0.9) Prothrombin Time 13.4 SEC (9.8-11.6) 13.1 SEC (9.8-11.6) Activated Partial Thromboplast Time 31.3 SEC (24.3-30.1) Blood Urea Nitrogen 30 MG/DL (7-18) 26 MG/DL (7-18) Creatinine 1.84 MG/DL (0.60-1.30) Random Glucose 122 MG/DL (74-106) Albumin 3.2 GM/DL (3.4-5.0) 2.6 GM/DL (3.4-5.0) Total Bilirubin 1.6 MG/DL (0.2-1.0) Estimat Glomerular Filtration Rate 36 ML/MIN (>89) 80 ML/MIN (>89) Lactic Acid Level 3.1 mmol/L (0.4-2.0) Troponin I LESS THAN 0.02 NG/ML C-Reactive Protein 11.20 MG/DL (0.00-0.30) Urine Specific [place] 1.043 (1.002-1.035) Urine Bacteria RARE /hpf (NONE) Red Blood Count 4.09 MIL/MM3 (4.50-5.90) Hematocrit 38.7 % (39.0-51.0) Monocytes (%) (Auto) 9.0 % (0.0-8.0) Total Protein 5.8 GM/DL (6.4-8.2) Calcium Level 8.1 MG/DL (8.5-10.1) Imaging Last [address] Angiography 10/19/17 0030 Signed Impressions: Service Date/Time: Thursday, October 19, 2017 03:55 - CONCLUSION: 1. Minimal bibasilar atelectasis/scarring with mild bronchiectatic changes in the medial left base characteristic of a chronic inflammatory process. 2. Otherwise negative for acute disease. No confluent infiltrate or pulmonary embolus. 3. Atherosclerotic calcification of the coronary arteries Sushant Moon MD Head CT 10/18/172150 Signed Impressions: Service Date/Time: Wednesday, October 18, 2017 22:39 - CONCLUSION: 1. Stable chronic changes with an old right MCA infarct. 3.2 cm arachnoid cyst in the anterior left middle cranial fossa. 2. Nothing acute Sushant Moon MD Chest X-Ray 10/18/172150 Signed Impressions: Service Date/Time: Wednesday, October 18, 2017 21:55 - CONCLUSION: 1. Elevated right hemidiaphragm with minimal basilar scarring. Cardiomegaly. William Welch MD (Janell Valdes) Assessment and Plan Assessment and Plan SIRS- no source of infection identified. Has elevated CRP Chronic Atrial fibrillation with RVR on admission exacerbated by above History of CVA History of PE/DVT HTN ASHD Resolved FRANCIS Chronic diastolic CHF without evidence of exacerbation New onset headache PLAN Check sed rate Increase metoprolol 50 mg BID. Amlodipine 5 mg PRN for SBP > 160 or DBP > 90 Continue lisinopril Continue diuretic therapy Continue Eliquis 5 mg BID. The patient was seen and evaluated by Dr Kennedy who completed face to face encounter, physical exam and participated in evaluation and management. (Janell Valdes) Assessment and Plan The exam, history, and the medical decision-making described in the above note were completed with the assistance of the mid-level provider. I reviewed and agree with the findings presented. I attest that I had a [id number] encounter with the patient on the same day, and personally performed and documented my assessment and findings in the medical record Stable CV sepsis.. (Panchito Kennedy MD) Janell Valdes October 21, 2017 08:39 Panchito Kennedy MD October 24, 2017 09:35
[2017-10-21] MEDS: SODIUM CHLORIDE 0.9% FLUSH 10 ML FLUSH IV FLUSH SCH ×2 (09:00→20:47)
[2017-10-21] MEDS ORDERED: amLODIPine BESYLATE 5 MG TAB PO PRN (09:00)
[2017-10-21 09:44] LABS: INTERNATIONAL NORMALIZED RATIO 1.4 RATIO; PROTHROMBIN TIME - PATIENT 13.7 SEC (9.8-11.6)
[2017-10-21 09:51] LABS: AUTOMATED NEUTROPHIL # 5.2 TH/MM3 (1.8-7.7); BASOPHIL % 0.6 % (0.0-2.0); EOSINOPHIL # 0.3 TH/MM3 (0-0.4); EOSINOPHIL % 3.7 % (0.0-4.0); HEMOGLOBIN 12.4 GM/DL (13.0-17.0); LYMPH % 12.5 % (9.0-44.0); LYMPHOCYTE # 0.9 TH/MM3 (1.0-4.8); MEAN CELL VOLUME 94.3 FL (80.0-100.0); MEAN CORPUSCULAR HEMOGLOBIN 32.4 PG (27.0-34.0); MEAN CORPUSCULAR HGB CONC 34.3 % (32.0-36.0); MEAN PLATELET VOLUME 8.1 FL (7.0-11.0); MONO % 8.9 % (0.0-8.0); MONOCYTE # 0.6 TH/MM3 (0-0.9); NEUT % 74.3 % (16.0-70.0); PLATELET COUNT 174 TH/MM3 (150-450); RED BLOOD COUNT 3.82 MIL/MM3 (4.50-5.90); RED CELL DISTRIBUTION WIDTH 14.8 % (11.6-17.2)
[2017-10-21 10:13] LABS: ALBUMIN 2.4 GM/DL (3.4-5.0); AST (GOT) 13 U/L (15-37); BICARBONATE 27.1 MEQ/L (21.0-32.0); BLOOD UREA NITROGEN 16 MG/DL (7-18); CALCIUM 8.3 MG/DL (8.5-10.1); CHLORIDE 107 MEQ/L (98-107); CREATININE 0.85 MG/DL (0.60-1.30); GLOMERULAR FILTRATION RATE 88 ML/MIN (>89); GLUCOSE,RANDOM 69 MG/DL (74-106); SODIUM (NA) 142 MEQ/L (136-145)
[2017-10-21 10:15] LABS: ALT (GPT) 14 U/L (12-78)
[2017-10-21 10:16] LABS: ALKALINE PHOSPHATASE 62 U/L (45-117); RANDOM VANCOMYCIN 13.7 COMMENT; TOTAL BILIRUBIN ADULT 0.9 MG/DL (0.2-1.0); TOTAL PROTEIN 5.6 GM/DL (6.4-8.2)
[2017-10-21] MEDS: METOPROLOL TARTRATE 50 MG TAB PO SCH ×2 (10:26→20:46)
--- NOTE | 2017-10-21 12:04 | HHI.PR ---
Subjective Remarks No complications with new anticoagulant. Patient has been cleared by cardiology for discharge. Patient expresses that he would like to go to a intermediate facility as he has not been very ambulatory. Physical therapy evaluation pending. Objective Vital Signs Date Time Temp Pulse Resp B/P (MAP) Pulse Ox O2 Delivery O2 Flow Rate FiO2 10/21/17 11:37 98.5 101 20 152/93 (112) 91 10/21/17 08:12 98.3 83 20 172/97 (122) 93 10/21/17 08:00 86 10/21/17 04:00 98.3 87 18 162/98 (119) 96 10/20/17 23:53 97.6 89 20 170/93 (118) 97 10/20/17 21:21 97.3 77 18 146/83 (104) 97 10/20/17 16:16 97.7 82 20 124/68 (86) 97 10/20/17 16:00 86 I/O 10/20/17 10/20/17 10/20/17 10/21/17 10/21/17 10/21/17 07:00 15:00 23:00 07:00 15:00 23:00 Intake Total 2050 ml 480 ml Output Total 450 ml Balance 2050 ml 30 ml Intake Oral 480 ml IV Total 2050 ml Output Urine Total 450 ml # Voids 2 Result Diagram: 10/21/17 0755 10/21/17 0755 Objective Remarks GENERAL: NAD, A&Ox3 HEAD: Normocephalic. NECK: Supple, trachea midline. No lymphadenopathy. EYES: No scleral icterus. No injection or drainage. CARDIOVASCULAR: Regular rate and rhythm without murmurs, gallops, or rubs. RESPIRATORY: Breath sounds equal bilaterally. No accessory muscle use. GASTROINTESTINAL: Abdomen soft, non-tender, nondistended. MUSCULOSKELETAL: No cyanosis, or edema. SKIN: Warm and dry. NEURO: No focal neurological deficitis. A/P Problem List: (1) Atrial fibrillation ICD Code: I48.91 - Atrial fibrillation Status: Chronic Assessment and Plan 77-year-old male admitted secondary to Sirs with A. fib RVR and hypo- therapeutic INR SIRS Tachycardia Leukocytosis Lactic acidosis Negative workup for infection All parameters are improving Continue vancomycin and Zosyn A. fib RVR Continue Coumadin Rate controlled now Subtherapeutic INR This is not improving Transition to p.o. Eliquis Altered mental status Resolved Right lower extremity DVT Eliquis Hypertension Continue baseline treatment Follow blood pressures Adjust treatments as needed Hyperlipidemia Continue present treatment Follow as an outpatient Hypothyroidism Continue Synthroid Acute kidney injury Improved Chronic generalized weakness Acute weakness Exacerbation related to infection Physical therapy evaluation pending Possible need for discharge to intermediate facility DVT prophylaxis Eliquis Discharge planning Discharge pending physical therapy evaluation will either be home with home health versus intermediate facility Ashok Silva MD October 21, 2017 12:04
[2017-10-21] MEDS ORDERED: cloNIDine HCL 0.1 MG TAB PO PRN (12:30)
[2017-10-21] MEDS ORDERED: VANCOMYCIN INJ 1,750 MG in SODIUM CHLORID 0.9% 500 ML INJ 500 ML IV SCH (16:00)
[2017-10-21] MEDS: LACTOBACILLUS ACIDOPHILUS TAB PO SCH (18:46)
[2017-10-21] MEDS: ATORVASTATIN 40 MG TAB PO SCH (20:45)
[2017-10-22] VITALS (7 sets, daily range): BP systolic 122–184; BP diastolic 74–100; PULSE 66–94; RESP 16–20; TEMP 97.3–98.2; O2SAT 94–96
[2017-10-22] MEDS: HEPARIN SODIUM - SQ 10,000 UNITS/ML VIAL SQ SCH ×3 (01:21→09:16)
[2017-10-22] MEDS: SODIUM CHLOR 0.9% 1000 ML INJ 1,000 ML IV SCH ×3 (01:21→22:15)
[2017-10-22 06:33] LABS: INTERNATIONAL NORMALIZED RATIO 1.4 RATIO; PROTHROMBIN TIME - PATIENT 13.9 SEC (9.8-11.6)
[2017-10-22] MEDS: LEVOTHYROXINE SODIUM 100 MCG TAB PO SCH (07:28)
[2017-10-22] MEDS: ASPIRIN 81 MG CHEW TAB CHEW SCH (08:55)
[2017-10-22] MEDS: FUROSEMIDE 20 MG TAB PO SCH (08:55)
[2017-10-22] MEDS: SERTRALINE HCL 100 MG TAB PO SCH (08:55)
[2017-10-22] MEDS: DOCUSATE SODIUM 50 MG/SENNA 8.6 MG TAB PO SCH ×2 (08:55→22:11)
[2017-10-22] MEDS: APIXABAN 5 MG TABLET PO SCH ×2 (08:55→22:12)
[2017-10-22] MEDS: LEVOFLOXACIN 500 MG TAB PO SCH (08:56)
[2017-10-22] MEDS: LISINOPRIL 5 MG TAB PO SCH (08:56)
[2017-10-22] MEDS: LACTOBACILLUS ACIDOPHILUS TAB PO SCH ×3 (08:57→17:20)
[2017-10-22] MEDS: METOPROLOL TARTRATE 50 MG TAB PO SCH ×2 (08:57→22:12)
[2017-10-22] MEDS: SODIUM CHLORIDE 0.9% FLUSH 10 ML FLUSH IV FLUSH SCH ×2 (09:00→22:13)
[2017-10-22] MEDS: oxyCODONE/ACETAMINOPHEN 5 MG/325 MG TAB PO PRN ×2 (15:44→22:13)
--- NOTE | 2017-10-22 17:32 | HHI.PR ---
Subjective Remarks Patient is doing well. However, with physical therapy shows that he needs inpatient rehab. Arrangements are being made for placement. Objective Vital Signs Date Time Temp Pulse Resp B/P (MAP) Pulse Ox O2 Delivery O2 Flow Rate FiO2 10/22/17 16:00 97.5 77 18 153/87 (109) 95 10/22/17 12:00 97.6 85 16 122/74 (90) 95 10/22/17 08:00 97.9 94 20 179/99 (125) 95 10/22/17 04:00 97.8 78 20 184/85 (118) 94 10/22/17 00:00 97.3 93 20 166/91 (116) 94 10/21/17 20:00 98.1 78 18 146/92 (110) 96 I/O 10/21/17 10/21/17 10/21/17 10/22/17 10/22/17 10/22/17 07:00 15:00 23:00 07:00 15:00 23:00 Intake Total 720 ml 240 ml Output Total 1675 ml 600 ml Balance -955 ml -360 ml Intake Oral 720 ml 240 ml Output Urine Total 1675 ml 600 ml # Voids 8 # Bowel Movements 0 0 Result Diagram: 10/21/17 0755 10/21/17 0755 Objective Remarks GENERAL: NAD, A&Ox3 HEAD: Normocephalic. NECK: Supple, trachea midline. No lymphadenopathy. EYES: No scleral icterus. No injection or drainage. CARDIOVASCULAR: Regular rate and rhythm without murmurs, gallops, or rubs. RESPIRATORY: Breath sounds equal bilaterally. No accessory muscle use. GASTROINTESTINAL: Abdomen soft, non-tender, nondistended. MUSCULOSKELETAL: No cyanosis, or edema. SKIN: Warm and dry. NEURO: No focal neurological deficitis. A/P Problem List: (1) Atrial fibrillation ICD Code: I48.91 - Atrial fibrillation Status: Chronic Assessment and Plan 77-year-old male admitted secondary to Sirs with A. fib RVR and hypo- therapeutic INR Continue physical therapy. Plan is for discharge to residential facility, possibly tomorrow SIRS Tachycardia Leukocytosis Lactic acidosis Negative workup for infection All parameters are improving Continue vancomycin and Zosyn A. fib RVR Continue Coumadin Rate controlled now Subtherapeutic INR This is not improving Transition to p.o. Eliquis Altered mental status Resolved Right lower extremity DVT Eliquis Hypertension Continue baseline treatment Follow blood pressures Adjust treatments as needed Hyperlipidemia Continue present treatment Follow as an outpatient Hypothyroidism Continue Synthroid Acute kidney injury Improved Chronic generalized weakness Acute weakness Exacerbation related to infection Physical therapy evaluation pending Possible need for discharge to residential facility DVT prophylaxis Eliquis Discharge planning Discharge pending physical therapy evaluation will either be home with home health versus residential facility Ashok Silva MD October 22, 2017 17:32
[2017-10-22] MEDS: ATORVASTATIN 40 MG TAB PO SCH (22:12)
[2017-10-23] VITALS: PULSE 85
[2017-10-23] MEDS ORDERED: PHARMACY ORDERED LAB ONE (03:45)
[2017-10-23 05:00] VITALS: BP 160/103; PULSE 69; RESP 18; TEMP 97.9; O2SAT 96
[2017-10-23 07:50] VITALS: PULSE 77
[2017-10-23] MEDS: LEVOTHYROXINE SODIUM 100 MCG TAB PO SCH (07:50)
[2017-10-23 08:00] VITALS: BP 163/101; PULSE 63; RESP 18; TEMP 97.3; O2SAT 93
[2017-10-23] MEDS: SODIUM CHLOR 0.9% 1000 ML INJ 1,000 ML IV SCH (08:00)
[2017-10-23] MEDS: LISINOPRIL 5 MG TAB PO SCH (08:11)
[2017-10-23] MEDS: LACTOBACILLUS ACIDOPHILUS TAB PO SCH ×2 (08:11→11:52)
[2017-10-23] MEDS: APIXABAN 5 MG TABLET PO SCH (08:11)
[2017-10-23] MEDS: LEVOFLOXACIN 500 MG TAB PO SCH (08:11)
[2017-10-23] MEDS: SERTRALINE HCL 100 MG TAB PO SCH (08:12)
[2017-10-23] MEDS: METOPROLOL TARTRATE 50 MG TAB PO SCH (08:12)
[2017-10-23] MEDS: DOCUSATE SODIUM 50 MG/SENNA 8.6 MG TAB PO SCH (08:13)
[2017-10-23] MEDS: SODIUM CHLORIDE 0.9% FLUSH 10 ML FLUSH IV FLUSH SCH (08:14)
[2017-10-23] MEDS: ASPIRIN 81 MG CHEW TAB CHEW SCH (08:14)
[2017-10-23] MEDS: FUROSEMIDE 20 MG TAB PO SCH (08:18)
[2017-10-23 08:20] LABS: INTERNATIONAL NORMALIZED RATIO 1.2 RATIO
[2017-10-23] MEDS: oxyCODONE/ACETAMINOPHEN 5 MG/325 MG TAB PO PRN (11:52)
[2017-10-23 12:00] VITALS: BP 118/85; PULSE 76; RESP 18; TEMP 98.9; O2SAT 98
[2017-10-23] MEDS ORDERED: APIX5TAB PO (12:16)
[2017-10-23] MEDS ORDERED: LEVA500T33 PO (12:16)
[2017-10-23] MEDS ORDERED: OXYC1TAB63 PO (12:16)
[2017-10-23] MEDS ORDERED: METO-309 PO (12:16)
[2017-10-23] MEDS ORDERED: LACT PO (12:16)
[2017-10-23] MEDS ORDERED: CLON.1 PO (12:16)
[2017-10-23] MEDS ORDERED: AMLO10TA2 PO (12:16)
--- NOTE | 2017-10-23 12:19 | HHI.DS ---
Discharge Summary Admission Date October 19, 2017 at 00:16 Discharge Date: October 23, 2017 Admitting Diagnosis Sepsis (1) SIRS (systemic inflammatory response syndrome) ICD Code: R65.10 - Systemic inflammatory response syndrome (SIRS) of non- infectious origin without acute organ dysfunction Procedures None Brief History - From Admission 37-year-old male with past medical history significant for A. fib anticoagulated on Coumadin, hypertension, hyperlipidemia, history of CVA, hypothyroidism and alcohol abuse presents the emergency department after his called 911 for evaluation of altered mental status. The patient was initially seen in the emergency department on 10/16/17 for a posterior nosebleed which was packed and the patient was released to home. He was instructed to follow-up with ENT however was unable to do so return to the emergency department yesterday where he complained of shortness of breath and wished to have the packing removed from his right nare. The packing was removed and the patient was discharged home. Upon his arrival home the patient's reports he was too weak to get out of the car without assistance. She reports he was acting strangely and went to lay down for a little while. Upon awaking the patient was confused and weak. The patient reports he awoke with dizziness and the was concerned about a possible stroke. She called 911 and the patient was found to be in atrial fibrillation with rapid response. The patient has a reported history of a right groin DVT that has been present for approximately 1 month and is being followed by a vascular surgeon. The patient denies any chest pain or current shortness of breath. No fevers/chills. No abdominal pain. No nausea/vomiting/diarrhea. No lateralizing signs/symptoms. CBC/BMP: 10/21/17 0755 10/21/17 0755 Significant Findings Laboratory Tests Test 10/21/17 07:55 10/22/17 05:25 10/23/17 06:26 Red Blood Count 3.82 MIL/MM3 (4.50-5.90) Hemoglobin 12.4 GM/DL (13.0-17.0) Hematocrit 36.0 % (39.0-51.0) Neutrophils (%) (Auto) 74.3 % (16.0-70.0) Monocytes (%) (Auto) 8.9 % (0.0-8.0) Lymphocytes # (Auto) 0.9 TH/MM3 (1.0-4.8) Erythrocyte Sedimentation Rate 42 mm/hr (0-20) Prothrombin Time 13.7 SEC (9.8-11.6) 13.9 SEC (9.8-11.6) 12.0 SEC (9.8-11.6) Random Glucose 69 MG/DL (74-106) Total Protein 5.6 GM/DL (6.4-8.2) Albumin 2.4 GM/DL (3.4-5.0) Calcium Level 8.3 MG/DL (8.5-10.1) Aspartate Amino Transf (AST/SGOT) 13 U/L (15-37) Estimat Glomerular Filtration Rate 88 ML/MIN (>89) Hospital Course Mr. Nazario is a-year-old male. He was admitted secondary to signs of sepsis. He qualified for SIRS criteria but infectious source was not found. He did have all of the criteria. With antibiotics he responded well and doing well in that regard. However his ability to ambulate and get in and out of bed some chairs is severely compromised. Physical therapy evaluation shows he needs further rehab in inpatient setting. Additionally blood pressures have not been controlled so adjustments have been made in his blood pressure treatments. At this point he is medically cleared and stable for discharge to assisted facility today. Signs of infection have resolved. Pt Condition on Discharge: Stable Discharge Disposition: Discharge to SNF Discharge Time: > 30 minutes Discharge Instructions DIET: Follow Instructions for: Heart Healthy Diet Activities you can perform: Regular-No Restrictions Follow up Referrals: PCP Follow-up - 2 Weeks New Medications: Amlodipine (Amlodipine) 10 Mg Tab 10 MG PO DAILY for Blood Pressure Management, #30 TAB 0 Refills Apixaban (Eliquis) 5 Mg Tab 5 MG PO BID for Blood Clot Prevention, #60 TAB Clonidine (Catapres) 0.1 Mg Tab 0.1 MG PO Q6H PRN for SBP>160, DBP>90, #60 TAB Lactobacillus Acidophilus (Acidophilus/l-Sporogenes) 35 Million Cell-25 Million Cell Tab 1 TAB PO TID for Probiotic, #30 TAB Levofloxacin (Levaquin) 500 Mg Tablet 500 MG PO DAILY for Infection, #6 TAB Metoprolol Tartrate (Lopressor) 50 Mg Tab 50 MG PO BID for Blood Pressure Management, #60 TAB Oxycodone HCl/Acetaminophen (Oxycodone-Acetaminophen 5-325) 5 Mg-325 Mg Tablet 1 TAB PO Q6HR PRN for PAIN, #30 TAB Continued Medications: Aspirin (Aspirin) 81 Mg Chew 81 MG CHEW DAILY, TAB 0 Refills Atorvastatin (Atorvastatin) 40 Mg Tab 40 MG PO HS for Cholesterol Management, #30 TAB 0 Refills Folic Acid (Folic Acid) 1 Mg Tablet Furosemide (Furosemide) 40 Mg Tab 20 MG PO DAILY, #30 TAB 0 Refills Levothyroxine (Synthroid) 200 Mcg Tab 200 MCG PO DAILY for Thyroid, #30 TAB 0 Refills Lisinopril (Lisinopril) 5 Mg Tab 2.5 MG PO DAILY for Blood Pressure Management, #30 TAB Polyethylene Glycol 3350 Powder (Miralax Powder) 1 Pow Pow 1 CAP PO DAILY Sertraline (Sertraline) 100 Mg Tab 100 MG PO DAILY, #30 TAB 0 Refills Discontinued Medications: Metoprolol Tartrate (Metoprolol Tartrate) 37.5 Mg Tab 37.5 MG PO BID, #60 TAB 0 Refills Oxycodone-Acetaminophen (Percocet) 5-325 mg Tab 1 TAB PO Q4H PRN for PAIN, #12 TAB 0 Refills Warfarin (Coumadin) 4 Mg Tab 5 MG PO DAILY for Prevent Blood Clot, #30 TAB 0 Refills Ashok Silva MD October 23, 2017 12:19
[2017-10-23] MEDS ORDERED: amLODIPine BESYLATE 5 MG TAB PO ONE (12:30)
== END 2017-10-23 15:53 | DRG 683 ==
LOC: NEPE 21:18 → NEDA 10-19 00:16 → N05B 10-19 02:35
PROVIDERS: ADMIT Hospitalist; ATTEND Hospitalist
DX: N17.9 Acute kidney failure, unspecified (principal); E87.2 Acidosis; I82.401 Acute embolism and thrombosis of unspecified deep veins of right lower extremity; I11.0 Hypertensive heart disease with heart failure; R65.10 Systemic inflammatory response syndrome (SIRS) of non-infectious origin without acute organ dysfunction; I95.9 Hypotension, unspecified; I50.32 Chronic diastolic (congestive) heart failure; I69.354 Hemiplegia and hemiparesis following cerebral infarction affecting left non-dominant side; I48.91 Unspecified atrial fibrillation; E86.0 Dehydration; R26.81 Unsteadiness on feet; N40.1 Benign prostatic hyperplasia with lower urinary tract symptoms; E78.5 Hyperlipidemia, unspecified; E89.0 Postprocedural hypothyroidism; R35.0 Frequency of micturition; H91.90 Unspecified hearing loss, unspecified ear; G47.30 Sleep apnea, unspecified; I48.0 Paroxysmal atrial fibrillation; I25.10 Atherosclerotic heart disease of native coronary artery without angina pectoris; I35.1 Nonrheumatic aortic (valve) insufficiency; I73.9 Peripheral vascular disease, unspecified; J44.9 Chronic obstructive pulmonary disease, unspecified; R04.0 Epistaxis; R00.0 Tachycardia, unspecified; R79.1 Abnormal coagulation profile; I48.2 Chronic atrial fibrillation; R79.82 Elevated C-reactive protein (CRP); M19.90 Unspecified osteoarthritis, unspecified site; F32.9 Major depressive disorder, single episode, unspecified; F41.9 Anxiety disorder, unspecified; Z79.01 Long term (current) use of anticoagulants; Z82.49 Family history of ischemic heart disease and other diseases of the circulatory system; Z86.14 Personal history of Methicillin resistant Staphylococcus aureus infection; Z86.711 Personal history of pulmonary embolism; Z87.891 Personal history of nicotine dependence
CPT/HCPCS: 70450; 71045; 71275; 80053; 80202; 80307; 81001; 82550; 83605; 83690; 83735; 83880; 84443; 84484; 85025; 85610; 85652; 85730; 86140; 87040; 93005; 96365; 96367; J1644; J2543; J3370; J7030; J7040; J7050; Q9967

== ENCOUNTER 2018-02-12 18:44 | Inpatient (IN) ==
--- NOTE | 2018-02-12 20:20 | XR ---
EXAM DATE: 02/12/2018 8:05 PM EDT AGE/SEX: 77 years / Male INDICATIONS: Left sided rib pain after fall last night. Pain on the whole left side. CLINICAL DATA: This is the patient's initial encounter. Patient reports that signs and symptoms have been present for 2 days and indicates a pain score of 10/10. MEDICAL/SURGICAL HISTORY: . Hypertension. Congestive heart failure. Hernia, inguinal. BPH. . I nguinal hernia repair. TURP. COMPARISON: [facility] [place], CHEST SINGLE AP, 10/18/2017. . FINDINGS: Lungs are hypoaerated. There is patchy airspace disease in both lungs especially within the right upp er lobe. Heart is mildly enlarged but stable. Osseous structures remain intact. CONCLUSION: Hypoaerated lungs with bilateral patchy airspace disease especially in the right upper lobe. No evidence of displaced rib fracture or pneumothorax.. Electronically signed by: Deniz Albarran MD 02/12/2018 8:19 PM EDT
--- NOTE | 2018-02-12 20:24 | ED ---
HPI General Chief Complaint: Fall Stated Complaint: Evac/Fall Time Seen by Provider: 02/12/18 19:29 Source: patient Mode of arrival: EMS Limitations: no limitations History of Present Illness HPI Narrative: 77-year-old male presents to the emergency department from home by EMS transport for evaluation of upper back pain. Patient reports that yesterday evening around 9 PM he was in the bathroom preparing for bed and was standing at the sink and started to lose his balance backwards and fell to the ground landing on tile and carpet against the frame of his walking closet door. Patient states he did not hit his head he did not have loss of consciousness he did not injure his neck he denies any midline upper back or lower back pain he denies any pelvic pain he denies any lower extremity pain injury or deformity he denies any pain to the right upper extremity but does complain of left upper back pain and shoulder pain but no upper arm elbow forearm wrist or left hand pain. Patient does have history of atrial fibrillation and is prescribed Eliquis. Patient reports he has frequent falls and wears a transport belt at all times. Patient states his was at home did not hear him fall became to his assistance when he called for her and is able to get him upright and put him in bed. Due to pain in his upper back he was not able to get out of bed today and therefore this evening finally called paramedics to transport him to the emergency room for further evaluation. Patient has history of chronic unsteady gait with frequent falls chronic back pain atrial fibrillation on Eliquis previous right lobectomy for remote pulmonary mass dyslipidemia CVA with left hemiparesis mild cataract surgery hypertension CHF and hypothyroidism no tobacco use no alcohol use. Patient denies recent fever. Patient reports right greater than left upper extremity tremor is noted 2 weeks. Related Data Home Medications Medication Instructions Recorded Confirmed amlodipine 10 mg PO DAILY 02/12/18 02/12/18 apixaban [Eliquis] 5 mg PO BID 02/12/18 02/12/18 aspirin [Aspir-Low] 81 mg PO DAILY 02/12/18 02/12/18 atorvastatin 40 mg PO DAILY 02/12/18 02/12/18 folic acid 1 mg PO DAILY 02/12/18 02/12/18 furosemide 40 mg PO DAILY 02/12/18 02/12/18 levothyroxine [Synthroid] 75 mcg PO DAILY 02/12/18 02/12/18 metoprolol tartrate 25 mg PO BID 02/12/18 02/12/18 polyethylene glycol 3350 [Miralax] 17 g PO DAILY 02/12/18 02/12/18 sertraline 100 mg PO DAILY 02/12/18 02/12/18 Allergies Allergy/AdvReac Type Severity Reaction Status Date / Time No Known Allergies Allergy Unverified 02/12/18 19:00 Review of Systems ROS: all other systems reviewed are negative [facility] Medical History Medical History Afib (Acute) CHF (congestive heart failure) (Acute) CVA, old, hemiparesis (Acute) Cataract (Acute) High cholesterol (Acute) Hypertension (Acute) Surgical History Surgical History H/O prostatectomy (Acute) S/P lobectomy of lung (Acute) Social History Social History Substance History: No History of Abuse Second Hand Smoke Exposure: No Smoking Status: Former smoker How Often Do You Have a Drink Containing Alcohol: Monthly or less Recent Travel in [facility] within the Last 8 Weeks: No Recent Out of Country Travel within the Last 8 Weeks: No Immunization History Tetanus Immunization: Unsure Hx Influenza Vaccine This Season: No Exam Narrative Exam Narrative: GENERAL: Well-nourished, well-developed patient. No acute respiratory distress. GCS 15. SKIN: Focused skin assessment warm/dry. HEAD: Normocephalic. Atraumatic no scalp soft tissue swelling abrasion ecchymosis laceration bony and patient. EYES: No scleral icterus. No injection or drainage. Bilateral pupils equal round reactive to light extraocular muscles intact. No periorbital ecchymosis or periorbital bony tenderness or step-off. ENT: Airway is patent. No hemotympanum. No postauricular ecchymosis. NECK: Supple, trachea midline. No JVD or lymphadenopathy. No midline tenderness to direct palpation along the cervical spine no bony step-off. CARDIOVASCULAR: Irregular irregular rate and rhythm without murmurs, gallops, or rubs. Radial pulses 2+ to palpation bilaterally dorsalis pedis pulses 2+ to palpation bilaterally chest wall: No anterior chest wall tenderness to palpation of the bony ribs no ecchymosis or abrasion. RESPIRATORY: Breath sounds equal bilaterally. No accessory muscle use. GASTROINTESTINAL: Abdomen soft, non-tender, nondistended. MUSCULOSKELETAL: No cyanosis, or edema. Patient is able to demonstrate full range of motion of the right upper extremity and bilateral lower extremities but limitation of range of motion of the left upper extremity secondary to upper back pain. No deformities noted. BACK: Nontender without obvious deformity along the cervical thoracic and lumbar spine to direct palpation. Large left-sided upper back from superior scapula to flank ecchymotic area with tenderness and soft tissue swelling. No CVA tenderness or ecchymosis. Pelvis stable. Course Initial Documented Vital Signs Temperature 99.6 F 02/12/18 19:04 Pulse Rate 95 H 02/12/18 19:04 Respiratory Rate 18 02/12/18 19:04 Blood Pressure 162/94 H 02/12/18 19:04 Pulse Oximetry 93 L 02/12/18 19:04 Last Documented Vital Signs Temperature 99.6 F 02/12/18 19:04 Pulse Rate 93 H 02/12/18 23:10 Respiratory Rate 18 02/12/18 23:10 Blood Pressure 179/109 H 02/12/18 23:10 Pulse Oximetry 93 L 02/12/18 23:10 Critical Care Time Critical Care Time: Yes Total Critical Care Time: 30 Attestation: Aggregate critical care time was 30 minutes. Time to perform other separately billable procedures was not included in the critical care time. My time did not include minutes spent treating any other patients simultaneously or on activities that did not directly contribute to the patient's treatment. The services I provided to this patient were to treat and/or prevent clinically significant deterioration that could result in: Arrhythmia, respiratory failure , I provided critical care services requiring my management, as noted below: Chart data review, documentation time, medication orders and management, vital sign assessments/reviewing monitor data, ordering and reviewing lab tests, ordering and interpreting/reviewing x-rays and diagnostic studies, care of the patient and discussion of the patient with the admitting physicians. Medical Decision Making MDM Narrative Medical decision making narrative: 77-year-old male with history of frequent falls due to chronic unsteady gait with history of atrial fibrillation on Eliquis presents to the emergency department approximately 24 hours after a report non-syncopal non-head injury related fall with complaint of left upper back pain. Patient placed on conveyor monitor per paramedics patient was noted to have low room air O2 saturation placed on 2 L/min nasal cannula current O2 saturation 94%. Off oxygen O2 saturation decreases quickly to 84-87% on CTA pulmonary identifies no pulmonary embolism however bibasilar patchy airspace disease and atelectasis is noted with hypo-ventilatory effort on imaging; patient with intractable pain requiring close monitoring after pain medication due to low O2 saturations on supplemental oxygen. Patient given evening dose of his daily medications. Patient's case discussed with on-call medicine, Dr Bethea, for admission for intractable pain hypoxemia atelectasis and atrial fibrillation. Medical Screen Exam Complete: Yes Emergency Medical Condition: Yes Differential Diagnosis Differential Diagnosis: Rib fracture scapular fracture clavicle fracture humerus fracture pneumothorax arrhythmia anemia coagulopathy minor closed head injury [facility] Medical Records Medical records reviewed: Yes I reviewed the patient's medical records. Lab Data Result diagrams: 02/12/18 19:40 02/12/18 19:40 Lab Results 02/12/18 02/12/18 02/12/18 Range/Units 19:40 19:40 19:40 WBC 9.9 (4.0-11.0) th/mm3 RBC 4.80 (4.50-5.90) mil/mm3 Hgb 15.1 (13.0-17.0) gm/dL Hct 45.0 (39.0-51.0) % MCV 93.8 (80.0-100.0) fL MCH 31.5 (27.0-34.0) pg MCHC 33.6 (32.0-36.0) % RDW 15.5 (11.6-17.2) % Plt Count 175 (150-450) th/mm3 MPV 7.6 (7.0-11.0) fL Prelim Diff (Auto) Slide review pending Neut % (Auto) 83.5 H (16.0-70.0) % Lymph % (Auto) 7.8 L (9.0-44.0) % Metcalfe % (Auto) 6.8 (0.0-8.0) % Eos % (Auto) 1.4 (0.0-4.0) % Baso % (Auto) 0.5 (0.0-2.0) % Neut # (Auto) 8.2 H (1.8-7.7) th/mm3 Lymph # (Auto) 0.8 L (1.0-4.8) th/mm3 Metcalfe # (Auto) 0.7 (0.0-0.9) th/mm3 Eos # (Auto) 0.1 (0.0-0.4) th/mm3 Baso # (Auto) 0.0 (0.0-0.2) th/mm3 WBC Differential Manual diff final Seg Neuts % (Manual) 84 H (16-70) % Band Neuts % (Manual) 1 (0-6) % Lymphocytes % (Manual) 7 L (9-44) % Monocytes % (Manual) 3 (0-8) % Eosinophils % (Manual) 2 (0-4) % Basophils % (Manual) 2 (0-2) % Myelocytes % (Man) 1 H (0-0) % Abs Neuts (Manual) 8.5 H (1.8-7.7) th/mm3 Differential Comment . Platelet Estimate Normal (Normal) Platelet Morphology Normal (Normal) RBC Morphology Normal (Normal) PT 10.7 (9.8-11.6) sec INR 1.1 Ratio APTT 28.5 (24.3-30.1) sec Sodium 142 (136-145) meq/L Potassium 4.2 (3.5-5.1) meq/L Chloride 105 (98-107) meq/L Carbon Dioxide 29.0 (21.0-32.0) meq/L Anion Gap 8 (5-15) meq/L BUN 16 (7-18) mg/dL Creatinine 1.02 (0.60-1.30) mg/dL Estimated GFR 71 L (>89) mL/min Random Glucose 91 (74-106) mg/dL Calcium 8.8 (8.5-10.1) mg/dL Troponin I Less than 0.02 L (0.02-0.05) ng/mL Urine Color (Yellw/Straw) Urine Clarity (Clear) Urine pH (5.0-8.5) Ur Specific Molino (1.002-1.035) Urine Protein (Neg-Trace) mg/dL Urine Glucose (UA) (Negative) mg/dL Urine Ketones (Negative) mg/dL Urine Occult Blood (Negative) Urine Nitrate (Negative) Urine Bilirubin (Negative) Urine Urobilinogen (Less than 2) mg/dL Ur Leukocyte Esterase (Negative) Urine RBC (0-3) /hpf Urine WBC (0-5) /hpf Ur Squamous Epith Cells (0-5) /hpf Urine Mucus (Occasional) /lpf Micro UA Comment Ur Microscopic Review Urine Culture Comments Blood Type Blood Type Recheck Antibody Screen 02/12/18 02/12/18 Range/Units 19:40 21:37 WBC (4.0-11.0) th/mm3 RBC (4.50-5.90) mil/mm3 Hgb (13.0-17.0) gm/dL Hct (39.0-51.0) % MCV (80.0-100.0) fL MCH (27.0-34.0) pg MCHC (32.0-36.0) % RDW (11.6-17.2) % Plt Count (150-450) th/mm3 MPV (7.0-11.0) fL Prelim Diff (Auto) Neut % (Auto) (16.0-70.0) % Lymph % (Auto) (9.0-44.0) % Metcalfe % (Auto) (0.0-8.0) % Eos % (Auto) (0.0-4.0) % Baso % (Auto) (0.0-2.0) % Neut # (Auto) (1.8-7.7) th/mm3 Lymph # (Auto) (1.0-4.8) th/mm3 Metcalfe # (Auto) (0.0-0.9) th/mm3 Eos # (Auto) (0.0-0.4) th/mm3 Baso # (Auto) (0.0-0.2) th/mm3 WBC Differential Seg Neuts % (Manual) (16-70) % Band Neuts % (Manual) (0-6) % Lymphocytes % (Manual) (9-44) % Monocytes % (Manual) (0-8) % Eosinophils % (Manual) (0-4) % Basophils % (Manual) (0-2) % Myelocytes % (Man) (0-0) % Abs Neuts (Manual) (1.8-7.7) th/mm3 Differential Comment Platelet Estimate (Normal) Platelet Morphology (Normal) RBC Morphology (Normal) PT (9.8-11.6) sec INR Ratio APTT (24.3-30.1) sec Sodium (136-145) meq/L Potassium (3.5-5.1) meq/L Chloride (98-107) meq/L Carbon Dioxide (21.0-32.0) meq/L Anion Gap (5-15) meq/L BUN (7-18) mg/dL Creatinine (0.60-1.30) mg/dL Estimated GFR (>89) mL/min Random Glucose (74-106) mg/dL Calcium (8.5-10.1) mg/dL Troponin I (0.02-0.05) ng/mL Urine Color Yellow (Yellw/Straw) Urine Clarity Hazy H (Clear) Urine pH 5.0 (5.0-8.5) Ur Specific Molino 1.018 (1.002-1.035) Urine Protein 30 H (Neg-Trace) mg/dL Urine Glucose (UA) Negative (Negative) mg/dL Urine Ketones Negative (Negative) mg/dL Urine Occult Blood Negative (Negative) Urine Nitrate Negative (Negative) Urine Bilirubin Negative (Negative) Urine Urobilinogen Less than 2 (Less than 2) mg/dL Ur Leukocyte Esterase Negative (Negative) Urine RBC 1 (0-3) /hpf Urine WBC 3 (0-5) /hpf Ur Squamous Epith Cells 1 (0-5) /hpf Urine Mucus Few H (Occasional) /lpf Micro UA Comment Culture not ind Ur Microscopic Review Not Reportable Urine Culture Comments Culture not ind Blood Type A Positive Blood Type Recheck Required Antibody Screen Negative Imaging Data Radiologist's impression: Ribs X-Ray 02/12/18 19:29 CONCLUSION: Hypoaerated lungs with bilateral patchy airspace disease especially in the right upper lobe. No evidence of displaced rib fracture or pneumothorax.. Head CT 02/12/18 21:31 CONCLUSION: 1. Old right frontal and insular infarcts 2. Central atrophy with chronic ischemic white matter disease. 3. No evidence of acute infarct, hemorrhage, mass or edema. 4. Intact skull . Abdomen/Pelvis CT 02/12/18 21:32 CONCLUSION: 1. I do not see an acute intraperitoneal or pelvic process to explain current clinical symptoms. 2. Stable findings of bilateral renal cortical cysts and a stable 1.3 cm cyst in the tail of the pancreas. Worsening bibasilar atelectatic changes with old rib fracture posteriorly in the right lower chest. Regional surgical clips are likely related to the reported history of prior lobectomy. 3. Atherosclerotic calcification of the coronary arteries. Chest CTA 02/12/18 21:32 CONCLUSION: 1. No evidence of acute pulmonary embolism 2. Bilateral subsegmental airspace disease predominantly within the lower lobes. 3. Cardiomegaly with extensive coronary artery calcification. ECG Data EKG Prior to Arrival: No Attestation: I personally reviewed and interpreted this ECG as follows: Prior ECG tracings: not available for review Interpretation: EKG atrial fibrillation rate 105-90; no acute ST elevation injury pattern or ectopy noted QS inferiorly age-indeterminate Discharge Plan Discharge Disposition Patient Disposition: 30 Still Patient Discharge Condition Condition: Stable Discharge Details Diagnosis: Hypoxemia, Intractable back pain, Atrial fibrillation Physicians Team ED Provider: Loren Pryor Primary Care Provider: Samuel Cruz Attending Provider: Michaelle Bethea Discharge Interventions Interventions: Vital Signs Last Done: 02/12/18 23:10 Status ED Status: Admitted Patient
[2018-02-12 20:38] LABS: Activated Partial Thrombo Time 28.5 sec (24.3-30.1); INR 1.1 Ratio; Prothrombin Time 10.7 sec (9.8-11.6)
[2018-02-12 20:41] LABS: Baso % (Auto) 0.5 % (0.0-2.0); Eos # (Auto) 0.1 th/mm3 (0.0-0.4); Eos % (Auto) 1.4 % (0.0-4.0); Hemoglobin 15.1 gm/dL (13.0-17.0); Lymph # (Auto) 0.8 th/mm3 (1.0-4.8); Lymph % (Auto) 7.8 % (9.0-44.0); Mean Corpuscular HGB Conc 33.6 % (32.0-36.0); Mean Corpuscular Hemoglobin 31.5 pg (27.0-34.0); Mean Corpuscular Volume 93.8 fL (80.0-100.0); Mean Platelet Volume 7.6 fL (7.0-11.0); Mono # (Auto) 0.7 th/mm3 (0.0-0.9); Mono % (Auto) 6.8 % (0.0-8.0); Neut # (Auto) 8.2 th/mm3 (1.8-7.7); Neut % (Auto) 83.5 % (16.0-70.0); Platelet Count 175 th/mm3 (150-450); Red Cell Distribution Width 15.5 % (11.6-17.2); White Blood Count 9.9 th/mm3 (4.0-11.0)
[2018-02-12 20:44] LABS: Anion Gap 8 meq/L (5-15); Blood Urea Nitrogen 16 mg/dL (7-18); Calcium 8.8 mg/dL (8.5-10.1); Chloride 105 meq/L (98-107); Glomerular Filtration Rate 71 mL/min (>89); Glucose,Random 91 mg/dL (74-106); Potassium 4.2 meq/L (3.5-5.1); Sodium 142 meq/L (136-145)
[2018-02-12 21:35] LABS: Eosinophils 2 % (0-4); Lymphocytes 7 % (9-44); Monocytes 3 % (0-8); Myelocytes 1 % (0-0); Platelet Estimate Normal (Normal); Platelet Morphology Normal (Normal); RBC Morphology Normal (Normal)
--- NOTE | 2018-02-12 22:23 | CT ---
EXAM DATE: 02/12/2018 10:19 PM EDT AGE/SEX: 77 years / Male INDICATIONS: Trauma. Fell last night. Head injury. CLINICAL DATA: This is the patient's initial encounter. Patient reports that signs and symptoms have been present for 1 day and indicates a pain score of 4/10. MEDICAL/SURGICAL HISTORY: Congestive heart failure. Cerebrovascular disease. Hypertension. Prosta tectomy. Lobectomy. RADIATION DOSE: 56.36 CTDI (mGy) ;Tabletop exam COMPARISON: [facility] – [place], CT BRAIN W/O CONTRAST, 10/18/2017. . TECHNIQUE: CT of the head without contrast. Using automated exposure control and adjustment of the mA and/or kV according to patient size, radiation dose was kept as low as reasonably achievable to ob tain optimal diagnostic quality images. DICOM format image data is available electronically for revi ew and comparison. FINDINGS: Cerebrum: Focal encephalomalacia is identified in the right frontal and insular lobes. There are no characteristic findings of an acute infarct or hemorrhage. There is no evidence of mass effect or lo ma. Central atrophy especially on the right is noted. There is periventricular hypodensity. Posterior Fossa: The cerebellum and brainstem are intact. The 4th ventricle is midline. The cerebe llopontine angle is unremarkable. Extracranial: The visualized portion of the orbits is intact. Skull: The calvaria is intact. No evidence of skull fracture. CONCLUSION: 1. Old right frontal and insular infarcts 2. Central atrophy with chronic ischemic white matter disease. 3. No evidence of acute infarct, hemorrhage, mass or edema. 4. Intact skull . Electronically signed by: Deniz Albarran MD 02/12/2018 10:22 PM EDT
[2018-02-12 22:28] LABS: Bilirubin,Urine Negative (Negative); Clarity,Urine Hazy (Clear); Color,Urine Yellow (Yellw/Straw); Glucose,Urine (UA) Negative (Negative); Leukocyte Esterase,Urine Negative (Negative); Mucus,Urine Few /lpf (Occasional); Nitrite,Urine Negative (Negative); Specific Gravity,Urine 1.018 (1.002-1.035); Squamous Epithelial Cell,Urine 1 /hpf (0-5)
--- NOTE | 2018-02-12 22:43 | CT ---
EXAM DATE: 02/12/2018 10:32 PM EDT AGE/SEX: 77 years / Male INDICATIONS: Trauma. Fell last night. Left upper back pain. Evaluate for pulmonary embolism. CLINICAL DATA: This is the patient's initial encounter. Patient reports that signs and symptoms have been present for 1 day and indicates a pain score of 8/10. MEDICAL/SURGICAL HISTORY: Congestive heart failure. Cerebrovascular disease. Hypertension. Prosta tectomy. Lobectomy. RADIATION DOSE: 9.40 CTDI (mGy) COMPARISON: [facility] [place], CT PULMONARY ANGIOGRAM, 10/19/2017. . TECHNIQUE: Volumetric scanning was performed using a multi-row detector CT scanner during bolus infu kevon of 100 ml Omnipaque 350 (iohexol) nonionic water-soluble contrast as a cumulative dose for mult iple exams. The data was post processed with a variety of visualization algorithms including full vol ume maximum intensity projection and sliding thin slab reformation. Using automated exposure control and adjustment of the mA and/or kV according to patient size, radiation dose was kept as low as reaso nably achievable to obtain optimal diagnostic quality images. DICOM format image data is available e lectronically for review and comparison. FINDINGS: Pulmonary Arteries: No filling defects are seen in the pulmonary arteries out to the subsegmental ve ssels. The left and right pulmonary arteries are normal in diameter. Lung: Subsegmental patchy airspace disease is identified in both lungs predominantly within the lowe r lobes. Effusion: None. Mediastinum: The heart is mildly enlarged. Moderate coronary artery calcification is noted. Other: The axilla is unremarkable. CONCLUSION: 1. No evidence of acute pulmonary embolism 2. Bilateral subsegmental airspace disease predominantly within the lower lobes. 3. Cardiomegaly with extensive coronary artery calcification. Electronically signed by: Deniz Albarran MD 02/12/2018 10:41 PM EDT
--- NOTE | 2018-02-12 22:57 | CT ---
EXAM DATE: 02/12/2018 10:32 PM EDT AGE/SEX: 77 years / Male INDICATIONS: Trauma. Fell last night. Left abdominal pain. CLINICAL DATA: This is the patient's initial encounter. Patient reports that signs and symptoms have been present for 1 day and indicates a pain score of 6/10. MEDICAL/SURGICAL HISTORY: Congestive heart failure. Cerebrovascular disease. Hypertension. Lo bectomy. Prostatectomy. ORAL CONTRAST: No oral contrast ingested. RADIATION DOSE: 19.78 CTDI (mGy) COMPARISON: [facility] [place], CT ABDOMEN & PELVIS W CONTRAST, 08/28/2017. . TECHNIQUE: Multiple contiguous axial images were obtained through the abdomen and pelvis following b olus infusion of 100 ml Omnipaque 350 (iohexol) nonionic water-soluble contrast as a cumulative dos e for multiple exams. No oral contrast ingested. Using automated exposure control and adjustment of the mA and/or kV according to patient size, radiation dose was kept as low as reasonably achievable t o obtain optimal diagnostic quality images. DICOM format image data is available electronically for review and comparison. FINDINGS: Lower Lungs: Bibasilar atelectatic changes are worse when compared to the prior exam. Stable right po sterior lower rib fracture with regional surgical clips probably related to the patient's reported hi story of prior lobectomy. Atherosclerotic calcification of the coronary arteries Liver: The liver has a homogeneous density without space-occupying lesion. There is no dilation of th e biliary tree. Spleen: Homogeneous density without enlargement. Pancreas: Stable 1.3 cm cyst in the tail of the pancreas Kidneys: Bilateral renal cortical cysts, the largest of the right lower pole measuring 12.1 cm in di ameter. Largest cyst on the left measures approximately 4.2 cm at the junction of the upper and midpo le. No stones or hydronephrosis Adrenal Glands: Unremarkable. Aorta: The aorta and proximal iliac vessels are grossly unremarkable without aneurysmal dilation. Bowel/Mesentery: The bowel loops are grossly unremarkable. The cecum and sigmoid colon have a normal configuration. Abdominal Wall: Intact. Retroperitoneum: No evidence of adenopathy in the retrocrural, para-aortic, or deep pelvic regions. Bladder: Contours are smooth. Reproductive Organs: No abnormal masses or calcifications seen. Inguinal: The inguinal region is unremarkable without evidence of adenopathy. Bony Structures: Degenerative spurring of the lumbar spine with some facet hypertrophy at L4-5 and L 5-S1. Bilateral osteoarthritic changes in the hips. Post Contrast: No abnormal areas of enhancement seen. CONCLUSION: 1. I do not see an acute intraperitoneal or pelvic process to explain current clinical symptoms. 2. Stable findings of bilateral renal cortical cysts and a stable 1.3 cm cyst in the tail of the yeh creas. Worsening bibasilar atelectatic changes with old rib fracture posteriorly in the right lower c hest. Regional surgical clips are likely related to the reported history of prior lobectomy. 3. Atherosclerotic calcification of the coronary arteries. Electronically signed by: Sushant Moon MD 02/12/2018 10:55 PM EDT
[2018-02-12] MEDS ORDERED: Metoprolol Tartrate 25 MG Tablet PO ONE (23:09)
[2018-02-12] MEDS ORDERED: Morphine Inj 4 MG/ML Vial IV.PUSH ONE (23:10)
[2018-02-12] MEDS ORDERED: Acetaminophen 325 MG Tablet PO PRN (23:28)
[2018-02-12] MEDS ORDERED: Bisacodyl 10 MG Supp RECTAL PRN (23:28)
[2018-02-12] MEDS ORDERED: Sod Chloride 0.9% Inj 1,000 ML IV.CONT SCH (23:30)
--- NOTE | 2018-02-12 23:50 | P.HPIM ---
History of Present Illness Primary Care Physician: Samuel Cruz MD History of Present Illness: This is a 77-year-old male with a PMH of HTN, A. fib on Eliquis, Hyperlipidemia , h/o CVA w/ Left Hemiparesis, CHF (Echo 08/06/16 w/ EF 60-65%), Recurrent Falls and h/o Alcohol Abuse who was brought to the ER by EMS for complaints of back pain after a fall. States he was in the bathroom getting ready for bed when he lost his balance and fell back against the closet door then to the floor. Denies LOC. Notes upper back pain, constant, 10/10, worse w/ movement. On arrival, BP 162/94, HR 95, O2 sat 93% on 4L NC, Temp 99.6. While in ER noted to have hypoxia w/ O2 sat 84% on RA. Per patient, previous h/o hypoxia however "they never did anything about it". Denies cough, chest pain or SOB. Also notes RUE tremor x2 wks, pending eval by PCP. CBC essentially unremarkable except for elevated neutrophil count. INR 1.1. Chemistry unremarkable except for GFR 71. Troponin negative. UA negative. CT Head with old right frontal and insular infarcts. CT Abdomen/Pelvis no acute intraperitoneal or pelvic process, stable bilateral renal cysts. CTA Chest negative for PE, bilateral subsegmental airspace disease within the lower lobes, extensive coronary artery calcification. Ribs X-ray negative. - Diagnosis (1) Fall (2) Intractable pain (3) Hypoxia (4) A-fib Inpatient Certification: I certify that the inpatient services were ordered in accordance with Medicare regulations governing the order. This includes certification that hospital inpatient services are reasonable and necessary and in the case of services not specified as inpatient-only under 42 CFR 419.22(n), that they are appropriately provided as inpatient services in accordance to with the 2-midnight benchmark under 43 CFR 412.3(e) Estimated Total Length of Stay (Days): 2 Plans for Post Hospital Care: Not yet determined Review of Systems PAST FAMILY HISTORY: Reviewed. No h/o DM or CAD All other systems reviewed negative except as stated in HPI PMFSH - History History Provided By: Patient - Medical History Medical History: Medical History (Last Reviewed 02/12/18 @ 20:28 by Loren Pryor MD) Afib CHF (congestive heart failure) CVA, old, hemiparesis Cataract High cholesterol Hypertension - Surgical History Surgical History: Surgical History (Last Reviewed 02/12/18 @ 20:28 by Loren Pryor MD) H/O prostatectomy S/P lobectomy of lung - Tobacco History Second Hand Smoke Exposure: No Tobacco Use In Past 30 Days: No Smoking Status: Former smoker - Alcohol History How Often Do You Have a Drink Containing Alcohol: Monthly or less - Substance Use History Substance History: No History of Abuse - Travel History Recent Travel in the [place] Within the Last 8 Weeks: No Recent Travel Out of the Country Within the Last 8 Weeks: No - Immunization History Tetanus Immunization: Unsure Hx Influenza Vaccine This Season: No Medications and Allergies Active Medications: Active Medications Acetaminophen (Tylenol) 650 mg PO Q4H PRN PRN Reason: Temp > 100.4 Hydrocodone Bitart/Acetaminophen ([place] 5/325) 1 tab PO Q4H PRN PRN Reason: PAIN 3-5 Al Hydroxide/Mg Hydroxide (Milk Of Magnesia Liq) 30 ml PO Q12H PRN PRN Reason: Mild Constipation Albuterol (Duoneb Neb (Prn)) 1 ampul NEB Q4HR NEB PRN PRN Reason: SOB/WHEEZING Amlodipine Besylate (Norvasc) 10 mg PO DAILY RAIMUNDO Apixaban (Eliquis) 5 mg PO BID [facility] Aspirin (Ecotrin) 81 mg PO DAILY [facility] Atorvastatin Calcium (Lipitor) 40 mg PO DAILY RAIMUNDO Bisacodyl (Dulcolax Supp) 10 mg RECTAL DAILY PRN PRN Reason: SEVERE CONSITIPATION Folic Acid (Folic Acid) 1 mg PO DAILY [facility] Sodium Chloride (Ns Inj) 1,000 mls @ 100 mls/hr IV.CONT .Q10H RAIMUNDO Stop: 02/13/18 09:29 Lactulose (Lactulose Liq) 30 ml PO DAILY PRN PRN Reason: SEVERE CONSITIPATION Levothyroxine Sodium (Synthroid) 75 mcg PO DAILY [facility] Metoprolol Tartrate (Lopressor) 25 mg PO BID [facility] Morphine Sulfate (Morphine Inj) 2 mg IV.PUSH Q4H PRN PRN Reason: PAIN 6-10 Ondansetron HCl (Zofran Inj) 4 mg IV.PUSH Q6H PRN PRN Reason: NAUSEA OR VOMITING Senna/Docusate Sodium (Lucia-Colace) 1 tab PO BID [facility] Sennosides (Senokot) 17.2 mg PO Q12H PRN PRN Reason: Moderate Constipation Sertraline HCl (Zoloft) 100 mg PO DAILY RAIMUNDO Sodium Chloride (Ns Flush) 2 ml IV.FLUSH PRN PRN PRN Reason: FLUSH AFTER USING IV ACCESS Allergies Allergy/AdvReac Type Severity Reaction Status Date / Time No Known Allergies Allergy Unverified 02/12/18 19:00 Home Medications Medication Instructions Recorded Confirmed Type amlodipine 10 mg PO DAILY 02/12/18 02/12/18 History apixaban [Eliquis] 5 mg PO BID 02/12/18 02/12/18 History aspirin [Aspir-Low] 81 mg PO DAILY 02/12/18 02/12/18 History atorvastatin 40 mg PO DAILY 02/12/18 02/12/18 History folic acid 1 mg PO DAILY 02/12/18 02/12/18 History furosemide 40 mg PO DAILY 02/12/18 02/12/18 History metoprolol tartrate 25 mg PO BID 02/12/18 02/12/18 History polyethylene glycol 3350 [Miralax] 17 g PO DAILY 02/12/18 02/12/18 History sertraline 100 mg PO DAILY 02/12/18 02/12/18 History levothyroxine [Synthroid] 175 mcg PO DAILY 02/13/18 02/13/18 History tizanidine 4 mg PO Q6-8H PRN 02/13/18 02/13/18 History Exam Vital signs: Vital Signs 02/12/18 19:04 02/12/18 23:10 02/12/18 23:47 Temperature 99.6 F Pulse Rate 95 H 93 H Respiratory Rate 19 Blood Pressure 162/94 H 179/109 H Pulse Oximetry 93 L 93 L Intake & Output 02/12/18 02/12/18 02/13/18 06:59 18:59 06:59 Weight 108.862 kg Narrative: PE: GENERAL: Pleasant elderly white male in no acute distress. RUE tremor HEENT: PERRLA, EOMI. No scleral icterus or conjunctival pallor. No lid lag or facial droop. CARDIOVASCULAR: Irregularly irregular, and A. fib. No obvious murmurs to auscultation. No chest tenderness to palpation. RESPIRATORY: No obvious rhonchi or wheezing. Clear to auscultation. Breath sounds equal bilaterally. GASTROINTESTINAL: Abdomen soft, non-tender, nondistended. BS normal. MUSCULOSKELETAL: Extremities without clubbing, cyanosis, or edema. No obvious deformities. Large area of ecchymosis upper back, +tenderness to palpation. NEUROLOGICAL: Awake, alert and oriented x4. No focal neurologic deficits. Moving both upper and lower extremities spontaneously. Results - Labs CBC & Chem 7: 02/12/18 19:40 02/12/18 19:40 Labs: Short CBC 02/12/18 Range/Units 19:40 WBC 9.9 (4.0-11.0) th/mm3 Hgb 15.1 (13.0-17.0) gm/dL Hct 45.0 (39.0-51.0) % Plt Count 175 (150-450) th/mm3 BMP 02/12/18 19:40 Sodium 142 Potassium 4.2 Chloride 105 Carbon Dioxide 29.0 BUN 16 Creatinine 1.02 Calcium 8.8 Cardiac Enzymes 02/12/18 Range/Units 19:40 Troponin I Less than 0.02 L (0.02-0.05) ng/mL Urine 02/12/18 Range/Units 21:37 Urine Color Yellow (Yellw/Straw) Urine Clarity Hazy H (Clear) Urine pH 5.0 (5.0-8.5) Ur Specific [place] 1.018 (1.002-1.035) Urine Protein 30 H (Neg-Trace) mg/dL Urine Glucose (UA) Negative (Negative) mg/dL - Imaging Impressions Ribs X-Ray 02/12/18 19:29 CONCLUSION: Hypoaerated lungs with bilateral patchy airspace disease especially in the right upper lobe. No evidence of displaced rib fracture or pneumothorax.. Head CT 02/12/18 21:31 CONCLUSION: 1. Old right frontal and insular infarcts 2. Central atrophy with chronic ischemic white matter disease. 3. No evidence of acute infarct, hemorrhage, mass or edema. 4. Intact skull . Abdomen/Pelvis CT 02/12/18 21:32 CONCLUSION: 1. I do not see an acute intraperitoneal or pelvic process to explain current clinical symptoms. 2. Stable findings of bilateral renal cortical cysts and a stable 1.3 cm cyst in the tail of the pancreas. Worsening bibasilar atelectatic changes with old rib fracture posteriorly in the right lower chest. Regional surgical clips are likely related to the reported history of prior lobectomy. 3. Atherosclerotic calcification of the coronary arteries. Chest CTA 02/12/18 21:32 CONCLUSION: 1. No evidence of acute pulmonary embolism 2. Bilateral subsegmental airspace disease predominantly within the lower lobes. 3. Cardiomegaly with extensive coronary artery calcification. Caprini VTE Risk Assessment Caprini VTE Risk Assessment: Moderate/High Risk (score >= 2) Caprini Risk Assessment Model: Point Value = 1 Point Value = 2 Point Value = 3 Point Value = 5 Age 41-60 Minor surgery BMI > 25 kg/m2 Swollen legs Varicose veins or History of unexplained or recurrent spontaneous Oral contraceptives or hormone replacement Sepsis (< 1 month) Serious lung disease, including pneumonia (< 1 month) Abnormal pulmonary function Acute myocardial infarction Congestive heart failure (< 1 month) History of inflammatory bowel disease Medical patient at bed rest Age 61-74 Arthroscopic surgery Major open surgery (> 45 min) Laparoscopic surgery (> 45 min) Malignancy Confined to bed (> 72 hours) Immobilizing plaster cast Central venous access Age >= 75 History of VTE Family history of VTE Factor V Leiden Prothrombin [id number] Lupus anticoagulant Anticardiolipin antibodies Elevated serum homocysteine Heparin-induced thrombocytopenia Other congenital or acquired thrombophilia Stroke (< 1 month) Elective arthroplasty Hip, pelvis, or leg fracture Acute spinal cord injury (< 1 month) Prophylaxis Regimen: Total Risk Factor Score Risk Level Prophylaxis Regimen 0-1 Low Early ambulation 2 Moderate Order ONE of the following: *Sequential Compression Device (SCD) *Heparin 5000 units SQ BID 3-4 Higher Order ONE of the following medications: *Heparin 5000 units SQ TID *Enoxaparin/Lovenox 40 mg SQ daily (WT < 150 kg, CrCl > 30 mL/min) *Enoxaparin/Lovenox 30 mg SQ daily (WT < 150 kg, CrCl > 10-29 mL/min) *Enoxaparin/Lovenox 30 mg SQ BID (WT < 150 kg, CrCl > 30 mL/min) AND/OR *Sequential Compression Device (SCD) 5 or more Highest Order ONE of the following medications: *Heparin 5000 units SQ TID (Preferred with Epidurals) *Enoxaparin/Lovenox 40 mg SQ daily (WT < 150 kg, CrCl > 30 mL/min) *Enoxaparin/Lovenox 30 mg SQ daily (WT < 150 kg, CrCl > 10-29 mL/min) *Enoxaparin/Lovenox 30 mg SQ BID (WT < 150 kg, CrCl > 30 mL/min) AND *Sequential Compression Device (SCD) Assessment and Plan - Assessment (1) Fall Code(s): W19.XXXA - Unspecified fall, initial encounter Status: Acute (2) Intractable pain Code(s): R52 - Pain, unspecified Status: Acute (3) Hypoxia Code(s): R09.02 - Hypoxemia Status: Acute (4) A-fib Code(s): I48.91 - Unspecified atrial fibrillation Status: Acute - Plan A/P: 1. Fall: s/p mechanical fall, no LOC, +head trauma. CT Head w/ old infarcts, no acute findings. PT for eval/tx. 2. A-fib: Chronic, on anticoagulation w/ Eliquis, CT Abd/Pelvis w/ no intra- abdominal/pelvic findings, images reviewed. Resume home medications, monitor closely for bleeding in light of recent fall/trauma. Repeat labs in am. 3. Hypoxia: O2 sat 84% on RA while in ER, states he has previous h/o similar symptoms however no work up done. CTA Chest negative for PE, bilateral subsegmental airspace disease within lower lobes. DuoNeb prn, monitor O2, Consult Pulm as needed for further evaluation, eval for Home O2 needs. 4. Intractable Pain: secondary to fall, +large ecchymosis upper back, analgesics/antiemetics as needed. 5. DVT Prophylaxis: On Eliquis 6. Social work for DC planning as needed. 7. Case discussed at length with the ER physician, lab/record/imaging reviewed by me.
[2018-02-13 04:38] LABS: Baso % (Auto) 0.4 % (0.0-2.0); Eos # (Auto) 0.2 th/mm3 (0.0-0.4); Eos % (Auto) 1.7 % (0.0-4.0); Lymph # (Auto) 0.7 th/mm3 (1.0-4.8); Lymph % (Auto) 7.2 % (9.0-44.0); Mean Corpuscular HGB Conc 34.1 % (32.0-36.0); Mean Corpuscular Hemoglobin 31.7 pg (27.0-34.0); Mean Platelet Volume 7.8 fL (7.0-11.0); Mono # (Auto) 0.9 th/mm3 (0.0-0.9); Mono % (Auto) 8.7 % (0.0-8.0); Neut # (Auto) 8.5 th/mm3 (1.8-7.7); Platelet Count 177 th/mm3 (150-450); Red Blood Count 4.73 mil/mm3 (4.50-5.90); Red Cell Distribution Width 15.4 % (11.6-17.2); White Blood Count 10.4 th/mm3 (4.0-11.0)
[2018-02-13 05:14] LABS: Alanine Aminotransferase 21 U/L (12-78); Albumin 3.1 g/dL (3.4-5.0); Aspartate Aminotransferase 19 U/L (15-37); Blood Urea Nitrogen 13 mg/dL (7-18); Calcium 8.6 mg/dL (8.5-10.1); Carbon Dioxide 30.5 meq/L (21.0-32.0); Glomerular Filtration Rate 78 mL/min (>89); Glucose,Random 75 mg/dL (74-106)
[2018-02-13 05:16] LABS: Alkaline Phosphatase 95 U/L (45-117); Anion Gap 10 meq/L (5-15); Chloride 102 meq/L (98-107); Potassium 3.8 meq/L (3.5-5.1); Sodium 142 meq/L (136-145); Total Protein 7.4 g/dL (6.4-8.2)
[2018-02-13] MEDS: Morphine Inj 4 MG/ML Vial IV.PUSH PRN (05:16)
[2018-02-13] MEDS: Levothyroxine 75 MCG Tablet PO SCH (05:17)
[2018-02-13] MEDS: Metoprolol Tartrate 25 MG Tablet PO SCH ×2 (08:14→21:40)
[2018-02-13] MEDS: Sertraline 100 MG Tablet PO SCH (08:14)
[2018-02-13] MEDS: amLODIPine 10 MG Tablet PO SCH (08:14)
[2018-02-13] MEDS: Folic Acid 1 MG Tablet PO SCH (08:14)
[2018-02-13] MEDS: Senna/Docusate Sodium 8.6/50 MG Tablet PO SCH ×2 (08:14→21:39)
[2018-02-13 10:20] LABS: ABG Base Excess 2.9 mmol/L (-2-2); ABG PCO2 47 mmHg (38-42); ABG PO2 63 mmHG (61-120)
--- NOTE | 2018-02-13 10:51 | P.PN ---
Subjective Interval history: Follow-up hypoxemia/mechanical fall February 13, 2018-patient seen and examined and complains of left-sided pain secondary to mechanical fall. ABG ordered this morning with evidence of hypoxemia. Patient denies any use of home to oxygen at home Physical Exam Vital signs: Vital Signs 02/12/18 19:04 02/12/18 23:10 02/12/18 23:47 Temperature 99.6 F Pulse Rate 95 H 93 H Respiratory Rate 18 18 19 Blood Pressure 162/94 H 179/109 H Pulse Oximetry 93 L 93 L 02/13/18 00:01 02/13/18 00:02 02/13/18 01:36 Temperature Pulse Rate 103 H 103 H Respiratory Rate 16 Blood Pressure 168/89 H Pulse Oximetry 96 92 L 02/13/18 02:00 02/13/18 03:16 02/13/18 04:00 Temperature 99.3 F 98.8 F Pulse Rate 104 H 100 H 97 H Respiratory Rate 20 20 Blood Pressure 160/92 H 167/102 H Pulse Oximetry 92 L 92 L 02/13/18 05:36 02/13/18 06:39 02/13/18 08:09 Temperature 98.2 F Pulse Rate 101 H Respiratory Rate 18 18 24 Blood Pressure 146/90 H Pulse Oximetry 02/13/18 08:28 02/13/18 09:42 Temperature Pulse Rate 90 Respiratory Rate 20 Blood Pressure Pulse Oximetry 91 L Intake & Output 02/12/18 02/13/18 02/13/18 18:59 06:59 18:59 Output Total 500 / 500 Balance -500 / -500 Weight 108.9 kg Output: Urine 500 / 500 Other: Weight On Admission 108.9 kg Narrative: GENERAL: NAD SKIN: Warm and dry. HEAD: Normocephalic. EYES: No scleral icterus. No injection or drainage. NECK: Supple, trachea midline. No JVD or lymphadenopathy. CARDIOVASCULAR: Regular rate and rhythm without murmurs, gallops, or rubs. RESPIRATORY: Breath sounds equal bilaterally. No accessory muscle use. GASTROINTESTINAL: Abdomen soft, non-tender, nondistended. MUSCULOSKELETAL: No cyanosis, or edema. BACK: Nontender without obvious deformity. No CVA tenderness. Results - Labs CBC & Chem 7: 02/13/18 03:22 02/13/18 03:22 Laboratory Results - last 24 hr 02/12/18 02/12/18 02/12/18 19:40 19:40 19:40 WBC 9.9 RBC 4.80 Hgb 15.1 Hct 45.0 MCV 93.8 MCH 31.5 MCHC 33.6 RDW 15.5 Plt Count 175 MPV 7.6 Prelim Diff (Auto) Slide review pending Neut % (Auto) 83.5 H Lymph % (Auto) 7.[address] [place] % (Auto) 6.8 Eos % (Auto) 1.4 Baso % (Auto) 0.5 Neut # (Auto) 8.2 H Lymph # (Auto) 0.[address] # (Auto) 0.7 Eos # (Auto) 0.1 Baso # (Auto) 0.0 WBC Differential Manual diff final Seg Neuts % (Manual) 84 H Band Neuts % (Manual) 1 Lymphocytes % (Manual) 7 L Monocytes % (Manual) 3 Eosinophils % (Manual) 2 Basophils % (Manual) 2 Myelocytes % (Man) 1 H Abs Neuts (Manual) 8.5 H Differential Comment . Platelet Estimate Normal Platelet Morphology Normal RBC Morphology Normal PT 10.7 INR 1.1 APTT 28.5 Puncture Site Patient Temperature O2 Saturation ABG pH ABG pCO2 ABG pO2 ABG HCO3 ABG O2 Content ABG Base Excess ABG Methemoglobin Shaun Test Hemoglobin Carboxyhemoglobin O2 Delivery Device Liter Flow Inspired O2 Critical Value Sodium 142 Potassium 4.2 Chloride 105 Carbon Dioxide 29.0 Anion Gap 8 BUN 16 Creatinine 1.02 Estimated GFR 71 L Random Glucose 91 Calcium 8.8 Total Bilirubin AST ALT Alkaline Phosphatase Troponin I Less than 0.02 L Total Protein Albumin Urine Color Urine Clarity Urine pH Ur Specific [place] Urine Protein Urine Glucose (UA) Urine Ketones Urine Occult Blood Urine Nitrate Urine Bilirubin Urine Urobilinogen Ur Leukocyte Esterase Urine RBC Urine WBC Ur Squamous Epith Cells Urine Mucus Micro UA Comment Ur Microscopic Review Urine Culture Comments Blood Type Blood Type Recheck Antibody Screen 02/12/18 02/12/18 02/13/18 19:40 21:37 03:22 WBC 10.4 RBC 4.73 Hgb 15.0 Hct 44.0 MCV 93.0 MCH 31.7 MCHC 34.1 RDW 15.4 Plt Count 177 MPV 7.8 Prelim Diff (Auto) Neut % (Auto) 82.0 H Lymph % (Auto) 7.[address] % (Auto) 8.7 H Eos % (Auto) 1.7 Baso % (Auto) 0.4 Neut # (Auto) 8.5 H Lymph # (Auto) 0.[address] # (Auto) 0.9 Eos # (Auto) 0.2 Baso # (Auto) 0.0 WBC Differential . Seg Neuts % (Manual) Band Neuts % (Manual) Lymphocytes % (Manual) Monocytes % (Manual) Eosinophils % (Manual) Basophils % (Manual) Myelocytes % (Man) Abs Neuts (Manual) Differential Comment Auto diff final Platelet Estimate Platelet Morphology RBC Morphology PT INR APTT Puncture Site Patient Temperature O2 Saturation ABG pH ABG pCO2 ABG pO2 ABG HCO3 ABG O2 Content ABG Base Excess ABG Methemoglobin Shaun Test Hemoglobin Carboxyhemoglobin O2 Delivery Device Liter Flow Inspired O2 Critical Value Sodium Potassium Chloride Carbon Dioxide Anion Gap BUN Creatinine Estimated GFR Random Glucose Calcium Total Bilirubin AST ALT Alkaline Phosphatase Troponin I Total Protein Albumin Urine Color Yellow Urine Clarity Hazy H Urine pH 5.0 Ur Specific [place] 1.018 Urine Protein 30 H Urine Glucose (UA) Negative Urine Ketones Negative Urine Occult Blood Negative Urine Nitrate Negative Urine Bilirubin Negative Urine Urobilinogen Less than 2 Ur Leukocyte Esterase Negative Urine RBC 1 Urine WBC 3 Ur Squamous Epith Cells 1 Urine Mucus Few H Micro UA Comment Culture not ind Ur Microscopic Review Not Reportable Urine Culture Comments Culture not ind Blood Type A Positive Blood Type Recheck Required Antibody Screen Negative 02/13/18 02/13/18 03:22 10:01 WBC RBC Hgb Hct MCV MCH MCHC RDW Plt Count MPV Prelim Diff (Auto) Neut % (Auto) Lymph % (Auto) [place] % (Auto) Eos % (Auto) Baso % (Auto) Neut # (Auto) Lymph # (Auto) [place] # (Auto) Eos # (Auto) Baso # (Auto) WBC Differential Seg Neuts % (Manual) Band Neuts % (Manual) Lymphocytes % (Manual) Monocytes % (Manual) Eosinophils % (Manual) Basophils % (Manual) Myelocytes % (Man) Abs Neuts (Manual) Differential Comment Platelet Estimate Platelet Morphology RBC Morphology PT INR APTT Puncture Site Right radial Patient Temperature 98.6 O2 Saturation 88 L* ABG pH 7.39 ABG pCO2 47 H ABG pO2 63 ABG HCO3 28 H ABG O2 Content 18.8 ABG Base Excess 2.9 H ABG Methemoglobin 1.3 Shaun Test Present Hemoglobin 15.2 Carboxyhemoglobin 1.6 O2 Delivery Device Nasal cannula Liter Flow 4.00 Inspired O2 21 Critical Value Yes Sodium 142 Potassium 3.8 Chloride 102 Carbon Dioxide 30.5 Anion Gap 10 BUN 13 Creatinine 0.94 Estimated GFR 78 L Random Glucose 75 Calcium 8.6 Total Bilirubin 1.3 H AST 19 ALT 21 Alkaline Phosphatase 95 Troponin I Total Protein 7.4 Albumin 3.1 L Urine Color Urine Clarity Urine pH Ur Specific [place] Urine Protein Urine Glucose (UA) Urine Ketones Urine Occult Blood Urine Nitrate Urine Bilirubin Urine Urobilinogen Ur Leukocyte Esterase Urine RBC Urine WBC Ur Squamous Epith Cells Urine Mucus Micro UA Comment Ur Microscopic Review Urine Culture Comments Blood Type Blood Type Recheck Antibody Screen - Imaging Impressions Ribs X-Ray 02/12/18 19:29 CONCLUSION: Hypoaerated lungs with bilateral patchy airspace disease especially in the right upper lobe. No evidence of displaced rib fracture or pneumothorax.. Head CT 02/12/18 21:31 CONCLUSION: 1. Old right frontal and insular infarcts 2. Central atrophy with chronic ischemic white matter disease. 3. No evidence of acute infarct, hemorrhage, mass or edema. 4. Intact skull . Abdomen/Pelvis CT 02/12/18 21:32 CONCLUSION: 1. I do not see an acute intraperitoneal or pelvic process to explain current clinical symptoms. 2. Stable findings of bilateral renal cortical cysts and a stable 1.3 cm cyst in the tail of the pancreas. Worsening bibasilar atelectatic changes with old rib fracture posteriorly in the right lower chest. Regional surgical clips are likely related to the reported history of prior lobectomy. 3. Atherosclerotic calcification of the coronary arteries. Chest CTA 02/12/18 21:32 CONCLUSION: 1. No evidence of acute pulmonary embolism 2. Bilateral subsegmental airspace disease predominantly within the lower lobes. 3. Cardiomegaly with extensive coronary artery calcification. Assessment and Plan - Assessment (1) Fall Code(s): W19.XXXA - Unspecified fall, initial encounter Status: Acute (2) Intractable pain Code(s): R52 - Pain, unspecified Status: Acute (3) Hypoxia Code(s): R09.02 - Hypoxemia Status: Acute (4) A-fib Code(s): I48.91 - Unspecified atrial fibrillation Status: Acute - Plan 77-year-old man with 1. Fall: s/p mechanical fall, no LOC, +head trauma. CT Head w/ old infarcts, no acute findings. PT for eval/tx. 2. A-fib: Chronic, on anticoagulation w/ Eliquis, CT Abd/Pelvis w/ no intra- abdominal/pelvic findings. Continue home medications 3. Hypoxia: CTA Chest negative for PE, bilateral subsegmental airspace disease within lower lobes. DuoNeb prn, monitor O2, Consult Pulm as needed for further evaluation, eval for Home O2 needs. ABG this a.m. with evidence of hypoxemia. Will discharge patient likely home on home to oxygen 4. Intractable Pain: secondary to fall. PT to treat and eval and continue with analgesics/antiemetics as needed.
--- NOTE | 2018-02-13 13:59 | ECG ---
Date Performed: 02/12/2018 Time Performed: 19:12:51 PTAGE: 77 years EKG: ATRIAL FIBRILLATION INDETERMINATE AXIS INFERIOR MYOCARDIAL INFARCTION ABNORMAL ECG PREVIOUS TRACING : 02/12/2018 19.11 Compared to previous tracing,ventricular response with atri al fibrillation is slower. DOCTOR: Carlos Centeno Interpretating Date/Time 02/13/2018 13:58:50
[2018-02-14] MEDS: Morphine Inj 4 MG/ML Vial IV.PUSH PRN ×2 (00:50→09:05)
[2018-02-14] MEDS: Levothyroxine 75 MCG Tablet PO SCH (05:32)
[2018-02-14] MEDS: amLODIPine 10 MG Tablet PO SCH (09:00)
[2018-02-14] MEDS: Metoprolol Tartrate 25 MG Tablet PO SCH ×2 (09:00→20:43)
[2018-02-14] MEDS: Sertraline 100 MG Tablet PO SCH (09:00)
[2018-02-14] MEDS: Folic Acid 1 MG Tablet PO SCH (09:00)
[2018-02-14] MEDS: Senna/Docusate Sodium 8.6/50 MG Tablet PO SCH ×2 (09:00→20:43)
--- NOTE | 2018-02-14 09:32 | P.PN ---
Subjective Interval history: Follow-up hypoxemia/mechanical fall February 13, 2018-patient seen and examined and complains of left-sided pain secondary to mechanical fall. ABG ordered this morning with evidence of hypoxemia. Patient denies any use of home to oxygen at home February 14, 2018-patient seen and examined, denies any significant shortness of breath. No acute event overnight. Physical Exam Vital signs: Vital Signs 02/13/18 09:42 02/13/18 11:19 02/13/18 12:27 Temperature 98.0 F Pulse Rate 90 83 Respiratory Rate 20 22 Blood Pressure 116/82 Pulse Oximetry 93 L 92 L Pulse Oximetry [Resting on Room Air] Pulse Oximetry [Resting with Oxygen] 02/13/18 16:17 02/13/18 16:18 02/13/18 16:29 Temperature 98.8 F Pulse Rate 83 86 Respiratory Rate 18 Blood Pressure 115/68 Pulse Oximetry 92 L 92 L Pulse Oximetry [Resting on Room Air] Pulse Oximetry [Resting with Oxygen] 02/13/18 16:34 02/13/18 19:35 02/13/18 20:06 Temperature Pulse Rate 82 Respiratory Rate Blood Pressure Pulse Oximetry 98 Pulse Oximetry [Resting on Room Air] 82 L Pulse Oximetry [Resting with Oxygen] 92 L 02/13/18 21:25 02/13/18 21:30 02/14/18 00:00 Temperature 98.3 F 98.3 F Pulse Rate 78 89 Respiratory Rate 18 20 20 Blood Pressure 142/83 H 144/88 H Pulse Oximetry 100 97 Pulse Oximetry [Resting on Room Air] Pulse Oximetry [Resting with Oxygen] 02/14/18 00:11 02/14/18 04:00 02/14/18 04:55 Temperature 98 F Pulse Rate 90 88 89 Respiratory Rate 16 Blood Pressure 146/95 H Pulse Oximetry 95 Pulse Oximetry [Resting on Room Air] Pulse Oximetry [Resting with Oxygen] 02/14/18 08:57 Temperature 98.1 F Pulse Rate 79 Respiratory Rate 20 Blood Pressure 118/72 Pulse Oximetry 94 L Pulse Oximetry [Resting on Room Air] Pulse Oximetry [Resting with Oxygen] Intake & Output 02/13/18 02/14/18 02/14/18 18:59 06:59 18:59 Intake Total 1000 / 1000 500 / 500 Output Total 1250 / 1250 Balance 1000 / 1000 -750 / -750 Weight 110.7 kg Intake: IV 1000 / 1000 NS Inj 1,000 ML @ 100 mls/hr IV 1000 / 1000 .CONT .Q10H RAIMUNDO Rx#:[id number] Oral 500 / 500 Output: Urine 1250 / 1250 Other: Date of Last Bowel Movement 02/11/18 02/11/18 Narrative: GENERAL: NAD SKIN: Warm and dry. HEAD: Normocephalic. EYES: No scleral icterus. No injection or drainage. NECK: Supple, trachea midline. No JVD or lymphadenopathy. CARDIOVASCULAR: Regular rate and rhythm without murmurs, gallops, or rubs. RESPIRATORY: Breath sounds equal bilaterally. No accessory muscle use. GASTROINTESTINAL: Abdomen soft, non-tender, nondistended. MUSCULOSKELETAL: No cyanosis, or edema. BACK: Nontender without obvious deformity. No CVA tenderness. Results - Labs CBC & Chem 7: 02/13/18 03:22 02/13/18 03:22 Laboratory Results - last 24 hr 02/13/18 10:01 Puncture Site Right radial Patient Temperature 98.6 O2 Saturation 88 L* ABG pH 7.39 ABG pCO2 47 H ABG pO2 63 ABG HCO3 28 H ABG O2 Content 18.8 ABG Base Excess 2.9 H ABG Methemoglobin 1.3 Shaun Test Present Hemoglobin 15.2 Carboxyhemoglobin 1.6 O2 Delivery Device Nasal cannula Liter Flow 4.00 Inspired O2 21 Critical Value Yes - Procedures None Assessment and Plan - Assessment (1) Fall Code(s): W19.XXXA - Unspecified fall, initial encounter Status: Acute (2) Intractable pain Code(s): R52 - Pain, unspecified Status: Acute (3) Hypoxia Code(s): R09.02 - Hypoxemia Status: Acute (4) A-fib Code(s): I48.91 - Unspecified atrial fibrillation Status: Acute - Plan 77-year-old man with 1. Fall: s/p mechanical fall, no LOC, +head trauma. CT Head w/ old infarcts, no acute findings. PT for eval/tx. 2. A-fib: Chronic, on anticoagulation w/ Eliquis, CT Abd/Pelvis w/ no intra- abdominal/pelvic findings. Continue home medications 3. Hypoxia: CTA Chest negative for PE, bilateral subsegmental airspace disease within lower lobes. DuoNeb prn, monitor O2, Consult Pulm as needed for further evaluation, eval for Home O2 needs. Will perform walk test this a.m. prior to discharge 4. Intractable Pain: secondary to fall. PT to treat and eval and improving with analgesics/antiemetics as needed.
--- NOTE | 2018-02-14 09:32 | P.DCO ---
- Physical Therapy Order: Evaluate and treat - Home Health Nursing Order: Signs/symptoms of disease process - Certification I have seen patient Neeraj Nazario on 02/14/18. My clinical findings support the need for the requested home health care services because: Patient has SOB, Deconditioned with increased weakness I certify that my clinical findings support that this patient is homebound because: Poor cardiac reserve
--- NOTE | 2018-02-14 09:36 | P.DS ---
Date of admission: 02/12/18 23:07 Primary care physician: Sameul Cruz MD Anticipated date of discharge: 02/15/18 Brief History from admission: This is a 77-year-old male with a PMH of HTN, A. fib on Eliquis, Hyperlipidemia , h/o CVA w/ Left Hemiparesis, CHF (Echo 08/06/16 w/ EF 60-65%), Recurrent Falls and h/o Alcohol Abuse who was brought to the ER by EMS for complaints of back pain after a fall. States he was in the bathroom getting ready for bed when he lost his balance and fell back against the closet door then to the floor. Denies LOC. Notes upper back pain, constant, 10/10, worse w/ movement. On arrival, BP 162/94, HR 95, O2 sat 93% on 4L NC, Temp 99.6. While in ER noted to have hypoxia w/ O2 sat 84% on RA. Per patient, previous h/o hypoxia however "they never did anything about it". Denies cough, chest pain or SOB. Also notes RUE tremor x2 wks, pending eval by PCP. CBC essentially unremarkable except for elevated neutrophil count. INR 1.1. Chemistry unremarkable except for GFR 71. Troponin negative. UA negative. CT Head with old right frontal and insular infarcts. CT Abdomen/Pelvis no acute intraperitoneal or pelvic process, stable bilateral renal cysts. CTA Chest negative for PE, bilateral subsegmental airspace disease within the lower lobes, extensive coronary artery calcification. Ribs X-ray negative. DS: Diagnosis - Discharge Diagnosis (1) Fall Status: Acute (2) Intractable pain Status: Acute (3) Hypoxia Status: Acute (4) A-fib Status: Acute DS: Medications - Discharge Medications Prescriptions: hydrocodone-acetaminophen 1 tab PO Q4H PRN #10 tab PRN Reason: PAIN 3-5 DS: Summary Hospital Course: While in hospital, patient was treated for: 1. Fall: s/p mechanical fall, no LOC, +head trauma. CT Head w/ old infarcts, no acute findings. PT for eval/tx. 2. A-fib: Chronic, on anticoagulation w/ Eliquis, CT Abd/Pelvis w/ no intra- abdominal/pelvic findings. Home medications were continued 3. Hypoxia: CTA Chest negative for PE, bilateral subsegmental airspace disease within lower lobes. DuoNeb prn, monitor O2. Her to discharge, patient was on 2 L nasal cannula oxygen 4. Intractable Pain: secondary to fall. PT to treat and eval and improving with analgesics/antiemetics as needed. - Time Spent with Patient Total time spent providing and/or coordinating discharge services: Greater than 30 minutes - Quality: VTE Deep Vein Thrombosis/Pulmonary Embolism Present on Admission: No Exam Vital signs: Vital Signs 02/13/18 09:42 02/13/18 11:19 02/13/18 12:27 Temperature 98.0 F Pulse Rate 90 83 Respiratory Rate 20 22 Blood Pressure 116/82 Pulse Oximetry 93 L 92 L Pulse Oximetry [Resting on Room Air] Pulse Oximetry [Resting with Oxygen] 02/13/18 16:17 02/13/18 16:18 02/13/18 16:29 Temperature 98.8 F Pulse Rate 83 86 Respiratory Rate 18 Blood Pressure 115/68 Pulse Oximetry 92 L 92 L Pulse Oximetry [Resting on Room Air] Pulse Oximetry [Resting with Oxygen] 02/13/18 16:34 02/13/18 19:35 02/13/18 20:06 Temperature Pulse Rate 82 Respiratory Rate Blood Pressure Pulse Oximetry 98 Pulse Oximetry [Resting on Room Air] 82 L Pulse Oximetry [Resting with Oxygen] 92 L 02/13/18 21:25 02/13/18 21:30 02/14/18 00:00 Temperature 98.3 F 98.3 F Pulse Rate 78 89 Respiratory Rate 18 20 20 Blood Pressure 142/83 H 144/88 H Pulse Oximetry 100 97 Pulse Oximetry [Resting on Room Air] Pulse Oximetry [Resting with Oxygen] 02/14/18 00:11 02/14/18 04:00 02/14/18 04:55 Temperature 98 F Pulse Rate 90 88 89 Respiratory Rate 16 Blood Pressure 146/95 H Pulse Oximetry 95 Pulse Oximetry [Resting on Room Air] Pulse Oximetry [Resting with Oxygen] 02/14/18 08:57 Temperature 98.1 F Pulse Rate 79 Respiratory Rate 20 Blood Pressure 118/72 Pulse Oximetry 94 L Pulse Oximetry [Resting on Room Air] Pulse Oximetry [Resting with Oxygen] Intake & Output 02/13/18 02/14/18 02/14/18 18:59 06:59 18:59 Intake Total 1000 / 1000 500 / 500 Output Total 1250 / 1250 Balance 1000 / 1000 -750 / -750 Weight 110.7 kg Intake: IV 1000 / 1000 NS Inj 1,000 ML @ 100 mls/hr IV 1000 / 1000 .CONT .Q10H RAIMUNDO Rx#:[id number] Oral 500 / 500 Output: Urine 1250 / 1250 Other: Date of Last Bowel Movement 02/11/18 02/11/18 Narrative: GENERAL: NAD SKIN: Warm and dry. HEAD: Normocephalic. EYES: No scleral icterus. No injection or drainage. NECK: Supple, trachea midline. No JVD or lymphadenopathy. CARDIOVASCULAR: Regular rate and rhythm without murmurs, gallops, or rubs. RESPIRATORY: Breath sounds equal bilaterally. No accessory muscle use. GASTROINTESTINAL: Abdomen soft, non-tender, nondistended. MUSCULOSKELETAL: No cyanosis, or edema. BACK: Nontender without obvious deformity. No CVA tenderness. Results Procedures completed during hospitalization: None Labs on day of discharge: Labs from last 24 hours 02/13/18 10:01 Puncture Site Right radial Patient Temperature 98.6 O2 Saturation 88 L* ABG pH 7.39 ABG pCO2 47 H ABG pO2 63 ABG HCO3 28 H ABG O2 Content 18.8 ABG Base Excess 2.9 H ABG Methemoglobin 1.3 Shaun Test Present Hemoglobin 15.2 Carboxyhemoglobin 1.6 O2 Delivery Device Nasal cannula Liter Flow 4.00 Inspired O2 21 Critical Value Yes - Impressions ITS Impressions Ribs X-Ray 02/12/18 19:29 CONCLUSION: Hypoaerated lungs with bilateral patchy airspace disease especially in the right upper lobe. No evidence of displaced rib fracture or pneumothorax.. Head CT 02/12/18 21:31 CONCLUSION: 1. Old right frontal and insular infarcts 2. Central atrophy with chronic ischemic white matter disease. 3. No evidence of acute infarct, hemorrhage, mass or edema. 4. Intact skull . Abdomen/Pelvis CT 02/12/18 21:32 CONCLUSION: 1. I do not see an acute intraperitoneal or pelvic process to explain current clinical symptoms. 2. Stable findings of bilateral renal cortical cysts and a stable 1.3 cm cyst in the tail of the pancreas. Worsening bibasilar atelectatic changes with old rib fracture posteriorly in the right lower chest. Regional surgical clips are likely related to the reported history of prior lobectomy. 3. Atherosclerotic calcification of the coronary arteries. Chest CTA 02/12/18 21:32 CONCLUSION: 1. No evidence of acute pulmonary embolism 2. Bilateral subsegmental airspace disease predominantly within the lower lobes. 3. Cardiomegaly with extensive coronary artery calcification. Discharge Plan - Discharge Disposition Patient Disposition: 03 Discharge to SNF - Discharge Condition Condition: Stable - Discharge Order Discharge Orders: Discharge Order (Routine); Ordered 02/15/18 Ordered By: Jacques Garvin - Physicians Team Primary Care Provider: Samuel Cruz Attending Provider: Jacques Garvin [facility]
[2018-02-14] MEDS: Furosemide 40 MG Tablet PO SCH (11:24)
[2018-02-15] MEDS ORDERED: Levothyroxine 75 MCG Tablet PO SCH (06:00)
[2018-02-15] MEDS ORDERED: Levothyroxine 100 MCG Tablet PO SCH (06:00)
[2018-02-15] MEDS: Furosemide 40 MG Tablet PO SCH (08:38)
[2018-02-15] MEDS: Folic Acid 1 MG Tablet PO SCH (08:38)
[2018-02-15] MEDS: Senna/Docusate Sodium 8.6/50 MG Tablet PO SCH (08:38)
[2018-02-15] MEDS: Metoprolol Tartrate 25 MG Tablet PO SCH (08:38)
[2018-02-15] MEDS: amLODIPine 10 MG Tablet PO SCH (08:38)
[2018-02-15] MEDS: Sertraline 100 MG Tablet PO SCH (08:39)
== END 2018-02-15 12:13 ==
LOC: NEPC 18:44 → NEDA 23:07 → HCIN 02-13 01:23
PROVIDERS: ADMIT Hospitalist; ATTEND Hospitalist